=== PATIENT | male | born 1945 | race Caucasian/White ===

== ENCOUNTER 2022-04-04 11:10 | Outpatient (CLI) | payer MEDICARE, SELFPAY ==
[2022-04-04 12:40] LABS: Creatinine Urine 161.5 mg/dL
[2022-04-04 12:44] LABS: Microalbumin Creatinine Ratio 0 mg/g (0-30); Microalbumin Urine 1 mg/dL
[2022-04-04 15:39] LABS: Albumin* 3.5 g/dL (3.3-5.0)
[2022-04-04 15:40] LABS: Chloride* 108 mmol/L (96-114); Potassium* 4.9 mmol/L (3.6-5.1); Sodium* 139 mmol/L (135-149)
[2022-04-04 15:42] LABS: Bilirubin Total* 0.7 mg/dL (0.1-1.5); Carbon Dioxide* 23 mmol/L (20-32); Cholesterol* 186 mg/dL (90-199); Creatinine* 0.8 mg/dL (0.5-1.5); Estimated Glomerular Filt Rate 91 ml/min; Total Protein* 6.5 g/dL (6.0-8.3)
[2022-04-04 15:43] LABS: Alanine Aminotransferase* 14 U/L (4-50); Alkaline Phosphatase* 106 U/L (40-150); Aspartate Amino Transferase* 18 U/L (12-35); Blood Urea Nitrogen* 7 mg/dL (7-30); Calcium* 9.1 mg/dL (8.4-10.6); Glucose* 112 mg/dL (60-115); HDL Cholesterol* 30 mg/dL (>=40); LDL Cholesterol Calculated 116 mg/dL (<100); Triglycerides* 202 mg/dL (40-149)
== END 2022-04-04 11:11 | disposition home or self-care (01) ==
LOC: NFLDREF 11:11
PROVIDERS: PCP Family Medicine; Visit Provider Family Medicine
DX: E11.9 Type 2 diabetes mellitus without complications (principal); E78.5 Hyperlipidemia, unspecified; I10 Essential (primary) hypertension
CPT/HCPCS: 80053; 80061; 82043; 82570

== ENCOUNTER 2022-05-20 12:45 | Outpatient (CLI) | payer MEDICARE, SELFPAY | END 2022-05-20 12:46 | disposition home or self-care (01) | PROVIDERS: PCP Family Medicine; Visit Provider Family Medicine | DX: R20.0 Anesthesia of skin (principal); I73.9 Peripheral vascular disease, unspecified | CPT/HCPCS: 93922 ==

== ENCOUNTER 2023-04-02 19:18 | Inpatient (IN) | payer MEDICARE, SELFPAY ==
[2023-04-02] VITALS (44 sets, daily range): BP systolic 64–149; BP diastolic 35–115; PULSE 88–123; RESP 10–31; TEMP 32; O2SAT 66–100
--- NOTE | 2023-04-02 19:33 | ED_ITS ---
HPI - General Adult General Chief complaint: Hypothermia Stated complaint: shortness of breath, weak Time Seen by Provider: 04/02/23 19:33 History of Present Illness HPI narrative: Pt has been at home without furnace for at least 2 days, found by alysia at home on bed. Pt alert to self and place per EMS. BG 299. Pt is hypothermic . 77-year-old man brought by outside EMS to this department concern of hypothermia/exposure. Apparently has been at home without heat for 2 days. Found today by denisa hartman at home in bed. Noted to be hypothermic. On arrival here head 89.6. Alerts quickly to colleague who had gone by just to evaluate quickly but to me keeping his eyes closed grunting responses but does not seem to be any distress other than fatigued. Denies any pain. Denies any fall. On repeated interviews over the course visit in the emergency department subse quent information is obtained. Says his furnace went out a couple of days ago and he has just been trying to stay warm. Does admit to drinking alcohol. He does admit that he used to drink but mostly does not anymore. Did have a few shots this evening just because he was bored. Apparently has been struggling with intermittent diarrhea rather urgent at times for at least a couple of months. Denies dark or bloody stools or any vomiting. No abdominal pain (but he told our hospitalist later that when he eats he has significant abdominal pain). He is not feeling lightheaded or short of breath he says. No chest pain however in speaking with his stepson later he says that he has been to the doctor for exertional dyspnea and leg pains. Records would indicate peripheral artery disease and claudication. Does continue to smoke. Brian reports chronic left leg numbness. Would appear that he has been seen by vascular. Not apparent what determinations have been made. Hospitalist later notes bowel wall thickening noted in various areas of the colon on imaging from this summer 2022. EMS intends to file vulnerable adult given state of home. I understand that [facility] will be cutting off water to the house as there is no functioning heat. Related Data Previous Rx's Medication Instructions Recorded amlodipine 10 mg tablet 10 mg PO QDAY #90 tabs 04/04/22 chlorthalidone 25 mg tablet 25 mg PO QDAY #90 tabs 04/04/22 lisinopril 10 mg tablet 10 mg PO QDAY #90 tabs 04/04/22 potassium chloride 20 mEq 20 meq PO BID #180 tabs 04/04/22 tablet,extended release Allergies Allergy/AdvReac Type Severity Reaction Status Date / Time No Known Allergies Allergy Unknown Unknown Verified 04/02/23 23:11 Review of Systems Status of ROS: Reports: 6 or more systems reviewed and unremarkable except as noted in History and below [facility] Social History Smoking Status: Current every day smoker What tobacco products do you use: cigarettes Do you use any of these nicotine containing products: None Second hand tobacco smoke exposure: No How often do you have a drink containing alcohol: never AUDIT-C Alcohol total score: 0 Non-prescribed substance use: denies use Little interest or pleasure in doing things: more than half the days Feeling down, depressed, or hopeless: not at all service: No Exam Narrative: Exam Narrative: On initial assessment he is not conversant beyond grunting at me. Keeping his eyes closed. He had just been up and reportedly quite conversant with my colleague. He has been placed under a Nany Hugger. Appears to be edentulous. Mucous membranes, conjunctival membranes do not appear particularly pale. Th inning head hair. Head is atraumatic. Neck is supple appears to be nontender. Back also nontender. He is generally thin. Large sebaceous cyst at the left cheek. Noninflamed. Cranial nerves 2-12 look to be intact. Pupils are equal. Lungs with mild bibasilar crepitus. Heart is elevated to tachycardic rate and appears to be in a regular rhythm. Abdomen with normoactive bowel sounds is soft and nontender. Extremities are without edema. Skin is generally cool. Small bruise in the inside of the left knee without swelling otherwise. Patches of intradermal erythema on the right forearm in particular. Skin is somewhat sallow otherwise. Const: Vital Signs, click to edit/add: Vital Signs - 24 hr 04/02/23 19:21 04/02/23 19:45 04/02/23 19:53 Temperature 89.6 F L Pulse Rate 100 Pulse Rate [Pulse Oximeter] 106 H Respiratory Rate 28 H Blood Pressure 108/92 H Blood Pressure [Le ft Upper Arm] 101/60 Pulse Oximetry 96 100 100 Oxygen Delivery Me thod Room Air Nasal Cannula Oxygen Flow Rate 1 04/02/23 20:00 04/02/23 20:02 04/02/23 20:15 Temperature Pulse Rate 100 98 95 Pulse Rate [Pulse Oximeter] Respiratory Rate 23 Blood Pressure 92/61 94/61 Blood Pressure [Le ft Upper Arm] Pulse Oximetry 90 94 89 Oxygen Delivery Me thod Nasal Cannula Oxygen Flow Rate 1 04/02/23 20:16 04/02/23 20:22 04/02/23 20:30 Temperature Pulse Rate 99 102 H 112 H Pulse Rate [Pulse Oximeter] Respiratory Rate 25 H 19 Blood Pressure 94/79 Blood Pressure [Le ft Upper Arm] Pulse Oximetry 87 L 100 99 Oxygen Delivery Me thod Oxygen Flow Rate 04/02/23 20:32 04/02/23 20:42 04/02/23 20:44 Temperature Pulse Rate 109 H Pulse Rate [Pulse Oximeter] Respiratory Rate Blood Pressure 103/88 64/47 L 101/82 Blood Pressure [Le ft Upper Arm] Pulse Oximetry 100 Oxygen Delivery Me thod Oxygen Flow Rate 04/02/23 20:53 04/02/23 21:00 04/02/23 21:02 Temperature Pulse Rate 96 93 98 Pulse Rate [Pulse Oximeter] Respiratory Rate Blood Pressure 128/115 H 68/35 L Blood Pressure [Le ft Upper Arm] Pulse Oximetry 89 70 L 66 L Oxygen Delivery Me thod Oxygen Flow Rate 04/02/23 21:05 04/02/23 21:08 04/02/23 21:10 Temperature Pulse Rate 96 102 H 109 H Pulse Rate [Pulse Oximeter] Respiratory Rate 20 16 11 L Blood Pressure 71/56 L 79/65 L 102/57 L Blood Pressure [Le ft Upper Arm] Pulse Oximetry 87 L 97 95 Oxygen Delivery Me thod Oxygen Flow Rate 04/02/23 21:12 04/02/23 21:15 04/02/23 21:42 Temperature Pulse Rate 104 H 104 H Pulse Rate [Pulse Oximeter] Respiratory Rate 18 25 H Blood Pressure 104/54 L 120/79 Blood Pressure [Le ft Upper Arm] Pulse Oximetry 91 94 Oxygen Delivery Me thod Oxygen Flow Rate 04/02/23 21:45 04/02/23 21:51 04/02/23 22:00 Temperature Pulse Rate 95 98 100 Pulse Rate [Pulse Oximeter] Respiratory Rate 29 H 26 H 17 Blood Pressure 121/64 Blood Pressure [Le ft Upper Arm] Pulse Oximetry 100 98 100 Oxygen Delivery Me thod Oxygen Flow Rate 04/02/23 22:02 04/02/23 22:15 04/02/23 22:16 Temperature Pulse Rate 98 110 H 109 H Pulse Rate [Pulse Oximeter] Respiratory Rate 30 H Blood Pressure 98/79 Blood Pressure [Le ft Upper Arm] Pulse Oximetry 100 100 100 Oxygen Delivery Me thod Oxygen Flow Rate 04/02/23 22:25 04/02/23 22:30 04/02/23 22:34 Temperature Pulse Rate 103 H 123 H 94 Pulse Rate [Pulse Oximeter] Respiratory Rate 31 H Blood Pressure 74/54 L Blood Pressure [Le ft Upper Arm] Pulse Oximetry 100 100 Oxygen Delivery Me thod Oxygen Flow Rate 04/02/23 22:36 04/02/23 22:43 04/02/23 22:45 Temperature Pulse Rate 88 92 89 Pulse Rate [Pulse Oximeter] Respiratory Rate 23 23 31 H Blood Pressure 89/58 L 149/71 H Blood Pressure [Le ft Upper Arm] Pulse Oximetry 100 100 100 Oxygen Delivery Me thod Oxygen Flow Rate 04/02/23 22:52 04/02/23 23:00 04/02/23 23:02 Temperature Pulse Rate 92 91 89 Pulse Rate [Pulse Oximeter] Respiratory Rate 26 H 25 H 23 Blood Pressure 96/53 L 96/54 L Blood Pressure [Le ft Upper Arm] Pulse Oximetry 100 100 100 Oxygen Delivery Me thod Oxygen Flow Rate 04/02/23 23:12 04/02/23 23:15 04/02/23 23:21 Temperature Pulse Rate 88 91 100 Pulse Rate [Pulse Oximeter] Respiratory Rate 20 10 L Blood Pressure 87/57 L 101/49 L Blood Pressure [Le ft Upper Arm] Pulse Oximetry 100 100 100 Oxygen Delivery Me thod Oxygen Flow Rate 04/02/23 23:23 04/02/23 23:40 04/02/23 23:43 Temperature Pulse Rate 90 91 95 Pulse Rate [Pulse Oximeter] Respiratory Rate Blood Pressure 108/71 88/61 L 89/40 L Blood Pressure [Le ft Upper Arm] Pulse Oximetry 100 77 L 100 Oxygen Delivery Me thod Oxygen Flow Rate 04/02/23 23:45 04/02/23 23:52 04/03/23 00:00 Temperature Pulse Rate 91 90 90 Pulse Rate [Pulse Oximeter] Respiratory Rate Blood Pressure 81/60 L Blood Pressure [Le ft Upper Arm] Pulse Oximetry 100 99 99 Oxygen Delivery Me thod Oxygen Flow Rate 04/03/23 01:14 Temperature 97.5 F L Pulse Rate Pulse Rate [Pulse Oximeter] 84 Respiratory Rate 12 Blood Pressure Blood Pressure [Le ft Upper Arm] 95/52 L Pulse Oximetry 99 Oxygen Delivery Me thod Room Air Oxygen Flow Rate Documenting provider has reviewed patient's vital signs: yes Course Vital Signs Vital signs: Initial Vital Signs Temperature 89.6 F L 04/02/23 19:21 Temperature Source Rectal 04/02/23 19:21 Pulse Rate 106 H 04/02/23 19:21 Respiratory Rate 28 H 04/02/23 19:21 Blood Pressure 101/60 04/02/23 19:21 Blood Pressure Mean 73 04/02/23 19:21 Blood Pressure Position Supine 04/02/23 19:21 Pulse Oximetry 96 04/02/23 19:21 Oxygen Delivery Method Room Air 04/02/23 19:21 Vital Signs Temperature 89.6 F L 04/02/23 19:21 Pulse Rate 106 H 04/02/23 19:21 Respiratory Rate 28 H 04/02/23 19:21 Blood Pressure 101/60 04/02/23 19:21 Pulse Oximetry 96 04/02/23 19:21 Oxygen Delivery Method Room Air 04/02/23 19:21 Temperature 97.5 F L 04/03/23 01:14 Pulse Rate 84 04/03/23 01:14 Respiratory Rate 12 04/03/23 01:14 Blood Pressure 95/52 L 04/03/23 01:14 Pulse Oximetry 99 04/03/23 01:14 Oxygen Delivery Method Room Air 04/03/23 01:14 Oxygen Flow Rate 1 04/02/23 20:00 Medications Administered Medications: Discontinued Medications Generic Name Dose Route Start Last Admin Trade Name Freq PRN Reason Stop Dose Admin Sodium Chloride 1,000 mls @ 1,000 mls/hr 04/02/23 19:44 04/02/23 21:25 0.9 % Sodium Chloride 1000 Ml IV 04/02/23 20:43 Infused .Q1H ONE Infusion Sodium Chloride 1,000 mls @ 1,000 mls/hr 04/02/23 21:24 01/17/24 23:00 0.9 % Sodium Chloride 1000 Ml IV 04/02/23 22:23 Infused .Q1H ONE Infusion Piperacillin Sod/Tazobactam 100 mls @ 200 mls/hr 04/02/23 23:17 04/03/23 00:26 Sod 3.375 gm/ Sodium Chloride IVPB 04/02/23 23:18 Infused ONCE ONE Infusion Lorazepam 0.5 mg 04/02/23 21:24 04/02/23 21:58 Lorazepam 2 Mg/Ml Inj IVP 04/02/23 21:25 0.5 mg ONCE ONE Administration Medical Decision Making MDM Narrative Medical decision making narrative: Will need to closely monitor given hypothermia. Placed on oximetry and cardiac monitoring. EKG. Initiating secondary IV. Will begin with warm normal saline fluids resuscitation. As warm can make further assessments. In addition to bear hugger is given other radiant warmer. OB looking for potential sources of infection. Blood cultures. Initial labs demonstrating acidosis with rather high lactate of 18. CRP 5.2. White count is 16.8 and hemoglobin of 6.1 hematocrit is also low so I do have concerns that this hemoglobin is real. Unclear source of bleeding at this point. Anion gap 29. CPK 49 is actually low. Alcohol level of 0.06. Anticipating rechecking as warm up. Seems restless. Little confused at times but does continue to clear. Did check stool Hemoccult on 1 urgent loose stool. This was negative. Blood pressures are a somewhat labile as he is restless and regularly rotating position in bed. Correct pressure seems to be stable approximately low 100 over 60s. Lower pressures seem to correlate with the arm with the blood pressure cuff up as he sleeps on the opposite side peer Temperature near normal. Rechecking labs. Lactate still quite high though improved as is the pH now to 7.1. Frankly looks surprisingly good, alert, and conversant and with acceptable vitals and a mild tachycardia. Sepsis still needs to be in differential. He is rechecking hemoglobin hematocrit this does appear to be a real measurement of 5.9 for hemoglobin. He has not heard in the past that he has been anemic. Denies ever receiving a transfusion. Have discussed this case with our hospitalist. We are limited on beds. Blood type is O negative. We have very limited supply of this. Perhaps O positive would be an option of which we have 4 units. Outside facilities on varying levels of diversion. Patient looks much better than labs. From perspective of direct interaction and vitals, does not need ICU. Will be initiating Zosyn with concern of potential sepsis. And IV contrasted CT scan abdomen pelvis. 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 He says one shouldn't expect much for 10,000 dollars. I have reviewed CT images of abdomen pelvis. Appears to be extensive vascular disease. Aorta with what looks to be an extensive infrarenal aneurysm. There is also a large mass in the right mid abdomen of the colon that I would expect to be malignancy. At this point has had 2 diarrheal bowel movements and appears to have urinated with the 2nd 1:12 a.m. is just had latest blood pressure of 93/52 and a pulse of 85. He still mentating normally very alert. Says he is little cold. Over-read of CT abdomen and pelvis with IV contrast by Radiology INDICATION: Severe anemia. TECHNIQUE: CT abdomen and pelvis acquired with 97 mL Isovue 370 IV contrast. COMPARISON: CTA abdomen dated 09/18/2022. FINDINGS: Lower chest: Subsegmental atelectasis/scarring in the right middle lobe. No focal consolidation. Liver: No suspicious focal hepatic lesion. Gallbladder and bile ducts: Cholelithiasis. No secondary signs of acute cholecystitis. Pancreas: Stable 0.9 cm cystic lesion in the pancreatic head (series 2, image 50). Spleen: Unremarkable. Adrenal glands: Unremarkable. Kidneys: Kidneys enhance symmetrically, without hydronephrosis. Too small to characterize hypodense bilateral renal lesions. Retroperitoneum: No lymphadenopathy. Bowel and mesentery: Bowel is not obstructed. No significant ascites. No pneumoperitoneum. Scattered colonic diverticulosis, without evidence of acute diverticulitis. Large irregular mass involving the cecum and proximal ascending colon, increased in conspicuity since prior study, worrisome for primary colonic neoplasm. Bladder: Mild circumferential bladder wall thickening, stable. Reproductive organs: No prostatomegaly. Pelvic lymph nodes: No lymphadenopathy. Vessels: Severe calcified and noncalcified atherosclerotic plaque. Celiac artery is patent. Nonocclusive plaque in the distal SMA, unchanged. Diminutive right renal arteries, unchanged. Patent left renal artery. Partially visualized JEFF appears patent. Aneurysmal dilation of the infrarenal abdominal aorta measuring up to 4.0 cm, slightly increased. Chronic occlusion of the right common iliac artery. Multifocal severe stenosis of the left common iliac artery, similar to prior study. Abdominal wall: No acute abdominal wall abnormality. Bones: Severe multilevel degenerative changes of the spine. Bones are osteopenic. IMPRESSION: 1. Large irregular mass involving the cecum and proximal ascending colon, increased in conspicuity since prior study, highly worrisome for primary colonic neoplasm. 2. Severe atherosclerotic disease of the abdominal aorta, with aneurysmal dilation of the infrarenal abdominal aorta measuring up to 4.0 cm, slightly increased since prior study. 3. Chronic occlusion of the right common iliac artery. Multifocal severe stenosis of the left common iliac artery. 4. Numerous additional incidental findings as above. Complicated case further challenged by social circumstances. I think it is beneficial that he remain in the community and hopefully can be helped by social work. Furthermore Mr. Bradford does not want to go to an outside/tertiary facility and is unsure what he would want to do regarding what is likely a malignancy in his abdomen anyway. Infrarenal aortic aneurysm looks to be relatively stable from imaging from last summer per Radiology report. Slightly enlarged to 4 cm in maximal diameter. Stenosis of iliac arteries particularly the left I would think could explain the numbness that he has been feeling chronically in his left leg I have discussed this case with our overnight hospitalist coverage for admission. Due to lack of availability of enough type specific blood, will be initiating further fluid resuscitation and unit of crossmatched O positive. 2 units are ready to go at this point. Lab Data Lab results reviewed: Yes I reviewed the patient's lab results Labs: Lab Results 04/02/23 04/02/23 04/02/23 Range/Units 19:43 19:51 20:14 WBC 16.82 H (4.50-11.00) K/uL RBC 3.55 L (4.30-5.90) m/uL Hgb 6.1 L* (13.5-17.5) gm/dL Hct 23.9 L (37.0-53.0) % MCV 67 L (80-100) fL MCH 17 L (26-34) pg MCHC 26 L (32-36) gm/dL RDW Coeff of Nissa 18.4 H (11.5-15.5) % Plt Count 609 H (140-440) K/uL Neut % (Auto) 80.5 H (42.0-72.0) % Lymph % (Auto) 12.7 L (20-44) % [place] % (Auto) 3.9 (0.0-11.0) % Eos % (Auto) 0.1 (0.0-7.0) % Baso % (Auto) 0.1 (0.0-3.0) % Neut # (Auto) 13.50 H (1.7-7.0) K/uL Lymph # (Auto) 2.10 (0.90-2.90) K/uL [place] # (Auto) 0.70 (0.00-0.90) K/UL Eos # (Auto) 0.00 (0.00-0.50) K/uL Baso # (Auto) 0.00 (0.00-0.30) K/uL Abs Immat Gran (auto) 0.50 H (0.00-0.30) K/uL Imm/Tot Granulo (auto) 2.7 % VBG pH 7.033 L* (7.32-7.43) VBG pCO2 24 L (40-50) mmHG VBG pO2 46.6 (25-47) mmHG VBG HCO3 6 L (21-28) mmol/L Sodium 139 (135-149) mmol/L Potassium 3.9 (3.6-5.1) mmol/L Chloride 105 (96-114) mmol/L Carbon Dioxide < 5 L* (20-32) mmol/L Anion Gap 29 H (7-15) mEq/L BUN 11 (7-30) mg/dL Creatinine 1.0 (0.5-1.5) mg/dL Estimated GFR 77 ml/min Glucose 284 H (60-115) mg/dL Lactate 18.0 H* (0.5-1.9) mmol/L Calcium 8.8 (8.4-10.6) mg/dL Magnesium 2.3 (1.5-2.6) mg/dL Total Bilirubin 0.6 (0.1-1.5) mg/dL Direct Bilirubin 0.3 (0.0-0.5) mg/dL AST 29 (12-35) U/L ALT 37 (4-50) U/L Alkaline Phosphatase 87 (40-150) U/L Total Creatine Kinase 49 L (54-186) U/L Troponin I < 0.01 L (0.01-0.04) ng/mL C-Reactive Protein 5.2 H (0.5-1.0) mg/dL NT-Pro-B Natriuret Pep 926 pg/mL Total Protein 7.2 (6.0-8.3) g/dL Albumin 3.7 (3.3-5.0) g/dL Ethyl Alcohol 0.06 H (0.01-0.03) % SARS-CoV-2 (PCR) Negative SARS-CoV-2 (Negative) Influenza Type A (PCR) Negative PCR FLU A (Negative) Influenza Type B (PCR) Negative PCR FLU B (Negative) RSV (PCR) Negative PCR RSV (Negative) Lab Acknowledgement Blood Type O Negative Antibody Screen NEGATIVE 04/02/23 04/03/23 Range/Units 22:08 00:58 WBC 15.40 H (4.50-11.00) K/uL RBC 3.47 L (4.30-5.90) m/uL Hgb 5.9 L* (13.5-17.5) gm/dL Hct 23.3 L (37.0-53.0) % MCV 67 L (80-100) fL MCH 17 L (26-34) pg MCHC 25 L (32-36) gm/dL RDW Coeff of Nissa 18.4 H (11.5-15.5) % Plt Count 525 H (140-440) K/uL Neut % (Auto) 86.5 H (42.0-72.0) % Lymph % (Auto) 4.3 L (20-44) % [place] % (Auto) 8.1 (0.0-11.0) % Eos % (Auto) 0.0 (0.0-7.0) % Baso % (Auto) 0.1 (0.0-3.0) % Neut # (Auto) 13.30 H (1.7-7.0) K/uL Lymph # (Auto) 0.70 L (0.90-2.90) K/uL [place] # (Auto) 1.20 H (0.00-0.90) K/UL Eos # (Auto) 0.00 (0.00-0.50) K/uL Baso # (Auto) 0.00 (0.00-0.30) K/uL Abs Immat Gran (auto) 0.20 (0.00-0.30) K/uL Imm/Tot Granulo (auto) 1.0 % VBG pH 7.174 L* (7.32-7.43) VBG pCO2 22 L (40-50) mmHG VBG pO2 34.3 (25-47) mmHG VBG HCO3 8 L (21-28) mmol/L Sodium (135-149) mmol/L Potassium (3.6-5.1) mmol/L Chloride (96-114) mmol/L Carbon Dioxide (20-32) mmol/L Anion Gap (7-15) mEq/L BUN (7-30) mg/dL Creatinine (0.5-1.5) mg/dL Estimated GFR ml/min Glucose (60-115) mg/dL Lactate 16.0 H* (0.5-1.9) mmol/L Calcium (8.4-10.6) mg/dL Magnesium (1.5-2.6) mg/dL Total Bilirubin (0.1-1.5) mg/dL Direct Bilirubin (0.0-0.5) mg/dL AST (12-35) U/L ALT (4-50) U/L Alkaline Phosphatase (40-150) U/L Total Creatine Kinase (54-186) U/L Troponin I (0.01-0.04) ng/mL C-Reactive Protein (0.5-1.0) mg/dL NT-Pro-B Natriuret Pep pg/mL Total Protein (6.0-8.3) g/dL Albumin (3.3-5.0) g/dL Ethyl Alcohol (0.01-0.03) % SARS-CoV-2 (PCR) (Negative) Influenza Type A (PCR) (Negative) Influenza Type B (PCR) (Negative) RSV (PCR) (Negative) Lab Acknowledgement Test Added Blood Type Antibody Screen ECG Data Attestation: I personally reviewed and interpreted this ECG as follows: (EKG shows sinus tachycardia with baseline irritability. PVC. Rate of 103.) Critical Care Time Critical Care Time Critical Care Time: Yes Attestation: The patient required my highest level preparedness to intervene emergently and I personally spent this critical care time directly and personally managing the patient. This critical care time included: Obtaining a history; Examining the patient; Pulse oximetry; Ordering and reviewing of studies; Arranging urgent treatment with development of a management plan; Evaluation of patients response to treatment; Frequent reassessment discussions with other providers. This critical care time was performed to assess and manage the high probability of imminent life-threatening deterioration that could result in multiorgan failure. It was exclusive of separate billable procedures and treating other patients and teaching time. Total Critical Care Time in Minutes: 75 Discharge Plan Discharge Clinical Impression: Acidosis, Anemia, Dehydration, Abdominal mass, Hypothermia Patient Disposition: Admitted As Observation Condition: Stable
--- NOTE | 2023-04-02 19:45 | CRLHL7_ITS ---
For Patients: As a result of the Cures Act, medical imaging exams and procedure reports are released immediately into your electronic medical record. You may view this report before your referring provider. If you have questions, please contact your health care provider. INDICATION: Altered mental status. Possible hypothermia. TECHNIQUE: Chest 1 views. COMPARISON: None. FINDINGS: Cardiovasculature and mediastinum: Heart size and vasculature are normal in caliber and appearance. Lungs and pleural spaces: Lungs are clear. No sign of infiltrate or mass. No sign of pleural effusion. No pneumothorax. Bones and soft tissues: No significant findings. IMPRESSION: No acute or significant findings. Dictated by David Nielsen MD @ 04/02/2023 8:41:28 PM (Electronically Signed)
[2023-04-02] MEDS: 0.9 % SODIUM CHLORIDE 1000 ml 1,000 ML IV ×2 (19:50→21:58)
[2023-04-02 19:55] LABS: HCO3 VBG 6 mmol/L (21-28); PCO2 VBG 24 mmHG (40-50); PO2 VBG 46.6 mmHG (25-47)
[2023-04-02 19:59] LABS: Basophils Percent Auto 0.1 % (0.0-3.0); Eosinophils Percent Auto 0.1 % (0.0-7.0); Hematocrit 23.9 % (37.0-53.0); Immature Granulocytes Pct Auto 2.7 %; Lymphocytes Percent Auto 12.7 % (20-44); Mean Corpuscular HGB Conc 26 gm/dL (32-36); Mean Corpuscular Hemoglobin 17 pg (26-34); Mean Corpuscular Volume 67 fL (80-100); Monocytes Percent Auto 3.9 % (0.0-11.0); Neutrophils Percent Auto 80.5 % (42.0-72.0); Platelet Count* 609 K/uL (140-440); RDW Coefficient of Variation % 18.4 % (11.5-15.5); Red Blood Count 3.55 m/uL (4.30-5.90); White Blood Count* 16.82 K/uL (4.50-11.00)
[2023-04-02 20:04] LABS: Hemoglobin* 6.1 gm/dL (13.5-17.5); Slide Review Reflex No; pH VBG 7.033 (7.32-7.43)
--- OUTSIDE RECORDS SUMMARY | 2023-04-02 20:15 | XMS_ITS | Clinical Summary ---
Author Name Unknown Organization [facility] Address [place], [place] [address] Care Team Providers Care Resource Coordinator Name Role Phone David Camacho MD Primary Care Provider [phone] Allergies No known active allergies Medications Medication Sig Dispensed Refills Start Date End Date Status amLODIPine (NORVASC) 10 mg tablet Take 10 mg by mouth once daily. 0 05/06/2022 Active chlorthalidone (HYGROTON) 25 mg tablet Take 25 mg by mouth once daily. 0 05/06/2022 Active lisinopriL (PRINIVIL; ZESTRIL) 10 mg tablet Take 10 mg by mouth once daily. 0 05/06/2022 Active potassium chloride (KLOR-CON) 20 mEq extended-release tablet (part/cryst) Take 20 mEq by mouth. 0 05/06/2022 Active Social History Tobacco Use Types Packs/Day Years Used Date Smoking Tobacco: Every Day Cigars Smokeless Tobacco: Never Tobacco Cessation:Ready to Q uit: Not Asked; Counseling Given: Not Answered Sex and Gender Information Value Date Recorded Sex Assigned at Not on file Gender Identity Not on file Sexual Orientation Not on file Obstetrics History Last Filed Vital Signs Vital Sign Reading Time Taken Comments Blood Pressure 110/74 08/22/2022 12:59 PM CDT Pulse 107 08/22/2022 12:59 PM CDT Temperature - - Respiratory Rate - - Oxygen Saturation 99% 08/22/2022 12:59 PM CDT Inhaled Oxygen Concentration - - Weight - - Height - - Body Mass Index - - Plan of Treatment Health Maintenance Due Date Last Done Comments Tdap 09/08/1956 Depression screening for age 12+ 1956 BMI (ht and wt on same day) for age 18+ 1962 Hepatitis C screening for age 18-79 1962 Tetanus booster 1964 Zoster (shingles) series for age 50+ (1 of 2) 1994 Pneumococcal series for age 65+ (1 of 1 - PCV) 2009 COVID-19 vaccine series ( - 2022- season) 2022 04/24/2021, 05/23/2020, 05/02/2020 Influenza for age 65+ 11/15/2022 Care Teams Resource Coordinator Relationship Specialty Start Date End Date David Camacho MD [address] [place] [id number] PCP - General Family Practice 07/29/22
[2023-04-02 20:20] LABS: Albumin* 3.7 g/dL (3.3-5.0); Chloride* 105 mmol/L (96-114)
[2023-04-02 20:21] LABS: Potassium* 3.9 mmol/L (3.6-5.1); Sodium* 139 mmol/L (135-149)
[2023-04-02 20:23] LABS: Estimated Glomerular Filt Rate 77 ml/min
[2023-04-02 20:24] LABS: Alanine Aminotransferase* 37 U/L (4-50); Alkaline Phosphatase* 87 U/L (40-150); Aspartate Amino Transferase* 29 U/L (12-35); Bilirubin Direct* 0.3 mg/dL (0.0-0.5); Bilirubin Total* 0.6 mg/dL (0.1-1.5); Blood Urea Nitrogen* 11 mg/dL (7-30); Calcium* 8.8 mg/dL (8.4-10.6); Glucose* 284 mg/dL (60-115); Magnesium* 2.3 mg/dL (1.5-2.6); Total Protein* 7.2 g/dL (6.0-8.3)
[2023-04-02 20:25] LABS: Ethanol* 0.06 % (0.01-0.03)
[2023-04-02 20:26] LABS: C Reactive Protein* 5.2 mg/dL (0.5-1.0)
[2023-04-02 20:33] LABS: Anion Gap 29 mEq/L (7-15)
[2023-04-02 20:34] LABS: Carbon Dioxide* < 5 mmol/L (20-32)
--- NOTE | 2023-04-02 20:34 | ED.NURSE ---
Received call from EMS staff, [facility]. He wanted to make sure that we contacted hospital to follow patient. Per [facility], pt's living conditions were horrible. Pt was without water and heat for at least 2 days and was found down by furnace repair man. Pt is not safe to return home and [facility] is filing a [facility] report due to pt's inability to care for himself at home. Message left with VIKAS Lopez, for consult on patient tomorrow when in office.
[2023-04-02 20:36] LABS: PCR FLU A Negative PCR FLU A (Negative); PCR FLU B Negative PCR FLU B (Negative); PCR RSV Negative PCR RSV (Negative); SARS PCR* Negative SARS-CoV-2 (Negative)
[2023-04-02 20:37] LABS: NT Pro B Type NatriureticPept* 926 pg/mL
[2023-04-02 20:55] LABS: Troponin I* < 0.01 ng/mL (0.01-0.04)
[2023-04-02 21:08] LABS: Creatine Kinase* 49 U/L (54-186)
[2023-04-02] MEDS: LORazepam 2 MG/ML inj 0.5 MG IVP (21:58)
[2023-04-02 22:12] LABS: HCO3 VBG 8 mmol/L (21-28); PCO2 VBG 22 mmHG (40-50); PO2 VBG 34.3 mmHG (25-47)
[2023-04-02 22:13] LABS: pH VBG 7.174 (7.32-7.43)
[2023-04-02 22:26] LABS: Basophils Percent Auto 0.1 % (0.0-3.0); Hematocrit 23.3 % (37.0-53.0); Lymphocytes Percent Auto 4.3 % (20-44); Mean Corpuscular HGB Conc 25 gm/dL (32-36); Mean Corpuscular Hemoglobin 17 pg (26-34); Mean Corpuscular Volume 67 fL (80-100); Monocytes Percent Auto 8.1 % (0.0-11.0); Neutrophils Percent Auto 86.5 % (42.0-72.0); Platelet Count* 525 K/uL (140-440); RDW Coefficient of Variation % 18.4 % (11.5-15.5); Red Blood Count 3.47 m/uL (4.30-5.90)
[2023-04-02 22:28] LABS: Hemoglobin* 5.9 gm/dL (13.5-17.5); Slide Review Reflex No
--- NOTE | 2023-04-02 23:12 | CRLHL7_ITS ---
For Patients: As a result of the Century Cures Act, medical imaging exams and procedure reports are released immediately into your electronic medical record. You may view this report before your referring provider. If you have questions, please contact your health care provider. INDICATION: Severe anemia. TECHNIQUE: CT abdomen and pelvis acquired with 97 mL Isovue 370 IV contrast. COMPARISON: CTA abdomen dated 09/18/2022. FINDINGS: Lower chest: Subsegmental atelectasis/scarring in the right middle lobe. No focal consolidation. Liver: No suspicious focal hepatic lesion. Gallbladder and bile ducts: Cholelithiasis. No secondary signs of acute cholecystitis. Pancreas: Stable 0.9 cm cystic lesion in the pancreatic head (series 2, image 50). Spleen: Unremarkable. Adrenal glands: Unremarkable. Kidneys: Kidneys enhance symmetrically, without hydronephrosis. Too small to characterize hypodense bilateral renal lesions. Retroperitoneum: No lymphadenopathy. Bowel and mesentery: Bowel is not obstructed. No significant ascites. No pneumoperitoneum. Scattered colonic diverticulosis, without evidence of acute diverticulitis. Large irregular mass involving the cecum and proximal ascending colon, increased in conspicuity since prior study, worrisome for primary colonic neoplasm. Bladder: Mild circumferential bladder wall thickening, stable. Reproductive organs: No prostatomegaly. Pelvic lymph nodes: No lymphadenopathy. Vessels: Severe calcified and noncalcified atherosclerotic plaque. Celiac artery is patent. Nonocclusive plaque in the distal SMA, unchanged. Diminutive right renal arteries, unchanged. Patent left renal artery. Partially visualized JEFF appears patent. Aneurysmal dilation of the infrarenal abdominal aorta measuring up to 4.0 cm, slightly increased. Chronic occlusion of the right common iliac artery. Multifocal severe stenosis of the left common iliac artery, similar to prior study. Abdominal wall: No acute abdominal wall abnormality. Bones: Severe multilevel degenerative changes of the spine. Bones are osteopenic. IMPRESSION: 1. Large irregular mass involving the cecum and proximal ascending colon, increased in conspicuity since prior study, highly worrisome for primary colonic neoplasm. 2. Severe atherosclerotic disease of the abdominal aorta, with aneurysmal dilation of the infrarenal abdominal aorta measuring up to 4.0 cm, slightly increased since prior study. 3. Chronic occlusion of the right common iliac artery. Multifocal severe stenosis of the left common iliac artery. 4. Numerous additional incidental findings as above. Please note that all CT scans at this facility use dose modulation, iterative reconstruction, and/or weight-based dosing when appropriate to reduce radiation dose to as low as reasonably achievable. Dictated by Shari Gruber MD @ 04/03/2023 12:40:55 AM (Electronically Signed)
[2023-04-02] MEDS: PIPERACILLIN/TAZOBACTAM 3.375 GM in 0.9 % SODIUM CHLORIDE Mini-bag 100 ML IVPB (23:50)
[2023-04-03] VITALS (13 sets, daily range): BP systolic 91–116; BP diastolic 47–67; PULSE 64–90; RESP 12–18; TEMP 36.4–37.1; O2SAT 99–100; BMI 25.3
--- NOTE | 2023-04-03 01:21 | ED.NURSE ---
Report called to MATILDE Montano on med/surg. ER course discussed with nurse. All questions answered. Pt will admit to room 255. Pt in stable condition upon transfer. All belongings with pt upon admission to floor.
[2023-04-03 01:50] LABS: Immature Reticulocyte Fraction 20.5 % (2.3-13.4); Reticulocyte Hemoglobin Equivi 12.2 pg (29.0-35.0); Reticulocyte Percent 2.6 % (0.5-2.0); Reticulocytes Absolute 0.09 # (0.03-0.08)
[2023-04-03 01:56] LABS: Iron* 28 ug/dL (49-181)
[2023-04-03 01:57] LABS: Lab Add On Test New Spec Needed
[2023-04-03 01:59] LABS: Procalcitonin* 0.31 ng/mL (<0.50)
[2023-04-03 02:05] LABS: Percent Iron Saturation 7 % (20-50); Total Iron Binding Capacity 412 ug/dL (261-462)
--- NOTE | 2023-04-03 02:30 | W.PM.TELEH&P ---
Telehealth- H&P: HPI History of Present Illness Time Seen by Provider: 02:08 Date Seen: 04/03/23 Chief complaint: shortness of breath, weak Narrative: Brian Bradford is seen as an Interactive Telehealth visit. Brian Bradford is a 77 year old With history ofLongstanding tobaccoism, type 2 diabetes, essential hypertension, peripheral vascular disease, who was found in his home by the heating repair man weak and confused and house without heat in the house is quite disheveled. His core temperature was 89 ?F. Is brought to the emergency room and rewarmed with warm IV fluids and a Nany hugger successfully. Laboratory data showed a new hemoglobin of 6.5 microchromic microcytic. He relates pain after eating poor appetite. Denies any melena hematochezia Mattole emesis. Denies fevers or chills.Being admitted for further evaluation. Review of Systems Status of ROS: Reports: 10 or more systems reviewed and unremarkable except as noted in History and below [facility] Social History Smoking Status: Current every day smoker What tobacco products do you use: cigarettes Do you use any of these nicotine containing products: None Second hand tobacco smoke exposure: No How often do you have a drink containing alcohol: never AUDIT-C Alcohol total score: 0 Non-prescribed substance use: denies use Little interest or pleasure in doing things: more than half the days Feeling down, depressed, or hopeless: not at all service: No Meds Home Medications and Allergies Allergies Allergy/AdvReac Type Severity Reaction Status Date / Time No Known Allergies Allergy Unknown Unknown Verified 04/02/23 23:11 Exam Narrative Exam Narrative: Physical Exam GENERAL: ?vital signs reviewedAwake alert oriented HEENT: pupils are equal round and reactive to light, extraocular movements are grossly within normal limits and oral mucosa is moist. NECK: Supple without lymphadenopathy or thyromegaly according to nursing staff examination observation HEART: Regular rate and rhythm without any rubs, murmurs, or gallops. LUNGS: Clear to auscultation bilaterally with good air movement throughout ABDOMEN: Observation from nurse assisted exam, abdomen appears soft, nontender, and nondistended with Positive bowel sounds noted. EXTREMITIES: Distal extremities somewhat cool but adequate perfusion. No skin breakdown noted no edema Neurologic grossly nonfocal Const Vital Signs, click to edit/add: Vital Signs - 24 hr 04/02/23 19:21 04/02/23 19:45 04/02/23 19:53 Temperature 89.6 F L Pulse Rate 100 Pulse Rate [Pulse Oximeter] 106 H Respiratory Rate 28 H Blood Pressure 108/92 H Blood Pressure [Left Upper Arm] 101/60 Pulse Oximetry 96 100 100 Oxygen Delivery Method Room Air Nasal Cannula Oxygen Flow Rate 1 04/02/23 20:00 04/02/23 20:02 04/02/23 20:15 Temperature Pulse Rate 100 98 95 Pulse Rate [Pulse Oximeter] Respiratory Rate 23 Blood Pressure 92/61 94/61 Blood Pressure [Left Upper Arm] Pulse Oximetry 90 94 89 Oxygen Delivery Method Nasal Cannula Oxygen Flow Rate 1 04/02/23 20:16 04/02/23 20:22 04/02/23 20:30 Temperature Pulse Rate 99 102 H 112 H Pulse Rate [Pulse Oximeter] Respiratory Rate 25 H 19 Blood Pressure 94/79 Blood Pressure [Left Upper Arm] Pulse Oximetry 87 L 100 99 Oxygen Delivery Method Oxygen Flow Rate 04/02/23 20:32 04/02/23 20:42 04/02/23 20:44 Temperature Pulse Rate 109 H Pulse Rate [Pulse Oximeter] Respiratory Rate Blood Pressure 103/88 64/47 L 101/82 Blood Pressure [Left Upper Arm] Pulse Oximetry 100 Oxygen Delivery Method Oxygen Flow Rate 04/02/23 20:53 04/02/23 21:00 04/02/23 21:02 Temperature Pulse Rate 96 93 98 Pulse Rate [Pulse Oximeter] Respiratory Rate Blood Pressure 128/115 H 68/35 L Blood Pressure [Left Upper Arm] Pulse Oximetry 89 70 L 66 L Oxygen Delivery Method Oxygen Flow Rate 04/02/23 21:05 04/02/23 21:08 04/02/23 21:10 Temperature Pulse Rate 96 102 H 109 H Pulse Rate [Pulse Oximeter] Respiratory Rate 20 16 11 L Blood Pressure 71/56 L 79/65 L 102/57 L Blood Pressure [Left Upper Arm] Pulse Oximetry 87 L 97 95 Oxygen Delivery Method Oxygen Flow Rate 04/02/23 21:12 04/02/23 21:15 04/02/23 21:42 Temperature Pulse Rate 104 H 104 H Pulse Rate [Pulse Oximeter] Respiratory Rate 18 25 H Blood Pressure 104/54 L 120/79 Blood Pressure [Left Upper Arm] Pulse Oximetry 91 94 Oxygen Delivery Method Oxygen Flow Rate 04/02/23 21:45 04/02/23 21:51 04/02/23 22:00 Temperature Pulse Rate 95 98 100 Pulse Rate [Pulse Oximeter] Respiratory Rate 29 H 26 H 17 Blood Pressure 121/64 Blood Pressure [Left Upper Arm] Pulse Oximetry 100 98 100 Oxygen Delivery Method Oxygen Flow Rate 04/02/23 22:02 04/02/23 22:15 04/02/23 22:16 Temperature Pulse Rate 98 110 H 109 H Pulse Rate [Pulse Oximeter] Respiratory Rate 30 H Blood Pressure 98/79 Blood Pressure [Left Upper Arm] Pulse Oximetry 100 100 100 Oxygen Delivery Method Oxygen Flow Rate 04/02/23 22:25 04/02/23 22:30 04/02/23 22:34 Temperature Pulse Rate 103 H 123 H 94 Pulse Rate [Pulse Oximeter] Respiratory Rate 31 H Blood Pressure 74/54 L Blood Pressure [Left Upper Arm] Pulse Oximetry 100 100 Oxygen Delivery Method Oxygen Flow Rate 04/02/23 22:36 04/02/23 22:43 04/02/23 22:45 Temperature Pulse Rate 88 92 89 Pulse Rate [Pulse Oximeter] Respiratory Rate 23 23 31 H Blood Pressure 89/58 L 149/71 H Blood Pressure [Left Upper Arm] Pulse Oximetry 100 100 100 Oxygen Delivery Method Oxygen Flow Rate 04/02/23 22:52 04/02/23 23:00 04/02/23 23:02 Temperature Pulse Rate 92 91 89 Pulse Rate [Pulse Oximeter] Respiratory Rate 26 H 25 H 23 Blood Pressure 96/53 L 96/54 L Blood Pressure [Left Upper Arm] Pulse Oximetry 100 100 100 Oxygen Delivery Method Oxygen Flow Rate 04/02/23 23:12 04/02/23 23:15 04/02/23 23:21 Temperature Pulse Rate 88 91 100 Pulse Rate [Pulse Oximeter] Respiratory Rate 20 10 L Blood Pressure 87/57 L 101/49 L Blood Pressure [Left Upper Arm] Pulse Oximetry 100 100 100 Oxygen Delivery Method Oxygen Flow Rate 04/02/23 23:23 04/02/23 23:40 04/02/23 23:43 Temperature Pulse Rate 90 91 95 Pulse Rate [Pulse Oximeter] Respiratory Rate Blood Pressure 108/71 88/61 L 89/40 L Blood Pressure [Left Upper Arm] Pulse Oximetry 100 77 L 100 Oxygen Delivery Method Oxygen Flow Rate 04/02/23 23:45 04/02/23 23:52 04/03/23 00:00 Temperature Pulse Rate 91 90 90 Pulse Rate [Pulse Oximeter] Respiratory Rate Blood Pressure 81/60 L Blood Pressure [Left Upper Arm] Pulse Oximetry 100 99 99 Oxygen Delivery Method Oxygen Flow Rate 04/03/23 01:14 Temperature 97.5 F L Pulse Rate Pulse Rate [Pulse Oximeter] 84 Respiratory Rate 12 Blood Pressure Blood Pressure [Left Upper Arm] 95/52 L Pulse Oximetry 99 Oxygen Delivery Method Room Air Oxygen Flow Rate Hospitalist - H&P: Result Labs Labs: Laboratory Results - last 24 hr 04/02/23 04/02/23 04/02/23 19:43 19:51 20:14 WBC 16.82 H RBC 3.55 L Hgb 6.1 L* Hct 23.9 L MCV 67 L MCH 17 L MCHC 26 L RDW Coeff of Nissa 18.4 H Plt Count 609 H Neut % (Auto) 80.5 H Lymph % (Auto) 12.7 L Stearns % (Auto) 3.9 Eos % (Auto) 0.1 Baso % (Auto) 0.1 Neut # (Auto) 13.50 H Lymph # (Auto) 2.10 Stearns # (Auto) 0.70 Eos # (Auto) 0.00 Baso # (Auto) 0.00 Abs Immat Gran (auto) 0.50 H Imm/Tot Granulo (auto) 2.7 Absolute Retic 0.09 H Percent Retic 2.6 H Immature Retic Fraction 20.5 H Retic Hgb Equivalent 12.2 L VBG pH 7.033 L* VBG pCO2 24 L VBG pO2 46.6 VBG HCO3 6 L Sodium 139 Potassium 3.9 Chloride 105 Carbon Dioxide < 5 L* Anion Gap 29 H BUN 11 Creatinine 1.0 Estimated GFR 77 Glucose 284 H Lactate 18.0 H* Calcium 8.8 Magnesium 2.3 Iron 28 L TIBC 412 % Saturation 7 L Ferritin 12.7 L Total Bilirubin 0.6 Direct Bilirubin 0.3 AST 29 ALT 37 Alkaline Phosphatase 87 Total Creatine Kinase 49 L Troponin I < 0.01 L C-Reactive Protein 5.2 H NT-Pro-B Natriuret Pep 926 Total Protein 7.2 Albumin 3.7 Procalcitonin 0.31 Ethyl Alcohol 0.06 H SARS-CoV-2 (PCR) Negative SARS-CoV-2 Influenza Type A (PCR) Negative PCR FLU A Influenza Type B (PCR) Negative PCR FLU B RSV (PCR) Negative PCR RSV Lab Acknowledgement Blood Type O Negative Antibody Screen NEGATIVE 04/02/23 04/03/23 04/03/23 22:08 00:58 01:24 WBC 15.40 H RBC 3.47 L Hgb 5.9 L* Hct 23.3 L MCV 67 L MCH 17 L MCHC 25 L RDW Coeff of Nissa 18.4 H Plt Count 525 H Neut % (Auto) 86.5 H Lymph % (Auto) 4.3 L Stearns % (Auto) 8.1 Eos % (Auto) 0.0 Baso % (Auto) 0.1 Neut # (Auto) 13.30 H Lymph # (Auto) 0.70 L Stearns # (Auto) 1.20 H Eos # (Auto) 0.00 Baso # (Auto) 0.00 Abs Immat Gran (auto) 0.20 Imm/Tot Granulo (auto) 1.0 Absolute Retic Percent Retic Immature Retic Fraction Retic Hgb Equivalent VBG pH 7.174 L* VBG pCO2 22 L VBG pO2 34.3 VBG HCO3 8 L Sodium Potassium Chloride Carbon Dioxide Anion Gap BUN Creatinine Estimated GFR Glucose Lactate 16.0 H* Calcium Magnesium Iron TIBC % Saturation Ferritin Total Bilirubin Direct Bilirubin AST ALT Alkaline Phosphatase Total Creatine Kinase Troponin I C-Reactive Protein NT-Pro-B Natriuret Pep Total Protein Albumin Procalcitonin Ethyl Alcohol SARS-CoV-2 (PCR) Influenza Type A (PCR) Influenza Type B (PCR) RSV (PCR) Lab Acknowledgement Test Added Test Added Blood Type Antibody Screen 04/03/23 01:41 WBC RBC Hgb Hct MCV MCH MCHC RDW Coeff of Nissa Plt Count Neut % (Auto) Lymph % (Auto) Stearns % (Auto) Eos % (Auto) Baso % (Auto) Neut # (Auto) Lymph # (Auto) Stearns # (Auto) Eos # (Auto) Baso # (Auto) Abs Immat Gran (auto) Imm/Tot Granulo (auto) Absolute Retic Percent Retic Immature Retic Fraction Retic Hgb Equivalent VBG pH VBG pCO2 VBG pO2 VBG HCO3 Sodium Potassium Chloride Carbon Dioxide Anion Gap BUN Creatinine Estimated GFR Glucose Lactate Calcium Magnesium Iron TIBC % Saturation Ferritin Total Bilirubin Direct Bilirubin AST ALT Alkaline Phosphatase Total Creatine Kinase Troponin I C-Reactive Protein NT-Pro-B Natriuret Pep Total Protein Albumin Procalcitonin Ethyl Alcohol SARS-CoV-2 (PCR) Influenza Type A (PCR) Influenza Type B (PCR) RSV (PCR) Lab Acknowledgement New Spec Needed Blood Type Antibody Screen ECG Attestation: I personally reviewed and interpreted this ECG as follows: ECG interpretation date: 04/03/23 ECG interpretation time: 02:46 Prior ECG tracings: available for review Interpretation: Sinus tachycardia 103 bpm poor baseline with a lot of artifact. No ischemic changes narrow QRS QT corrected 0.489 axis [address] Chest/Ab/Pelvis: Attestation: I have reviewed the pertinent imaging results. Radiologist's impression: 1. Large irregular mass involving the cecum and proximal ascending colon, increased in conspicuity since prior study, highly worrisome for primary colonic neoplasm. 2. Severe atherosclerotic disease of the abdominal aorta, with aneurysmal dilation of the infrarenal abdominal aorta measuring up to 4.0 cm, slightly increased since prior study. 3. Chronic occlusion of the right common iliac artery. Multifocal severe stenosis of the left common iliac artery. 4. Numerous additional incidental findings as above. Please note that all CT scans at this facility use dose modulation, iterative reconstruction, and/or weight-based dosing when appropriate to reduce radiation dose to as low as reasonably achievable. Assessment and Plan Assessment and plan (1) Hypothermia: Status: Acute (2) Abdominal mass: Status: Acute (3) Dehydration: Status: Acute (4) Anemia: Status: Acute (5) PAD (peripheral artery disease): Status: Acute (6) Tobacco use: Status: Acute (7) DMII (diabetes mellitus, type 2): Status: Acute Plan 77-year-old gentleman found hypothermic at home due to environmental exposure to loss of heat. Problems include 1. Hypothermia now corrected with external warming 2. Severe microchromic microcytic anemia likely secondary to colonic mass 3. Severe peripheral vascular disease with both mesenteric and peripheral arterial disease 4. Hypertension 5. Type 2 diabetes 6. Tobaccoism 7. Lack of availability of O+ blood blood 8. Full CODE STATUS 9. DVT prophylaxis plan 1. Admit to telemetry bed 2. Despite him having Rh incompatibility the relatively low risk of a transfusion reaction in a male with no prior transfusions is quite low and the risk-benefit favors an attempt at using Rh incompatible old positive blood given his severe anemia in the presence of severe peripheral vascular disease. Will give the blood over the life of the blood and premedicate with acetaminophen and monitor for signs of transfusion reaction. Follow hemoglobin serially 3 continue home hypertensive medications 4. DVT prophylaxis is problematic given his medical contraindication for anticoagulation due to severe anemia and likely bleeding colonic lesion and a relative contraindication severe peripheral vascular disease for sequential intermittent compression devices. However risk-benefit ratio favors using the Flowtron's given the fact that he has no evidence of skin breakdown or cyanosis. 5. Further workup will depend after iron studies likely will need colonoscopy evaluation and staging. CODE STATUS is full. 6 blood sugars will be monitored. Telehealth: Statement Statement Telehealth Visit: Today's History and Physical is provided via interactive telehealth by Laron Lentz MD.? Patient is located at [facility].? Provider is located at [facility].? Nursing staff assisted with the patient's exam. The visit being done today meets criteria for a telehealth visit and the patient or patient?s parent/guardian is aware the visit is a telehealth visit. Camera Start Time: 02:08 Camera End Time: 02:28
[2023-04-03 02:33] LABS: Ferritin* 12.7 ng/mL (17.9-464.0)
[2023-04-03] MEDS: ACETAMINOPHEN 500 MG TABLET 1000 MG PO (03:21)
[2023-04-03] MEDS: 0.9 % SODIUM CHLORIDE 250 ml IV (03:32)
[2023-04-03] MEDS: 0.9 % SODIUM CHLORIDE 1000 ml 1,000 ML 250 ML IV (03:33)
[2023-04-03 09:39] LABS: Hemoglobin* 7.1 gm/dL (13.5-17.5)
[2023-04-03 14:32] LABS: Hemoglobin* 7.1 gm/dL (13.5-17.5)
--- NOTE | 2023-04-03 15:41 | PM.IMPN1 ---
Progress Note: A&P Assessment and plan (1) Hypothermia: Problem details: - much improved with rewarming. - a big concern is his ability to make safe decisions given that his home furnace was out of he will any did not seek appropriate, safe help. Thankfully someone found him and called help for him. - work with our social worker health services to assist with safe discharge disposition planning. Status: Acute (2) Abdominal mass: Problem details: - had peewee discussion with patient about further evaluating this mass. He asked us to proceed. - consider outpatient colonoscopy after his current condition is deemed more stable. Status: Acute (3) Dehydration: Status: Acute (4) Anemia: Problem details: - hemoglobin stabilizing status post 1 unit packed red blood cells. Present with hemoglobin of 5.9. Hemoglobin morning of 04/03/2023 status post transfusion 7.1. Hemoglobin afternoon of 04/03/2023 stable at 7.5. - continue to monitor. Status: Acute (5) PAD (peripheral artery disease): Problem details: - diffuse severe peripheral vascular disease on CT scan images obtained on admission to the hospital. Status: Acute (6) Tobacco use: Status: Acute (7) DMII (diabetes mellitus, type 2): Status: Acute Plan 1. Reviewed impression with patient. 2. Attempted to call his family member, Jasson [phone]. No answer. 3. Continue to monitor serial hemoglobin. 4. Initiate work with physical therapy, occupational therapy, and social worker health services in regard to planning safe discharge disposition. 5. Continue with other supportive efforts. Time Spent With Patient Total time spent: 35 minute Subjective Date Seen: 04/03/23 Interval history: Admission history of present illness on 04/03/2023: Brian Bradford is seen as an Interactive Telehealth visit. Brian Bradford is a 77 year old With history ofLongstanding tobaccoism, type 2 diabetes, essential hypertension, peripheral vascular disease, who was found in his home by the heating repair man weak and confused and house without heat in the house is quite disheveled. His core temperature was 89 ?F. Is brought to the emergency room and rewarmed with warm IV fluids and a Nany hugger successfully. Laboratory data showed a new hemoglobin of 6.5 microchromic microcytic. He relates pain after eating poor appetite. Denies any melena hematochezia [hemat]emesis. Denies fevers or chills.Being admitted for further evaluation. Hospital day 1. Feels better and after 1 unit of packed red blood cells than he has for a long time. Still weak. Informs me how he lives alone, bathroom is on the 2nd story of the house. He struggles to go up and down the the stairs in his house to go to the bathroom. More recently has been using a bucket on the main level and emptying out only once a day so he only has to make that trip once a day. I have been informed that the [facility] social worker health services are involved. There was concern about his save welfare in his home. Exam Narrative: Exam Narrative: I examined patient in his hospital room. Awake, articulate, cooperative. Vision and hearing are adequate. Oriented to self, place, time, situation. Lungs are clear to auscultation. Heart tones with regular rhythm. Abdomen with active bowel sounds, soft, nontender. Extremities without edema. Generalized weakness. No focal motor neurologic deficits. Const: Vital Signs, click to edit/add: Vital Signs - 24 hr 04/02/23 19:21 04/02/23 19:45 04/02/23 19:53 Temperature 89.6 F L Pulse Rate 100 Pulse Rate [Pulse Oximeter] 106 H Pulse Rate [Right Pulse Oximeter] Respiratory Rate 28 H Blood Pressure 108/92 H Blood Pressure [Le ft Upper Arm] 101/60 Pulse Oximetry 96 100 100 Oxygen Delivery Me thod Room Air Nasal Cannula Oxygen Flow Rate 1 04/02/23 20:00 04/02/23 20:02 04/02/23 20:15 Temperature Pulse Rate 100 98 95 Pulse Rate [Pulse Oximeter] Pulse Rate [Right Pulse Oximeter] Respiratory Rate 23 Blood Pressure 92/61 94/61 Blood Pressure [Le ft Upper Arm] Pulse Oximetry 90 94 89 Oxygen Delivery Me thod Nasal Cannula Oxygen Flow Rate 1 04/02/23 20:16 04/02/23 20:22 04/02/23 20:30 Temperature Pulse Rate 99 102 H 112 H Pulse Rate [Pulse Oximeter] Pulse Rate [Right Pulse Oximeter] Respiratory Rate 25 H 19 Blood Pressure 94/79 Blood Pressure [Le ft Upper Arm] Pulse Oximetry 87 L 100 99 Oxygen Delivery Me thod Oxygen Flow Rate 04/02/23 20:32 04/02/23 20:42 04/02/23 20:44 Temperature Pulse Rate 109 H Pulse Rate [Pulse Oximeter] Pulse Rate [Right Pulse Oximeter] Respiratory Rate Blood Pressure 103/88 64/47 L 101/82 Blood Pressure [Le ft Upper Arm] Pulse Oximetry 100 Oxygen Delivery Me thod Oxygen Flow Rate 04/02/23 20:53 04/02/23 21:00 04/02/23 21:02 Temperature Pulse Rate 96 93 98 Pulse Rate [Pulse Oximeter] Pulse Rate [Right Pulse Oximeter] Respiratory Rate Blood Pressure 128/115 H 68/35 L Blood Pressure [Le ft Upper Arm] Pulse Oximetry 89 70 L 66 L Oxygen Delivery Me thod Oxygen Flow Rate 04/02/23 21:05 04/02/23 21:08 04/02/23 21:10 Temperature Pulse Rate 96 102 H 109 H Pulse Rate [Pulse Oximeter] Pulse Rate [Right Pulse Oximeter] Respiratory Rate 20 16 11 L Blood Pressure 71/56 L 79/65 L 102/57 L Blood Pressure [Le ft Upper Arm] Pulse Oximetry 87 L 97 95 Oxygen Delivery Me thod Oxygen Flow Rate 04/02/23 21:12 04/02/23 21:15 04/02/23 21:42 Temperature Pulse Rate 104 H 104 H Pulse Rate [Pulse Oximeter] Pulse Rate [Right Pulse Oximeter] Respiratory Rate 18 25 H Blood Pressure 104/54 L 120/79 Blood Pressure [Le ft Upper Arm] Pulse Oximetry 91 94 Oxygen Delivery Me thod Oxygen Flow Rate 04/02/23 21:45 04/02/23 21:51 04/02/23 22:00 Temperature Pulse Rate 95 98 100 Pulse Rate [Pulse Oximeter] Pulse Rate [Right Pulse Oximeter] Respiratory Rate 29 H 26 H 17 Blood Pressure 121/64 Blood Pressure [Le ft Upper Arm] Pulse Oximetry 100 98 100 Oxygen Delivery Me thod Oxygen Flow Rate 04/02/23 22:02 04/02/23 22:15 04/02/23 22:16 Temperature Pulse Rate 98 110 H 109 H Pulse Rate [Pulse Oximeter] Pulse Rate [Right Pulse Oximeter] Respiratory Rate 30 H Blood Pressure 98/79 Blood Pressure [Le ft Upper Arm] Pulse Oximetry 100 100 100 Oxygen Delivery Me thod Oxygen Flow Rate 04/02/23 22:25 04/02/23 22:30 04/02/23 22:34 Temperature Pulse Rate 103 H 123 H 94 Pulse Rate [Pulse Oximeter] Pulse Rate [Right Pulse Oximeter] Respiratory Rate 31 H Blood Pressure 74/54 L Blood Pressure [Le ft Upper Arm] Pulse Oximetry 100 100 Oxygen Delivery Me thod Oxygen Flow Rate 04/02/23 22:36 04/02/23 22:43 04/02/23 22:45 Temperature Pulse Rate 88 92 89 Pulse Rate [Pulse Oximeter] Pulse Rate [Right Pulse Oximeter] Respiratory Rate 23 23 31 H Blood Pressure 89/58 L 149/71 H Blood Pressure [Le ft Upper Arm] Pulse Oximetry 100 100 100 Oxygen Delivery Me thod Oxygen Flow Rate 04/02/23 22:52 04/02/23 23:00 04/02/23 23:02 Temperature Pulse Rate 92 91 89 Pulse Rate [Pulse Oximeter] Pulse Rate [Right Pulse Oximeter] Respiratory Rate 26 H 25 H 23 Blood Pressure 96/53 L 96/54 L Blood Pressure [Le ft Upper Arm] Pulse Oximetry 100 100 100 Oxygen Delivery Me thod Oxygen Flow Rate 04/02/23 23:12 04/02/23 23:15 04/02/23 23:21 Temperature Pulse Rate 88 91 100 Pulse Rate [Pulse Oximeter] Pulse Rate [Right Pulse Oximeter] Respiratory Rate 20 10 L Blood Pressure 87/57 L 101/49 L Blood Pressure [Le ft Upper Arm] Pulse Oximetry 100 100 100 Oxygen Delivery Me thod Oxygen Flow Rate 04/02/23 23:23 04/02/23 23:40 04/02/23 23:43 Temperature Pulse Rate 90 91 95 Pulse Rate [Pulse Oximeter] Pulse Rate [Right Pulse Oximeter] Respiratory Rate Blood Pressure 108/71 88/61 L 89/40 L Blood Pressure [Le ft Upper Arm] Pulse Oximetry 100 77 L 100 Oxygen Delivery Me thod Oxygen Flow Rate 04/02/23 23:45 04/02/23 23:52 04/03/23 00:00 Temperature Pulse Rate 91 90 90 Pulse Rate [Pulse Oximeter] Pulse Rate [Right Pulse Oximeter] Respiratory Rate Blood Pressure 81/60 L Blood Pressure [Le ft Upper Arm] Pulse Oximetry 100 99 99 Oxygen Delivery Me thod Oxygen Flow Rate 04/03/23 00:40 04/03/23 01:14 04/03/23 03:05 Temperature 98.3 F 97.5 F L Pulse Rate Pulse Rate [Pulse Oximeter] 84 Pulse Rate [Right Pulse Oximeter] 76 Respiratory Rate 18 12 16 Blood Pressure Blood Pressure [Le ft Upper Arm] 95/52 L Pulse Oximetry 99 99 Oxygen Delivery Me thod Room Air Room Air Oxygen Flow Rate 04/03/23 03:30 04/03/23 03:51 04/03/23 05:00 Temperature 98.3 F 98.3 F 98.3 F Pulse Rate 76 76 64 Pulse Rate [Pulse Oximeter] Pulse Rate [Right Pulse Oximeter] Respiratory Rate 16 16 16 Blood Pressure 113/53 L 110/47 L 91/61 Blood Pressure [Le ft Upper Arm] Pulse Oximetry 99 Oxygen Delivery Me thod Oxygen Flow Rate 04/03/23 06:00 04/03/23 06:30 04/03/23 09:24 Temperature 98.4 F 98.3 F Pulse Rate 66 65 66 Pulse Rate [Pulse Oximeter] Pulse Rate [Right Pulse Oximeter] Respiratory Rate 16 16 Blood Pressure 116/67 108/64 Blood Pressure [Le ft Upper Arm] Pulse Oximetry 99 99 Oxygen Delivery Me thod Oxygen Flow Rate Documenting provider has reviewed patient's vital signs: yes Labs Labs: Laboratory Results - last 24 hr 04/02/23 04/02/23 04/02/23 19:43 19:51 20:14 WBC 16.82 H RBC 3.55 L Hgb 6.1 L* Hct 23.9 L MCV 67 L MCH 17 L MCHC 26 L RDW Coeff of Nissa 18.4 H Plt Count 609 H Neut % (Auto) 80.5 H Lymph % (Auto) 12.7 L Garden % (Auto) 3.9 Eos % (Auto) 0.1 Baso % (Auto) 0.1 Neut # (Auto) 13.50 H Lymph # (Auto) 2.10 Garden # (Auto) 0.70 Eos # (Auto) 0.00 Baso # (Auto) 0.00 Abs Immat Gran (auto) 0.50 H Imm/Tot Granulo (auto) 2.7 Absolute Retic 0.09 H Percent Retic 2.6 H Immature Retic Fraction 20.5 H Retic Hgb Equivalent 12.2 L VBG pH 7.033 L* VBG pCO2 24 L VBG pO2 46.6 VBG HCO3 6 L Sodium 139 Potassium 3.9 Chloride 105 Carbon Dioxide < 5 L* Anion Gap 29 H BUN 11 Creatinine 1.0 Estimated GFR 77 Glucose 284 H Lactate 18.0 H* Calcium 8.8 Magnesium 2.3 Iron 28 L TIBC 412 % Saturation 7 L Ferritin 12.7 L Total Bilirubin 0.6 Direct Bilirubin 0.3 AST 29 ALT 37 Alkaline Phosphatase 87 Total Creatine Kinase 49 L Troponin I < 0.01 L C-Reactive Protein 5.2 H NT-Pro-B Natriuret Pep 926 Total Protein 7.2 Albumin 3.7 Procalcitonin 0.31 Ethyl Alcohol 0.06 H SARS-CoV-2 (PCR) Negative SARS-CoV-2 Influenza Type A (PCR) Negative PCR FLU A Influenza Type B (PCR) Negative PCR FLU B RSV (PCR) Negative PCR RSV Lab Acknowledgement Blood Type O Negative Antibody Screen NEGATIVE Crossmatch ([facility]) See Detail 04/02/23 04/03/23 04/03/23 22:08 00:58 01:24 WBC 15.40 H RBC 3.47 L Hgb 5.9 L* Hct 23.3 L MCV 67 L MCH 17 L MCHC 25 L RDW Coeff of Nissa 18.4 H Plt Count 525 H Neut % (Auto) 86.5 H Lymph % (Auto) 4.3 L Garden % (Auto) 8.1 Eos % (Auto) 0.0 Baso % (Auto) 0.1 Neut # (Auto) 13.30 H Lymph # (Auto) 0.70 L Garden # (Auto) 1.20 H Eos # (Auto) 0.00 Baso # (Auto) 0.00 Abs Immat Gran (auto) 0.20 Imm/Tot Granulo (auto) 1.0 Absolute Retic Percent Retic Immature Retic Fraction Retic Hgb Equivalent VBG pH 7.174 L* VBG pCO2 22 L VBG pO2 34.3 VBG HCO3 8 L Sodium Potassium Chloride Carbon Dioxide Anion Gap BUN Creatinine Estimated GFR Glucose Lactate 16.0 H* Calcium Magnesium Iron TIBC % Saturation Ferritin Total Bilirubin Direct Bilirubin AST ALT Alkaline Phosphatase Total Creatine Kinase Troponin I C-Reactive Protein NT-Pro-B Natriuret Pep Total Protein Albumin Procalcitonin Ethyl Alcohol SARS-CoV-2 (PCR) Influenza Type A (PCR) Influenza Type B (PCR) RSV (PCR) Lab Acknowledgement Test Added Test Added Blood Type Antibody Screen Crossmatch ([facility]) 04/03/23 04/03/23 04/03/23 01:41 09:27 14:20 WBC RBC Hgb 7.1 L* 7.1 L* Hct MCV MCH MCHC RDW Coeff of Nissa Plt Count Neut % (Auto) Lymph % (Auto) Garden % (Auto) Eos % (Auto) Baso % (Auto) Neut # (Auto) Lymph # (Auto) Garden # (Auto) Eos # (Auto) Baso # (Auto) Abs Immat Gran (auto) Imm/Tot Granulo (auto) Absolute Retic Percent Retic Immature Retic Fraction Retic Hgb Equivalent VBG pH VBG pCO2 VBG pO2 VBG HCO3 Sodium Potassium Chloride Carbon Dioxide Anion Gap BUN Creatinine Estimated GFR Glucose Lactate Calcium Magnesium Iron TIBC % Saturation Ferritin Total Bilirubin Direct Bilirubin AST ALT Alkaline Phosphatase Total Creatine Kinase Troponin I C-Reactive Protein NT-Pro-B Natriuret Pep Total Protein Albumin Procalcitonin Ethyl Alcohol SARS-CoV-2 (PCR) Influenza Type A (PCR) Influenza Type B (PCR) RSV (PCR) Lab Acknowledgement New Spec Needed Blood Type Antibody Screen Crossmatch ([facility]) Imaging CT scan of abdomen and pelvis : Attestation: I have reviewed the pertinent imaging results. Radiologist's impression: FINDINGS: Lower chest: Subsegmental atelectasis/scarring in the right middle lobe. No focal consolidation. Liver: No suspicious focal hepatic lesion. Gallbladder and bile ducts: Cholelithiasis. No secondary signs of acute cholecystitis. Pancreas: Stable 0.9 cm cystic lesion in the pancreatic head (series 2, image 50). Spleen: Unremarkable. Adrenal glands: Unremarkable. Kidneys: Kidneys enhance symmetrically, without hydronephrosis. Too small to characterize hypodense bilateral renal lesions. Retroperitoneum: No lymphadenopathy. Bowel and mesentery: Bowel is not obstructed. No significant ascites. No pneumoperitoneum. Scattered colonic diverticulosis, without evidence of acute diverticulitis. Large irregular mass involving the cecum and proximal ascending colon, increased in conspicuity since prior study, worrisome for primary colonic neoplasm. Bladder: Mild circumferential bladder wall thickening, stable. Reproductive organs: No prostatomegaly. Pelvic lymph nodes: No lymphadenopathy. Vessels: Severe calcified and noncalcified atherosclerotic plaque. Celiac artery is patent. Nonocclusive plaque in the distal SMA, unchanged. Diminutive right renal arteries, unchanged. Patent left renal artery. Partially visualized JEFF appears patent. Aneurysmal dilation of the infrarenal abdominal aorta measuring up to 4.0 cm, slightly increased. Chronic occlusion of the right common iliac artery. Multifocal severe stenosis of the left common iliac artery, similar to prior study. Abdominal wall: No acute abdominal wall abnormality. Bones: Severe multilevel degenerative changes of the spine. Bones are osteopenic. IMPRESSION: 1. Large irregular mass involving the cecum and proximal ascending colon, increased in conspicuity since prior study, highly worrisome for primary colonic neoplasm. 2. Severe atherosclerotic disease of the abdominal aorta, with aneurysmal dilation of the infrarenal abdominal aorta measuring up to 4.0 cm, slightly increased since prior study. 3. Chronic occlusion of the right common iliac artery. Multifocal severe stenosis of the left common iliac artery. 4. Numerous additional incidental findings as above.
--- NOTE | 2023-04-03 16:30 | PC.SOCIAL ---
Addendum entered by ELEAZAR Erickson 04/04/23 13:44: Discharge planning: [facility] responded back and stated that they did have male openings next week for short-term rehab. This worker sent pt's referral to Nelly at [facility] via secure email. Social work to follow-up as needed. Original Note: Discharge planning: sand control worker met with pt to discuss discharge planning. sand control worker explained that pt is being recommended for short-term rehab starting early next week. Pt is interested in [facility]. sand control worker reached out to [facility] to see if they would have a short-term rehab bed for a male opening early next week. Social work to follow-up as needed.
[2023-04-03 19:19] LABS: Appearance Urine Slightly Cloudy (Clear); Bilirubin Urine Negative (Negative); Blood Urine Trace-intact (Negative); Color Urine Yellow (Yellow); Glucose Urine Negative (Negative); Ketones Urine Negative (Negative); Leukocyte Esterase Urine Trace (Negative); Nitrite Urine Negative (Negative); Protein Urine Negative (Negative); Urobilinogen Urine 0.2 (0.2-1.0)
[2023-04-03 19:24] LABS: Amphetamine Screen Urine Negative (Negative); Barbiturate Screen Urine Negative (Negative); Benzodiazepines Screen Urine Negative (Negative); Cannabinoid Screen Urine Negative (Negative); Cocaine Screen Urine Negative (Negative); Methadone Screen Urine Negative (Negative); Methamphetamines Screen Urine Negative (Negative); Opiate Screen Urine Negative (Negative); Oxycodone Screen Urine Negative (Negative); Phencyclidine Screen Urine Negative (Negative); Tricyclic Antidepressant Urine Negative (Negative)
[2023-04-03 20:19] LABS: Hemoglobin* 7.2 gm/dL (13.5-17.5)
[2023-04-03] MEDS: SODIUM CHLORIDE 0.9 % (FLUSH) 10 ML SYRINGE 5 ML IVF (21:42)
--- NOTE | 2023-04-03 22:37 | PC.NURSE ---
Patient alert and oriented this shift. Pleasant and cooperative with staff. Up to the bathroom with SBA, walker and GB. Pt reports a decreased appetite and chose to not order an evening meal. quality assurance monitor chassis shows NSR with 1st degree HB. Urine sample obtained this shift.
[2023-04-04] VITALS (8 sets, daily range): BP systolic 108–130; BP diastolic 59–74; PULSE 70–99; RESP 16–20; TEMP 36.8–37.1; O2SAT 94–99; BMI 24.9
--- NOTE | 2023-04-04 05:08 | PC.NURSE ---
[id number] Pt slept during night, body temp WNL, denies pain.
[2023-04-04 06:52] LABS: Hematocrit 24.2 % (37.0-53.0); Mean Corpuscular HGB Conc 29 gm/dL (32-36); Mean Corpuscular Hemoglobin 19 pg (26-34); Mean Corpuscular Volume 66 fL (80-100); Platelet Count* 431 K/uL (140-440); Red Blood Count 3.65 m/uL (4.30-5.90); White Blood Count* 10.34 K/uL (4.50-11.00)
[2023-04-04 06:55] LABS: HCO3 VBG 24 mmol/L (21-28); Lactate* 0.9 mmol/L (0.5-1.9); PCO2 VBG 36 mmHG (40-50); PO2 VBG 24.5 mmHG (25-47); pH VBG 7.437 (7.32-7.43)
[2023-04-04 07:14] LABS: Chloride* 106 mmol/L (96-114)
[2023-04-04 07:15] LABS: Potassium* 3.2 mmol/L (3.6-5.1); Sodium* 135 mmol/L (135-149)
[2023-04-04 07:17] LABS: Anion Gap 6 mEq/L (7-15); Blood Urea Nitrogen* 6 mg/dL (7-30); Carbon Dioxide* 23 mmol/L (20-32); Creatine Kinase* 45 U/L (54-186); Creatinine* 0.5 mg/dL (0.5-1.5); Est. Creatinine Clearance* 47.02; Estimated Glomerular Filt Rate 104 ml/min; Lipase* 31 U/L (23-300)
[2023-04-04 07:18] LABS: Glucose* 93 mg/dL (60-115); Phosphorus* 2.2 mg/dL (2.5-4.5)
[2023-04-04 07:20] LABS: C Reactive Protein* 8.7 mg/dL (0.5-1.0)
[2023-04-04 07:22] LABS: Slide Review Reflex No
--- NOTE | 2023-04-04 10:18 | PC.SOCIAL ---
Addendum entered by ELEAZAR Erickson 04/04/23 12:45: Discharge planning: [employer] worker assisted pt with completing an MA application per the request Saima Calixto with [facility]. Worker sent the application to the county via secure email. Social work to follow-up as needed. Original Note: Discharge planning: [employer] worker spoke with Saima Calixto from [facility] today in regard to pt. Updated Saima on pt's willingness to go to a SNF for short-term rehab and that a referral has been sent to [facility]. Saima stated that the [facility] will most likely be looking at the pt's house sometime today. Saima was also going to connect with pt's Jasson leon. Saima would like to be notified when pt discharges from hospital. Saima's number is #[phone]. Social work to follow-up as needed.
--- NOTE | 2023-04-04 10:19 | CRLHL7_ITS ---
For Patients: As a result of the Century Cures Act, medical imaging exams and procedure reports are released immediately into your electronic medical record. You may view this report before your referring provider. If you have questions, please contact your health care provider. Indication: Colon cancer staging. Technique: CT chest without contrast. Multiplanar reformats were included. Please note that all CT scans at this facility use dose modulation, iterative reconstruction, and/or weight-based dosing when appropriate to reduce radiation dose to as low as reasonably achievable. Comparison: Chest radiograph from 04/02/2023. Findings: Imaged lower neck/chest wall: Within normal limits. Mediastinal structures: Atherosclerotic thoracic aorta. No mediastinal lesions. Lungs/pleura: Right anterior lung scarring. No lung lesions. Upper abdomen: Cholelithiasis. Partially imaged infrarenal abdominal aortic aneurysm with large crescentic mural thrombus which measures up to 40 millimeters in diameter. Renal cortical atrophy. Osseous structures: No acute fractures or other acute osseous abnormalities. Diffuse thoracic spondylosis with advanced disc degeneration at the thoracic and imaged upper lumbar levels. Foraminal height loss and facet arthrosis with high-grade neural foraminal stenosis at several of the lower thoracic levels. Impression: 1. No evidence of metastatic disease within the chest. 2. 40 millimeter infrarenal abdominal aortic aneurysm with crescentic mural thrombus. Please note that all CT scans at this facility use dose modulation, iterative reconstruction, and/or weight-based dosing when appropriate to reduce radiation dose to as low as reasonably achievable. Dictated by Will Ko MD @ 04/04/2023 1:13:15 PM (Electronically Signed)
[2023-04-04] MEDS: IRON SUCROSE COMPLEX 200 MG in 0.9 % SODIUM CHLORIDE 100 ml 100 ML 440 MG IVPB (10:25)
[2023-04-04 10:52] LABS: Iron* 21 ug/dL (49-181)
[2023-04-04 11:01] LABS: Percent Iron Saturation 6 % (20-50); Total Iron Binding Capacity 348 ug/dL (261-462)
--- NOTE | 2023-04-04 11:16 | P.GSCN_ITS ---
History of Present Illness Consult details Date Seen: 04/04/23 Consult date: 04/04/23 Narrative: The patient is a 69-year-old male who was admitted to the hospital 2 days ago after being found down in his home. Per report, the patient's house, where he lives alone, has been condemned. The patient states that he has been having furnace issues and his house has been getting progressively colder. He called 2 days ago for HVAC repair. When the repairman arrived at his home, they found the patient hypothermic and a ton did. He was brought to the hospital where he was found to be acidotic, hypothermic with a temperature of 89? and anemic with a hemoglobin of 6. The patient states that it was only a few hours that he was down as he does remember calling the HVAC repair person who was going to come the same day. He states that he was actually out of propane however he did not realize this because he has an elsy on his phone which will tell him the propane level, however his I was down and he was unable to tell that the propane was low. He states that for the several days he had been trying to keep warm with an electric blanket, however he knew he was getting progressively colder. When he arrived to the hospital as noted he was anemic. He was given 1 unit of blood. He was acidotic with a lactate of 15. This has now improved. VBG showed a pH of 7.0. This has also improved. His hemoglobin has remained stable at 7.0 since admission. The patient appears to be a good historian and he states that prior to this he was in his usual health. He had not been feeling progressively weak. He states that he has significant leg pain and weakness and is only able to ambulate approximately 50 ft. 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 Review of the notes show that it was felt that he may have a combination of vascular and spinal claudication and it was not felt as though revascularization would help. He was supposed to follow-up with repeat imaging, however, the patient stated he missed his appointment because he was sick with severe diarrhea. He has never had a colonoscopy. He thinks that possibly his father of colon cancer, however he is not sure as he is estranged from his family. He has not noted any blood in his stool. He states that he does not have abdominal pain, however then he says after he eats he will sometimes get severe upper abdominal pain in the form of heartburn. He does take an [id number] acid coreen which helps. His appetite has been less than usual. He smokes half a pack of cigarettes per day. As mentioned, he lives alone and his house is condemned, however he is I believe getting involved with social service agency director. He is estranged from his son and daughter, however he does have a stepson and 2 step daughters who are involved in his life. He considers them his family. His stepson is involved in does check in with him though he lives approximately [address] [facility] Medical History (Updated 04/04/23 @ 11:27 by Caro Sharma MD) Abnormal ankle brachial index ([place]ORIA) ?R68.89 - Other general symptoms and signs (ICD-10) PAD (peripheral artery disease) ?I73.9 - Peripheral vascular disease, unspecified (ICD-10) Claudication ?I73.9 - Peripheral vascular disease, unspecified (ICD-10) Tobacco use ?Z72.0 - Tobacco use (ICD-10) DMII (diabetes mellitus, type 2) ?E11.9 - Type 2 diabetes mellitus without complications (ICD-10) Hypertension ?I10 - Essential (primary) hypertension (ICD-10) Surgical History (Updated 04/04/23 @ 11:27 by Caro Sharma MD) S/P eye surgery ?Z98.890 - Other specified postprocedural states (ICD-10) Family History (Updated 04/04/23 @ 11:27 by Caro Shamra MD) Father Colon cancer Social History (Updated 04/04/23 @ 11:27 by Caro Sharma MD) Narrative: Patient lives independently. Issues with heating his home. He has 3 step children, 1 of which is more involved in his life. He smokes 1 pack of cigarettes a day. He does not drink alcohol. What is your current living situation?: I presently have a place to live Problems where you live: lack of heat Problems where you live details: none In the past 12 months, utilities in danger of being shut off: no In past 12 months, lack of transportation kept you from medical appts, meetings, work, or getting things needed for daily living: no In the past 12 mos, have been you worried that your food would run out before you had money to buy more?: never true In the past 12 mos, the food you bought just didn't last and you didn't have money to buy more?: never true Highest level of school completed/degree received: high school graduate Smoking Status: Current every day smoker What tobacco products do you use: cigars Do you use any of these nicotine containing products: None Second hand tobacco smoke exposure: Yes How often do you have a drink containing alcohol: 2-4 times a month How many standard drinks containing alcohol do you have on a typical day: 1 or 2 How often do you have six or more drinks on one occasion: Never AUDIT-C Alcohol total score: 2 Non-prescribed substance use: denies use Caffeine: Yes (alot) How often does anyone, including family, friends and others, physically hurt you : never How often does anyone, including family, friends and others, insult or talk down to you: never How often does anyone, including family, friends and others, threaten you with harm: never How often does anyone, including family, friends and others, scream or curse at you: never Little interest or pleasure in doing things: more than half the days Feeling down, depressed, or hopeless: not at all service: No Meds Home Medications and Allergies Home Medications Medication Instructions Recorded Confirmed Type amlodipine 10 mg tablet 10 mg PO DAILY 04/03/23 04/03/23 History chlorthalidone 25 mg tablet 25 mg PO DAILY 04/03/23 04/03/23 History lisinopril 10 mg tablet 10 mg PO DAILY 04/03/23 04/03/23 History Allergies Allergy/AdvReac Type Severity Reaction Status Date / Time No Known Allergies Allergy Unknown Unknown Verified 04/02/23 23:11 Exam Narrative: Exam Narrative: General: No acute distress HEENT: Edentulous Respiratory: Breathing is nonlabored on room air CV: Regular rate Abdomen: No scars. Nondistended. Mild tenderness to palpation in the right lower quadrant. No guarding or rebound. Const: Vital Signs, click to edit/add: Vital Signs - 24 hr 04/03/23 15:00 04/03/23 20:35 04/03/23 23:00 Temperature 98.8 F Pulse Rate 65 Pulse Rate [Right Pulse Oximeter] 71 Respiratory Rate 16 16 Blood Pressure [Ri ght Arm] Pulse Oximetry 100 Oxygen Delivery Me thod Room Air Oxygen Flow Rate 0 04/04/23 03:00 04/04/23 07:00 04/04/23 07:00 Temperature 98.8 F 98.7 F Pulse Rate Pulse Rate [Right Pulse Oximeter] 70 99 99 Respiratory Rate 16 20 20 Blood Pressure [Ri ght Arm] 130/72 119/67 Pulse Oximetry 94 99 Oxygen Delivery Me thod Room Air Room Air Oxygen Flow Rate 0 04/04/23 08:16 Temperature Pulse Rate 74 Pulse Rate [Right Pulse Oximeter] Respiratory Rate Blood Pressure [Ri ght Arm] Pulse Oximetry Oxygen Delivery Me thod Oxygen Flow Rate Results Labs Labs: Abnormal lab results 04/02/23 04/02/23 04/03/23 Range/Units 18:30 20:14 14:20 RBC (4.30-5.90) m/uL Hgb 7.1 L* (13.5-17.5) gm/dL Hct (37.0-53.0) % MCV (80-100) fL MCH (26-34) pg MCHC (32-36) gm/dL VBG pH (7.32-7.43) VBG pCO2 (40-50) mmHG VBG pO2 (25-47) mmHG Potassium (3.6-5.1) mmol/L Anion Gap (7-15) mEq/L BUN (7-30) mg/dL Calcium (8.4-10.6) mg/dL Phosphorus (2.5-4.5) mg/dL Iron (49-181) ug/dL % Saturation (20-50) % Total Creatine Kinase (54-186) U/L C-Reactive Protein (0.5-1.0) mg/dL Urine Appearance Slightly Cloudy A (Clear) Urine Blood Trace-intact A (Negative) Ur Leukocyte Esterase Trace A (Negative) Urine RBC 5-10 A (0-2) Urine WBC 10-25 A (0-5) Crossmatch ([facility]) See Detail 04/03/23 04/04/23 Range/Units 20:04 06:30 RBC 3.65 L (4.30-5.90) m/uL Hgb 7.2 L* 7.0 L* (13.5-17.5) gm/dL Hct 24.2 L (37.0-53.0) % MCV 66 L (80-100) fL MCH 19 L (26-34) pg MCHC 29 L (32-36) gm/dL VBG pH 7.437 H (7.32-7.43) VBG pCO2 36 L (40-50) mmHG VBG pO2 24.5 L (25-47) mmHG Potassium 3.2 L (3.6-5.1) mmol/L Anion Gap 6 L (7-15) mEq/L BUN 6 L (7-30) mg/dL Calcium 8.0 L (8.4-10.6) mg/dL Phosphorus 2.2 L (2.5-4.5) mg/dL Iron 21 L (49-181) ug/dL % Saturation 6 L (20-50) % Total Creatine Kinase 45 L (54-186) U/L C-Reactive Protein 8.7 H (0.5-1.0) mg/dL Urine Appearance (Clear) Urine Blood (Negative) Ur Leukocyte Esterase (Negative) Urine RBC (0-2) Urine WBC (0-5) Crossmatch ([facility]) Diabetes panel 04/04/23 Range/Units 06:30 Sodium 135 (135-149) mmol/L Potassium 3.2 L (3.6-5.1) mmol/L Chloride 106 (96-114) mmol/L Carbon Dioxide 23 (20-32) mmol/L BUN 6 L (7-30) mg/dL Creatinine 0.5 (0.5-1.5) mg/dL Glucose 93 (60-115) mg/dL Calcium 8.0 L (8.4-10.6) mg/dL Calcium panel 04/04/23 Range/Units 06:30 Calcium 8.0 L (8.4-10.6) mg/dL Phosphorus 2.2 L (2.5-4.5) mg/dL Pituitary panel 04/04/23 Range/Units 06:30 Sodium 135 (135-149) mmol/L Potassium 3.2 L (3.6-5.1) mmol/L Chloride 106 (96-114) mmol/L Carbon Dioxide 23 (20-32) mmol/L BUN 6 L (7-30) mg/dL Creatinine 0.5 (0.5-1.5) mg/dL Glucose 93 (60-115) mg/dL Calcium 8.0 L (8.4-10.6) mg/dL Adrenal panel 04/04/23 Range/Units 06:30 Sodium 135 (135-149) mmol/L Potassium 3.2 L (3.6-5.1) mmol/L Chloride 106 (96-114) mmol/L Carbon Dioxide 23 (20-32) mmol/L BUN 6 L (7-30) mg/dL Creatinine 0.5 (0.5-1.5) mg/dL Glucose 93 (60-115) mg/dL Calcium 8.0 L (8.4-10.6) mg/dL All other labs normal. Imaging Chest x-ray: report reviewed and image reviewed CT scan - pelvis: report reviewed and image reviewed Progress Note:A&P Assessment and plan (1) PAD (peripheral artery disease): Status: Acute (2) Abnormal ankle brachial index (GLORIA): Status: Acute (3) Claudication: Status: Acute (4) Tobacco use: Status: Acute (5) Abdominal mass: Status: Acute (6) Anemia: Status: Acute Plan The patient is a 77-year-old male with anemia and a right colon mass, also with various social concerns. I discussed with the patient that this is likely a malignancy and he would likely need surgery to treat it. This is of course pending further workup. Most likely appears to be a colon malignancy, however lymphoma is certainly in the differential. There is not appear to be any additional adenopathy. The patient is also living independently, however does have significant physical limitations given to claudication and pain. He also is profoundly anemic. His nutrition labs appear to be appropriate, however he describes difficulty eating secondary to severe heartburn at times. -I recommend completion workup for the colon malignancy. This should include a CT of the chest with contrast to look for metastatic disease. CEA should also be obtained. LFTs were noted to be within normal limits. The CT scan of the abdomen did not show evidence of metastatic disease. -I also think it is reasonable to obtain a colonoscopy - this will help make the diagnosis but also rule out any other synchronous lesions in the remainder of the colon. This is particularly important given his family history of colon cancer - this is planned for this hospitalization. -additionally, I have discussed with the hospitalist as ?pre his bili take a almodovar. His functional status is limited and he will likely not be able to return to independent living given his living situation, however I think he will benefit from physical and occupational therapy. His limitations seemed to be secondary to severe claudication and peripheral vascular disease, however perhaps we can make some progress with formal therapy to improve his functional status. -he is currently getting an iron infusion to help with his anemia. Recommend continuing this as an outpatient. -I discussed with the patient that if there is no evidence of metastatic disease then we would plan on hemicolectomy. I explained the importance of medical optimization to minimize postoperative complications from this. As long as he continues to improve we do have some time to do this. I also recommended smoking cessation. -will follow-up results of pending studies and make recommendations on next steps.
--- NOTE | 2023-04-04 13:07 | PC.NURSE ---
End of Shift Note: Patient has not complained of any pain today. Does struggle with eating d/t no teeth per his report. Received an infusion of iron today and tolerated this well. He is currently sitting up chair having some lunch will continue to monitor.
--- NOTE | 2023-04-04 13:46 | PC.SOCIAL ---
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 She is working with Saima Calixto from [facility] and will be doing an elderly waiver assessment on the pt. Luz would like to be updated with discharge plans for the pt, as well, at the number listed. Social work to follow-up as needed. Original Note: Discharge planning: Spoke with pt about [facility] in [place] and pt is open to going to [facility] for rehab, as well. Spoke with Taisha at [facility] who stated they would have a male opening next week for short-term rehab. Worker faxed the referral to pt to [facility] this afternoon. Social work to follow-up as needed.
[2023-04-04] MEDS: SODIUM CHLORIDE 0.9 % (FLUSH) 10 ML SYRINGE 5 ML IVF ×2 (14:10→21:06)
--- NOTE | 2023-04-04 16:06 | PM.IMPN1 ---
Progress Note: A&P Assessment and plan (1) Colonic mass: Problem details: Likely the source of his anemia and likely neoplastic. Will arrange colonoscopy. Chest CT shows no metastatic disease. CEA is pending Status: Acute (2) Anemia: Problem details: Hemoglobin went from 6.1-7.0 after 1 unit transfusion. Iron deficiency anemia due to chronic blood loss likely from colonic mass. Start iron infusions. Due to blood shortage will try to avoid ongoing transfusions Status: Acute (3) PAD (peripheral artery disease): Problem details: - diffuse severe peripheral vascular disease on CT scan images obtained on admission to the hospital. Status: Acute (4) Claudication: Problem details: Ambulation limited to 50 ft due to claudication Status: Acute (5) Tobacco use: Status: Acute (6) Aortic aneurysm, abdominal: Problem details: Infrarenal, 40 mm, mural thrombus Status: Acute (7) Homeless: Problem details: Patient's home has been deemed unsafe. Status: Acute (8) DMII (diabetes mellitus, type 2): Problem details: Apparently fairly well controlled. Status: Acute (9) Hypertension: Problem details: Home medications are currently held. Continue to monitor Status: Acute (10) Hypothermia: Problem details: - much improved with rewarming. - a big concern is his ability to make safe decisions given that his home furnace was out of he will any did not seek appropriate, safe help. Thankfully someone found him and called help for him. - work with our health social work professor to assist with safe discharge disposition planning. Status: Acute Plan Continue in hospital for ongoing evaluation and treatment of colonic mass, anemia, disability and other chronic medical problems. Anticipate discharge to intermediate home with ongoing plan for hospital readmission for colon surgery. Time Spent With Patient Total time spent: Total time spent today is 60 minutes, 40 minutes in coordination of care discussing with patient and other providers ongoing evaluation management of colon mass, debility, vascular disease, anemia Subjective Date Seen: 04/04/23 Interval history: 77-year-old male admitted to the hospital on April 02 after being found down by a person coming to repair his heating system. His home was cold at the time. The heating repair person called 911 is brought to the emergency room where he was found to be hypothermic. Was warmed with external warming. He is also found to have microcytic anemia with a hemoglobin of 6.1. This compares to a hemoglobin 1 year ago of 11. He is not aware of any history of bleeding. Abdominal CT scan showed a mass in the cecum and right colon. This was suspicious for a colonic neoplasm. 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 Due to his anemia he was transfused 1 unit of packed red cells. He has O negative blood but I believed he received O-positive blood transfusion due to a shortage of O-negative blood. Patient had discussion yesterday and today regarding ongoing plan of care regarding his anemia and clonic mass. Evaluation by Occupational therapy shows that he scored 8/22 on a blind Sharp. Physical therapy noted that he needed standby assist for ambulation with a walker. Exam Narrative: Exam Narrative: He is alert and appears in no distress. He is able to give his own history with fairly good detail. Head is without apparent trauma. Speech is normal. Respirations are clear to auscultation. Cardiovascular: S1, S2, regular rate and rhythm. Abdomen is soft with minimal tenderness. Question of a soft right lower quadrant mass with some tenderness. Extremities without edema. I do not palpate pedal pulses in either foot. No open ulcers on his lower extremities Const: Vital Signs, click to edit/add: Vital Signs - 24 hr 04/03/23 20:35 04/03/23 23:00 04/04/23 03:00 Temperature 98.8 F 98.8 F Pulse Rate 65 Pulse Rate [Right Pulse Oximeter] 71 70 Respiratory Rate 16 16 Blood Pressure [Ri ght Arm] 130/72 Pulse Oximetry 100 94 Oxygen Delivery Me thod Room Air Room Air Oxygen Flow Rate 0 0 04/04/23 07:00 04/04/23 07:00 04/04/23 08:16 Temperature 98.7 F Pulse Rate 74 Pulse Rate [Right Pulse Oximeter] 99 99 Respiratory Rate 20 20 Blood Pressure [Ri ght Arm] 119/67 Pulse Oximetry 99 Oxygen Delivery Me thod Room Air Oxygen Flow Rate 04/04/23 11:00 Temperature 98.8 F Pulse Rate Pulse Rate [Right Pulse Oximeter] 84 Respiratory Rate 20 Blood Pressure [Ri ght Arm] 112/74 Pulse Oximetry 96 Oxygen Delivery Me thod Room Air Oxygen Flow Rate Documenting provider has reviewed patient's vital signs: yes Labs Labs: Laboratory Results - last 24 hr 04/02/23 04/02/23 04/02/23 18:30 19:43 20:14 WBC RBC Hgb Hct MCV MCH MCHC Plt Count VBG pH VBG pCO2 VBG pO2 VBG HCO3 Sodium Potassium Chloride Carbon Dioxide Anion Gap BUN Creatinine Estimated Creat Clear Estimated GFR Glucose Lactate Calcium Phosphorus Magnesium Iron TIBC % Saturation Total Creatine Kinase Cancelled C-Reactive Protein Lipase Urine Color Yellow Urine Appearance Slightly Cloudy A Urine pH 5.0 Ur Specific [place] 1.020 Urine Protein Negative Urine Glucose (UA) Negative Urine Ketones Negative Urine Blood Trace-intact A Urine Nitrite Negative Urine Bilirubin Negative Urine Urobilinogen 0.2 Ur Leukocyte Esterase Trace A Urine RBC 5-10 A Urine WBC 10-25 A Ur Squamous Epith Cells None Urine Bacteria None Urine Opiates Screen Ur Oxycodone Screen Urine Methadone Screen Ur Barbiturates Screen U Tricyclic Antidepress Ur Phencyclidine Scrn Ur Amphetamines Screen U Methamphetamines Scrn U Benzodiazepines Scrn Urine Cocaine Screen U Marijuana (THC) Screen Ur Drug Screen Comment Lab Acknowledgement Crossmatch ([facility]) See Detail 04/03/23 04/03/23 04/03/23 15:55 18:30 20:04 WBC RBC Hgb 7.2 L* Hct MCV MCH MCHC Plt Count VBG pH VBG pCO2 VBG pO2 VBG HCO3 Sodium Potassium Chloride Carbon Dioxide Anion Gap BUN Creatinine Estimated Creat Clear Estimated GFR Glucose Lactate Calcium Phosphorus Magnesium Iron TIBC % Saturation Total Creatine Kinase C-Reactive Protein Lipase Urine Color Urine Appearance Urine pH Ur Specific [place] Urine Protein Urine Glucose (UA) Urine Ketones Urine Blood Urine Nitrite Urine Bilirubin Urine Urobilinogen Ur Leukocyte Esterase Urine RBC Urine WBC Ur Squamous Epith Cells Urine Bacteria Urine Opiates Screen Negative Ur Oxycodone Screen Negative Urine Methadone Screen Negative Ur Barbiturates Screen Negative U Tricyclic Antidepress Negative Ur Phencyclidine Scrn Negative Ur Amphetamines Screen Negative U Methamphetamines Scrn Negative U Benzodiazepines Scrn Negative Urine Cocaine Screen Negative U Marijuana (THC) Screen Negative Ur Drug Screen Comment See Note Lab Acknowledgement Test Added Crossmatch ([facility]) 04/04/23 04/04/23 04/04/23 06:30 06:30 10:18 WBC 10.34 RBC 3.65 L Hgb Cancelled 7.0 L* Hct 24.2 L MCV 66 L MCH 19 L MCHC 29 L Plt Count 431 VBG pH 7.437 H VBG pCO2 36 L VBG pO2 24.5 L VBG HCO3 24 Sodium 135 Potassium 3.2 L Chloride 106 Carbon Dioxide 23 Anion Gap 6 L BUN 6 L Creatinine 0.5 Estimated Creat Clear 47.02 Estimated GFR 104 Glucose 93 Lactate 0.9 Calcium 8.0 L Phosphorus 2.2 L Magnesium 2.0 Iron 21 L TIBC 348 % Saturation 6 L Total Creatine Kinase 45 L C-Reactive Protein 8.7 H Lipase 31 Urine Color Urine Appearance Urine pH Ur Specific [place] Urine Protein Urine Glucose (UA) Urine Ketones Urine Blood Urine Nitrite Urine Bilirubin Urine Urobilinogen Ur Leukocyte Esterase Urine RBC Urine WBC Ur Squamous Epith Cells Urine Bacteria Urine Opiates Screen Ur Oxycodone Screen Urine Methadone Screen Ur Barbiturates Screen U Tricyclic Antidepress Ur Phencyclidine Scrn Ur Amphetamines Screen U Methamphetamines Scrn U Benzodiazepines Scrn Urine Cocaine Screen U Marijuana (THC) Screen Ur Drug Screen Comment Lab Acknowledgement Test Added Crossmatch ([facility])
[2023-04-04] MEDS: POTASSIUM BICARB 25 MEQ EFFERVESCENT TAB PO (17:10)
--- NOTE | 2023-04-04 22:34 | PC.NURSE ---
Shift [id number]- Patient denies pain. He appears to nap in bed on and off throughout shift. He is up with walker, gait belt and assist of 1.
[2023-04-05] VITALS (11 sets, daily range): BP systolic 93–119; BP diastolic 50–80; PULSE 62–98; RESP 16–18; TEMP 36.4–37.6; O2SAT 92–100
[2023-04-05 06:28] LABS: Hematocrit 22.8 % (37.0-53.0); Mean Corpuscular HGB Conc 29 gm/dL (32-36); Mean Corpuscular Hemoglobin 19 pg (26-34); Mean Corpuscular Volume 67 fL (80-100); Platelet Count* 400 K/uL (140-440); Red Blood Count 3.43 m/uL (4.30-5.90); White Blood Count* 8.96 K/uL (4.50-11.00)
--- NOTE | 2023-04-05 06:38 | PC.NURSE ---
End of shift [id number]: Pt appeared to rest comfortably throughout the night. Denies pain. A1 w/ walker and gait belt to the bathroom. Uses call light appropriately.
[2023-04-05 06:45] LABS: Chloride* 105 mmol/L (96-114); Potassium* 3.2 mmol/L (3.6-5.1); Sodium* 134 mmol/L (135-149)
[2023-04-05 06:48] LABS: Anion Gap 3 mEq/L (7-15); Blood Urea Nitrogen* 5 mg/dL (7-30); Carbon Dioxide* 26 mmol/L (20-32); Creatinine* 0.5 mg/dL (0.5-1.5); Est. Creatinine Clearance* 47.02; Estimated Glomerular Filt Rate 104 ml/min
[2023-04-05 06:49] LABS: Calcium* 8.1 mg/dL (8.4-10.6); Glucose* 97 mg/dL (60-115)
[2023-04-05 07:19] LABS: Hemoglobin* 6.5 gm/dL (13.5-17.5); Slide Review Reflex No
[2023-04-05] MEDS: SODIUM CHLORIDE 0.9 % (FLUSH) 10 ML SYRINGE 5 ML IVF ×2 (10:00→21:11)
[2023-04-05] MEDS: POTASSIUM BICARB 25 MEQ EFFERVESCENT TAB 50 MEQ PO (13:00)
--- NOTE | 2023-04-05 15:48 | PC.NURSE ---
Nursing Care Hours: [id number] Pt this shift calm and cooperative with cares. Alert and oriented. VSS. 1 unit PRB transfused without issue. Pt pale, cool, and fatigued, napping between meals. Tolerated meal. Ensure given for lunch. Large flatulence after meal with small loose stool. No c/o pain.
--- NOTE | 2023-04-05 16:50 | PM.IMPN1 ---
Progress Note: A&P Assessment and plan (1) Colonic mass: Problem details: Likely the source of his anemia and likely neoplastic. Will arrange colonoscopy. Chest CT shows no metastatic disease. CEA is pending Status: Acute (2) Anemia: Problem details: Hemoglobin went from 6.1-7.0 after 1 unit transfusion. Now down to 6.5. Iron deficiency anemia due to chronic blood loss likely from colonic mass. Start iron infusions. Transfuse 1 unit of blood today Status: Acute (3) PAD (peripheral artery disease): Problem details: - diffuse severe peripheral vascular disease on CT scan images obtained on admission to the hospital. Claudication at 50 ft by patient description. Status: Acute (4) Claudication: Problem details: Ambulation limited to 50 ft due to claudication Status: Acute (5) Tobacco use: Status: Acute (6) Aortic aneurysm, abdominal: Problem details: Infrarenal, 40 mm, mural thrombus Status: Acute (7) DMII (diabetes mellitus, type 2): Problem details: Apparently fairly well controlled. Monitor Status: Acute (8) Hypertension: Problem details: Home medications are currently held. Continue to monitor Status: Acute (9) Hypothermia: Problem details: - much improved with rewarming. - a big concern is his ability to make safe decisions given that his home furnace was out of he will any did not seek appropriate, safe help. Thankfully someone found him and called help for him. - work with our child protective services social worker to assist with safe discharge disposition planning. Status: Acute (10) Discharge planning issues: Problem details: Need ongoing assessment of patient is capable of safely living independently Status: Acute Plan Continue in hospital for monitoring of GI bleeding, management of anemia, evaluation of functional status and evaluation of colon mass with colonoscopy. Time Spent With Patient Total time spent: Total time spent today is 40 minutes, 25 minutes in coordination of care discussing with patient and stepson and other providers ongoing evaluation management of anemia and bleeding and colon mass Subjective Date Seen: 04/05/23 Interval history: 77-year-old male admitted to the hospital on April 02 after being found down by a person coming to repair his heating system. His home was cold at the time. The heating repair person called 911 is brought to the emergency room where he was found to be hypothermic. Was warmed with external warming. He is also found to have microcytic anemia with a hemoglobin of 6.1. This compares to a hemoglobin 1 year ago of 11. He is not aware of any history of bleeding. Abdominal CT scan showed a mass in the cecum and right colon. This was suspicious for a colonic neoplasm. 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 Due to his anemia he was transfused 1 unit of packed red cells. He has O negative blood but I believed he received O-positive blood transfusion due to a shortage of O-negative blood. Patient had discussion yesterday and today regarding ongoing plan of care regarding his anemia and clonic mass. Evaluation by Occupational therapy shows that he scored 8/22 on a blind [place]. Physical therapy noted that he needed standby assist for ambulation with a walker. Patient was seen with his stepson today. Stepson reports that he has cleaning out the patient's house. He reports that other than the house being [place] that it should be level. The heating problem has resolved with adequate provision of propane. Patient reports feeling fine today. He has no concerns. Been eating normally. He is seeing no blood in his stool. Exam Narrative: Exam Narrative: He is alert and appears in no distress. Respirations are clear to auscultation. Cardiovascular: S1, S2, regular rate and rhythm. No murmur gallop or rub. Abdomen is soft without tenderness. Extremities without significant edema. Const: Vital Signs, click to edit/add: Vital Signs - 24 hr 04/04/23 19:05 04/04/23 23:38 04/05/23 01:13 Temperature 98.5 F 98.8 F Pulse Rate 85 Pulse Rate [Right Pulse Oximeter] 73 78 Respiratory Rate 18 18 Blood Pressure Blood Pressure [Le ft Arm] Blood Pressure [Ri ght Arm] 108/68 110/59 L Pulse Oximetry 96 94 Oxygen Delivery Me thod Room Air Room Air 04/05/23 03:00 04/05/23 08:42 04/05/23 08:42 Temperature 97.6 F Pulse Rate 62 Pulse Rate [Right Pulse Oximeter] 81 85 Respiratory Rate 18 18 Blood Pressure Blood Pressure [Le ft Arm] Blood Pressure [Ri ght Arm] 119/65 Pulse Oximetry 96 Oxygen Delivery Me thod Room Air 04/05/23 08:42 04/05/23 10:18 04/05/23 10:45 Temperature 98.4 F 98 F Pulse Rate 88 67 Pulse Rate [Right Pulse Oximeter] 85 Respiratory Rate 18 18 18 Blood Pressure 104/73 93/63 Blood Pressure [Le ft Arm] 105/80 Blood Pressure [Ri ght Arm] Pulse Oximetry 100 Oxygen Delivery Me thod Room Air 04/05/23 11:55 04/05/23 15:55 04/05/23 16:10 Temperature 98.2 F 98.1 F Pulse Rate 98 81 Pulse Rate [Right Pulse Oximeter] 83 Respiratory Rate 16 18 Blood Pressure 105/65 Blood Pressure [Le ft Arm] 110/71 Blood Pressure [Ri ght Arm] Pulse Oximetry 97 Oxygen Delivery Me thod Room Air Documenting provider has reviewed patient's vital signs: yes Labs Labs: Laboratory Results - last 24 hr 04/02/23 04/05/23 20:14 06:05 WBC 8.96 RBC 3.43 L Hgb 6.5 L* Hct 22.8 L MCV 67 L MCH 19 L MCHC 29 L Plt Count 400 Sodium 134 L Potassium 3.2 L Chloride 105 Carbon Dioxide 26 Anion Gap 3 L BUN 5 L Creatinine 0.5 Estimated Creat Clear 47.02 Estimated GFR 104 Glucose 97 Calcium 8.1 L Blood Type O Negative Antibody Screen NEGATIVE Crossmatch ([facility]) See Detail
--- NOTE | 2023-04-05 19:15 | PC.NURSE ---
Shift [id number]- Patient denies pain. He is more talkative and awake this afternoon than yesterday. Up to sitting on edge of bed for supper.
[2023-04-06] VITALS (7 sets, daily range): BP systolic 97–121; BP diastolic 58–78; PULSE 60–87; RESP 18–20; TEMP 36.7–37.4; O2SAT 93–100
[2023-04-06 06:10] LABS: Carcinoembryonic Antigen 4.3 ng/mL
[2023-04-06 06:38] LABS: Hematocrit 26.5 % (37.0-53.0); Mean Corpuscular HGB Conc 29 gm/dL (32-36); Mean Corpuscular Hemoglobin 20 pg (26-34); Mean Corpuscular Volume 70 fL (80-100); Platelet Count* 372 K/uL (140-440); Red Blood Count 3.79 m/uL (4.30-5.90); White Blood Count* 9.91 K/uL (4.50-11.00)
--- NOTE | 2023-04-06 06:52 | PC.NURSE ---
End of shift [id number]:A&O. VSS w/ sats >90% on room air. Denies pain. A1 w/ walker and gait belt to the bathroom. Using call light appropriately.??
[2023-04-06 06:55] LABS: Chloride* 104 mmol/L (96-114)
[2023-04-06 06:56] LABS: Potassium* 3.8 mmol/L (3.6-5.1); Sodium* 134 mmol/L (135-149)
[2023-04-06 06:58] LABS: Anion Gap 5 mEq/L (7-15); Carbon Dioxide* 25 mmol/L (20-32); Creatinine* 0.5 mg/dL (0.5-1.5); Est. Creatinine Clearance* 47.02; Estimated Glomerular Filt Rate 104 ml/min
[2023-04-06 06:59] LABS: Blood Urea Nitrogen* 9 mg/dL (7-30); Calcium* 8.2 mg/dL (8.4-10.6); Glucose* 101 mg/dL (60-115)
[2023-04-06 07:19] LABS: Hemoglobin* 7.7 gm/dL (13.5-17.5); Slide Review Reflex No
--- NOTE | 2023-04-06 07:52 | PM.GSPN ---
Subjective Subjective Date Seen: 04/06/23 Interval history: He received iron on Friday. He had a hemoglobin of 6.5 from 7.0 and underwent a blood transfusion yesterday and now his hemoglobin was 7.7. He is having bowel movements. He met with Nutrition who noted that his oral intake was in adequate. Recommendations were made to add supplementation. He is working with PT and OT. Social work is working on placement. He states that he is still having some mild lower abdominal discomfort. The epigastric discomfort that he was having at home chronically, has not been bothering him since he has been inpatient, however nutrition notes note that he has complained of this epigastric pain Exam Narrative: Exam Narrative: General: No acute distress Abdomen: Soft. Mildly tender in the pelvis. No guarding or rebound. Nondistended Const: Vital Signs, click to edit/add: Vital Signs - 24 hr 04/05/23 08:42 04/05/23 08:42 04/05/23 08:42 Temperature Pulse Rate 62 Pulse Rate [Right Pulse Oximeter] 85 85 Respiratory Rate 18 18 Blood Pressure Blood Pressure [Le ft Arm] 105/80 Pulse Oximetry 100 Oxygen Delivery Me thod Room Air 04/05/23 10:18 04/05/23 10:45 04/05/23 11:55 Temperature 98.4 F 98 F 98.2 F Pulse Rate 88 67 98 Pulse Rate [Right Pulse Oximeter] Respiratory Rate 18 18 16 Blood Pressure 104/73 93/63 105/65 Blood Pressure [Le ft Arm] Pulse Oximetry Oxygen Delivery Me thod 04/05/23 15:55 04/05/23 16:10 04/05/23 19:32 Temperature 98.1 F 99.6 F Pulse Rate 81 Pulse Rate [Right Pulse Oximeter] 83 82 Respiratory Rate 18 18 Blood Pressure Blood Pressure [Le ft Arm] 110/71 112/55 L Pulse Oximetry 97 92 Oxygen Delivery Me thod Room Air Room Air 04/05/23 22:54 04/05/23 23:00 04/06/23 02:55 Temperature 98.7 F 99.3 F Pulse Rate 86 Pulse Rate [Right Pulse Oximeter] 90 78 Respiratory Rate 16 18 Blood Pressure Blood Pressure [Le ft Arm] 103/50 L 112/58 L Pulse Oximetry 96 96 Oxygen Delivery Pa thod Room Air Room Air Labs/Imaging Labs Labs: Hemoglobin today is 7.7 CEA is 4.3. Imaging Imaging: CT chest, 04/04/2023: Impression: 1. No evidence of metastatic disease within the chest. 2. 40 millimeter infrarenal abdominal aortic aneurysm with crescentic mural thrombus. Dictated by Will Ko MD @ 04/04/2023 1:13:15 PM Progress Note:A&P Assessment and plan (1) Cognitive impairment: Status: Acute (2) Colonic mass: Status: Acute (3) DMII (diabetes mellitus, type 2): Status: Acute (4) Tobacco use: Status: Acute (5) Claudication: Status: Acute (6) PAD (peripheral artery disease): Status: Acute (7) Anemia: Status: Acute Plan The patient is a 77-year-old male with a mass in his right colon, anemia, tobacco use and also various social issues which may complicate his discharge. -recommend colonoscopy tomorrow as scheduled. Patient would likely also benefit from upper endoscopy given his epigastric pain with eating that is relieved with antacids. He has considerable complaints about this which limits his ability to eat, which may limit his ability to maintain his nutrition in the perioperative state. -no evidence of metastatic disease at this time. -will await pathology, however will recommend pre habilitation an, improvement in mobility, nutrition as well as anemia prior to proceeding to the OR if possible - timeline on this to be determined. -certainly if patient becomes obstructed, developed a perforation or has more worsening anemia that is not responsive to iron supplementation, we may need to plan on surgery sooner.
[2023-04-06] MEDS: IRON SUCROSE COMPLEX 200 MG in 0.9 % SODIUM CHLORIDE 100 ml 100 ML 440 MG IVPB (09:23)
[2023-04-06] MEDS: OMEPRAZOLE 20 MG CAPSULE DR PO ×2 (09:24→21:06)
[2023-04-06] MEDS: SODIUM CHLORIDE 0.9 % (FLUSH) 10 ML SYRINGE 5 ML IVF ×2 (09:24→21:05)
[2023-04-06] MEDS: 0.9 % SODIUM CHLORIDE 250 ml IV (09:25)
[2023-04-06 09:57] LABS: Albumin* 2.7 g/dL (3.3-5.0)
[2023-04-06 10:00] LABS: Alkaline Phosphatase* 80 U/L (40-150); Aspartate Amino Transferase* 17 U/L (12-35); Bilirubin Direct* 0.2 mg/dL (0.0-0.5); Bilirubin Total* 0.7 mg/dL (0.1-1.5); Lipase* 66 U/L (23-300); Total Protein* 5.9 g/dL (6.0-8.3)
[2023-04-06 10:01] LABS: Alanine Aminotransferase* 12 U/L (4-50)
[2023-04-06] MEDS: bisacodyL 5 MG TABLET DR 10 MG PO (12:55)
--- NOTE | 2023-04-06 13:02 | PC.NURSE ---
health technical writer assisted nurse with VS and med pass during lunch break
[2023-04-06] MEDS: PEG-3350 SODIUM CL/BICARB-KCL 4,000 ML SOLN 2000 ML PO (14:17)
--- NOTE | 2023-04-06 15:38 | P.IMPN_ITS ---
Progress Note: A&P Assessment and plan (1) Cognitive impairment: Problem details: Blind [place] on 04/04/2023: 11/05 Status: Acute (2) Colonic mass: Problem details: Likely the source of his anemia and likely neoplastic. Will arrange colonoscopy. Chest CT shows no metastatic disease. CEA is pending Status: Acute (3) DMII (diabetes mellitus, type 2): Problem details: Apparently fairly well controlled. Monitor Status: Acute (4) Tobacco use: Status: Acute (5) Claudication: Problem details: Ambulation limited to 50 ft due to claudication Status: Acute (6) PAD (peripheral artery disease): Problem details: - diffuse severe peripheral vascular disease on CT scan images obtained on admission to the hospital. Claudication at 50 ft by patient description. Resume antiplatelets when safe Status: Acute (7) Anemia: Problem details: Hemoglobin 6 on admission now after 2 units of blood transfusion 7.7. Continue IV iron replacement. Status: Acute (8) Alcohol use: Problem details: Patient had alcohol level of 0.06 with altered mental status when he was hypothermic on admission Status: Acute (9) Postprandial epigastric pain: Problem details: Perform EGD along with colonoscopy to evaluate. Start PPI Status: Acute Plan Continue in hospital pending evaluation for colon mass and ongoing treatment of anemia and other medical problems. Time Spent With Patient Total time spent: Total time spent today is 35 minutes, 25 minutes in coordination of care discussing with patient and other providers ongoing evaluation management of abdominal problems and anemia Subjective Date Seen: 04/06/23 Interval history: 77-year-old male admitted to the hospital on April 02 after being found down by a person coming to repair his heating system. His home was cold at the time. The heating repair person called 911 is brought to the emergency room where he was found to be hypothermic. Was warmed with external warming. He is also found to have microcytic anemia with a hemoglobin of 6.1. This compares to a hemoglobin 1 year ago of 11. He is not aware of any history of bleeding. Abdominal CT scan showed a mass in the cecum and right colon. This was suspicious for a colonic neoplasm. 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 Due to his anemia he was transfused 1 unit of packed red cells. He has O negative blood but I believed he received O-positive blood transfusion due to a shortage of O-negative blood. Patient had discussion yesterday and today regarding ongoing plan of care regarding his anemia and clonic mass. Evaluation by Occupational therapy shows that he scored 8/22 on a blind [place]. Physical therapy noted that he needed standby assist for ambulation with a walker. Patient was seen with his stepson today. Stepson reports that he has cleaning out the patient's house. He reports that other than the house being [place] that it should be level. The heating problem has resolved with adequate provision of propane. Patient gave additional history that for the past several months he has been having postprandial epigastric pain and fullness. Sometimes he induces vomiting. Sometimes he takes Glenna[place] with both giving him some relief. He has not seen any blood in his emesis. This is worse especially if he eats a big meal. Patient reports feeling fine today. He has no concerns. Been eating normally. He is seeing no blood in his stool. Exam Narrative: Exam Narrative: He is alert and appears in no distress. Respirations are clear to auscultation. Cardiovascular: S1, S2, regular rate and rhythm. Abdomen: Bowel sounds are active. Abdomen is soft. He has mild right-sided tenderness question of a mass there. No epigastric or right upper quadrant tenderness. Extremities without edema. Const: Vital Signs, click to edit/add: Vital Signs - 24 hr 04/05/23 15:55 04/05/23 16:10 04/05/23 19:32 Temperature 98.1 F 99.6 F Pulse Rate 81 Pulse Rate [Right Pulse Oximeter] 83 82 Respiratory Rate 18 18 Blood Pressure [Le ft Arm] 110/71 112/55 L Blood Pressure [Ri ght Arm] Pulse Oximetry 97 92 Oxygen Delivery Me thod Room Air Room Air 04/05/23 22:54 04/05/23 23:00 04/06/23 02:55 Temperature 98.7 F 99.3 F Pulse Rate 86 Pulse Rate [Right Pulse Oximeter] 90 78 Respiratory Rate 16 18 Blood Pressure [Le ft Arm] 103/50 L 112/58 L Blood Pressure [Ri ght Arm] Pulse Oximetry 96 96 Oxygen Delivery Me thod Room Air Room Air 04/06/23 07:00 04/06/23 07:25 04/06/23 11:00 Temperature 98.2 F Pulse Rate 82 Pulse Rate [Right Pulse Oximeter] 82 64 Respiratory Rate 18 18 Blood Pressure [Le ft Arm] Blood Pressure [Ri ght Arm] 97/67 111/68 Pulse Oximetry 97 96 Oxygen Delivery Me thod Room Air Room Air Documenting provider has reviewed patient's vital signs: yes Labs Labs: Laboratory Results - last 24 hr 04/04/23 04/06/23 04/06/23 06:30 06:05 09:44 WBC 9.91 RBC 3.79 L Hgb 7.7 L* Hct 26.5 L MCV 70 L MCH 20 L MCHC 29 L Plt Count 372 Sodium 134 L Potassium 3.8 Chloride 104 Carbon Dioxide 25 Anion Gap 5 L BUN 9 Creatinine 0.5 Estimated Creat Clear 47.02 Estimated GFR 104 Glucose 101 Calcium 8.2 L Total Bilirubin 0.7 Direct Bilirubin 0.2 AST 17 ALT 12 Alkaline Phosphatase 80 Total Protein 5.9 L Albumin 2.7 L Lipase 66 CA (off-site) 4.3 Lab Acknowledgement Test Added
--- NOTE | 2023-04-06 19:53 | PC.NURSE ---
Pt is denies pain. Making excuses for taking in bowel prep; like I don't drink much fluids ever, I like cold fluids, I don't want this much ice in my drink, and so on. Educated repeatedly about importance of bowel prep compliance to complete colonoscopy successfully.
[2023-04-07] VITALS (8 sets, daily range): BP systolic 91–125; BP diastolic 65–88; PULSE 64–83; RESP 16–20; TEMP 36.3–36.9; O2SAT 97–100
--- NOTE | 2023-04-07 06:43 | PC.NURSE ---
End of shift [id number]: Patient alert and oriented x 3. Denies any pain this shift. Patient refusing to complete bowel prep, he states i'm having surgery anyway, what is the point. Office Auditor provided education on benefit of completing prep and colonoscopy, continues to refuse. ticket writer updated Dr. Hull with patient refusing to complete prep. Patient up x 6 with loose stools, continent of bladder and bowel.
[2023-04-07 06:57] LABS: Mean Corpuscular HGB Conc 29 gm/dL (32-36); Mean Corpuscular Hemoglobin 21 pg (26-34); Mean Corpuscular Volume 72 fL (80-100); Platelet Count* 421 K/uL (140-440); Red Blood Count 4.32 m/uL (4.30-5.90); White Blood Count* 8.46 K/uL (4.50-11.00)
[2023-04-07 07:02] LABS: Slide Review Reflex No
[2023-04-07] MEDS: SODIUM CHLORIDE 0.9 % (FLUSH) 10 ML SYRINGE 5 ML IVF ×2 (08:28→22:09)
[2023-04-07] MEDS: OMEPRAZOLE 20 MG CAPSULE DR PO ×2 (08:28→22:09)
[2023-04-07] MEDS: bisacodyL 5 MG TABLET DR 10 MG PO ×2 (09:35→16:06)
--- NOTE | 2023-04-07 13:57 | PM.IMPN1 ---
Progress Note: A&P Assessment and plan (1) Cognitive impairment: Problem details: Blind [place] on 04/04/2023: 11/05 Status: Acute (2) Colonic mass: Problem details: Likely the source of his anemia and likely neoplastic. Will arrange colonoscopy. Chest CT shows no metastatic disease. CEA is pending Status: Acute (3) DMII (diabetes mellitus, type 2): Problem details: Apparently fairly well controlled. Monitor Status: Acute (4) Tobacco use: Status: Acute (5) Claudication: Problem details: Ambulation limited to 50 ft due to claudication Status: Acute (6) PAD (peripheral artery disease): Problem details: - diffuse severe peripheral vascular disease on CT scan images obtained on admission to the hospital. Claudication at 50 ft by patient description. Resume antiplatelets when safe Status: Acute (7) Anemia: Problem details: Hemoglobin 6 on admission now after 2 units of blood transfusion 9.0. Continue IV iron replacement. Status: Acute (8) Alcohol use: Problem details: Patient had alcohol level of 0.06 with altered mental status when he was hypothermic on admission. Patient reports no significant alcohol use. Status: Acute (9) Postprandial epigastric pain: Problem details: Perform EGD along with colonoscopy to evaluate. Start PPI Status: Acute Plan Continue in-hospital with planned upper and lower endoscopy tomorrow. Following that decision about disposition home or to prison facility. Time Spent With Patient Total time spent: Total time spent today is 35 minutes, 25 minutes in coordination of care discussing with patient other providers plan of care for colonoscopy Subjective Date Seen: 04/07/23 Interval history: 77-year-old male admitted to the hospital on April 02 after being found down by a person coming to repair his heating system. His home was cold at the time. The heating repair person called 911 is brought to the emergency room where he was found to be hypothermic. Was warmed with external warming. He is also found to have microcytic anemia with a hemoglobin of 6.1. This compares to a hemoglobin 1 year ago of 11. He is not aware of any history of bleeding. Abdominal CT scan showed a mass in the cecum and right colon. This was suspicious for a colonic neoplasm. 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 Due to his anemia he was transfused 1 unit of packed red cells. He has O negative blood but I believed he received O-positive blood transfusion due to a shortage of O-negative blood. Patient had discussion yesterday and today regarding ongoing plan of care regarding his anemia and clonic mass. Evaluation by Occupational therapy shows that he scored 8/22 on a blind [place]. Physical therapy noted that he needed standby assist for ambulation with a walker. Patient was seen with his stepson today. Stepson reports that he has cleaning out the patient's house. He reports that other than the house being [place] that it should be level. The heating problem has resolved with adequate provision of propane. Patient gave additional history that for the past several months he has been having postprandial epigastric pain and fullness. Sometimes he induces vomiting. Sometimes he takes Glenna[place] with both giving him some relief. He has not seen any blood in his emesis. This is worse especially if he eats a big meal. Patient reported that he did not want to do the colon prep last night. Was causing him to have some diarrhea. I discussed with him the importance of getting the colonoscopy prior to proceeding with any surgery. He agrees to do the prep today. He has no other concerns today Exam Narrative: Exam Narrative: He is alert no distress. Respirations are clear to auscultation. Cardiovascular: S1, S2, regular rate and rhythm. No murmur gallop or rub. Abdomen: Bowel sounds active. Abdomen is soft with minimal right-sided tenderness. Const: Vital Signs, click to edit/add: Vital Signs - 24 hr 04/06/23 15:00 04/06/23 15:00 04/06/23 19:00 Temperature 98.0 F 98.3 F Pulse Rate 60 Pulse Rate [Right Pulse Oximeter] 70 87 Respiratory Rate 20 18 Blood Pressure [Le ft Arm] 109/78 Blood Pressure [Ri ght Arm] 118/66 Pulse Oximetry 97 93 Oxygen Delivery Me thod Room Air Room Air Oxygen Flow Rate 04/06/23 23:00 04/06/23 23:00 04/06/23 23:00 Temperature 98.4 F Pulse Rate 64 Pulse Rate [Right Pulse Oximeter] 80 80 Respiratory Rate 20 20 Blood Pressure [Le ft Arm] 121/72 Blood Pressure [Ri ght Arm] Pulse Oximetry 100 Oxygen Delivery Me thod Room Air Oxygen Flow Rate 0 04/07/23 03:00 04/07/23 07:00 04/07/23 07:00 Temperature 98.4 F Pulse Rate 64 Pulse Rate [Right Pulse Oximeter] 76 65 Respiratory Rate 18 18 Blood Pressure [Le ft Arm] 101/65 Blood Pressure [Ri ght Arm] Pulse Oximetry 99 Oxygen Delivery Me thod Room Air Oxygen Flow Rate 04/07/23 07:00 04/07/23 11:00 04/07/23 12:06 Temperature 97.7 F 97.7 F 97.6 F Pulse Rate Pulse Rate [Right Pulse Oximeter] 65 65 70 Respiratory Rate 18 18 20 Blood Pressure [Le ft Arm] 101/65 124/79 Blood Pressure [Ri ght Arm] 115/66 115/66 Pulse Oximetry 97 97 100 Oxygen Delivery Me thod Room Air Room Air Room Air Oxygen Flow Rate 0 0 Documenting provider has reviewed patient's vital signs: yes Labs Labs: Laboratory Results - last 24 hr 04/02/23 04/07/23 20:14 06:40 WBC 8.46 RBC 4.32 Hgb 9.0 L Hct 31.0 L MCV 72 L MCH 21 L MCHC 29 L Plt Count 421 Crossmatch ([facility]) See Detail
--- NOTE | 2023-04-07 14:54 | PC.SOCIAL ---
Discharge plans: Met with pt regarding his discharge plans. Pt states he was considering discharge to a custodial facility last week, but that his current plan is to discharge to his own home tomorrow after his colonoscopy. Pt states his son, Jasson, has been cleaning up his house and has reinforced the stair rail in his house so that pt can get upstairs to use the bathroom in his home when discharged. Pt states his neighbors have keys to his house and are available to help if he needs help, but that he expects to be independent at discharge home. Pt states he has fixed the propane problem in his home so that he will have heat when he returns home tomorrow. Pt states he has prepared meals that he just needs to heat up and that he has no concerns about being able to meet his own needs at home at discharge. Pt states that if he needs surgery in the future, he will consider placement in a longterm to recover from surgery, but that he is not interested in placement at this time. Pt is aware of how to contact the social services counselor if he is interested in other resources after returning home. Called Saima Calixto, [facility], and left message with update on pt's discharge plan. fabric worker foreman to follow up as needed.
--- NOTE | 2023-04-07 17:48 | PC.NURSE ---
End of shift [id number]: Pt A&O and VSS throughout the day today. SBA to BR w/ 2ww with a steady gait. Pt is NPO for planned upper and lower endoscopy. Pt has been non-compliant and reluctant to complete bowel prep which started 04/06 @ 1400 and he is requiring many verbal prompts to continue drinking the prep in order to complete the colonoscopy. Dr. Welch placed a [facility] [place], [place] order stating if patient does not have clear stools by bedtime tonight 04/07, he will need to receive the magnesium citrate prep. Pt is on TELE reading 1st degree block rate in the 60s-80s. Continent of B&B. PIV in left FA was very tender to the touch & leaking so new 22G placed in right FA. Blood sugars 83 > 81 > 87 respectively; no insulin given this shift.
[2023-04-08 02:56] VITALS: BP 115/58; PULSE 68; RESP 16; TEMP 36.6; O2SAT 99
--- NOTE | 2023-04-08 05:37 | PC.NURSE ---
Patient pleasant, alert and oriented. Transfers with walker and assist of one. Clear BMs through the night. Denies pain.
[2023-04-08 07:00] VITALS: BP 112/59; PULSE 59; PULSE 74; RESP 18; TEMP 36.8; O2SAT 97
[2023-04-08 08:15] LABS: Basophils Absolute Auto 0.01 K/uL (0.00-0.30); Basophils Percent Auto 0.1 % (0.0-3.0); Eosinophils Absolute Auto 0.12 K/uL (0.00-0.50); Eosinophils Percent Auto 1.7 % (0.0-7.0); Immature Granulocytes Abs Auto 0.02 K/uL (0.00-0.30); Immature Granulocytes Pct Auto 0.3 %; Lymphocytes Percent Auto 12.4 % (20-44); Mean Corpuscular HGB Conc 29 gm/dL (32-36); Mean Corpuscular Hemoglobin 21 pg (26-34); Mean Corpuscular Volume 71 fL (80-100); Monocytes Percent Auto 7.8 % (0.0-11.0); Neutrophils Percent Auto 77.7 % (42.0-72.0); Platelet Count* 441 K/uL (140-440); RDW Coefficient of Variation % 27.5 % (11.5-15.5); Red Blood Count 4.34 m/uL (4.30-5.90); White Blood Count* 6.91 K/uL (4.50-11.00)
[2023-04-08 08:21] LABS: Slide Review Reflex No
--- NOTE | 2023-04-08 09:43 | W.ANESCHARGE ---
Anesthesia Charges Start Date/Time Anesthesia Start Date: 04/08/23 Anesthesia Start Time: 08:58 Stop Date/Time Anesthesia Stop Date: 04/08/23 Anesthesia Stop Time: 10:10 Summary Extremes of Age - Over 70 or under 1: MDA
--- NOTE | 2023-04-08 10:18 | W.ANESCHARGE ---
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
[2023-04-08 11:00] VITALS: BP 136/75; PULSE 59; RESP 16; TEMP 36.8; O2SAT 100
--- NOTE | 2023-04-08 11:35 | PC.SOCIAL ---
Discharge planning: Late Entry: Met with pt and step-son, Sudhakar regarding d/c plan. Dudley requested POA for healthcare and finances forms which he plans to have pt complete. Provided these forms and shared instructions for completion. They are aware a notary may be available to have these completed prior to discharge and they can ask the nurse for this if they are ready for notary duirng this visit. Discussed possibility of discharge tomorrow. Sudhakar states he has started to clean up the house but has a team scheduled to get it done this weekend. Pt wants to return home at discharge and states he will be fine at home. Discussed with son, that when pt is ready for discharge from the hospital, he can not stay while the house is being cleaned. Suggested that a short stay at a hotel or with a neighbor or with the son, would all be good options until his house is ready for him to return to. Son states he will consider options. Called Saima Calixto and informed her of possibility of discharge 04/08/23 and that the son is involved but does nto appear to have a plan other than pt returning home. collision worker to follow up as needed.
--- NOTE | 2023-04-08 13:57 | PC.NURSE ---
End of shift [id number]: Pt A&O, afebrile and VSS throughout the day. Pt SBA with 2ww ambulating in his room. Pt had x1 clear, green BM this morning. Underwent EGD and colonoscopy today and tolerated procedure well. Pt had no c/o nausea, pain or dizziness. Ate 100% of his lunch and tolerated well. Blood sugars: 88 > 79 no insulin given today. TELE showed SR. Pt discharged with 22G right FA SL and C/D/I to be used for Venofer infusion. JOVON transferred pt to [facility] aat 1400 for scheduled Venofer infusion with plan to discharge home with Sudhakar leon, from there.
--- NOTE | 2023-04-08 15:58 | PM.DS1 ---
DS: Providers Provider Date Seen: 04/08/23 Date of admission: 04/03/23 03:05 Primary care physician: David Camacho MD Admitting Clinician: Alan George MD Attending Physician on discharge: Parker Welch MD Date of Discharge: 04/08/23 DS: Diagnosis Discharge Diagnosis (1) Colonic mass: Status: Acute Problem details: Likely the source of his anemia and likely neoplastic. Colonoscopy done today. Colon mass at the cecum plus other polyps. Biopsies pending. Chest CT shows no metastatic disease. CEA is 4.3. (2) Anemia: Status: Acute Problem details: Hemoglobin 6 on admission now after 2 units of blood transfusion 9.0. Continue IV iron replacement for iron deficiency anemia. 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 Monitor (5) Tobacco use: Status: Acute (6) Claudication: Status: Acute Problem details: Ambulation limited to 50 ft due to claudication (7) PAD (peripheral artery disease): Status: Acute Problem details: - diffuse severe peripheral vascular disease on CT scan images obtained on admission to the hospital. Claudication at 50 ft by patient description. Resume antiplatelets when safe (8) Alcohol use: Status: Acute Problem details: Patient had alcohol level of 0.06 with altered mental status when he was hypothermic on admission. Patient reports no significant alcohol use. (9) Postprandial epigastric pain: Status: Acute Problem details: Perform EGD along with colonoscopy to evaluate. Start PPI. Upper endoscopy was unremarkable. DS: Summary Hospital Course Hospital Course: 77-year-old male admitted to the hospital on April 02 after being found down by a person coming to repair his heating system. His home was cold at the time. The heating repair person called 911 is brought to the emergency room where he was found to be hypothermic. Was warmed with external warming. He is also found to have microcytic anemia with a hemoglobin of 6.1. This compares to a hemoglobin 1 year ago of 11. He is not aware of any history of bleeding. Abdominal CT scan showed a mass in the cecum and right colon. This was suspicious for a colonic neoplasm. 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 Due to his anemia he was transfused 1 unit of packed red cells. He has O negative blood but I believed he received O-positive blood transfusion due to a shortage of O-negative blood. Patient had discussion yesterday and today regarding ongoing plan of care regarding his anemia and clonic mass. Evaluation by Occupational therapy shows that he scored 8/22 on a blind Pinal. Physical therapy noted that he needed standby assist for ambulation with a walker. Patient was seen with his stepson today. Stepson reports that he has cleaning out the patient's house. He reports that other than the house being messy that it should be safe to live in. The heating problem has resolved with adequate provision of propane. Patient gave additional history that for the past several months he has been having postprandial epigastric pain and fullness. Sometimes he induces vomiting. Sometimes he takes [place] with both giving him some relief. He has not seen any blood in his emesis. This is worse especially if he eats a big meal. Patient was eventually able to complete his colonoscopy prep and underwent colonoscopy today. This showed a colon mass as expected at the cecum. Also other polyps in the colon were biopsied. Biopsies are pending. He received 2 doses of intravenous iron in the hospital and will get 1 after discharge today. Two more outpatient IV infusions of iron are pending. Evaluation by therapy during his hospital stay raise concerns about his safety due in part to cognitive impairment and due in part to his living alone in a home that presents challenges for him. He is adamant that he wants to go home. He is recommend to stop driving. His stepson has done some cleaning in his home and has assured that the heating system is working properly. Pending results of his colon biopsy the plan is to optimize his health for colon mass resection in the near future. Ideally this would be improving his hemoglobin, getting his physical conditioning in better shape, improving nutrition, stopping smoking and drinking. Patient had blood pressure medicines held during his hospital stay because his blood pressure was low. They continue to be held at discharge. Presumably as long as he continues to bleed he may have low blood pressure. Status at Discharge Functional status at discharge: uses cane/walker Overall status at discharge: patient is progressing back to baseline Time Spent with Patient Time attestation: Total time spent providing and/or coordinating discharge services: 40 minutes Time spent: Greater than 30 minutes Exam Narrative: Exam Narrative: He is alert and appears in no distress. Respirations are clear to auscultation. Cardiovascular: S1, S2, regular rate and rhythm. Abdomen is soft with minimal right-sided tenderness. No other tenderness. Extremities without edema. Const: Vital Signs, click to edit/add: Vital Signs - 24 hr 04/07/23 19:00 04/07/23 22:06 04/07/23 23:00 Temperature 97.5 F L 97.3 F L Pulse Rate 83 Pulse Rate [Right Pulse Oximeter] 83 67 Respiratory Rate 16 18 Blood Pressure [Le ft Arm] Blood Pressure [Ri ght Arm] 114/88 91/76 Pulse Oximetry 100 100 Oxygen Delivery Me thod Room Air Room Air 04/08/23 02:56 04/08/23 07:00 04/08/23 07:00 Temperature 97.9 F Pulse Rate 59 L Pulse Rate [Right Pulse Oximeter] 68 74 Respiratory Rate 16 18 Blood Pressure [Le ft Arm] 115/58 L Blood Pressure [Ri ght Arm] Pulse Oximetry 99 Oxygen Delivery Me thod Room Air 04/08/23 07:00 04/08/23 11:00 Temperature 98.3 F 98.3 F Pulse Rate Pulse Rate [Right Pulse Oximeter] 74 59 L Respiratory Rate 18 16 Blood Pressure [Le ft Arm] 112/59 L 136/75 Blood Pressure [Ri ght Arm] Pulse Oximetry 97 100 Oxygen Delivery Me thod Room Air Room Air Documenting provider has reviewed patient's vital signs: yes DS: Data Data Completed and Pending Labs on day of discharge: Labs from last 24 hours 04/08/23 08:10 WBC 6.91 RBC 4.34 Hgb 9.0 L Hct 31.0 L MCV 71 L MCH 21 L MCHC 29 L RDW Coeff of Nissa 27.5 H Plt Count 441 H Neut % (Auto) 77.7 H Lymph % (Auto) 12.4 L [place] % (Auto) 7.8 Eos % (Auto) 1.7 Baso % (Auto) 0.1 Neut # (Auto) 5.40 Lymph # (Auto) 0.90 [place] # (Auto) 0.50 Eos # (Auto) 0.12 Baso # (Auto) 0.01 Abs Immat Gran (auto) 0.02 Imm/Tot Granulo (auto) 0.3 Discharge Plan Discharge Disposition: Home, Self-Care Date of Admission: 04/03/23 03:05 Attending Provider on Discharge: Chao Welch Consulting Providers: Caro Sharma Primary Care Provider: David Camacho Condition: Stable Anticipated Discharge Date/Time: 04/08/23 13:00 Discharge Medications: New ferrous sulfate [FeroSul] 325 mg (65 mg iron) tablet 325 mg PO Q OTHER DAY Qty: 30 0RF polyethylene glycol 3350 [Miralax] 17 gram/dose powder 17 g PO DAILY Qty: 238 0RF Discontinued potassium chloride 20 mEq tablet extended release 20 meq PO BID Qty: 180 3RF chlorthalidone 25 mg tablet 25 mg PO DAILY amlodipine 10 mg tablet 10 mg PO DAILY lisinopril 10 mg tablet 10 mg PO DAILY No Action potassium chloride 20 mEq tablet,ER particles/crystals 20 meq PO BID Hold Instructions: discontinued Discharge Orders: Discharge Order (Routine); Ordered 04/08/23 Ordered By: Chao Welch Patient Education: Iron Supplements (By mouth), Polyethylene Glycol 3350 (By mouth) (Miralax, Healthylax..., Anemia (DC) Additional Instructions: We have arranged for you to get more intravenous iron infusion over the next 1-2 weeks. Activity Level: Activity as Tolerated and Use Walker Discharge Diet: Regular Follow Up Appointments: David Camacho MD [Primary Care Provider] - 04/16/23 10:45 am (Follow-up in clinic next week. Check CBC and basic metabolic panel next week.) Caro Sharma MD [Staff Physician] - 04/22/23 10:00 am ([facility] for follow-up) Forms: [employer] Info Instructions
== END 2023-04-08 14:00 | disposition home or self-care (01) | DRG 375 ==
LOC: ED 04-03 00:40 → MEDSURG 04-03 01:18
PROVIDERS: Family Medicine; Internal Medicine; Admitting Provider Internal Medicine; Emergency Provider Family Medicine; PCP Family Medicine; Visit Provider Internal Medicine
DX: C18.0 Malignant neoplasm of cecum (principal); K92.1 Melena; T68.XXXA Hypothermia, initial encounter; X31.XXXA Exposure to excessive natural cold, initial encounter; D12.5 Benign neoplasm of sigmoid colon; D12.3 Benign neoplasm of transverse colon; D50.0 Iron deficiency anemia secondary to blood loss (chronic); E86.0 Dehydration; R10.13 Epigastric pain; K57.30 Diverticulosis of large intestine without perforation or abscess without bleeding; E11.51 Type 2 diabetes mellitus with diabetic peripheral angiopathy without gangrene; I71.43 Infrarenal abdominal aortic aneurysm, without rupture; Z59.11 Inadequate housing environmental temperature; Z59.12 Inadequate housing utilities; I10 Essential (primary) hypertension; F17.210 Nicotine dependence, cigarettes, uncomplicated; I65.23 Occlusion and stenosis of bilateral carotid arteries; I70.218 Atherosclerosis of native arteries of extremities with intermittent claudication, other extremity; G31.84 Mild cognitive impairment of uncertain or unknown etiology; F10.90 Alcohol use, unspecified, uncomplicated; Y90.3 Blood alcohol level of 60-79 mg/100 ml
CPT/HCPCS: 00813; 36415; 36430; 43239; 45380; 45385; 71045; 71260; 74177; 80048; 80076; 80306; 81001; 81210; 82077; 82270; 82378; 82550; 82728; 82803; 82962; 83540; 83550; 83605; 83690; 83735; 83880; 84100; 84145; 84484; 85018; 85025; 85027; 85045; 86140; 86850; 86900; 86901; 86922; 87040; 87086; 87493; 87631; 88305; 88341; 88342; 93005; 94761; 97110; 97116; 97162; 97165; 97530; 97535; 99100; 99284; 99291; A9270; J1756; J2060; J2543; J2704; J7030; J7050; P9016; Q9967

== ENCOUNTER 2023-04-16 11:55 | Outpatient (CLI) | payer MEDICARE, SELFPAY ==
--- OUTSIDE RECORDS SUMMARY | 2023-04-17 09:35 | XMS_ITS | Clinical Summary ---
Author Name Unknown Organization [facility] Address [place], [place] [address] Care Team Providers Care Machine Presser Name Role Phone David Camacho MD Primary Care Provider Allergies No known active allergies Medications Medication [...] 20 mEq by mouth. 0 05/06/2022 Active Encounters Date Type Department Care Team Description 04/08/2023 Lab Requisition [facility] [phone] Calvin Desai MD from Last 3 Months Social History Tobacco Use Types Packs/Day Years [...] - PCV) 2009 COVID-19 vaccine series ( season) 2022 04/24/2021, 05/23/2020, 05/02/2020 Influenza for age 65+ 11/15/2022 Procedures Procedure Name Priority Date/Time Associated Diagnosis Comments LAB TRACKING EVENT Routine 04/08/2023 10 :00 AM TONGUE AND GROOVE MACHINE SETTER PATH TISSUE EXAM Routine 04/08/2023 10:0 0 AM TONGUE AND GROOVE MACHINE SETTER from Last 3 Months Results * LAB TRACKING EVENT (04/08/2023 10:00 AM TONGUE AND GROOVE MACHINE SETTER) Other (Other) Client Collect / Unknown 04/08/2023 10:00 AM TONGUE AND GROOVE MACHINE SETTER 04/08/2023 10:07 PM TONGUE AND GROOVE MACHINE SETTER Calvin Desai MD LAB BILL ONLY [facility] [address] [place] [address], * PATH TISSUE EXAM (04/08/2023 10:00 AM TONGUE AND GROOVE MACHINE SETTER) Case Report Pathology Report ?Case: [id number] ? Authorizing Provider: ??Calvin Desai MD ?Collected: ? 04/08/2023 1000 ? Ordering Location: ? [facility] ?Received: ?04/09/2023 0910 ? Pathologist: ? Brannon Valentine, ? MD ? Specimens: ?? A) - Duodenum ? B) - Stomach Biopsy, random stomach ? C) - Cecum Biopsy, mass ? D) - Transverse Colon Polyp ? E) - Sigmoid Polyp ? 4 8:51 AM [facility] Final Diagnosis A) DUODENUM, BIOPSY: 1. Normal duodenal mucosa 2. Negative for celiac disease and other enteropathy B) STOMACH, BIOPSY: 1. Mild non-specific chronic inflammation (see comment) ?? a. Sampling: Body mucosa ?? b. Distribution: Body mucosa 2. Negative for atrophic gastritis 3. Negative for Helicobacter (Helicobacter immunohistochemistry negative) C) COLON, CECUM, MASS, BIOPSY: 1. Carcinoma with medullary features 2. Negative for background adenoma 3. Ancillary Testing: ?? a. 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 b. BRAF testing is pending (ordered on 04/14/2023); results will be issued in an amendment 4. See comment D) COLON, TRANSVERSE, POLYPECTOMIES: 1. Tubular adenomas (2) 2. Negative for high grade dysplasia 3. Per the colonoscopy report: ?? a. Polyp sizes: 5 mm - 9 mm ?? b. Resection: Complete ?? c. Retrieval: Complete E) COLON, SIGMOID, POLYPECTOMIES: 1. Tubular adenomas (2) 2. Negative for high grade dysplasia 3. Per the colonoscopy report: ?? a. Polyp sizes: 3 mm - 6 mm ?? b. Resection: Complete ?? c. Retrieval: Complete 4 8:51 AM [facility] Comment C) Case seen in consultation with Dr. Weinberg. Dr. Valentine discussed these findings with Dr. Desai on 04/14/2023 at 6:06 PM B) Mild chronic inflammation in the stomach in the absence of Helicobacter often remains unexplained, but it could reflect prior or treated Helicobacter infection. The likelihood of histologically undetected Helicobacter is quite low in our opinion. H. pylori immunohistochemistry reviewed by Drs. Wilson and Sultana. 8:51 AM [facility] Clinical Information Mr. Bradford is a 77 y.o. who presents with heme positive stool and abnormal CT imaging of the GI tract. 8:51 AM [facility] Gross Description A) Received in formalin is a huynh mucosal fragment measuring 3 mm in greatest dimension, which is entirely submitted in one cassette. It is labeled with the patient's name and designated duodenum. B) Received in formalin is a huynh mucosal fragment measuring 3 mm in greatest dimension, which is entirely submitted in one cassette. It is labeled with the patient's name and designated stomach. C) Received in formalin are 2 huynh mucosal fragments averaging 3 mm in greatest dimension, which are entirely submitted in one cassette. It is labeled with the patient's name and designated cecum mass. D) Received in formalin are 2 huynh mucosal fragments averaging 4 mm in greatest dimension, which are entirely submitted in one cassette. It is labeled with the patient's name and designated transverse polyps. E) Received in formalin are 5 huynh mucosal fragments ranging from 2 mm to stay by the6 mm in greatest dimension, which are entirely submitted in one cassette. It is labeled with the patient's name and designated sigmoid polyps. Hansa Martinez 04/09/2023 11:35 AM 8:51 AM [facility] Microscopic Description The final diagnosis is based on microscopic examination of appropriate sections of all specimens. Immunochemistry was performed on block C1 and interpreted with the following cells: Cytokeratin Jarod: Positive CDX2: Negative S100: Negative Synaptophysin: Negative BRG 1: Positive (intact) INI1: Positive (intact) MLH1: Negative (lost) MSH2: Positive (intact) MSH6: Positive (intact) PMS2: Negative (lost) SATB2: Positive CD3: Negative CD20: Negative Support for the interpretation of this case may have included the use of immunohistochemistry and/or in situ hybridization tests that were performed by [facility] and whose performance characteristics were evaluated by pathologists from [facility]. These tests have not been cleared or approved by the U.S. Food and Drug Administration. The FDA has determined that such clearance or approval is not necessary. These tests are used for clinical purposes and should not be regarded as investigational or for research. This laboratory is certified under the Clinical Laboratory Improvement Amendments of 1988 (CLIA) as qualified to perform high complexity clinical laboratory testing. 4 8:51 AM TONGUE AND GROOVE MACHINE SETTER [facility] Additional Information Interpreted at [facility] - [address], [place] [address] 4 8:51 AM TONGUE AND GROOVE MACHINE SETTER [facility] Other (Duodenum) 04/08/2023 10:00 AM TONGUE AND GROOVE MACHINE SETTER 04/09/2023 9:10 AM TONGUE AND GROOVE MACHINE SETTER Specimen (specimen) (Stomach Biopsy) 04/08/2023 10:00 AM TONGUE AND GROOVE MACHINE SETTER 04/09/2023 9:10 AM TONG[employer] AND GROOVE MACHINE SETTER Specimen (specimen) (Cecum Biopsy) 04/08/2023 10:00 AM TONGUE AND GROOVE MACHINE SETTER 04/09/2023 9:10 AM TONGUE AND GROOVE MACHINE SETTER Specimen (specimen) (Transverse Colon Polyp) 04/08/2023 10:00 AM TONGUE AND GROOVE MACHINE SETTER 04/09/2023 9:10 AM TONGUE AND GROOVE MACHINE SETTER Specimen (specimen) (Sigmoid Polyp) 04/08/2023 10:00 AM TONGUE AND GROOVE MACHINE SETTER 04/09/2023 9:10 AM TONGUE AND GROOVE MACHINE SETTER Calvin Desai MD PATHOLOGY/CYTOLOGY [facility] [address] [place] [address], from Last 3 Months Care Teams Machine Presser Relationship Specialty Start Date End Date David Camacho MD [address] [place] [id number] PCP - General Family Practice 07/29/22
== END 2023-04-16 11:56 | disposition home or self-care (01) ==
LOC: NFLDREF 04-17 09:33
PROVIDERS: PCP Family Medicine; Referring Provider Family Medicine; Visit Provider Family Medicine
DX: E11.9 Type 2 diabetes mellitus without complications (principal); D64.9 Anemia, unspecified; Z12.5 Encounter for screening for malignant neoplasm of prostate
CPT/HCPCS: 80053; 80061; G0103

== ENCOUNTER 2023-04-29 09:04 | Outpatient (CLI) | payer MEDICARE, SELFPAY ==
--- OUTSIDE RECORDS SUMMARY | 2023-04-29 09:07 | XMS_ITS | Clinical Summary ---
Author Name Unknown Organization [facility] Address [place], [place] [address] Care Team Providers Care Multiple Slide Operator Name Role Phone David Camacho MD Primary Care Provider [phone] Allergies No known active allergies Medications Medication [...] Department Care Team Description 04/08/2023 Lab Requisition [facility] [phone] Calvin Desai MD from Last 3 Months [...] 1 - PCV) 2009 COVID-19 vaccine series (2022-24 season) 2022 04/24/2021, 05/23/2020, 05/02/2020 Influenza for age 65+ 11/15/2022 Procedures Procedure Name Priority Date/Time Associated Diagnosis Comments LAB TRACKING EVENT Routine 04/08/2023 10 :00 AM AERIAL SURVEY TECHNICIAN PATH TISSUE EXAM Routine 04/08/2023 10:0 0 AM AERIAL SURVEY TECHNICIAN BRAF V600 MUTATION ANALYSIS Routine 04/08/2023 10:00 AM AERIAL SURVEY TECHNICIAN from Last 3 Months Results * LAB TRACKING EVENT (04/08/2023 10:00 AM AERIAL SURVEY TECHNICIAN) Other (Other) Client Collect / Unknown 04/08/2023 10:00 AM AERIAL SURVEY TECHNICIAN 04/08/2023 10:07 PM AERIAL SURVEY TECHNICIAN Calvin Desai MD LAB BILL ONLY Performing Organization Address City/[facility]/ZIP Co de Phone Number [facility] [address] [place] [address], [place] * BRAF V600 MUTATION ANALYSIS (04/08/2023 10:00 AM AERIAL SURVEY TECHNICIAN) RESULT COMMENT See Anatomic Pathology case 04/21/2023 5:03 PM AERIAL SURVEY TECHNICIAN [facility] Other (Cecum Biopsy) 04/08/2023 10:00 AM AERIAL SURVEY TECHNICIAN 04/15/2023 7:40 AM AERIAL SURVEY TECHNICIAN Calvin Desai MD LABORATORY Performing Organization Address City/[facility] Co de Phone Number [facility] [address] [place] [address], [place] * PATH TISSUE EXAM (04/08/2023 10:00 AM AERIAL SURVEY TECHNICIAN) Case Report Pathology Report ?Case: [id number] ? Authorizing Provider: ??Calvin Desai MD ?Collected: ? 04/08/2023 1000 ? Ordering Location: ? [facility] ?Received: ?04/09/2023 09 ? Pathologist: ? Theodore Mcrae MD ? Specimens: ?? A) - Duodenum ? B) - Stomach Biopsy, random stomach ? C) - Cecum Biopsy, mass ? D) - Transverse Colon Polyp ? E) - Sigmoid Polyp ? 4 5:06 PM [facility] [employer] Amendment 04/21/2023 - Report updated to incorporate BRAF testing, see synoptic section and updated diagnosis 4 5:[address] [facility] Final Diagnosis A) [...] with secondary loss of PMS2 ?? b. Positive for BRAF mutation ?? c. See comment and synoptic sections below 4. See comment D) COLON, TRANSVERSE, POLYPECTOMIES: [...] Resection: Complete ?? c. Retrieval: Complete 4 5:06 PM [facility] Amendment electronically signed by Theodore Mcrae MD on 04/21/2023 at 5:06 PM Comment C) Case seen in consultation with Dr. Weinberg. Dr. Valentine discussed these findings with Dr. 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 Microsatellite instability (MSI) is present in all such cases, so PCR testing would be redundant. Smalls Syndrome is essentially excluded; however, if there is high clinical suspicion or if patient is younger than 50, consideration should be given to additional testing for other inherited colon cancer syndromes. Please contact us if you have questions ([facility] GI Pathology Service [phone]). B) Mild chronic inflammation in the stomach in the absence of Helicobacter often remains unexplained, but it could reflect prior or treated Helicobacter infection. The likelihood of histologically undetected Helicobacter is quite low in our opinion. H. pylori immunohistochemistry reviewed by Drs. Wilson and Sultana. 4 5:06 PM AERIAL SURVEY TECHNICIAN [facility] Clinical Information Mr. Bradford is a 77 y.o. who presents with heme positive stool and abnormal CT imaging of the GI tract. 4 5:[address] [facility] Gross Description A) Received in formalin [...] sigmoid polyps. Hansa Martinez 04/09/2023 11:35 AM 4 5:06 PM [facility] Microscopic Description The final diagnosis is [...] situ hybridization tests that were performed by [facility] and whose performance characteristics were evaluated by [...] perform high complexity clinical laboratory testing. 4 5:06 PM [facility] Molecular Diagnostics Summary BRAF V600 Mutation Analysis Result: ?? 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 DNA Sample Preparation kit after a corresponding H&E stained slide is evaluated by a pathologist. Sample is macrodissected to enrich for tumor if section contains less than 50% tumor. Extracted DNA is then tested using the arian?? 4800 BRAF V600 Test. Specimen Assessment: ?? H&E slide reviewed by Mina Hunt M.D. and determined adequate for analysis. The arian?? 4800 BRAF V600 Mutation Test is an in vitro diagnostic device intended for the qualitative detection of BRAF V600 mutation in DNA extracted from formalin-fixed, paraffin-embedded human tissue. The arian?? 4800 BRAF V600 Mutation Test is a real-time PCR test on the arian?? 4800 systemIn addition to the most common V600E mutations, in data submitted to the FDA the BRAF V600 mutation assay was also able to detect V600K, V600E2, and V600D mutations (Vu package insert BRAF V600 assay). FDA required disclaimer: ??This test was developed and its performance characteristics determined by the [facility]. It has not been cleared or approved by the FDA. The FDA has determined, however, that in most cases, such approval is not necessary. This test is used for clinical purposes. It should not be regarded as investigational or for research. 4 5:06 PM [facility]- CENTRAL LABORATORY SYNOPTIC REPORTING Colon and Rectum Biomarker Reporting Template COLON AND RECTUM: BIOMARKER REPORTING TEMPLATE - C Protocol posted: 09/13/2020 RESULTS ?? Mismatch Repair: ? Immunohistochemistry (IHC) Testing for Mismatch Repair (MMR) Proteins: ? MLH1 Result: ?Loss of nuclear expression ? Immunohistochemistry (IHC) Testing for Mismatch Repair (MMR) Proteins: ? MSH2 Result: ?Intact nuclear expression ? Immunohistochemistry (IHC) Testing for Mismatch Repair (MMR) Proteins: ? MSH6 Result: ?Intact nuclear expression ? Immunohistochemistry (IHC) Testing for Mismatch Repair (MMR) Proteins: ? PMS2 Result: ?Loss of nuclear expression ? 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 BRAF: ? BRAF Mutational Analysis: ?BRAF V600E (c.1799 T>A) mutation METHODS ?? Dissection Method(s): ?Manual without microscopic observation (test name): BRAF ?? BRAF Testing Method(s): ?Real-time PCR 4 5:06 PM AERIAL SURVEY TECHNICIAN [facility]- CENTRAL LABORATORY Additional Information Interpreted at [facility], Central Laboratory - [address] [place] [address] [address] [address] 4 5:06 PM AERIAL SURVEY TECHNICIAN [facility]- CENTRAL LABORAT[facility] Other (Duodenum) 04/08/2023 10:00 AM AERIAL SURVEY TECHNICIAN 04/09/2023 9:10 AM AERIAL SURVEY TECHNICIAN Specimen (specimen) (Stomach Biopsy) 04/08/2023 10:00 AM AERIAL SURVEY TECHNICIAN 04/09/2023 9:10 AM AERIAL SURVEY TECHNICIAN Specimen (specimen) (Cecum Biopsy) 04/08/2023 10:00 AM AERIAL SURVEY TECHNICIAN 04/09/2023 9:10 AM AERIAL SURVEY TECHNICIAN Specimen (specimen) (Transverse Colon Polyp) 04/08/2023 10:00 AM AERIAL SURVEY TECHNICIAN 04/09/2023 9:10 AM AERIAL SURVEY TECHNICIAN Specimen (specimen) (Sigmoid Polyp) 04/08/2023 10:00 AM AERIAL SURVEY TECHNICIAN 04/09/2023 9:10 AM AERIAL SURVEY TECHNICIAN Calvin Desai MD PATHOLOGY/CYTOLOGY [facility] [address] [place] [address], [place] from Last 3 Months Care Teams Multiple Slide Operator Relationship Specialty Start Date End Date David Camacho MD [address] [place] [address] PCP - General Family Practice 07/29/22
[2023-04-29 11:00] VITALS: BP 143/84; PULSE 87; RESP 16
[2023-04-29] MEDS: REGADENOSON 0.4 MG/5 ML SYRINGE IVP (11:00)
[2023-04-29] MEDS: SODIUM CHLORIDE 0.9 % (FLUSH) 10 ML SYRINGE IVF (11:00)
--- NOTE | 2023-04-29 12:11 | W.PM.STED ---
Stress Test Note Date Date of test: 04/29/23 Providers Primary care provider: David Camacho Stress test physician: Armando Andrea Stress Test Note Stress test ordered: Lexiscan Indication for test: Shortness of breath Stress test medicine: Lexiscan Results discussion: Patient is a very nice 69-year-old gentleman who presents with the above test which is nonwalking Lexiscan. cardiac stress test medical history form is reviewed entirely, pre testing his EKG shows normal sinus rhythm with a ventricular rate of 73 and a blood pressure 146/80, no acute ST wave changes are noted standard Lexiscan protocol is done over 5 minute time. There were no complications, he had no subjective symptoms of chest pain shortness of breath or anything else. Review of his post testing tracing showed no changes at all. There were no complications, any recovered normal Impression: Negative electrographic portion of Lexiscan Follow up suggested: Await nuclear images, these will be read by Cardiology and nuclear Medicine, clinical correlation with these will be needed. Patient left this testing facility in excellent condition
== END 2023-04-29 12:00 | disposition home or self-care (01) ==
PROVIDERS: PCP Family Medicine; Visit Provider Family Medicine
DX: R06.09 Other forms of dyspnea (principal); C18.9 Malignant neoplasm of colon, unspecified
CPT/HCPCS: 78452; 93016; 93017; A9500; J2785

== ENCOUNTER 2023-05-12 17:39 | Inpatient (IN) | payer MEDICARE, SELFPAY ==
[2023-05-12] VITALS (19 sets, daily range): BP systolic 112–143; BP diastolic 60–81; PULSE 64–77; RESP 13–22; TEMP 35.7–37.1; O2SAT 92–98; BMI 30.1
[2023-05-12] MEDS: LACTATED RINGERS 1000 ML 1,000 ML 100 ML IV ×3 (09:40→17:51)
[2023-05-12] MEDS: SODIUM CHLORIDE 0.9 % (FLUSH) 10 ML SYRINGE IVF (09:40)
[2023-05-12 10:14] LABS: Basophils Absolute Auto 0.01 K/uL (0.00-0.30); Basophils Percent Auto 0.1 % (0.0-3.0); Eosinophils Absolute Auto 0.13 K/uL (0.00-0.50); Eosinophils Percent Auto 1.6 % (0.0-7.0); Hematocrit 33.3 % (37.0-53.0); Hemoglobin* 10.2 gm/dL (13.5-17.5); Immature Granulocytes Abs Auto 0.01 K/uL (0.00-0.30); Immature Granulocytes Pct Auto 0.1 %; Mean Corpuscular HGB Conc 31 gm/dL (32-36); Mean Corpuscular Hemoglobin 28 pg (26-34); Mean Corpuscular Volume 91 fL (80-100); Monocytes Percent Auto 10.5 % (0.0-11.0); Neutrophils Percent Auto 75.7 % (42.0-72.0); Platelet Count* 321 K/uL (140-440); White Blood Count* 7.98 K/uL (4.50-11.00)
[2023-05-12 11:19] LABS: Red Blood Count 3.65 m/uL (4.30-5.90); Slide Review Reflex Yes
[2023-05-12 11:24] LABS: Slide Review Acceptable Review (Acceptable)
[2023-05-12] MEDS: ERTAPENEM 1 GM inj IVPB (12:50)
[2023-05-12] MEDS: BUPIVACAINE 0.5% 30 ML INJECTION (13:17)
--- NOTE | 2023-05-12 13:17 | W.ANESCHARGE ---
Anesthesia Charges Start Date/Time Anesthesia Start Date: 05/12/23 Anesthesia Start Time: 12:35 Stop Date/Time Anesthesia Stop Date: 05/12/23 Anesthesia Stop Time: 16:15 Summary Extremes of Age - Over 70 or under 1: MDA
--- NOTE | 2023-05-12 13:17 | W.PM.NB ---
Nerve Block Nerve Block Time Seen by Provider: 12:42 Date Seen: 05/12/23 Type of block requested by surgeon for post-operative analgesia: TAP Side: bilateral Time out performed: Yes Verification of patient name: Yes Verification of date of : Yes Site marking: site marked Name of person performing procedure: Roger Continuous monitoring Was continuous monitoring of O2 sat, B/P, psychiatric orderly, recorded every 15 minutes?: Yes Procedure Checklist: sterile prep, needles and gloves Ultrasound guided. Images saved: Yes Medications given in 5ml increments after negative aspiration: Marcaine %: 0.25 mL: 30 Needle gauge: 20 and Exparel mL: 10 Patient tolerated procedure well: Yes Additional comments: Needle noted between internal oblique and transversus abdominus. Local spread visualized Block Charges Block Charge (with Pro Fee): TAP Bilateral Use of Ultrasound Machine for Block: Yes- US Guidance/pain block
--- NOTE | 2023-05-12 16:31 | P.ANES_ITS ---
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
--- NOTE | 2023-05-12 16:53 | SUR.PHASEI ---
patient met discharge criteria per anesthesia
--- NOTE | 2023-05-12 17:16 | P.GSOP_ITS ---
Operative Note Date of procedure: 05/12/23 Pre-op diagnosis: Right-sided colon adenocarcinoma Post-op diagnosis: Same Type of Procedure: Laparoscopic converted to open right hemicolectomy Indications: The patient is a 77-year-old male who was admitted to the hospital with hypothermia in mid March and found to be profoundly anemic. Workup revealed a large right-sided colon mass. Colonoscopy and biopsy showed this to be adenocarcinoma. He had no evidence of metastatic disease and therefore colectomy was recommended. The patient has a complex social situation and also multiple medical comorbidities. Prior to proceeding to the OR, he did have social media designer consult, nutrition consult, and pre ability almodovar in the form of physical and occupational therapy as well as iron infusions. He underwent stress echo and was cleared for surgery. Procedure Description: After discussing the risks and benefits of the procedure, the patient signed informed consent.? The operative site was marked and the patient was brought to the operating room and placed on the operating table in supine position.? Care was taken to pad the patient's pressure points.?? The patient was then intubated by anesthesia.??TAP blocks were then performed. Please see anesthesia's note for details. A Shelton catheter was placed. The operative site was then prepped and draped in the usual sterile fashion.? A time-out was then performed. Enters the abdomen was gained via Visiport technique in the left upper quadrant. The abdomen was then insufflated. This was briefly surveyed. No signs of injury were noted. No peritoneal studding was noted on peritoneum or the liver. I then placed a 5 mm port just superior to the umbilicus as well as in the left lower abdomen. This was done under direct vision. He did have a small amount of gelatinous fluid in the right upper quadrant near the liver. This was aspirated and sent for cytology. There was a large mass noted in the right abdomen. The patient was placed with the right side up and in slight Trendelenburg position. The mass was adherent to the lateral abdominal wall. Small bowel approximately 30 cm proximal to the ileocecal valve was also densely adherent to the mass. The mass appeared to be socked down to the retroperitoneum. I was unable to elevate this to identify the ileocolic pedicle. Therefore I elected to mobilize the mass laterally laparoscopically and plan on an open incision to complete the dissection. I began by incising the lateral attachments overlying the mass. This was done with LigaSure. I did this at least 1 cm away from the mass to ensure negative margins though it did not appear as though the mass was invading the abdominal wall itself. This was taken down inferiorly around the inferior aspect of the cecum. I was able to identify the appendix. I grasped this and retracted the cecum cranially. The peritoneum was incised inferiorly to the terminal ileum. Once this was done, I turned my attention to the hepatic flexure. I grasped the transverse colon and retracted this caudad. I then incised the gastrocolic ligament and took my dissection around the hepatic flexure, reflecting the colon medially. I was able to identify the duodenum and keep my dissection away from it. The mass was quite large, essentially the size of a grapefruit, with small bowel densely adherent to it. Because of this it was difficult to mobilize to dissect around it and underneath of it. Once I had divided as much of the peritoneal attachments as I was able, I elected to convert to an open procedure. A midline incision was then created just above the umbilicus. Dissection was taken down to the fascia using cautery. The fascia was incised. An Jamel wound retractor was placed into the abdomen. I continued to attempt to mobilize the mass, dividing the retroperitoneal attachments using a right angle, however the mass was so large that I had difficulty visualizing through the incision. I attempted to deliver it through the incision, however it was too large. There was bleeding noted from the small bowel mesentery which was densely adherent to the mass itself. I did attempt to control this with the LigaSure, however it did continue to ooze. Because of this I elected to continue to get the mass out so that I could ligate the mesentery at the root. Once I reached a point where I could not safely see around the mass, I removed the wound retractor and made my incision somewhat larger. Once this was done I had excellent visualization. I was able to identify again where the duodenum was located. The mass was very stuck to the retroperitoneum in this location. Initially it seemed as though it may be stuck to the duodenum itself, however once I was able to mobilize the colon posterior laterally, a came up away from the duodenum easily. In this dissection I noted that while pulling on the mass trying to deliver it from the incision I had torn the transverse colon. This was in a planned area of resection however. There was no gross spillage of any abdominal contents into the abdomen. The patient had performed a bowel prep preop. I was then able to continue to divide the filmy adhesions in this area using combination of cautery and LigaSure. I now had the mass completely mobilized with only the mesentery connected. I identified a healthy portion of small bowel that was proximal to the area that was adherent to the tumor. This approximately 40 cm proximal to the ileocecal valve. A mesenteric window was created. Through this I passed a blue load DALTON stapler. The small bowel was divided. I then identified the middle colic vein. I identified the right branch of the vein. I then identified a healthy soft piece of transverse colon proximal to this for my distal point of resection. The omentum was dissected free of the colon carefully with a right angle. Cautery was used to divide this as well as LigaSure. I then created a mesenteric window and through this passed a blue load DALTON stapler. This was fired across the transverse colon. I then took LigaSure and divided the mesentery. Once I arrived at the ileocolic pedicle, this was dissected out circumferentially and clamped. This was divided using the LigaSure however below the clamp I ligated the pedicle was 2-0 silk suture. I did this close to the mesenteric root. Once this was done, I divided the mesentery the rest of the with LigaSure, also ligating small visible vessels with silk suture. Once this was done the specimen was passed off to pathology. I examined the retroperitoneum. There was no ongoing bleeding. I then pulled the bowel ends together and prepared for my anastomosis. I elected to resect another 4 cm of small bowel as, well it appeared perfused, I had divided the mesentery underneath. I created a mesenteric window and again use an Endo-DALTON stapler to divide the small bowel. The small piece of mesentery which remained was divided with LigaSure. This came easily to the transverse colon. I then cleared omentum limb pericolonic fat, carefully dissecting with a mosquito clamp. The LigaSure was used to divide a large piece of omentum which was sent with the specimen. Once I had cleared the distal transverse colon, I ensured both ends of bowel came together easily without twisting. I then placed a stay stitch. Green towels were placed around the wound to protect it from any spillage of bowel contents. Enterotomies were created using cautery. A blue load DALTON stapler was placed in each end of the bowel and advanced. A 70 mm anastomosis was then created. The stapler was removed and the anastomosis is examined. There was no significant bleeding. I then closed the common enterotomy with interrupted 3-0 silk sutures in a Lembert fashion. Once this was done a crotch stitch was placed. The anastomosis was examined. It appeared widely patent. This was placed back into the abdomen. Abdomen was irrigated with warm saline. At this point gloves and instruments were changed. The fascia was then closed with 0 Maxon in a running fashion. The port sites were closed with 4-0 Monocryl suture. The midline incision was closed with 3-0 Vicryl dermal and 4-0 Monocryl running subcuticular sutures. Sterile dressings were then applied. ? The patient was then woken and transported to the recovery area in stable condition. ? The patient tolerated the procedure well. Findings: 1. Large right colon tumor with small bowel densely adherent 2. Small amount of gelatinous ascites in the right upper quadrant Anesthesia: GETA Surgeon: Caro Sharma MD Estimated blood loss (mL): 200 Additional Specimen Information: 1. Abdominal fluid for cytology 2. Right hemicolectomy with additional ileum and omentum. Condition: stable Disposition: PACU Colon Resection Operation Performed with Curative Intent: Yes Tumor location: Ascending colon Extent of colon and vascular resection: Right hemicolectomy-ileocolic, right colic (if present)
--- NOTE | 2023-05-12 19:50 | PC.NURSE ---
Patient pleasant, alert and oriented. Arrived on med/surg at 1640. Denies any abdominal pain but reports pain rated 4/10 in his left ?sore swollen foot.? Bilateral lower extremities have pitting edema. Left leg/foot elevated on pillow. Steri-strips to lap sites intact. Dressing to midline abdomen clean, dry and intact. Jasson Ahumada (step son) called and was given update.?
--- NOTE | 2023-05-12 21:59 | PM.IMCN1 ---
Date of Consult Patient: [facility] Patient Consult date: 05/12/23 Requesting Physician: General Surgery Primary Care Provider: David Camacho MD Consult Narrative Reason for consult: Medical management of comorbidities Narrative: Brian Bradford is a 77 year old male who presented to the hospital today for a R hemicolectomy (laparoscopic converted to open) with Dr. Sharma of General Surgery, for known colon cancer. There were no surgical or anesthetic complications noted during procedure. Patient's H&P reviewed, PCP is Janice. Preoperatively, patient had a reassuring stress test. Past medical history significant for: colon cancer, PVD, preDM2 (last A1C 5.0), history of essential HTN (not currently requiring medication). History of blood clots: No When I see patient on the floor, he is having mild abdominal pain with movement, but no other concerns. Review of Systems Status of ROS: Reports: 10 or more systems reviewed and unremarkable except as noted in History and below [facility] Medical History (Updated 04/16/23 @ 11:55 by David Camacho MD) DMII (diabetes mellitus, type 2) ?E11.9 - Type 2 diabetes mellitus without complications (ICD-10) Postprandial epigastric pain ?R10.13 - Epigastric pain (ICD-10) Alcohol use ?Z78.9 - Other specified health status (ICD-10) Discharge planning issues ?Z02.9 - Encounter for administrative examinations, unspecified (ICD-10) Cognitive impairment ?R41.89 - Other symptoms and signs involving cognitive functions and awareness (ICD-10) Homeless ?Z59.00 - Homelessness unspecified (ICD-10) Aortic aneurysm, abdominal ?I71.40 - Abdominal aortic aneurysm, without rupture, unspecified (ICD-10) Colonic mass ?K63.89 - Other specified diseases of intestine (ICD-10) Abnormal ankle brachial index (GLORIA) ?R68.89 - Other general symptoms and signs (ICD-10) PAD (peripheral artery disease) ?I73.9 - Peripheral vascular disease, unspecified (ICD-10) Claudication ?I73.9 - Peripheral vascular disease, unspecified (ICD-10) Tobacco use ?Z72.0 - Tobacco use (ICD-10) Hypertension ?I10 - Essential (primary) hypertension (ICD-10) Surgical History (Updated 05/12/23 @ 22:07 by Tiffanie Gutierrez MD) H/O right hemicolectomy ?Z90.49 - Acquired absence of other specified parts of digestive tract (ICD-10) S/P eye surgery ?Z98.890 - Other specified postprocedural states (ICD-10) Family History (Updated 04/04/23 @ 11:27 by Caro Sharma MD) Father Colon cancer Social History (Updated 04/04/23 @ 11:27 by Caro Sharma MD) Narrative: Patient lives independently. Issues with heating his home. He has 3 step children, 1 of which is more involved in his life. He smokes 1 pack of cigarettes a day. He does not drink alcohol. What is your current living situation?: I presently have a place to live Problems where you live: no known problems Problems where you live details: bathroom is on second floor In the past 12 months, utilities in danger of being shut off: no In past 12 months, lack of transportation kept you from medical appts, meetings, work, or getting things needed for daily living: no In the past 12 mos, have been you worried that your food would run out before you had money to buy more?: never true In the past 12 mos, the food you bought just didn't last and you didn't have money to buy more?: never true Highest level of school completed/degree received: high school graduate Smoking Status: Current every day smoker What tobacco products do you use: cigars Do you use any of these nicotine containing products: None Second hand tobacco smoke exposure: Yes How often do you have a drink containing alcohol: 2-4 times a month How many standard drinks containing alcohol do you have on a typical day: 1 or 2 How often do you have six or more drinks on one occasion: Never AUDIT-C Alcohol total score: 2 Non-prescribed substance use: denies use Caffeine: No How often does anyone, including family, friends and others, physically hurt you: never How often does anyone, including family, friends and others, insult or talk down to you: never How often does anyone, including family, friends and others, threaten you with harm: never How often does anyone, including family, friends and others, scream or curse at you: never Little interest or pleasure in doing things: not at all Feeling down, depressed, or hopeless: not at all service: No Meds Home Medications and Allergies Allergies Allergy/AdvReac Type Severity Reaction Status Date / Time No Known Allergies Allergy Unknown Unknown Verified 05/12/23 09:02 Exam Narrative: Exam Narrative: GEN: Alert and laying comfortably in bed, answering questions appropriately HEENT: EOMIs bilaterally, no scleral icterus CV: RRR, No concerning murmurs, heart sounds distant R: LCTA bilaterally without concerning wheezing, air movement adequate Skin: Scattered closed comedones, no other concerning skin lesions or rashes on exposed skin Neuro: No focal deficits Psych: Appropriate Const: Vital Signs, click to edit/add: Vital Signs - 24 hr 05/12/23 09:30 05/12/23 16:12 05/12/23 16:15 Temperature 98.7 F 97.4 F L 97.4 F L Pulse Rate 76 76 68 Pulse Rate [Right Pulse Oximeter] Respiratory Rate 16 15 13 Blood Pressure 142/81 H 141/77 H 130/67 Blood Pressure [Le ft Arm] Pulse Oximetry 95 93 94 Oxygen Delivery [facility] Room Air Room Air Room Air 05/12/23 16:20 05/12/23 16:25 05/12/23 16:30 Temperature 97.4 F L 97.4 F L 97.4 F L Pulse Rate 70 68 71 Pulse Rate [Right Pulse Oximeter] Respiratory Rate 17 17 22 Blood Pressure 128/71 123/72 120/69 Blood Pressure [Le ft Arm] Pulse Oximetry 93 93 98 Oxygen Delivery [facility] Room Air Room Air Room Air 05/12/23 16:35 05/12/23 16:40 05/12/23 16:45 Temperature 97.4 F L 97.4 F L 96.4 F L Pulse Rate 66 67 64 Pulse Rate [Right Pulse Oximeter] Respiratory Rate 14 13 20 Blood Pressure 117/69 112/67 Blood Pressure [Le ft Arm] 129/64 Pulse Oximetry 94 97 94 Oxygen Delivery [facility] Room Air Room Air Room Air 05/12/23 17:00 05/12/23 17:15 05/12/23 17:30 Temperature 96.2 F L 96.4 F L 96.5 F L Pulse Rate Pulse Rate [Right Pulse Oximeter] 64 65 68 Respiratory Rate 20 20 20 Blood Pressure Blood Pressure [Le ft Arm] 129/64 119/64 117/64 Pulse Oximetry 94 93 92 Oxygen Delivery Me thod Room Air Room Air Room Air 05/12/23 17:39 05/12/23 17:45 05/12/23 18:15 Temperature 96.3 F L 96.6 F L Pulse Rate Pulse Rate [Right Pulse Oximeter] 67 75 Respiratory Rate 20 20 Blood Pressure Blood Pressure [Le ft Arm] 112/60 112/62 Pulse Oximetry 94 94 95 Oxygen Delivery Me thod Room Air Room Air 05/12/23 18:45 05/12/23 19:45 05/12/23 20:45 Temperature 96.9 F L 97 F L 97 F L Pulse Rate Pulse Rate [Right Pulse Oximeter] 75 77 68 Respiratory Rate 20 16 16 Blood Pressure Blood Pressure [Le ft Arm] 126/79 142/77 H 143/73 H Pulse Oximetry 97 97 Oxygen Delivery Me thod Room Air Room Air Room Air 05/12/23 21:20 Temperature 97.1 F L Pulse Rate Pulse Rate [Right Pulse Oximeter] 70 Respiratory Rate 16 Blood Pressure Blood Pressure [Le ft Arm] 118/63 Pulse Oximetry 94 Oxygen Delivery Me thod Room Air Labs Labs: Short CBC 05/12/23 Range/Units 10:05 WBC 7.98 (4.50-11.00) K/uL Hgb 10.2 L (13.5-17.5) gm/dL Hct 33.3 L (37.0-53.0) % Plt Count 321 (140-440) K/uL Assessment and Plan Assessment and plan (1) Colon cancer: Status: Acute (2) H/O right hemicolectomy: Problem comment: - 05/12/23, Dr. Sharma Status: Acute Plan - pain management and prophylaxis per General Surgery - continue home medications for comorbidities, hospitalist team will continue to follow
[2023-05-13] MEDS: HYDROmorphone 0.5 mg/0.5 ml inj IVP ×4 (01:02→21:31)
[2023-05-13 03:00] VITALS: BP 130/83; PULSE 90; RESP 18; TEMP 36.8; O2SAT 93
[2023-05-13] MEDS: LACTATED RINGERS 1000 ML 1,000 ML 100 ML IV ×2 (04:22→16:25)
--- NOTE | 2023-05-13 05:16 | PC.NURSE ---
Shift note: surgical dressing is C/D/I, lap site are intact and dry, bowel sounds hypoactive. Pt ambulates with assist of 1, tolerates PO ice-chips and fluids with no c/o nausea.
[2023-05-13 07:00] VITALS: BP 126/66; PULSE 83; RESP 20; TEMP 36.7; O2SAT 92
[2023-05-13 07:01] LABS: Basophils Absolute Auto 0.01 K/uL (0.00-0.30); Basophils Percent Auto 0.1 % (0.0-3.0); Hematocrit 30.5 % (37.0-53.0); Hemoglobin* 9.4 gm/dL (13.5-17.5); Immature Granulocytes Abs Auto 0.02 K/uL (0.00-0.30); Immature Granulocytes Pct Auto 0.2 %; Lymphocytes Percent Auto 10.7 % (20-44); Mean Corpuscular HGB Conc 31 gm/dL (32-36); Mean Corpuscular Hemoglobin 28 pg (26-34); Mean Corpuscular Volume 91 fL (80-100); Monocytes Percent Auto 8.4 % (0.0-11.0); Neutrophils Percent Auto 80.6 % (42.0-72.0); Platelet Count* 318 K/uL (140-440); Red Blood Count 3.34 m/uL (4.30-5.90); White Blood Count* 8.62 K/uL (4.50-11.00)
[2023-05-13 07:03] LABS: Chloride* 102 mmol/L (96-114); Sodium* 135 mmol/L (135-149)
[2023-05-13 07:04] LABS: Potassium* 3.8 mmol/L (3.6-5.1)
[2023-05-13 07:06] LABS: Creatinine* 0.7 mg/dL (0.5-1.5); Est. Creatinine Clearance* 43.06; Estimated Glomerular Filt Rate 94 ml/min
[2023-05-13 07:07] LABS: Anion Gap 7 mEq/L (7-15); Blood Urea Nitrogen* 13 mg/dL (7-30); Calcium* 8.3 mg/dL (8.4-10.6); Carbon Dioxide* 26 mmol/L (20-32); Glucose* 145 mg/dL (60-115); Magnesium* 1.8 mg/dL (1.5-2.6)
[2023-05-13] MEDS: OMEPRAZOLE 20 MG CAPSULE DR PO (07:13)
[2023-05-13 07:49] LABS: Slide Review Reflex No
[2023-05-13] MEDS: FERROUS SULFATE 325 MG TABLET PO (08:17)
[2023-05-13] MEDS: FUROSEMIDE 20 MG TABLET PO (08:17)
--- NOTE | 2023-05-13 08:58 | P.GSPN_ITS ---
Subjective Subjective Date Seen: 05/13/23 Interval history: Brian did well overnight. No concerns this morning other than his foot pain. He states that this pain is burning pain on his whole foot. He has had this for some time but states that when he was on diuretic medication prior to his previous hospitalization that it took care of the pain. This medication was stopped because his blood pressure was low. Since then he has had swelling and pain his bilateral feet. Abdominal pain is controlled from his standpoint and he does not have any chest pain or shortness of breath. Exam Narrative: Exam Narrative: General: No acute distress CV: Regular rate Respiratory: Breathing nonlabored on room air Abdomen: Soft. Appropriately tender to for the postoperative state. Dressings are clean and dry. Extremities: Bilateral lower extremities without significant edema. Const: Vital Signs, click to edit/add: Vital Signs - 24 hr 05/12/23 09:30 05/12/23 16:12 05/12/23 16:15 Temperature 98.7 F 97.4 F L 97.4 F L Pulse Rate 76 76 68 Pulse Rate [Right Pulse Oximeter] Respiratory Rate 16 15 13 Blood Pressure 142/81 H 141/77 H 130/67 Blood Pressure [Le ft Arm] Pulse Oximetry 95 93 94 Oxygen Delivery Me thod Room Air Room Air Room Air 05/12/23 16:20 05/12/23 16:25 05/12/23 16:30 Temperature 97.4 F L 97.4 F L 97.4 F L Pulse Rate 70 68 71 Pulse Rate [Right Pulse Oximeter] Respiratory Rate 17 17 22 Blood Pressure 128/71 123/72 120/69 Blood Pressure [Le ft Arm] Pulse Oximetry 93 93 98 Oxygen Delivery Me thod Room Air Room Air Room Air 05/12/23 16:35 05/12/23 16:40 05/12/23 16:45 Temperature 97.4 F L 97.4 F L 96.4 F L Pulse Rate 66 67 64 Pulse Rate [Right Pulse Oximeter] Respiratory Rate 14 13 20 Blood Pressure 117/69 112/67 Blood Pressure [Le ft Arm] 129/64 Pulse Oximetry 94 97 94 Oxygen Delivery Me thod Room Air Room Air Room Air 05/12/23 17:00 05/12/23 17:15 05/12/23 17:30 Temperature 96.2 F L 96.4 F L 96.5 F L Pulse Rate Pulse Rate [Right Pulse Oximeter] 64 65 68 Respiratory Rate 20 20 20 Blood Pressure Blood Pressure [Le ft Arm] 129/64 119/64 117/64 Pulse Oximetry 94 93 92 Oxygen Delivery [facility] Room Air Room Air Room Air 05/12/23 17:39 05/12/23 17:45 05/12/23 18:15 Temperature 96.3 F L 96.6 F L Pulse Rate Pulse Rate [Right Pulse Oximeter] 67 75 Respiratory Rate 20 20 Blood Pressure Blood Pressure [Le ft Arm] 112/60 112/62 Pulse Oximetry 94 94 95 Oxygen Delivery [facility] Room Air Room Air 05/12/23 18:45 05/12/23 19:45 05/12/23 20:45 Temperature 96.9 F L 97 F L 97 F L Pulse Rate Pulse Rate [Right Pulse Oximeter] 75 77 68 Respiratory Rate 20 16 16 Blood Pressure Blood Pressure [Le ft Arm] 126/79 142/77 H 143/73 H Pulse Oximetry 97 97 [facility] Room Air Room Air 05/12/23 21:20 05/13/23 03:00 05/13/23 07:00 Temperature 97.1 F L 98.3 F 98.1 F Pulse Rate Pulse Rate [Right Pulse Oximeter] 70 90 83 Respiratory Rate 16 18 20 Blood Pressure Blood Pressure [Le ft Arm] 118/63 130/83 126/66 Pulse Oximetry 94 93 92 Oxygen Delivery [facility]od Room Air Room Air Room Air Labs/Imaging Labs Labs: Hemoglobin is 9.4 from 10 preop White blood cell count 8.6. Progress Note:A&P Assessment and plan (1) H/O right hemicolectomy: Status: Acute (2) Colon cancer: Status: Acute (3) DMII (diabetes mellitus, type 2): Status: Acute (4) Claudication: Status: Acute (5) PAD (peripheral artery disease): Status: Acute (6) Anemia: Status: Acute Plan Brian is a an 7-year-old male who is postop day 1 from right hemicolectomy for ascending colon adenocarcinoma. He is doing well overall. Main concern is burning foot pain which he attributes to changing his diuretic though he has a history of vascular and spinal claudication. -no sign of swelling in his feet today. Have discussed with hospitalist diuretic management though I think adding gabapentin may help. One hundred b.i.d. was started today. -PT and OT -social work consult for discharge planning -have ordered a nutrition consult to though he should stay on clear liquids until he has return of bowel function. -continue iron for anemia -Lovenox ordered this evening for DVT prophylaxis in the setting of cancer. Hemoglobin appears to be stable as he was likely hemoconcentrated on admission and after his bowel prep -encourage IS -maintenance IV fluids until taking adequate p.o.
--- NOTE | 2023-05-13 10:34 | PM.IMPN1 ---
Progress Note: A&P Assessment and plan (1) Colon cancer: Problem details: Ascending colon adenocarcinoma -POD#1 s/p right hemicolectomy, postoperative management per primary team, General Surgery Status: Acute (2) H/O right hemicolectomy: Problem details: -05/12/23, Dr. Sharma Status: Acute (3) DMII (diabetes mellitus, type 2): Problem details: -diet controlled, not currently on medications. Most recent A1c 5.0 Status: Acute (4) Claudication: Problem details: Short distance claudication, mixed neurogenic and vascular, followed by PCP and vascular surgery -Resulting in significant pain, paresthesias, limited ambulation -Gabapentin 100 mg b.i.d. started, scheduled Tylenol, avoid compression stockings as increases pain -will d/c furosemide and restart chlorthalidone as this may be the medication that helped him in the past. Monitor Status: Acute (5) Edema of leg: Problem details: -recently restarted on furosemide, patient reports previous medication, possibly chlorthalidone, more effective. Will make this medication change and monitor Status: Acute (6) Anemia: Problem details: Iron deficiency anemia -iron supplement restarted Status: Acute Plan Consulting service, continuing to follow Time Spent With Patient Total time spent: Total time spent caring for the patient today was 45 minutes. This includes time spent for the visit reviewing the chart, time spent during the visit, time spent after the visit and documentation and planning in coordination of care. Subjective Date Seen: 05/13/23 Interval history: Patient is seen in bed this morning. Complains of bilateral lower extremity pain, described as burning, no worse with touch (palpation or weight of bed sheets), but cannot tolerate compression stockings. Tells me this pain has been present for approximately 1 year. Intermittent in nature. Relatively well controlled recently. But this most recent flare has been the worst it has ever been. He tells me he had recently been on a medication which helped his swelling and his pain but that this had been discontinued. In reviewing his EMR, this may have been his chlorthalidone. He has since been restarted on furosemide which he tells me he does not think is as effective. His swelling has moderately improved since starting this but the pain has persisted. No redness or streaking of the extremities. No temperature change. Reports the lower extremity pain has been distracting from his abdominal discomfort. Otherwise denies headache or dizziness. Denies chest pain or shortness of breath. Postoperative abdominal pain managed. No nausea or vomiting. Per EMR, wellness/Medicare visit March 2022, patient had an abnormal GLORIA, showing moderately reduced blood flow to the right lower extremity and severely reduced blood flow to the left lower extremity. He had an initial consultation August 2022 with vascular surgery which reports history of short distance claudication, mixed neurogenic and vascular. Report at that time of lower extremity pain with edema. Does not specify burning pain but patient tells me this has been present at least a year. Exam Narrative: Exam Narrative: PHYSICAL EXAM General: Frustrated, otherwise NAD HEENT: Normocephalic, atraumatic, sclera white, EOMI, oral mucosa dry Cardiovascular: RRR, S1S2. Pulmonary: CTA bilaterally without rhonchi, rales, expiratory wheezes. No dyspnea on room air Abdominal: Soft, nondistended, appropriate postoperative mild tenderness Neurological: Alert, answering questions appropriately, cranial nerves intact, no focal findings Extremities: Bilateral lower extremities warm without erythema or streaking, trace edema Skin: Warm, dry. Const: Vital Signs, click to edit/add: Vital Signs - 24 hr 05/12/23 16:12 05/12/23 16:15 05/12/23 16:20 Temperature 97.4 F L 97.4 F L 97.4 F L Pulse Rate 76 68 70 Pulse Rate [Right Pulse Oximeter] Respiratory Rate 15 13 17 Blood Pressure 141/77 H 130/67 128/71 Blood Pressure [Le ft Arm] Pulse Oximetry 93 94 93 Oxygen Delivery Me thod Room Air Room Air Room Air 05/12/23 16:25 05/12/23 16:30 05/12/23 16:35 Temperature 97.4 F L 97.4 F L 97.4 F L Pulse Rate 68 71 66 Pulse Rate [Right Pulse Oximeter] Respiratory Rate 17 22 14 Blood Pressure 123/72 120/69 117/69 Blood Pressure [Le ft Arm] Pulse Oximetry 93 98 94 Oxygen Delivery Me thod Room Air Room Air Room Air 05/12/23 16:40 05/12/23 16:45 05/12/23 17:00 Temperature 97.4 F L 96.4 F L 96.2 F L Pulse Rate 67 64 Pulse Rate [Right Pulse Oximeter] 64 Respiratory Rate 13 20 20 Blood Pressure 112/67 Blood Pressure [Le ft Arm] 129/64 129/64 Pulse Oximetry 97 94 94 Oxygen Delivery Me thod Room Air Room Air Room Air 05/12/23 17:15 05/12/23 17:30 05/12/23 17:39 Temperature 96.4 F L 96.5 F L Pulse Rate Pulse Rate [Right Pulse Oximeter] 65 68 Respiratory Rate 20 20 Blood Pressure Blood Pressure [Le ft Arm] 119/64 117/64 Pulse Oximetry 93 92 94 Oxygen Delivery Me od Room Air Room Air 05/12/23 17:45 05/12/23 18:15 05/12/23 18:45 Temperature 96.3 F L 96.6 F L 96.9 F L Pulse Rate Pulse Rate [Right Pulse Oximeter] 67 75 75 Respiratory Rate 20 20 20 Blood Pressure Blood Pressure [Le ft Arm] 112/60 112/62 126/79 Pulse Oximetry 94 95 [facility] 05/12/23 19:45 05/12/23 20:45 05/12/23 21:20 Temperature 97 F L 97 F L 97.1 F L Pulse Rate Pulse Rate [Right Pulse Oximeter] 77 68 70 Respiratory Rate 16 16 16 Blood Pressure Blood Pressure [Le ft Arm] 142/77 H 143/73 H 118/63 Pulse Oximetry 97 94 [facility] Room Air 05/13/23 03:00 05/13/23 07:00 Temperature 98.3 F 98.1 F Pulse Rate Pulse Rate [Right Pulse Oximeter] 90 83 Respiratory Rate 18 20 Blood Pressure Blood Pressure [Le ft Arm] 130/83 126/66 Pulse Oximetry 93 92 [facility] Labs Labs: Laboratory Results - last 24 hr 05/12/23 05/13/23 10:05 06:33 WBC 7.98 8.62 RBC 3.65 L 3.34 L Hgb 10.2 L 9.4 L Hct 33.3 L 30.5 L MCV 91 91 MCH 28 28 MCHC 31 L 31 L RDW Coeff of Nissa Not Reportable Plt Count 321 318 Neut % (Auto) 75.7 H 80.6 H Lymph % (Auto) 12.0 L 10.7 L Mckinley % (Auto) 10.5 8.4 Eos % (Auto) 1.6 0.0 Baso % (Auto) 0.1 0.1 Neut # (Auto) 6.00 6.90 Lymph # (Auto) 1.00 0.90 Mckinley # (Auto) 0.80 0.70 Eos # (Auto) 0.13 0.00 Baso # (Auto) 0.01 0.01 Abs Immat Gran (auto) 0.01 0.02 Imm/Tot Granulo (auto) 0.1 0.2 Diff Slide Review Acceptable Review Sodium 135 Potassium 3.8 Chloride 102 Carbon Dioxide 26 Anion Gap 7 BUN 13 Creatinine 0.7 Estimated Creat Clear 43.06 Estimated GFR 94 Glucose 145 H Calcium 8.3 L Magnesium 1.8 Blood Type O Negative Antibody Screen NEGATIVE
[2023-05-13 11:00] VITALS: BP 119/60; PULSE 87; RESP 18; TEMP 36.9; O2SAT 95
[2023-05-13] MEDS: GABAPENTIN 100 MG CAPSULE PO ×2 (11:04→21:36)
[2023-05-13] MEDS: ACETAMINOPHEN 325 MG TABLET 650 MG PO ×2 (11:05→16:33)
--- NOTE | 2023-05-13 13:14 | NUTR.NU ---
RDN with MD consult for weight loss and recent cancer diagnosis. Patient is currently POD#1 s/p right hemicolectomy. On clear liquids. RDN will wait to visit with patient until diet is advanced to full liquids are more. RDN will continue to monitor.
[2023-05-13 15:00] VITALS: BP 118/67; PULSE 75; RESP 18; TEMP 36.2; O2SAT 91
[2023-05-13 19:00] VITALS: BP 146/74; PULSE 86; RESP 18; TEMP 36.7; O2SAT 89
--- NOTE | 2023-05-13 19:57 | PC.NURSE ---
Addendum entered by Tayla Judd RN 05/13/23 19:58: Bowel sounds active. Original Note: Patient pleasant, alert and oriented. Tolerated liquid diet earlier this shift, however reports right side abdominal pain after having supper of clear liquids tonight. Rated pain 8/10.? Patient reports discomfort to right side abdomen when palpated. Right side abdomen somewhat more distended compared to left. Charge nurse updated. PRN Dilaudid given. Steri-strips to lap sites intact. Dressing to midline abdomen clean, dry and intact. Family here visiting at end of shift.?
[2023-05-13] MEDS: ENOXAPARIN 40 MG/0.4 ML INJ SUBCUT (21:31)
[2023-05-13] MEDS: ONDANSETRON 2 MG/ML inj IVP (21:31)
[2023-05-13] MEDS: LACTATED RINGERS 500 ML 500 ML IV (22:40)
[2023-05-13 23:00] VITALS: BP 136/72; PULSE 82; RESP 16; TEMP 36.4; O2SAT 90
[2023-05-14] VITALS (7 sets, daily range): BP systolic 129–154; BP diastolic 66–77; PULSE 65–79; RESP 16–18; TEMP 36.2–36.6; O2SAT 89–91; BMI 30.1
[2023-05-14] MEDS: LACTATED RINGERS 1000 ML 1,000 ML 100 ML IV ×3 (02:40→22:30)
[2023-05-14] MEDS: ACETAMINOPHEN 325 MG TABLET 650 MG PO ×3 (04:48→22:36)
[2023-05-14] MEDS: HYDROmorphone 0.5 mg/0.5 ml inj IVP ×2 (04:48→22:36)
[2023-05-14] MEDS: OMEPRAZOLE 20 MG CAPSULE DR PO (06:08)
--- NOTE | 2023-05-14 06:27 | PC.NURSE ---
End of shift report [id number]: Alert and oriented x 4. Pain to abdomen well managed with current regimen. Dressing to midline abdomen clean, dry and intact. Steri strips to lap sites clean and dry. Bladder scan completed due to no void, found to have 78, 75, 105 and 108ml's, greeting card writer updated Dr. Gutierrez and new order to complete 500ml bolus of LR for oliguria. At 0015 patient had urge to void and was able to use toilet and had moderate amount of urine, at 0400 patient able to void large amount of straw colored urine. Bowel sounds active x 4 quadrants.
[2023-05-14 06:31] LABS: Basophils Absolute Auto 0.01 K/uL (0.00-0.30); Basophils Percent Auto 0.1 % (0.0-3.0); Eosinophils Absolute Auto 0.08 K/uL (0.00-0.50); Eosinophils Percent Auto 1.1 % (0.0-7.0); Hematocrit 27.9 % (37.0-53.0); Hemoglobin* 8.5 gm/dL (13.5-17.5); Immature Granulocytes Abs Auto 0.02 K/uL (0.00-0.30); Immature Granulocytes Pct Auto 0.3 %; Lymphocytes Percent Auto 9.3 % (20-44); Mean Corpuscular HGB Conc 31 gm/dL (32-36); Mean Corpuscular Hemoglobin 28 pg (26-34); Mean Corpuscular Volume 92 fL (80-100); Monocytes Percent Auto 7.7 % (0.0-11.0); Neutrophils Percent Auto 81.5 % (42.0-72.0); Platelet Count* 283 K/uL (140-440); Red Blood Count 3.02 m/uL (4.30-5.90); White Blood Count* 7.49 K/uL (4.50-11.00)
[2023-05-14 06:39] LABS: Slide Review Reflex No
[2023-05-14 07:13] LABS: Chloride* 101 mmol/L (96-114); Potassium* 3.5 mmol/L (3.6-5.1); Sodium* 134 mmol/L (135-149)
[2023-05-14 07:16] LABS: Anion Gap 5 mEq/L (7-15); Blood Urea Nitrogen* 10 mg/dL (7-30); Carbon Dioxide* 28 mmol/L (20-32); Creatinine* 0.6 mg/dL (0.5-1.5); Est. Creatinine Clearance* 43.06; Estimated Glomerular Filt Rate 99 ml/min; Glucose* 92 mg/dL (60-115)
[2023-05-14 07:17] LABS: Calcium* 8.1 mg/dL (8.4-10.6)
--- NOTE | 2023-05-14 08:02 | PM.GSPN ---
Subjective Subjective Date Seen: 05/14/23 Interval history: Olegs is stable. Foot pain improved with addition of gabapentin and chlorthalidone. States that he has abdominal pain which is worse with movement. No pain at rest. States that he was not up to the chair. No nausea. Has not had much of an appetite. Exam Narrative: Exam Narrative: General: No acute distress CV: Regular rate and rhythm Respiratory: Clear bilaterally Abdomen: Soft. Appropriately tender. Incision was uncovered when I arrived to the room. There is some ecchymosis at the inferior aspect. Wound was cleansed with ChloraPrep and dressing replaced. Const: Vital Signs, click to edit/add: Vital Signs - 24 hr 05/13/23 11:00 05/13/23 15:00 05/13/23 19:00 Temperature 98.5 F 97.2 F L 98.1 F Pulse Rate [Right Pulse Oximeter] 87 75 86 Respiratory Rate 18 18 18 Blood Pressure [Le ft Arm] 119/60 Blood Pressure [Ri ght Arm] 118/67 146/74 H Pulse Oximetry 95 91 89 Oxygen Delivery Me thod Room Air Room Air Room Air 05/13/23 23:00 05/13/23 23:00 05/14/23 03:00 Temperature 97.6 F 97.1 F L Pulse Rate [Right Pulse Oximeter] 82 82 77 Respiratory Rate 16 16 18 Blood Pressure [Le ft Arm] Blood Pressure [Ri ght Arm] 136/72 149/73 H Pulse Oximetry 90 89 Oxygen Delivery Me thod Room Air Room Air Labs/Imaging Labs Labs: Hemoglobin is down slightly to 8.5 from 9.5. White count is normal. Mild hypokalemia with potassium at 3.5. Progress Note:A&P Assessment and plan (1) H/O right hemicolectomy: Status: Acute (2) Colon cancer: Status: Acute (3) DMII (diabetes mellitus, type 2): Status: Acute (4) Cognitive impairment: Status: Acute (5) Anemia: Status: Acute Plan Patient is a 77-year-old male who is postop day 2 status post open right hemicolectomy for right-sided colon cancer. -foot pain improved. This is likely multifactorial with neuro and vascular claudication. Continue gabapentin and chlorthalidone -continue to follow hemoglobin. Likely component of mild acute blood loss anemia, baseline anemia and dilution. Continue Lovenox for DVT prophylaxis for now. -continue clear liquids and maintenance fluids until patient is taking adequate p.o. and has return of bowel function. -recommend patient continue to work with therapies, mobilize, up in chair etc.. -encourage IS. -potassium is 3.5 today. Did order 1 dose of oral potassium as this will help with his ileus.
[2023-05-14] MEDS: CHLORTHALIDONE 25 MG TABLET 12.5 MG PO (08:41)
[2023-05-14] MEDS: GABAPENTIN 100 MG CAPSULE PO ×2 (08:41→21:04)
--- NOTE | 2023-05-14 11:35 | PC.SOCIAL ---
Addendum entered by ELEAZAR Erickson 05/14/23 15:41: Discharge planning: Met with pt again later this afternoon. Pt is willing to go to short-term rehab after his hospital stay. Pt would like to go to [facility]. hop worker sent a message to [facility] to ask about openings. Waiting to hear back from [facility]. Social work to follow-up as needed. Addendum entered by ELEAZAR Erickson 05/14/23 13:06: Discharge planning: hop worker spoke with Saima Durga at [facility] #[phone]. She stated that she still has an open case with the pt. Saima would like discharge planning updates. Social work to follow-up as needed. Original Note: Discharge planning: hop worker met with the pt to discuss discharge planning. Pt stated that he plans to do outpatient treatment after his hospital stay. hop worker shared that this worker would stop back later this afternoon to meet with the pt again, as PT was coming in to assess the pt. Social work to follow-up as needed.
--- NOTE | 2023-05-14 11:36 | P.IMPN_ITS ---
Progress Note: A&P Assessment and plan (1) Colon cancer: Problem details: Ascending colon adenocarcinoma -POD#2 s/p right hemicolectomy, postoperative management per primary team, General Surgery -unknown at this point if patient will need chemotherapy or radiation therapy Status: Acute (2) H/O right hemicolectomy: Problem details: -05/12/23, Dr. Sharma -postop ileus -continue clear liquid diet, IVF, awaiting return of bowel function. Encourage ambulation, PT/OT therapies -potassium 3.5, oral supplement ordered, recheck in a.m. Status: Acute (3) Acute blood loss anemia: Problem details: With history of iron deficiency anemia -hemoglobin 8.5, postop, dilutional, hematuria overnight. General surgery following. Continue oral iron supplement. Continue Lovenox for now Status: Acute (4) DMII (diabetes mellitus, type 2): Problem details: -diet controlled, not currently on medications. Most recent A1c 5.0 Status: Acute (5) Claudication: Problem details: Short distance claudication, mixed neurogenic and vascular, followed by PCP and vascular surgery -Resulting in significant pain, paresthesias, limited ambulation -Gabapentin 100 mg b.i.d. started, scheduled Tylenol, avoid compression stockings as increases pain -will d/c furosemide and restart chlorthalidone as this may be the medication that helped him in the past 05/14: Reports pain improvement, continue to monitor Status: Acute (6) Edema of leg: Problem details: -recently restarted on furosemide, patient reports previous medication, possibly chlorthalidone, more effective. Will make this medication change and monitor -edema improving, pain improving Status: Acute Plan Consulting service, continuing to follow Time Spent With Patient Total time spent: Total time spent caring for the patient today was 45 minutes. This includes time spent for the visit reviewing the chart, time spent during the visit, time spent after the visit and documentation and planning in coordination of care. Subjective Date Seen: 05/14/23 Interval history: Patient is napping this morning, awakens easily. Reports abdominal pain currently well managed. Tolerating orals without nausea vomiting. Denies headache or dizziness. Tells me this morning his bilateral leg pains are significantly improved. We did restart chlorthalidone yesterday, stopping furosemide, as he thought this may have been helpful in the past. He has also been started on gabapentin. Exam Narrative: Exam Narrative: PHYSICAL EXAM General: Pleasant, NAD Cardiovascular: RRR, S1S2. Pulmonary: CTA bilaterally without rhonchi, rales, expiratory wheezes. No dyspnea on room air Abdominal: Soft, nondistended, appropriate postoperative mild tenderness. Surgical wounds appear to be healing appropriately Neurological: Alert, answering questions appropriately, cranial nerves intact, no focal findings Extremities: Bilateral lower extremities warm without erythema or streaking, no edema Skin: Warm, dry. Const: Vital Signs, click to edit/add: Vital Signs - 24 hr 05/13/23 15:00 05/13/23 19:00 05/13/23 23:00 Temperature 97.2 F L 98.1 F Pulse Rate [Right Pulse Oximeter] 75 86 82 Respiratory Rate 18 18 16 Blood Pressure [Le ft Arm] Blood Pressure [Ri ght Arm] 118/67 146/74 H Pulse Oximetry 91 89 Oxygen Delivery Me thod Room Air Room Air 05/13/23 23:00 05/14/23 03:00 05/14/23 07:00 Temperature 97.6 F 97.1 F L 97.5 F L Pulse Rate [Right Pulse Oximeter] 82 77 79 Respiratory Rate 16 18 16 Blood Pressure [Le ft Arm] 154/77 H Blood Pressure [Ri ght Arm] 136/72 149/73 H Pulse Oximetry 90 89 90 Oxygen Delivery Me thod Room Air Room Air Room Air 05/14/23 11:00 Temperature 97.8 F Pulse Rate [Right Pulse Oximeter] 75 Respiratory Rate 16 Blood Pressure [Le ft Arm] 150/75 H Blood Pressure [Ri ght Arm] Pulse Oximetry 90 Oxygen Delivery Me thod Room Air Labs Labs: Laboratory Results - last 24 hr 05/14/23 06:13 WBC 7.49 RBC 3.02 L Hgb 8.5 L Hct 27.9 L MCV 92 MCH 28 MCHC 31 L RDW Coeff of [place]issa Plt Count 283 Neut % (Auto) 81.5 H Lymph % (Auto) 9.3 L [place] % (Auto) 7.7 Eos % (Auto) 1.1 Baso % (Auto) 0.1 Neut # (Auto) 6.10 Lymph # (Auto) 0.70 L [place] # (Auto) 0.60 Eos # (Auto) 0.08 Baso # (Auto) 0.01 Abs Immat Gran (auto) 0.02 Imm/Tot Granulo (auto) 0.3 Sodium 134 L Potassium 3.5 L Chloride 101 Carbon Dioxide 28 Anion Gap 5 L BUN 10 Creatinine 0.6 Estimated Creat Clear 43.06 Estimated GFR 99 Glucose 92 Calcium 8.1 L
[2023-05-14] MEDS: HYDROCODONE-ACETAMIN 5-325 MG 1 TAB PO ×2 (12:22→17:44)
[2023-05-14] MEDS: POTASSIUM BICARB 25 MEQ EFFERVESCENT TAB PO (12:22)
--- NOTE | 2023-05-14 18:43 | PC.NURSE ---
End of Shift [id number]: Patient is alert and orientated... flat affect. No N/V reported. Midline incision and 3 lap sites. Mepilex was applied by Dr Sharma today to midline incision and lap sites are CDI with steri strips. Tolerating clear liquid diet well... The patient reported multiple times throughout the day that he is hungry and wishes that he could eat. The patient reported 5/10 pain in his abdomen with any movement/ use of abdominal muscles. I told him that this is normal and to be expected. Pain is controlled at a 3/10 with PRN [place]. The patient has not passed any gas but his bowel sounds are active. 2 large UM urine occurrences. LR @ 100. Mild 1+ edema in R hand. The patient reports tingling and sensitivity in both BLE. The patient tolerates SCDS well when in bed. I encouraged him to walk.. 3 walks today. Poor PO intake... the patient reports because he wants solid food. Call light within reach. RAJWINDER CLAYTON BSN
[2023-05-14] MEDS: ENOXAPARIN 40 MG/0.4 ML INJ SUBCUT (21:04)
[2023-05-15] VITALS (8 sets, daily range): BP systolic 110–168; BP diastolic 65–92; PULSE 67–87; RESP 16–20; TEMP 36.2–36.6; O2SAT 88–94
[2023-05-15] MEDS: ACETAMINOPHEN 325 MG TABLET 650 MG PO ×4 (05:25→22:42)
[2023-05-15 06:52] LABS: Basophils Absolute Auto 0.02 K/uL (0.00-0.30); Basophils Percent Auto 0.3 % (0.0-3.0); Eosinophils Absolute Auto 0.22 K/uL (0.00-0.50); Eosinophils Percent Auto 3.5 % (0.0-7.0); Hematocrit 33.5 % (37.0-53.0); Immature Granulocytes Abs Auto 0.01 K/uL (0.00-0.30); Immature Granulocytes Pct Auto 0.2 %; Lymphocytes Percent Auto 13.1 % (20-44); Mean Corpuscular HGB Conc 30 gm/dL (32-36); Mean Corpuscular Hemoglobin 27 pg (26-34); Mean Corpuscular Volume 92 fL (80-100); Monocytes Percent Auto 7.9 % (0.0-11.0); Platelet Count* 336 K/uL (140-440); Red Blood Count 3.65 m/uL (4.30-5.90); White Blood Count* 6.33 K/uL (4.50-11.00)
--- NOTE | 2023-05-15 06:53 | PC.NURSE ---
Shift note: Pt is doing well with A1, walker. Alert and oriented, vitally stable. Abdominal dressing appears clean and dry. Pt confirmed passing little gas, no BM yet.
[2023-05-15 06:54] LABS: Slide Review Reflex No
[2023-05-15 07:13] LABS: Chloride* 102 mmol/L (96-114); Sodium* 134 mmol/L (135-149)
[2023-05-15 07:16] LABS: Creatinine* 0.6 mg/dL (0.5-1.5); Est. Creatinine Clearance* 43.06; Estimated Glomerular Filt Rate 99 ml/min
[2023-05-15 07:17] LABS: Anion Gap 4 mEq/L (7-15); Blood Urea Nitrogen* 8 mg/dL (7-30); Calcium* 8.3 mg/dL (8.4-10.6); Carbon Dioxide* 28 mmol/L (20-32); Glucose* 75 mg/dL (60-115); Potassium* 3.8 mmol/L (3.6-5.1)
[2023-05-15] MEDS: CHLORTHALIDONE 25 MG TABLET 12.5 MG PO (08:28)
[2023-05-15] MEDS: FERROUS SULFATE 325 MG TABLET PO (08:28)
[2023-05-15] MEDS: OMEPRAZOLE 20 MG CAPSULE DR PO (08:28)
[2023-05-15] MEDS: GABAPENTIN 100 MG CAPSULE PO ×2 (08:28→20:06)
[2023-05-15] MEDS: LACTATED RINGERS 1000 ML 1,000 ML 100 ML IV ×2 (08:33→20:06)
--- NOTE | 2023-05-15 11:26 | PC.NURSE ---
Nursing Care Hours: [id number] Pt this shift alert and oriented. Pain went from tender to 5/10, treated per scheduled Tylenol. Drinking clear Ensure x2. BP elevated. Pt states he is passing gas but no BM.
--- NOTE | 2023-05-15 11:38 | P.IMPN_ITS ---
Progress Note: A&P Assessment and plan (1) Colon cancer: Problem details: Ascending colon adenocarcinoma -POD#3 s/p right hemicolectomy, postoperative management per primary team, General Surgery -unknown at this point if patient will need chemotherapy or radiation therapy Status: Acute (2) H/O right hemicolectomy: Problem details: -05/12/23, Dr. Sharma -postop ileus -continue clear liquid diet, IVF, awaiting return of bowel function. Encourage ambulation, PT/OT therapies -potassium improved to 3.8 following oral supplement -sodium stable at 134 Status: Acute (3) Acute blood loss anemia: Problem details: With history of iron deficiency anemia -hemoglobin improving to 10 from 8.5, postop, dilutional, hematuria overnight. General surgery following. Continue oral iron supplement. Continue Lovenox for now Status: Acute (4) DMII (diabetes mellitus, type 2): Problem details: -diet controlled, not currently on medications. Most recent A1c 5.0 Status: Acute (5) Claudication: Problem details: Short distance claudication, mixed neurogenic and vascular, followed by PCP and vascular surgery -Resulting in significant pain, paresthesias, limited ambulation -Gabapentin 100 mg b.i.d. started, scheduled Tylenol, avoid compression stockings as increases pain -will d/c furosemide and restart chlorthalidone as this may be the medication that helped him in the past Pain has improved with addition of gabapentin and chlorthalidone. Continue to monitor, adjusting medications as necessary Status: Acute (6) Edema of leg: Problem details: -recently restarted on furosemide, patient reports previous medication (possibly chlorthalidone) more effective. Will make this medication change and monitor -edema improving, pain improving -currently receiving chlorthalidone 12.5 mg, could consider increasing if n ecessary/tolerated Status: Acute Plan manager technical services assisting with discharge planning/placement needs. For short-term, patient will likely need half-way facility postoperatively. In the long-term, reports are that patient lives alone in his own home, only bathroom is up 1 level from the main floor where he sleeps. Poor self cares. ?Sleeping on the couch. Has neighbors that will check in on him. Time Spent With Patient Total time spent: Total time spent caring for the patient today was 45 minutes. This includes time spent for the visit reviewing the chart, time spent during the visit, time spent after the visit and documentation and planning in coordination of care. Subjective Date Seen: 05/15/23 Interval history: Patient is seen at bedside this morning. Reports abdominal pain to be ?average. ? Improving. Still not much of an appetite. No nausea. Reports passing gas this morning. No stool yet. Lower extremity pain is adequately managed, improved from intense burning pain earlier this week. Sense of humor has returned and he is telling jokes this morning. Hospital service continues to follow. Exam Narrative: Exam Narrative: PHYSICAL EXAM General: Pleasant, smiling, telling jokes, NAD Cardiovascular: RRR, S1S2. +1 edema Pulmonary: CTA bilaterally without rhonchi, rales, expiratory wheezes. No dyspnea on room air Abdominal: Soft, nondistended, appropriate postoperative mild tenderness. Surgical wounds appear to be healing appropriately Neurological: Alert, answering questions appropriately, cranial nerves intact, no focal findings Extremities: Bilateral lower extremities warm without erythema or streaking Skin: Warm, dry. Const: Vital Signs, click to edit/add: Vital Signs - 24 hr 05/14/23 15:00 05/14/23 19:00 05/14/23 22:37 Temperature 97.3 F L 97.8 F 97.8 F Pulse Rate [Right Pulse Oximeter] 75 65 68 Respiratory Rate 16 16 16 Blood Pressure [Ri ght Arm] 129/70 138/70 133/66 Pulse Oximetry 91 89 89 Oxygen Delivery Me thod Room Air Room Air Room Air 05/14/23 22:44 05/15/23 03:00 05/15/23 08:18 Temperature 97.8 F Pulse Rate [Right Pulse Oximeter] 68 78 78 Respiratory Rate 16 16 16 Blood Pressure [Ri ght Arm] 150/70 H Pulse Oximetry 89 Oxygen Delivery Me thod Room Air 05/15/23 08:18 Temperature 97.6 F Pulse Rate [Right Pulse Oximeter] 67 Respiratory Rate 18 Blood Pressure [Ri ght Arm] 168/92 H Pulse Oximetry 90 Oxygen Delivery Co thod Room Air Labs Labs: Laboratory Results - last 24 hr 05/15/23 06:28 WBC 6.33 RBC 3.65 L Hgb 10.0 L Hct 33.5 L MCV 92 MCH 27 MCHC 30 L Plt Count 336 Neut % (Auto) 75.0 H Lymph % (Auto) 13.1 L [place] % (Auto) 7.9 Eos % (Auto) 3.5 Baso % (Auto) 0.3 Neut # (Auto) 4.70 Lymph # (Auto) 0.80 L [place] # (Auto) 0.50 Eos # (Auto) 0.22 Baso # (Auto) 0.02 Abs Immat Gran (auto) 0.01 Imm/Tot Granulo (auto) 0.2 Sodium 134 L Potassium 3.8 Chloride 102 Carbon Dioxide 28 Anion Gap 4 L BUN 8 Creatinine 0.6 Estimated Creat Clear 43.06 Estimated GFR 99 Glucose 75 Calcium 8.3 L
--- NOTE | 2023-05-15 12:52 | PM.GSPN ---
Subjective Subjective Date Seen: 05/15/23 Interval history: Brian is doing better today. He has been up in a chair. Has felt a little bit of nausea. Says feels as though he may have passed some gas. Pain is controlled. Foot pain is stable. Exam Narrative: Exam Narrative: General: No acute distress CV: Regular rate and rhythm Respiratory: Clear bilaterally Abdomen: Mildly distended. Incision was some ecchymosis inferiorly. Bowel sounds present. Extremities: Mild edema bilateral lower extremities. Edema noted in bilateral hands. Const: Vital Signs, click to edit/add: Vital Signs - 24 hr 05/14/23 15:00 05/14/23 19:00 05/14/23 22:37 Temperature 97.3 F L 97.8 F 97.8 F Pulse Rate [Right Pulse Oximeter] 75 65 68 Respiratory Rate 16 16 16 Blood Pressure [Le ft Arm] Blood Pressure [Ri ght Arm] 129/70 138/70 133/66 Pulse Oximetry 91 89 89 Oxygen Delivery Me thod Room Air Room Air Room Air 05/14/23 22:44 05/15/23 03:00 05/15/23 08:18 Temperature 97.8 F Pulse Rate [Right Pulse Oximeter] 68 78 78 Respiratory Rate 16 16 16 Blood Pressure [Le ft Arm] Blood Pressure [Ri ght Arm] 150/70 H Pulse Oximetry 89 Oxygen Delivery Me thod Room Air 05/15/23 08:18 05/15/23 12:05 Temperature 97.6 F 97.9 F Pulse Rate [Right Pulse Oximeter] 67 87 Respiratory Rate 18 20 Blood Pressure [Le ft Arm] 110/65 Blood Pressure [Ri ght Arm] 168/92 H Pulse Oximetry 90 94 Oxygen Delivery Me thod Room Air Room Air Labs/Imaging Labs Labs: Hemoglobin is stable today at 10 Potassium is normal. White blood cell count normal. Progress Note:A&P Assessment and plan (1) H/O right hemicolectomy: Status: Acute (2) Acute blood loss anemia: Status: Acute (3) DMII (diabetes mellitus, type 2): Status: Acute (4) Colon cancer: Status: Acute (5) Claudication: Status: Acute (6) PAD (peripheral artery disease): Status: Acute Plan The patient is a 77-year-old male who is postop day 3 after right hemicolectomy for a colon cancer. Awaiting path. -May be having return of bowel function however he stated that he is somewhat nauseated so will continue clear liquid diet for now. Can advance when he is passing gas. -saline lock when taking adequate p.o. -Lovenox for DVT prophylaxis -can continue IS, PT and OT -social work consult for placement, hopefully will be able to go to [facility] after discharge. Could discharge as soon as tomorrow, however will depend on return of bowel function.
--- NOTE | 2023-05-15 15:06 | PC.SOCIAL ---
Addendum entered by ELEAZAR Erickson 05/15/23 15:47: Discharge planning: street worker sent a referral to [facility] on behalf of the pt. They are reviewing. Social work to follow-up as needed. Original Note: Discharge planning: street worker heard back from [facility] and they do not have any openings. Pt would like this worker to try [facility] in [place]. [facility] and this worker will send the referral over this afternoon. street worker also received a message from the pt's neighbor, Rosa Norton #[phone], who is listed as a machine repair person and would like updates. street worker called Rosa back and left a message stating that this certified social workers in health care was looking for a short-term rehab facility for the pt. Social work to follow-up as needed.
[2023-05-15] MEDS: HYDROCODONE-ACETAMIN 5-325 MG 1 TAB PO (15:46)
--- NOTE | 2023-05-15 19:48 | PC.NURSE ---
Nursing Care Hours: [id number] Pt this shift calm and cooperative. Pain treated per eMAR. Orders to advance diet to soft for dinner. VSS. SB asssit with walker to bathroom. No c/o nausea
[2023-05-15] MEDS: ENOXAPARIN 40 MG/0.4 ML INJ SUBCUT (20:06)
[2023-05-16 04:00] VITALS: BP 166/84; PULSE 61; RESP 18; TEMP 36.4; O2SAT 92
[2023-05-16] MEDS: ACETAMINOPHEN 325 MG TABLET 650 MG PO ×3 (05:19→18:08)
[2023-05-16] MEDS: OMEPRAZOLE 20 MG CAPSULE DR PO (06:20)
[2023-05-16] MEDS: LACTATED RINGERS 1000 ML 1,000 ML 100 ML IV (06:20)
[2023-05-16 06:41] LABS: Hematocrit 30.6 % (37.0-53.0); Hemoglobin* 9.4 gm/dL (13.5-17.5); Mean Corpuscular HGB Conc 31 gm/dL (32-36); Mean Corpuscular Hemoglobin 28 pg (26-34); Mean Corpuscular Volume 90 fL (80-100); Platelet Count* 302 K/uL (140-440); Red Blood Count 3.39 m/uL (4.30-5.90); White Blood Count* 3.95 K/uL (4.50-11.00)
--- NOTE | 2023-05-16 06:47 | PC.NURSE ---
19-07: pleasant and cooperative. Calls appropriately. SBA with walker. Scattered bruising, skin is fragile. Passing gas. No BM. Dressing to abd CDI.
[2023-05-16 07:11] LABS: Chloride* 103 mmol/L (96-114)
[2023-05-16 07:12] LABS: Potassium* 3.6 mmol/L (3.6-5.1); Sodium* 135 mmol/L (135-149)
[2023-05-16 07:14] LABS: Creatinine* 0.6 mg/dL (0.5-1.5); Est. Creatinine Clearance* 43.06; Estimated Glomerular Filt Rate 99 ml/min
[2023-05-16 07:15] LABS: Anion Gap 7 mEq/L (7-15); Blood Urea Nitrogen* 6 mg/dL (7-30); Calcium* 8.3 mg/dL (8.4-10.6); Carbon Dioxide* 25 mmol/L (20-32); Glucose* 94 mg/dL (60-115)
[2023-05-16 08:03] LABS: Slide Review Reflex Yes
[2023-05-16 08:04] LABS: Slide Review Acceptable Review (Acceptable)
[2023-05-16 08:12] VITALS: BP 141/84; PULSE 89; RESP 18; TEMP 36.6; O2SAT 97
--- NOTE | 2023-05-16 09:18 | P.IMPN_ITS ---
Progress Note: A&P Assessment and plan (1) Colon cancer: Problem details: Ascending colon adenocarcinoma -POD#3 s/p right hemicolectomy, postoperative management per primary team, General Surgery -unknown at this point if patient will need chemotherapy or radiation therapy Status: Acute (2) H/O right hemicolectomy: Problem details: -05/12/23, Dr. Sharma -postop ileus -advancing to full liq diet today, stopping IVF, awaiting BM. Encourage ambulation, PT/OT therapies -potassium stable at 3.6 following oral supplement -sodium stable at 135 Status: Acute (3) Acute blood loss anemia: Problem details: With history of iron deficiency anemia -hemoglobin improving to stable at 9.4. General surgery following. Continue oral iron supplement. Continue low dose Lovenox for VTE prophylaxis Status: Acute (4) DMII (diabetes mellitus, type 2): Problem details: -diet controlled, not currently on medications. Most recent A1c 5.0 Status: Chronic (5) Claudication: Problem details: Short distance claudication, mixed neurogenic and vascular, followed by PCP and vascular surgery -Resulting in significant pain, paresthesias, limited ambulation -Gabapentin 100 mg b.i.d. started, scheduled Tylenol, avoid compression stockings as increases pain -will d/c furosemide and restart chlorthalidone as this may be the medication that helped him in the past Pain has improved with addition of gabapentin and chlorthalidone. Continue to monitor, adjusting medications as necessary Status: Acute (6) Edema of leg: Problem details: -recently restarted on furosemide, patient reports previous medication (possibly chlorthalidone) more effective. Will make this medication change and monitor -edema improving, pain improving -currently receiving chlorthalidone 12.5 mg (has gotten 3 doses), Cr stable, could consider increasing if necessary/tolerated Status: Acute (7) Left-sided chest pain: Problem details: - Has h/o PAD, type II DM, tobacco user, high risk for CAD: check troponin, EKG, CXR. I have reviewed this morning's labs which include CBC, BMP, Mg - Started low dose enoxaparin 3 days ago for VTE prophylaxis, no hypoxia or tachycardia, so I think PE is unlikely, but should be considered if no other cause identified and patient becomes hypoxic or tachycardic Status: Acute Plan 911 emergency services dispatcher assisting with discharge planning/placement needs. For short- term, patient will likely need fpc facility postoperatively. In the long-term, reports are that patient lives alone in his own home, only bathroom is up 1 level from the main floor where he sleeps. Poor self cares. ?Sleeping on the couch. Has neighbors that will check in on him. Subjective Time Seen by Provider: 10:09 Date Seen: 05/16/23 Interval history: Brian has flatus, but no bowel movement yet. I walked in as Dr. Sharma was finishing up in his room. Their plan is to advance to full liquid diet today. Brian says that he feels well, albeit still weak and did have difficulty getting situated back in his bed after sitting on the side of it. He was too weak to move himself up in the bed by himself and needed myself and made to boost him. Additionally he noted that he is having a sharp stabbing pain at the base of his left axilla that lasts just a few seconds and happens every time he is the bathroom sitting on the toilet. It is not present currently and he does not know of anything else exacerbates it or alleviates it, as it has not happened at any other time. He did not have anything like this prior to this hospital stay. He denies any shortness of breath or other chest pain. Exam Narrative: Exam Narrative: General: No acute distress. Awake, alert, oriented x3. No pallor. No jaundice. Oropharynx: Clear. Mucous membranes moist. Cardiovascular: Regular rate and rhythm. No murmurs, gallops, or rubs. Chest: Nontender to palpation over the chest or in the axilla. Respiratory: Clear to auscultation bilaterally. No wheezes or crackles. Abdomen: Bowel sounds present. Soft, mildly distended, incision is clean, dry, and intact with mild ecchymosis inferiorly. Extremities: 2+ bilateral ankle and pedal edema, nonpitting. Const: Vital Signs, click to edit/add: Vital Signs - 24 hr 05/15/23 12:05 05/15/23 15:00 05/15/23 16:00 Temperature 97.9 F Pulse Rate [Right Pulse Oximeter] 87 87 84 Respiratory Rate 20 20 18 Blood Pressure [Le ft Arm] 110/65 Blood Pressure [Ri ght Arm] 154/74 H Pulse Oximetry 94 92 Oxygen Delivery Me thod Room Air Room Air 05/15/23 20:00 05/15/23 23:00 05/15/23 23:10 Temperature 97.1 F L 97.3 F L Pulse Rate [Right Pulse Oximeter] 71 73 73 Respiratory Rate 18 18 18 Blood Pressure [Le ft Arm] Blood Pressure [Ri ght Arm] 130/65 148/82 H Pulse Oximetry 91 88 Oxygen Delivery Me thod Room Air Room Air 05/16/23 04:00 05/16/23 08:12 Temperature 97.6 F 97.9 F Pulse Rate [Right Pulse Oximeter] 61 89 Respiratory Rate 18 18 Blood Pressure [Le ft Arm] Blood Pressure [Ri ght Arm] 166/84 H 141/84 H Pulse Oximetry 92 97 Oxygen Delivery [place] thod Room Air Room Air Documenting provider has reviewed patient's vital signs: yes Labs Labs: Laboratory Results - last 24 hr 05/16/23 06:26 WBC 3.95 L RBC 3.39 L Hgb 9.4 L Hct 30.6 L MCV 90 MCH 28 MCHC 31 L Plt Count 302 Diff Slide Review Acceptable Review Sodium 135 Potassium 3.6 Chloride 103 Carbon Dioxide 25 Anion Gap 7 BUN 6 L Creatinine 0.6 Estimated Creat Clear 43.06 Estimated GFR 99 Glucose 94 Calcium 8.3 L 05/16/2023 EKG normal sinus rhythm, 74 beats per minute, low-voltage QRS, nonspecific ST abnormality. When compared with 04/02/2023 EKG, he is now in a normal sinus rhythm instead of sinus tachycardia and there are no PVCs; no other changes
[2023-05-16] MEDS: CHLORTHALIDONE 25 MG TABLET 12.5 MG PO (09:29)
[2023-05-16] MEDS: HYDROCODONE-ACETAMIN 5-325 MG 1 TAB PO ×2 (09:29→20:37)
[2023-05-16] MEDS: GABAPENTIN 100 MG CAPSULE PO ×2 (09:30→20:37)
--- NOTE | 2023-05-16 09:53 | PC.SOCIAL ---
Addendum entered by ELEAZAR Erickson 05/16/23 14:34: Discharge planning: break out worker reached out to [facility] and [facility] whom both said that they will have male short-term rehab beds available next week. break out worker faxed a referral over to both facilities. [facility] is still reviewing the pt's referral. Social work to follow-up as needed. Original Note: Discharge planning: break out worker spoke with Luz Eldridge from [facility] #[phone], who stated that she is not working with the pt. She stated she has reached out to him after he left the hospital in March to do a LTC assessment, but never heard back from him. Luz stated that if he goes to facility for short-term rehab she can go to the facility to meet with the pt to complete the assessment. Luz would like to be notified with any discharge planning updates.
--- NOTE | 2023-05-16 10:25 | XR_ITS ---
Patient: NARCISO ARMAS Facility:?[facility] RIS Patient ID:?[id number] Site Patient ID:?[id number]. Site :?[id number] Study:?XRay-Chest 1V-05/16/2023 10:58:43 AM Ordering Physician:?DR. KIM Final Report: Indication: Left chest pain Technique: Chest 1 view Comparison: None Findings/Impression: Cardiovascular and mediastinum: Heart size and vasculature are normal in caliber and appearance. Lungs and pleural space: Small left pleural effusion with patchy and linear bibasilar opacities consistent with atelectasis or pneumonia. Bones and soft tissues: Faint lucency under the right hemidiaphragm, likely part of the patchy consolidation in the right lung. Bilateral glenohumeral osteoarthritis. Dictated by Neftaly Walker MD @ 05/16/2023 11:08:30 AM Signed by:?Neftaly Walker MD @05/16/2023 11:08:30 AM (Electronic Signature)
[2023-05-16 11:04] LABS: Troponin I* < 0.01 ng/mL (0.01-0.04)
[2023-05-16 11:38] VITALS: BP 148/82; PULSE 77; RESP 18; TEMP 36.6; O2SAT 98
--- NOTE | 2023-05-16 12:09 | PM.GSPN ---
Subjective Subjective Date Seen: 05/16/23 Interval history: Brian is doing well. He is passing lots of gas. He states he is not eating much, however the RN states he ate well for breakfast. He has been drinking plenty of fluids. He has also been urinating a significant amount. He has not been up much out of bed as he has a fair amount of pain both in his abdomen and his legs. He stated that he had some intermittent pain under his axilla on the left. This was sharp in nature and was when he got up to go to the bathroom. Exam Narrative: Exam Narrative: General: No acute distress CV: Regular rate and rhythm Respiratory: Clear bilateral Abdomen: Appropriately tender for the postop state. Minimally distended. Bowel sounds present. Incision is clean without erythema. Const: Vital Signs, click to edit/add: Vital Signs - 24 hr 05/15/23 15:00 05/15/23 16:00 05/15/23 20:00 Temperature 97.1 F L Pulse Rate [Right Pulse Oximeter] 87 84 71 Respiratory Rate 20 18 18 Blood Pressure [Ri ght Arm] 154/74 H 130/65 Pulse Oximetry 92 91 Oxygen Delivery Me thod Room Air Room Air 05/15/23 23:00 05/15/23 23:10 05/16/23 04:00 Temperature 97.3 F L 97.6 F Pulse Rate [Right Pulse Oximeter] 73 73 61 Respiratory Rate 18 18 18 Blood Pressure [Ri ght Arm] 148/82 H 166/84 H Pulse Oximetry 88 92 Oxygen Delivery Me thod Room Air Room Air 05/16/23 08:12 05/16/23 11:38 Temperature 97.9 F 97.8 F Pulse Rate [Right Pulse Oximeter] 89 77 Respiratory Rate 18 18 Blood Pressure [Ri ght Arm] 141/84 H 148/82 H Pulse Oximetry 97 98 Oxygen Delivery Me thod Room Air Room Air Labs/Imaging Labs Labs: White blood cell count is 3.9. Hemoglobin remains stable. Progress Note:A&P Assessment and plan (1) Left-sided chest pain: Status: Acute (2) Acute blood loss anemia: Status: Acute (3) H/O right hemicolectomy: Status: Acute (4) Colon cancer: Status: Acute (5) DMII (diabetes mellitus, type 2): Status: Chronic (6) PAD (peripheral artery disease): Status: Acute (7) Claudication: Status: Acute Plan The patient is a 77-year-old male who is postop day 4 from right hemicolectomy for colon cancer. He is doing well overall. Hemoglobin is stable. He is having return of bowel function. -continue soft diet for now. Advance as tolerated once he is moving his bowels -okay to saline lock is is p.o. intake is adequate and he is urinating. -continue Lovenox for DVT prophylaxis. -continue PT OT -continue IS -hospitalist's assisting with workup of chest pain. -anticipate discharge to rehab. Likely early next week.
[2023-05-16 12:51] LABS: Troponin I* < 0.01 ng/mL (0.01-0.04)
[2023-05-16 15:00] VITALS: BP 143/76; PULSE 77; RESP 18; TEMP 36.6; O2SAT 97
--- NOTE | 2023-05-16 15:52 | PC.SOCIAL ---
Addendum entered by ELEAZAR Erickson 05/16/23 15:58: Discharge planning: fabric worker foreman consulted with PT this afternoon and they shared pt will no longer need a SNF because he is doing so well and almost back to baseline. Social work to follow-up as needed. Original Note: Discharge planning: fabric worker foreman spoke with Luz Eldridge from [facility] #[phone], who stated that she is not working with the pt. She stated she had reached out to him after he left the hospital in March to do a LTC assessment, but never heard back from him. Luz stated that if he goes to facility for short-term rehab she can go to the facility to meet with the pt to complete the assessment. Luz would like to be notified with any discharge planning updates. Social work to follow-up as needed.
[2023-05-16 19:00] VITALS: BP 154/81; PULSE 85; RESP 16; TEMP 36.8; O2SAT 98
--- NOTE | 2023-05-16 19:35 | PC.NURSE ---
shift note: pt had moderate dk green bm x2. pt passing flatus. abd soft on palpation. midline drsg on abd c/d/i. lap site x3 on abd open to air. Pt medicated this a.m for 6/10 abd pain with relief. IV patent
[2023-05-16] MEDS: ENOXAPARIN 40 MG/0.4 ML INJ SUBCUT (20:37)
[2023-05-16] MEDS: SODIUM CHLORIDE 0.9 % (FLUSH) 10 ML SYRINGE 5 ML IVF (20:41)
[2023-05-16 23:00] VITALS: BP 153/99; PULSE 81; RESP 16; TEMP 36.6; O2SAT 95
[2023-05-17] VITALS (8 sets, daily range): BP systolic 119–169; BP diastolic 69–92; PULSE 73–80; RESP 16–22; TEMP 36.2–36.7; O2SAT 91–98
[2023-05-17] MEDS: HYDROCODONE-ACETAMIN 5-325 MG 1 TAB PO ×2 (02:37→20:39)
--- NOTE | 2023-05-17 05:13 | PC.NURSE ---
[id number] Pt ind in room, managing pain with 1 tab prn norco, states that he is able to get up and move without help with pain med. slept well during night, passing gas, incision to abd c/d/i. voiding without difficulty, continues to pass gas. pt tolerating PO intake, no N/V.
[2023-05-17] MEDS: OMEPRAZOLE 20 MG CAPSULE DR PO (06:07)
[2023-05-17 06:51] LABS: Hematocrit 29.7 % (37.0-53.0); Hemoglobin* 9.1 gm/dL (13.5-17.5); Mean Corpuscular HGB Conc 31 gm/dL (32-36); Mean Corpuscular Hemoglobin 28 pg (26-34); Mean Corpuscular Volume 91 fL (80-100); Platelet Count* 296 K/uL (140-440); Red Blood Count 3.28 m/uL (4.30-5.90); White Blood Count* 3.56 K/uL (4.50-11.00)
[2023-05-17 07:14] LABS: Slide Review Reflex No
[2023-05-17 07:17] LABS: Chloride* 107 mmol/L (96-114)
[2023-05-17 07:18] LABS: Potassium* 3.6 mmol/L (3.6-5.1); Sodium* 135 mmol/L (135-149)
[2023-05-17 07:20] LABS: Creatinine* 0.6 mg/dL (0.5-1.5); Est. Creatinine Clearance* 43.06; Estimated Glomerular Filt Rate 99 ml/min
[2023-05-17 07:21] LABS: Anion Gap 5 mEq/L (7-15); Blood Urea Nitrogen* 7 mg/dL (7-30); Carbon Dioxide* 23 mmol/L (20-32); Glucose* 102 mg/dL (60-115)
[2023-05-17] MEDS: FERROUS SULFATE 325 MG TABLET PO (09:10)
[2023-05-17] MEDS: GABAPENTIN 100 MG CAPSULE PO ×2 (09:10→20:39)
--- NOTE | 2023-05-17 11:28 | PM.GSPN ---
Subjective Subjective Date Seen: 05/17/23 Interval history: Brian is doing great today. He has been ambulating well. Able to get around by himself per PT and OT. He is tolerating a diet. He has had return of bowel function. Pain is controlled on his current oral pain medication regimen. Workup yesterday for left-sided chest pain showed a small left pleural effusion. He has no shortness of breath or chest pain today. Exam Narrative: Exam Narrative: General: No acute distress CV: Regular rate and rhythm Respiratory: Lungs are clear bilaterally Abdomen: Soft, appropriately tender for the postop state. Incision is clean and dry without erythema. Extremities: Mild edema bilateral lower extremities. Const: Vital Signs, click to edit/add: Vital Signs - 24 hr 05/16/23 11:38 05/16/23 15:00 05/16/23 15:00 Temperature 97.8 F 97.8 F Pulse Rate [Right Pulse Oximeter] 77 77 77 Respiratory Rate 18 18 18 Blood Pressure [Le ft Arm] Blood Pressure [Ri ght Arm] 148/82 H 143/76 H Pulse Oximetry 98 97 Oxygen Delivery Me thod Room Air Room Air 05/16/23 19:00 05/16/23 23:00 05/17/23 03:00 Temperature 98.2 F 97.8 F 97.3 F L Pulse Rate [Right Pulse Oximeter] 85 81 77 Respiratory Rate 16 16 16 Blood Pressure [Le ft Arm] 154/81 H Blood Pressure [Ri ght Arm] 153/99 H 169/91 H Pulse Oximetry 98 95 93 Oxygen Delivery Me thod Room Air Room Air Room Air 05/17/23 07:00 05/17/23 08:00 Temperature 97.8 F Pulse Rate [Right Pulse Oximeter] 77 77 Respiratory Rate 16 16 Blood Pressure [Le ft Arm] Blood Pressure [Ri ght Arm] 150/92 H Pulse Oximetry 95 Oxygen Delivery Me thod Room Air Labs/Imaging Labs Labs: Hemoglobin remained stable at 9. Electrolytes within normal limits. Imaging Imaging: Chest x-ray from yesterday shows a small pleural effusion on the left Progress Note:A&P Assessment and plan (1) H/O right hemicolectomy: Status: Acute (2) Colon cancer: Status: Acute (3) DMII (diabetes mellitus, type 2): Status: Chronic (4) Claudication: Status: Acute (5) PAD (peripheral artery disease): Status: Acute (6) Pleural effusion: Status: Acute (7) Chronic anemia: Status: Acute Plan The patient is a 77-year-old male postop day 5 status post right hemicolectomy for colon cancer. -she she has return of bowel function tolerating a regular diet. Preoperative epigastric pain in the setting of gastritis appears to be controlled on omeprazole. We will continue this as outpatient. -continue Lovenox for DVT prophylaxis. Will educate patient on injections and will send him home on this for the following 3 weeks -has been doing well with PT and OT. From their standpoint he is actually likely going to be able to discharge home. He is okay with this. He is getting a bathroom installed on his 1st floor. This may be done tomorrow. Otherwise he does have a commode which she can use. -will work towards discharge goals of tomorrow. -will need follow-up with Oncology as outpatient.
[2023-05-17] MEDS: ACETAMINOPHEN 325 MG TABLET 650 MG PO ×3 (12:20→22:50)
--- NOTE | 2023-05-17 17:56 | P.IMPN_ITS ---
Progress Note: A&P Assessment and plan (1) H/O right hemicolectomy: Problem details: -05/12/23, Dr. Sharma -postop ileus Tolerating regular diet. Had a bowel movement today Status: Acute (2) Colon cancer: Problem details: Ascending colon adenocarcinoma -POD#3 s/p right hemicolectomy, postoperative management per primary team, General Surgery Pending pathology review view and oncology consultation Status: Acute (3) DMII (diabetes mellitus, type 2): Problem details: -diet controlled, not currently on medications. Most recent A1c 5.0 Status: Chronic (4) Claudication: Problem details: Short distance claudication, mixed neurogenic and vascular, followed by PCP and vascular surgery -Resulting in significant pain, paresthesias, limited ambulation -Gabapentin 100 mg b.i.d. started, scheduled Tylenol, avoid compression stockings as increases pain -will d/c furosemide and restart chlorthalidone as this may be the medication that helped him in the past Pain has improved with addition of gabapentin and chlorthalidone. Continue to monitor, adjusting medications as necessary Status: Acute (5) PAD (peripheral artery disease): Problem details: - diffuse severe peripheral vascular disease on CT scan images obtained on admission to the hospital. Claudication at 50 ft by patient description. Resume antiplatelets when safe Status: Acute (6) Pleural effusion: Problem details: Outpatient follow-up for small left-sided pleural effusion Status: Acute (7) Chronic anemia: Problem details: Primarily due to chronic blood loss from colon cancer. Status: Acute Plan Possible discharge to home tomorrow if continued to do well. Will need to arrange for outpatient oncology follow-up in the next few weeks as well as primary care followup of other chronic medical problems. Total time spent is 55 minutes, 40 minutes in coordination of care and discussing with patient and other providers ongoing management of colon cancer and disposition. Subjective Date Seen: 05/17/23 Interval history: 77-year-old male admitted to the hospital for scheduled resection of a right- sided colon cancer. Procedure was performed as an open procedure. Primary anastomosis. Postoperatively he has done well. Colon mass was identified on colonoscopy performed about 5 weeks ago. At that time is hospitalized with hypothermia and anemia and weakness. He has been able to eat p.o. food and fluid. He has been passing gas and today had a bowel movement. His pain is adequately controlled. He has been evaluated by therapy and they feel he is safe to go home to live independently. There is some concern about his cognition and this will need close follow-up as an outpatient. He has not yet made arrangements for oncology follow-up. May benefit from adjuvant therapy for this. Staging of his colon cancer is pending. He had a large colon mass. His home was not optimally set up for him. His bathroom was on a different floor from where he lived and so he had to walk stairs. He tells me that someone is currently installing a bathroom on his main floor so he does not have to walk stairs anymore. He also had a problem with his propane tank running out of fuel and so his house became quite cold this winter. He has resolved that problem and also has his I working so that his propane tank will alarm when it gets too low. Exam Narrative: Exam Narrative: He is alert and appears in no distress. He is pleasant. Ambulating in the hallway without difficulty with a walker. Respirations are clear to auscultation. A few basilar crackles. Cardiovascular: S1, S2, regular rate and rhythm. Abdomen: Bowel sounds are present. Abdomen is soft. He has mild diffuse abdominal tenderness more on the right than the left. Abdominal incision is clean and dry without erythema. 1+ edema in both ankles. He adamantly reports he does not tolerate ankle compression stockings or bandages Const: Vital Signs, click to edit/add: Vital Signs - 24 hr 05/16/23 19:00 05/16/23 23:00 05/17/23 03:00 Temperature 98.2 F 97.8 F 97.3 F L Pulse Rate [Right Pulse Oximeter] 85 81 77 Respiratory Rate 16 16 16 Blood Pressure [Le ft Arm] 154/81 H Blood Pressure [Ri ght Arm] 153/99 H 169/91 H Pulse Oximetry 98 95 93 Oxygen Delivery Me thod Room Air Room Air Room Air 05/17/23 07:00 05/17/23 08:00 05/17/23 12:00 Temperature 97.8 F 97.6 F Pulse Rate [Right Pulse Oximeter] 77 77 73 Respiratory Rate 16 16 16 Blood Pressure [Le ft Arm] 138/76 Blood Pressure [Ri ght Arm] 150/92 H Pulse Oximetry 95 94 Oxygen Delivery Me thod Room Air Room Air 05/17/23 16:00 Temperature Pulse Rate [Right Pulse Oximeter] 77 Respiratory Rate 18 Blood Pressure [Le ft Arm] Blood Pressure [Ri ght Arm] 133/69 Pulse Oximetry 91 Oxygen Delivery Me thod Room Air Documenting provider has reviewed patient's vital signs: yes Labs Labs: Laboratory Results - last 24 hr 05/17/23 06:24 WBC 3.56 L RBC 3.28 L Hgb 9.1 L Hct 29.7 L MCV 91 MCH 28 MCHC 31 L Plt Count 296 Sodium 135 Potassium 3.6 Chloride 107 Carbon Dioxide 23 Anion Gap 5 L BUN 7 Creatinine 0.6 Estimated Creat Clear 43.06 Estimated GFR 99 Glucose 102 Calcium 8.0 L
--- NOTE | 2023-05-17 18:41 | PC.NURSE ---
shift note: pt up indept in room with walker. pt rating incisional pain /10. pt medicated with scheduled tylenol with relief. pt passing flatus. Pt stated he had moderate dk BM today. pt tolerating diet. active BS x4. abd soft on palpation.
[2023-05-17] MEDS: SODIUM CHLORIDE 0.9 % (FLUSH) 10 ML SYRINGE 5 ML IVF (20:38)
[2023-05-17] MEDS: ENOXAPARIN 40 MG/0.4 ML INJ SUBCUT (20:38)
[2023-05-18] MEDS: HYDROCODONE-ACETAMIN 5-325 MG 1 TAB PO ×2 (01:30→09:49)
[2023-05-18 04:00] VITALS: RESP 20
--- NOTE | 2023-05-18 05:41 | PC.NURSE ---
[id number]: Patient pleasant and cooperative with cares. Independent in room w/4ww. Patient reports passing gas and having 2 BMs. PRN [place] administered for 6/10 pain. Denies N/V. Nurse provided education on Lovenox administration. Patient was able to self-administer own Lovenox with verbal cues from the nurse. Patient struggled with removing the cap to the Lovenox syringe and pushing the plunger in all the way for the needle safety device to activate.
[2023-05-18] MEDS: ACETAMINOPHEN 325 MG TABLET 650 MG PO (05:53)
[2023-05-18] MEDS: OMEPRAZOLE 20 MG CAPSULE DR PO (05:54)
[2023-05-18 07:01] LABS: Hematocrit 30.7 % (37.0-53.0); Hemoglobin* 9.5 gm/dL (13.5-17.5); Mean Corpuscular HGB Conc 31 gm/dL (32-36); Mean Corpuscular Hemoglobin 28 pg (26-34); Mean Corpuscular Volume 91 fL (80-100); Platelet Count* 321 K/uL (140-440); Red Blood Count 3.38 m/uL (4.30-5.90); White Blood Count* 4.88 K/uL (4.50-11.00)
[2023-05-18 07:15] LABS: Chloride* 110 mmol/L (96-114); Sodium* 137 mmol/L (135-149)
[2023-05-18 07:18] LABS: Anion Gap 5 mEq/L (7-15); Blood Urea Nitrogen* 8 mg/dL (7-30); Carbon Dioxide* 22 mmol/L (20-32); Creatinine* 0.6 mg/dL (0.5-1.5); Est. Creatinine Clearance* 43.06; Estimated Glomerular Filt Rate 99 ml/min
[2023-05-18 07:19] LABS: Calcium* 8.2 mg/dL (8.4-10.6); Glucose* 101 mg/dL (60-115)
[2023-05-18 07:26] LABS: Slide Review Reflex No
[2023-05-18 08:00] VITALS: BP 132/63; PULSE 61; RESP 18; TEMP 36.6; O2SAT 99
--- NOTE | 2023-05-18 08:58 | P.DS_ITS ---
DS: Providers Provider Date Seen: 05/18/23 Date of admission: 05/12/23 17:39 Primary care physician: David Camacho MD Admitting Clinician: Caro Sharma MD Attending Physician on discharge: Caro Sharma MD Date of Discharge: 05/18/23 DS: Diagnosis Discharge Diagnosis (1) H/O right hemicolectomy: Status: Acute Problem details: -05/12/23, Dr. Sharma Tolerating regular diet. Uncomplicated recovery. Patient is high risk for VTE so will be on prophylactic enoxaparin for 3 weeks after surgery. (2) Colon cancer: Status: Acute Problem details: Ascending colon adenocarcinoma -POD#3 s/p right hemicolectomy, postoperative management per primary team, General Surgery Pending pathology review view and oncology consultation (3) Chronic anemia: Status: Acute Problem details: Primarily due to chronic blood loss from colon cancer. (4) Pleural effusion: Status: Acute Problem details: Outpatient follow-up for small left-sided pleural effusion (5) DMII (diabetes mellitus, type 2): Status: Chronic Problem details: -diet controlled, not currently on medications. Most recent A1c 5.0 (6) Cognitive impairment: Status: Acute Problem details: Blind [place] on 04/04/2023: 8 out of 22 (7) Weakness generalized: Status: Acute Problem details: Patient has chronic deconditioning with worsening weakness and disability secondary to recent illnesses, surgery. Since surgery has had excellent recovery. Plan for outpatient PT and also home safety evaluation. DS: Summary Hospital Course Hospital Course: 77-year-old male admitted to the hospital for scheduled resection of a right- sided colon cancer. Procedure was performed as an open procedure. Primary anastomosis. Postoperatively he has done well. Colon mass was identified on colonoscopy performed about 5 weeks ago. At that time is hospitalized with hypothermia and anemia and weakness. He has been able to eat p.o. food and fluid. He has been passing gas and has had bowel movements. His pain is adequately controlled. He has been evaluated by therapy and they feel he is safe to go home to live independently. There is some concern about his cognition and this will need close follow-up as an outpatient. He has not yet made arrangements for oncology follow-up. May benefit from adjuvant therapy for this. Staging of his colon cancer is pending. He had a large colon mass. His home was not optimally set up for him. His bathroom was on a different floor from where he lived and so he had to walk stairs. He tells me that someone is currently installing a bathroom on his main floor so he does not have to walk stairs anymore. He also had a problem with his propane tank running out of fuel and so his house became quite cold this winter. He has resolved that problem and also has his I working so that his propane tank will alarm when it gets too low. Status at Discharge Functional status at discharge: uses cane/walker Overall status at discharge: patient is progressing back to baseline Time Spent with Patient Time attestation: Total time spent providing and/or coordinating discharge services:40 min Time spent: Greater than 30 minutes Exam Narrative: Exam Narrative: He is alert and appears in no distress. He is observed to eat breakfast. Breathing is unlabored. Abdominal incision is clean and dry without erythema or drainage. Mild edema in both ankles Const: Vital Signs, click to edit/add: Vital Signs - 24 hr 05/17/23 12:00 05/17/23 15:00 05/17/23 16:00 Temperature 97.6 F Pulse Rate [Right Pulse Oximeter] 73 77 77 Respiratory Rate 16 18 18 Blood Pressure [Le ft Arm] 138/76 Blood Pressure [Ri ght Arm] 133/69 Pulse Oximetry 94 91 Oxygen Delivery Me thod Room Air Room Air 05/17/23 20:25 05/17/23 22:47 05/18/23 04:00 Temperature 98.0 F 97.1 F L Pulse Rate [Right Pulse Oximeter] 73 80 Respiratory Rate 20 22 20 Blood Pressure [Le ft Arm] Blood Pressure [Ri ght Arm] 134/90 H 119/70 Pulse Oximetry 98 91 Oxygen Delivery Me thod Room Air Room Air 05/18/23 08:00 Temperature 97.8 F Pulse Rate [Right Pulse Oximeter] 61 Respiratory Rate 18 Blood Pressure [Le ft Arm] Blood Pressure [Ri ght Arm] 132/63 Pulse Oximetry 99 Oxygen Delivery Me thod Room Air Documenting provider has reviewed patient's vital signs: yes DS: Data Data Completed and Pending Completed studies during hospitalization: Procedures Excision of Ascending Colon, Via Natural or Artificial Opening Endoscopic, Diagnostic (04/03/23) Excision of Cecum, Via Natural or Artificial Opening Endoscopic, Diagnostic (04/03/23) Excision of Duodenum, Via Natural or Artificial Opening Endoscopic, Diagnostic (04/03/23) Excision of Sigmoid Colon, Via Natural or Artificial Opening Endoscopic, Diagnostic (04/03/23) Excision of Stomach, Via Natural or Artificial Opening Endoscopic, Diagnostic (04/03/23) Excision of Transverse Colon, Via Natural or Artificial Opening Endoscopic, Diagnostic (04/03/23) Transfusion of Nonautologous Red Blood Cells into Peripheral Vein, Percutaneous Approach (04/03/23) Labs on day of discharge: Labs from last 24 hours 05/18/23 06:44 WBC 4.88 RBC 3.38 L Hgb 9.5 L Hct 30.7 L MCV 91 MCH 28 MCHC 31 L Plt Count 321 Sodium 137 Potassium 4.0 Chloride 110 Carbon Dioxide 22 Anion Gap 5 L BUN 8 Creatinine 0.6 Estimated Creat Clear 43.06 Estimated GFR 99 Glucose 101 Calcium 8.2 L Discharge Plan Discharge Disposition: Home, Self-Care Date of Admission: 05/12/23 17:39 Consulting Providers: Charmaine Cobb; Chao Welch Primary Care Provider: David Camacho Condition: Improved Anticipated Discharge Date/Time: 05/18/23 09:07 Discharge Medications: New hydrocodone-acetaminophen 5-325 mg Tablet 1 - 2 tab PO Q6H PRN (Reason: Pain) Qty: 20 0RF omeprazole 20 mg Capsule,Delayed Release(Dr/Ec) 20 mg PO DAILY@0700 Qty: 30 11RF gabapentin 100 mg Capsule 100 mg PO BID Qty: 60 0RF enoxaparin 40 mg/0.4 mL Syringe 40 mg subcut Q24H Qty: 30 0RF Continued ferrous sulfate [FeroSul] 325 mg (65 mg iron) tablet 325 mg PO Q OTHER DAY Qty: 30 0RF Discontinued furosemide 20 mg tablet 20 mg PO QAM Qty: 30 1RF polyethylene glycol 3350 [Miralax] 17 gram/dose powder 17 g PO DAILY Qty: 238 0RF Discharge Orders: Discharge Order (Routine); Ordered 05/18/23 Ordered By: Chao Welch Additional Instructions: You were prescribed a pain medication. This medication contains acetaminophen (Tylenol). If you are taking your prescribed pain pills 4 times daily, do not take additional acetaminophen. As your pain improves, you can try taking acetaminophen instead of the prescribed pain pill. You were also prescribed a pain pill called Gabapentin. This should help with foot pain. You can take this twice a day or just at night. Talk to Dr. Camacho about whether or not you should continue on this medication indefinitely You were prescribed a pill called Omeprazole. This is for the pain you have after eating. Take this medication daily. If you continue to have the abdominal pain after eating, please discuss with your primary doctor, Dr. Camacho. Continue taking your iron pills (ferrous sulfate) until you are told you may stop. You were prescribed a low-dose medication to prevent blood clots. You should take this daily until June 05 (or 3 weeks from discharge). Please call [phone] during business hours or call the hospital after hours if you are experiencing severe pain, nausea, vomiting, difficulty urinating or fever. Activity Level: Light activity and Use Walker Activity Detail: No lifting more than 20 pounds for 4 weeks Discharge Diet: Diabetic Follow Up Appointments: David Camacho MD [Primary Care Provider] - Karlene Baeza MD [Staff Physician] - (Referral to oncology for colon cancer - surgery on 05/12. Please make appointment for within 2 weeks of discharge first available provider is OK) Caro Sharma MD [Staff Physician] - Forms: [employer] Info Instructions
[2023-05-18] MEDS: GABAPENTIN 100 MG CAPSULE PO (09:50)
--- NOTE | 2023-05-18 11:02 | PM.GSPN ---
Subjective Subjective Date Seen: 05/18/23 Interval history: Brian is doing great. Tolerating a diet. Postprandial pain that he was having preoperatively is essentially gone. Cyst continues to move his bowels. He is up independently in his room with a walker. PT OT have cleared him physically for discharge home. Exam Narrative: Exam Narrative: General: No acute distress Respiratory: Breathing nonlabored on room air Abdomen: Wound is clean and dry without erythema. Const: Vital Signs, click to edit/add: Vital Signs - 24 hr 05/17/23 12:00 05/17/23 15:00 05/17/23 16:00 Temperature 97.6 F Pulse Rate [Right Pulse Oximeter] 73 77 77 Respiratory Rate 16 18 18 Blood Pressure [Le ft Arm] 138/76 Blood Pressure [Ri ght Arm] 133/69 Pulse Oximetry 94 91 Oxygen Delivery Me thod Room Air Room Air 05/17/23 20:25 05/17/23 22:47 05/18/23 04:00 Temperature 98.0 F 97.1 F L Pulse Rate [Right Pulse Oximeter] 73 80 Respiratory Rate 20 22 20 Blood Pressure [Le ft Arm] Blood Pressure [Ri ght Arm] 134/90 H 119/70 Pulse Oximetry 98 91 Oxygen Delivery Me thod Room Air Room Air 05/18/23 08:00 Temperature 97.8 F Pulse Rate [Right Pulse Oximeter] 61 Respiratory Rate 18 Blood Pressure [Le ft Arm] Blood Pressure [Ri ght Arm] 132/63 Pulse Oximetry 99 Oxygen Delivery Me thod Room Air Labs/Imaging Labs Labs: White blood cell count is normal. Hemoglobin is stable at 9.5. Progress Note:A&P Assessment and plan (1) Weakness generalized: Status: Acute (2) Colon cancer: Status: Acute (3) Chronic anemia: Status: Acute (4) Pleural effusion: Status: Acute (5) H/O right hemicolectomy: Status: Acute (6) DMII (diabetes mellitus, type 2): Status: Chronic Plan The patient is a 77-year-old male who is postop day 6 from right hemicolectomy for colon cancer. Pathology is pending. He has met all milestones and is deemed safe for discharge home today. -from a surgical standpoint he has return of bowel function and is tolerating a diet. -pain control is adequate with oral pain medication. -he remains on his home iron -Gabapentin for foot pain. -chlorthalidone held for low blood pressures - can be restarted as outpatient (patient thinks it helps with his foot pain) -Lovenox for 28 days postop. Patient was instructed on how to give the injections she for the next 3 weeks. -will plan on outpatient PT OT -home eval will be set up for PT -will follow-up with PCP this week. -follow-up with me in 2-3 weeks. I will call him with pathology results -heme Onc referral placed.
--- NOTE | 2023-05-18 15:05 | PC.NURSE ---
shift note: reviewed dc instructions and copies sent with pt at dc. Belongings reviewed and sent with pt at dc. IV dc'd intact. midline incision and lap sites x3 c/d/i.
== END 2023-05-18 11:30 | disposition home or self-care (01) | DRG 330 ==
LOC: OR 19:03 → MEDSURG 05-13 08:50
PROVIDERS: Family Medicine; Physician Assistant; Admitting Provider Surgery; PCP Family Medicine; Visit Provider Surgery
PROC: 0DTF0ZZ Resection of Right Large Intestine, Open Approach (ICD-10-PCS; principal; 2023-05-12 10:45)
DX: C18.2 Malignant neoplasm of ascending colon (principal); D62 Acute posthemorrhagic anemia; R18.8 Other ascites; J90 Pleural effusion, not elsewhere classified; Z53.31 Laparoscopic surgical procedure converted to open procedure; G89.18 Other acute postprocedural pain; R07.9 Chest pain, unspecified; I73.9 Peripheral vascular disease, unspecified; D50.9 Iron deficiency anemia, unspecified; K29.70 Gastritis, unspecified, without bleeding; I10 Essential (primary) hypertension; E11.9 Type 2 diabetes mellitus without complications; G31.84 Mild cognitive impairment of uncertain or unknown etiology; F17.210 Nicotine dependence, cigarettes, uncomplicated; I71.40 Abdominal aortic aneurysm, without rupture, unspecified
CPT/HCPCS: 00840; 36415; 51702; 51798; 64488; 71045; 76942; 80048; 82962; 83735; 84484; 85025; 85027; 86850; 86900; 86901; 88112; 88305; 88309; 93005; 97110; 97116; 97161; 97165; 97530; 97535; 99100; A9270; C9290; J0330; J0665; J1100; J1170; J1335; J1630; J1650; J1885; J2405; J2704; J2710; J3010; J7120

== ENCOUNTER 2023-05-31 12:25 | Inpatient (IN) | payer MEDICARE, SELFPAY ==
[2023-05-31] VITALS (44 sets, daily range): BP systolic 142–183; BP diastolic 75–105; PULSE 57–77; RESP 16–20; TEMP 36.4–36.6; O2SAT 92–99; BMI 39.5
--- NOTE | 2023-05-31 13:14 | ED.GENADULT ---
HPI - General Adult General Time Seen by Provider: 13:14 Date Seen: 05/31/23 Chief complaint: Post Op Complication Stated complaint: fluid leaking from surgery wound Time Seen by Provider: 05/31/23 12:42 Source: patient and RN notes reviewed Mode of arrival: wheelchair Limitations: no limitations History of Present Illness HPI narrative: This 77-year-old male is here in the ER today with complaint of drainage from his abdominal wound. Unclear exactly when this started draining or bothering him but is possibly been over the last week. He is actually wearing a plastic bag in between his clothes and the surgical wound. He feels that the drainage is increasing. Patient had a laparoscopic converted to open right hemicolectomy on 05/12/2023 for colon cancer. There is a note from his surgeon on May 17 that the surgical wound looked clean dry intact, no drainage. Patient denies any significant abdominal pain, denies any fevers or chills. States he has not been feeling ill. Denies any anorexia, no nausea or vomiting, no complaints of diarrhea or constipation. Related Data Home Medications Medication Instructions Recorded Confirmed ferrous sulfate 325 mg (65 mg 325 mg PO QDAY 05/26/23 iron) tablet (FeroSul) Previous Rx's Medication Instructions Recorded enoxaparin 40 mg/0.4 mL 40 mg (0.4 mL) subcut Q24H #30 ea 05/17/23 subcutaneous syringe gabapentin 100 mg capsule 100 mg PO BID #60 caps 05/17/23 omeprazole 20 mg capsule,delayed 20 mg PO DAILY@0700 #30 caps 05/17/23 release furosemide 20 mg tablet 20 mg PO QAM #90 tabs 05/26/23 hydrocodone 5 mg-acetaminophen 325 1 - 2 tab PO Q6H PRN Pain #20 tabs 05/26/23 mg tablet Allergies Allergy/AdvReac Type Severity Reaction Status Date / Time No Known Allergies Allergy Unknown Unknown Verified 05/31/23 13:00 Review of Systems Status of ROS: Reports: 6 or more systems reviewed and unremarkable except as noted in History and below [facility] Medical History Left-sided chest pain ?R07.9 - Chest pain, unspecified (ICD-10) Acute blood loss anemia ?D62 - Acute posthemorrhagic anemia (ICD-10) Anemia ?D64.9 - Anemia, unspecified (ICD-10) Edema of leg ?R60.0 - Localized edema (ICD-10) Weakness generalized ?R53.1 - Weakness (ICD-10) Colon cancer ?C18.9 - Malignant neoplasm of colon, unspecified (ICD-10) DMII (diabetes mellitus, type 2) ?E11.9 - Type 2 diabetes mellitus without complications (ICD-10) Postprandial epigastric pain ?R10.13 - Epigastric pain (ICD-10) Alcohol use ?Z78.9 - Other specified health status (ICD-10) Discharge planning issues ?Z02.9 - Encounter for administrative examinations, unspecified (ICD-10) Cognitive impairment ?R41.89 - Other symptoms and signs involving cognitive functions and awareness (ICD-10) Homeless ?Z59.00 - Homelessness unspecified (ICD-10) Aortic aneurysm, abdominal ?I71.40 - Abdominal aortic aneurysm, without rupture, unspecified (ICD-10) Colonic mass ?K63.89 - Other specified diseases of intestine (ICD-10) Abnormal ankle brachial index (GLORIA) ?R68.89 - Other general symptoms and signs (ICD-10) PAD (peripheral artery disease) ?I73.9 - Peripheral vascular disease, unspecified (ICD-10) Claudication ?I73.9 - Peripheral vascular disease, unspecified (ICD-10) Tobacco use ?Z72.0 - Tobacco use (ICD-10) Hypertension ?I10 - Essential (primary) hypertension (ICD-10) Surgical History H/O right hemicolectomy ?Z90.49 - Acquired absence of other specified parts of digestive tract (ICD-10) S/P eye surgery ?Z98.890 - Other specified postprocedural states (ICD-10) Family History Father Colon cancer Social History (Updated 05/31/23 @ 17:27 by Chao Welch MD) Narrative: Patient lives independently. Problems with home heating, wifi, accessible bathroom have been resolved. He has 3 step children, 1 of which is more involved in his life. He smokes 1 pack of cigarettes a day. He does not drink alcohol. What is your current living situation?: I presently have a place to live Problems where you live: no known problems Problems where you live details: bathroom is on second floor In the past 12 months, utilities in danger of being shut off: no In past 12 months, lack of transportation kept you from medical appts, meetings, work, or getting things needed for daily living: no In the past 12 mos, have been you worried that your food would run out before you had money to buy more?: never true In the past 12 mos, the food you bought just didn't last and you didn't have money to buy more?: never true Highest level of school completed/degree received: high school graduate Smoking Status: Current every day smoker What tobacco products do you use: cigarettes Smoking packs per day: 0.5 Smoking cigarettes per day: 10.0 Years smoked: 30 Smoking pack-years: 15.00 and cigars Do you use any of these nicotine containing products: None Second hand tobacco smoke exposure: Yes How often do you have a drink containing alcohol: 2-4 times a month How many standard drinks containing alcohol do you have on a typical day: 1 or 2 How often do you have six or more drinks on one occasion: Never AUDIT-C Alcohol total score: 2 Non-prescribed substance use: denies use Caffeine: No How often does anyone, including family, friends and others, physically hurt you: never How often does anyone, including family, friends and others, insult or talk down to you: never How often does anyone, including family, friends and others, threaten you with harm: never How often does anyone, including family, friends and others, scream or curse at you: never Little interest or pleasure in doing things: not at all Feeling down, depressed, or hopeless: not at all service: No Exam Const: Vital Signs, click to edit/add: Vital Signs - 24 hr 05/31/23 13:00 05/31/23 13:19 05/31/23 13:29 Temperature 97.6 F Pulse Rate 77 Pulse Rate [Left P ulse Oximeter] Pulse Rate [Pulse Oximeter] 74 Respiratory Rate 20 Blood Pressure Blood Pressure [Le ft Arm] Blood Pressure [Ri ght Upper Arm] 147/75 H Pulse Oximetry 98 95 94 Oxygen Delivery Me thod Room Air 05/31/23 13:32 05/31/23 13:41 05/31/23 13:45 Temperature Pulse Rate 76 73 Pulse Rate [Left P ulse Oximeter] Pulse Rate [Pulse Oximeter] Respiratory Rate Blood Pressure 142/79 H Blood Pressure [Le ft Arm] Blood Pressure [Ri ght Upper Arm] Pulse Oximetry 97 96 Oxygen Delivery Me thod 05/31/23 14:00 05/31/23 14:04 05/31/23 14:15 Temperature Pulse Rate 68 69 72 Pulse Rate [Left P ulse Oximeter] Pulse Rate [Pulse Oximeter] Respiratory Rate Blood Pressure Blood Pressure [Le ft Arm] Blood Pressure [Ri ght Upper Arm] Pulse Oximetry 94 94 97 Oxygen Delivery Me thod 05/31/23 14:33 05/31/23 14:34 05/31/23 14:45 Temperature Pulse Rate 71 71 70 Pulse Rate [Left P ulse Oximeter] Pulse Rate [Pulse Oximeter] Respiratory Rate Blood Pressure 156/87 H Blood Pressure [Le ft Arm] Blood Pressure [Ri ght Upper Arm] Pulse Oximetry 95 95 94 Oxygen Delivery Nc thod 05/31/23 15:00 05/31/23 15:01 05/31/23 15:15 Temperature Pulse Rate 70 69 72 Pulse Rate [Left P ulse Oximeter] Pulse Rate [Pulse Oximeter] Respiratory Rate Blood Pressure 167/84 H Blood Pressure [Le ft Arm] Blood Pressure [Ri ght Upper Arm] Pulse Oximetry 94 94 94 Oxygen Delivery Nc thod 05/31/23 15:38 05/31/23 15:45 05/31/23 16:00 Temperature Pulse Rate 73 74 68 Pulse Rate [Left P ulse Oximeter] Pulse Rate [Pulse Oximeter] Respiratory Rate Blood Pressure Blood Pressure [Le ft Arm] Blood Pressure [Ri ght Upper Arm] Pulse Oximetry 95 97 93 Oxygen Delivery Me thod 05/31/23 16:02 05/31/23 16:03 05/31/23 16:15 Temperature Pulse Rate 69 66 67 Pulse Rate [Left P ulse Oximeter] Pulse Rate [Pulse Oximeter] Respiratory Rate Blood Pressure 161/78 H Blood Pressure [Le ft Arm] Blood Pressure [Ri ght Upper Arm] Pulse Oximetry 93 93 94 Oxygen Delivery Me thod 05/31/23 16:30 05/31/23 16:31 05/31/23 16:45 Temperature Pulse Rate 69 65 73 Pulse Rate [Left P ulse Oximeter] Pulse Rate [Pulse Oximeter] Respiratory Rate Blood Pressure 162/86 H Blood Pressure [Le ft Arm] Blood Pressure [Ri ght Upper Arm] Pulse Oximetry 95 93 95 Oxygen Delivery Me thod 05/31/23 17:00 05/31/23 17:01 05/31/23 17:15 Temperature Pulse Rate 69 71 73 Pulse Rate [Left P ulse Oximeter] Pulse Rate [Pulse Oximeter] Respiratory Rate Blood Pressure 172/90 H Blood Pressure [Le ft Arm] Blood Pressure [Ri ght Upper Arm] Pulse Oximetry 97 98 94 Oxygen Delivery Me thod 05/31/23 17:30 05/31/23 17:31 05/31/23 17:45 Temperature Pulse Rate 72 66 61 Pulse Rate [Left P ulse Oximeter] Pulse Rate [Pulse Oximeter] Respiratory Rate Blood Pressure 168/79 H Blood Pressure [Le ft Arm] Blood Pressure [Ri ght Upper Arm] Pulse Oximetry 97 97 97 Oxygen Delivery Me thod 05/31/23 18:00 05/31/23 18:02 05/31/23 18:15 Temperature Pulse Rate 67 65 64 Pulse Rate [Left P ulse Oximeter] Pulse Rate [Pulse Oximeter] Respiratory Rate Blood Pressure 166/83 H Blood Pressure [Le ft Arm] Blood Pressure [Ri ght Upper Arm] Pulse Oximetry 92 98 96 Oxygen Delivery Me thod 05/31/23 18:30 05/31/23 19:00 05/31/23 19:25 Temperature 97.8 F 97.8 F Pulse Rate 65 58 L Pulse Rate [Left P ulse Oximeter] 58 L Pulse Rate [Pulse Oximeter] Respiratory Rate 16 16 Blood Pressure 166/105 H Blood Pressure [Le ft Arm] 166/105 H Blood Pressure [Ri ght Upper Arm] Pulse Oximetry 95 97 97 Oxygen Delivery Me thod Room Air Room Air 05/31/23 19:35 05/31/23 19:48 05/31/23 20:22 Temperature 97.8 F 97.7 F 97.7 F Pulse Rate 57 L 57 L 60 Pulse Rate [Left P ulse Oximeter] Pulse Rate [Pulse Oximeter] Respiratory Rate 16 16 16 Blood Pressure 181/89 H 181/88 H 183/90 H Blood Pressure [Le ft Arm] Blood Pressure [Ri ght Upper Arm] Pulse Oximetry 97 96 97 Oxygen Delivery Me thod Room Air Room Air Room Air 05/31/23 20:23 Temperature 97.7 F Pulse Rate 60 Pulse Rate [Left P ulse Oximeter] Pulse Rate [Pulse Oximeter] Respiratory Rate 16 Blood Pressure 182/86 H Blood Pressure [Le ft Arm] Blood Pressure [Ri ght Upper Arm] Pulse Oximetry 97 Oxygen Delivery Me thod Room Air This 77-year-old male is alert, interactive, no apparent distress, lying in the bed in exam room 3. It will sick in complete sentences, face atraumatic, sclera clear. Neck without any masses or adenopathy. Lungs are clear, no wheezing or crackles, somewhat distant breath sounds. CV regular rate and rhythm, no murmur, normal S1-S2, no S3-S4. Abdomen has area of erythema surrounding the superior portion of the wound and then a little lower in compass seen the umbilicus and below there is more erythema. He has malodorous mucopurulent drainage from the more inferior erythematous area. When I press on the upper area, do get a small amount of will keep purulent seepage. He does not seem to be tender in his abdomen, feel no discrete masses or fluctuant pockets of fluid. Documenting provider has reviewed patient's vital signs: yes Course Course ED Course: Patient obviously has a secondary infection of the surgical wound, hopefully just superficial. I did obtain a wound culture. We will place an IV, get appropriate labs and do CT abdomen pelvis with IV contrast to ensure that this does not extend into the abdomen. Patient is hemodynamically stable, no fever here no reported fevers. No evidence of any sepsis at this time. No indication for blood cultures at this time but should he spike a fever, have a change in status will consider blood cultures. Consultations Consultation #1: On-call general surgeon Dr. Bowden is updated. She is going to look at his CT imaging and contact me back. 4:37 p.m.: Dr. Bowden has called back. We will initiate IV Zosyn now. She will be taking patient to the OR for washout, he has not eaten anything or drank anything since yesterday. Dr. Welch the hospitalist is here, will assume cares in the hospital. Time: 16:29 Consultation #2: Dr. Welch did contact me, does believe that we should give vancomycin. We are ordering 1500 mg IV vancomycin. Time: 17:07 Vital Signs Vital signs: Initial Vital Signs Temperature 97.6 F 05/31/23 13:00 Temperature Source Temporal Artery Scan 05/31/23 13:00 Pulse Rate 74 05/31/23 13:00 Respiratory Rate 20 05/31/23 13:00 Blood Pressure 147/75 H 05/31/23 13:00 Blood Pressure Mean 99 05/31/23 13:00 Blood Pressure Position Semi-Fowlers 05/31/23 13:00 Pulse Oximetry 98 05/31/23 13:00 Oxygen Delivery Method Room Air 05/31/23 13:00 Vital Signs Temperature 97.6 F 05/31/23 13:00 Pulse Rate 74 05/31/23 13:00 Respiratory Rate 20 05/31/23 13:00 Blood Pressure 147/75 H 05/31/23 13:00 Pulse Oximetry 98 05/31/23 13:00 Oxygen Delivery Method Room Air 05/31/23 13:00 Temperature 97.7 F 05/31/23 21:00 Pulse Rate 64 05/31/23 21:00 Respiratory Rate 16 05/31/23 21:00 Blood Pressure 177/92 H 05/31/23 21:00 Pulse Oximetry 99 05/31/23 21:00 Oxygen Delivery Method Room Air 05/31/23 21:00 Medications Administered Medications: Generic Name Dose Route Start Last Admin Trade Name Freq PRN Reason Stop Dose Admin Enoxaparin Sodium 40 mg 05/31/23 21:00 05/31/23 21:16 Enoxaparin 40 Mg/0.4 Ml Inj SUBCUT 40 mg Q24H AI Administration Lactated Ringer's 1,000 mls @ 75 mls/hr 05/31/23 17:40 05/31/23 18:24 Lactated Ringers 1000 Ml IV 75 mls/hr .[id number] AI Administration Vancomycin HCl 1,750 mg/ 517.5 mls @ 258.75 mls/hr 05/31/23 18:30 05/31/23 19:42 Sodium Chloride IVPB Not Given Q12H AI Sodium Chloride 5 ml 05/31/23 21:00 05/31/23 21:16 Sodium Chloride 0.9 % (Flush) 10 Ml Syringe IVF Not Given BID AI Discontinued Medications Generic Name Dose Route Start Last Admin Trade Name Freq PRN Reason Stop Dose Admin Piperacillin Sod/Tazobactam 100 mls @ 200 mls/hr 05/31/23 16:38 05/31/23 17:30 Sod 3.375 gm/ Sodium Chloride IVPB 05/31/23 16:39 Infused ONCE ONE Infusion Vancomycin HCl 1,500 mg/ 515 mls @ 257.5 mls/hr 05/31/23 17:15 05/31/23 18:01 Sodium Chloride IVPB 257.5 mls/hr Q24H AI Administration Protocol Medical Decision Making Lab Data Lab results reviewed: Yes I reviewed the patient's lab results Labs: Lab Results 05/31/23 Range/Units 14:37 WBC 5.67 (4.50-11.00) K/uL RBC 3.59 L (4.30-5.90) m/uL Hgb 9.9 L (13.5-17.5) gm/dL Hct 32.0 L (37.0-53.0) % MCV 89 (80-100) fL MCH 28 (26-34) pg MCHC 31 L (32-36) gm/dL RDW Coeff of Nissa 18.0 H (11.5-15.5) % Plt Count 301 (140-440) K/uL Neut % (Auto) 59.2 (42.0-72.0) % Lymph % (Auto) 26.8 (20-44) % Stanly % (Auto) 11.5 H (0.0-11.0) % Eos % (Auto) 2.1 (0.0-7.0) % Baso % (Auto) 0.4 (0.0-3.0) % Neut # (Auto) 3.36 (1.7-7.0) K/uL Lymph # (Auto) 1.52 (0.90-2.90) K/uL Stanly # (Auto) 0.70 (0.00-0.90) K/UL Eos # (Auto) 0.12 (0.00-0.50) K/uL Baso # (Auto) 0.02 (0.00-0.30) K/uL Abs Immat Gran (auto) 0.00 (0.00-0.30) K/uL Imm/Tot Granulo (auto) 0.0 % Sodium 137 (135-149) mmol/L Potassium 3.6 (3.6-5.1) mmol/L Chloride 107 (96-114) mmol/L Carbon Dioxide 26 (20-32) mmol/L Anion Gap 4 L (7-15) mEq/L BUN 13 (7-30) mg/dL Creatinine 0.6 (0.5-1.5) mg/dL Estimated Creat Clear 50.98 Estimated GFR 99 ml/min Glucose 96 (60-115) mg/dL Lactate 0.9 (0.5-1.9) mmol/L Calcium 8.7 (8.4-10.6) mg/dL Total Bilirubin 0.2 (0.1-1.5) mg/dL AST 19 (12-35) U/L ALT 16 (4-50) U/L Alkaline Phosphatase 112 (40-150) U/L C-Reactive Protein 2.0 H (0.5-1.0) mg/dL Total Protein 6.5 (6.0-8.3) g/dL Albumin 3.0 L (3.3-5.0) g/dL Procalcitonin 0.09 (<0.50) ng/mL Imaging Data CT scan - abdomen: Attestation: I have reviewed the pertinent imaging results. My impression: Can see fluid collections within the abdominal wall incision area, wait radiology over read. Radiologist's impression: Patient: NARCISO ARMAS Facility:?[facility] Patient ID:?[id number] Site Patient ID:?[id number]. Site :?[id number] Study:?CT Abdomen/Pelvis W/IV-05/31/2023 3:44:41 PM Ordering Physician:NIKIA RICE Final Report: INDICATION: Infection of abdominal incision. TECHNIQUE: Multiple axial images were obtained from the diaphragm to the symphysis pubis after administration of 98 mL of Isovue-370 intravenously. Sagittal and coronal re-formatted images were obtained. COMPARISON: 04/02/2023. FINDINGS: There is a small right pleural effusion. There is atelectasis in both lung bases. There is no focal liver lesion. The spleen, pancreas and adrenal glands are remarkable. There are gallstones. There is a stable left kidney cyst. There is no hydronephrosis. There is interval right hemicolectomy. There is no evidence of a bowel obstruction. There are diverticula in the descending and sigmoid colon. There is no evidence of a diverticulitis. There is abdominal aortic aneurysm measuring 3.8 cm in AP dimension, unchanged from the previous study. There are atherosclerotic calcifications. In the subcutaneous tissue in the midline in the region of the incision in the mid to upper abdomen above the umbilicus there is a fluid collection with air consistent with an abscess measuring 2.6 cm in AP dimension by 3 cm in transverse dimension by 5 cm in the craniocaudal mention. In midline inferior to the umbilicus there is a 2nd fluid collection with air in it measuring 2.3 cm in AP dimension by 2.8 cm in transverse dimension by a 2 cm in the craniocaudal mention. There is stranding of subcutaneous fat in the abdomen anteriorly. There is a right inguinal hernia containing a small amount of fluid. There is a left inguinal hernia containing fat. There is a small amount of free fluid in the pelvis and in the pericolic gutters There is scoliosis and degenerative changes in the spine. IMPRESSION: 1. Two fluid collections in the subcutaneous tissue in the midline of the abdomen above and below the umbilicus consistent with abscesses. 2. Interval right hemicolectomy. 3. Small amount of free fluid in the abdomen and pelvis. 4. Stranding of the subcutaneous fat in the abdomen anteriorly. This could be secondary to a cellulitis 5. Right inguinal hernia with small amount of fluid. Left inguinal containing fat. 6. Diverticulosis. No evidence of a diverticulitis. 7. 3.8 cm in AP dimension infrarenal abdominal aneurysm. 8. Small right pleural effusion. 9. Gallstones. Please note that all CT scans at this facility use dose modulation, iterative reconstruction, and/or weight-based dosing when appropriate to reduce radiation dose to as low as reasonably achievable. Dictated by Chao Coleman MD @ 05/31/2023 4:15:41 PM (Electronic Signature) Discharge Plan Discharge Clinical Impression: Abdominal wall cellulitis, Incisional abscess Patient Disposition: XFER to OR
--- NOTE | 2023-05-31 13:28 | CT_ITS ---
Patient: NARCISO ARMAS Facility:?[facility] Patient ID:?[id number] Site Patient ID:?[id number]. Site :?[id number] Study:?CT-Abdomen/Pelvis W/IV-05/31/2023 3:44:41 PM Ordering Physician:NIKIA RICE Final Report: INDICATION: Infection of abdominal incision. TECHNIQUE: Multiple axial images were obtained from the diaphragm to the symphysis pubis after administration of 98 mL of Isovue-370 intravenously. Sagittal and coronal re-formatted images were obtained. COMPARISON: 04/02/2023. FINDINGS: There is a small right pleural effusion. There is atelectasis in both lung bases. There is no focal liver lesion. The spleen, pancreas and adrenal glands are remarkable. There are gallstones. There is a stable left kidney cyst. There is no hydronephrosis. There is interval right hemicolectomy. There is no evidence of a bowel obstruction. There are diverticula in the descending and sigmoid colon. There is no evidence of a diverticulitis. There is abdominal aortic aneurysm measuring 3.8 cm in AP dimension, unchanged from the previous study. There are atherosclerotic calcifications. In the subcutaneous tissue in the midline in the region of the incision in the mid to upper abdomen above the umbilicus there is a fluid collection with air consistent with an abscess measuring 2.6 cm in AP dimension by 3 cm in transverse dimension by 5 cm in the craniocaudal mention. In midline inferior to the umbilicus there is a 2nd fluid collection with air in it measuring 2.3 cm in AP dimension by 2.8 cm in transverse dimension by a 2 cm in the craniocaudal mention. There is stranding of subcutaneous fat in the abdomen anteriorly. There is a right inguinal hernia containing a small amount of fluid. There is a left inguinal hernia containing fat. There is a small amount of free fluid in the pelvis and in the pericolic gutters There is scoliosis and degenerative changes in the spine. IMPRESSION: 1. Two fluid collections in the subcutaneous tissue in the midline of the abdomen above and below the umbilicus consistent with abscesses. 2. Interval right hemicolectomy. 3. Small amount of free fluid in the abdomen and pelvis. 4. Stranding of the subcutaneous fat in the abdomen anteriorly. This could be secondary to a cellulitis 5. Right inguinal hernia with small amount of fluid. Left inguinal containing fat. 6. Diverticulosis. No evidence of a diverticulitis. 7. 3.8 cm in AP dimension infrarenal abdominal aneurysm. 8. Small right pleural effusion. 9. Gallstones. Please note that all CT scans at this facility use dose modulation, iterative reconstruction, and/or weight-based dosing when appropriate to reduce radiation dose to as low as reasonably achievable. Dictated by Chao Coleman MD @ 05/31/2023 4:15:41 PM Signed by:?Chao Coleman MD @05/31/2023 4:15:41 PM (Electronic Signature)
[2023-05-31 14:43] LABS: Lactate* 0.9 mmol/L (0.5-1.9)
[2023-05-31 14:45] LABS: Basophils Absolute Auto 0.02 K/uL (0.00-0.30); Basophils Percent Auto 0.4 % (0.0-3.0); Eosinophils Absolute Auto 0.12 K/uL (0.00-0.50); Eosinophils Percent Auto 2.1 % (0.0-7.0); Hemoglobin* 9.9 gm/dL (13.5-17.5); Lymphocytes Absolute Auto 1.52 K/uL (0.90-2.90); Lymphocytes Percent Auto 26.8 % (20-44); Mean Corpuscular HGB Conc 31 gm/dL (32-36); Mean Corpuscular Hemoglobin 28 pg (26-34); Mean Corpuscular Volume 89 fL (80-100); Monocytes Percent Auto 11.5 % (0.0-11.0); Neutrophils Absolute Auto 3.36 K/uL (1.7-7.0); Neutrophils Percent Auto 59.2 % (42.0-72.0); Platelet Count* 301 K/uL (140-440); Red Blood Count 3.59 m/uL (4.30-5.90); White Blood Count* 5.67 K/uL (4.50-11.00)
[2023-05-31 14:47] LABS: Slide Review Reflex No
[2023-05-31 14:59] LABS: Chloride* 107 mmol/L (96-114)
[2023-05-31 15:00] LABS: Potassium* 3.6 mmol/L (3.6-5.1); Sodium* 137 mmol/L (135-149)
[2023-05-31 15:02] LABS: Bilirubin Total* 0.2 mg/dL (0.1-1.5); Creatinine* 0.6 mg/dL (0.5-1.5); Est. Creatinine Clearance* 50.98; Estimated Glomerular Filt Rate 99 ml/min
[2023-05-31 15:03] LABS: Alanine Aminotransferase* 16 U/L (4-50); Alkaline Phosphatase* 112 U/L (40-150); Anion Gap 4 mEq/L (7-15); Aspartate Amino Transferase* 19 U/L (12-35); Blood Urea Nitrogen* 13 mg/dL (7-30); Calcium* 8.7 mg/dL (8.4-10.6); Carbon Dioxide* 26 mmol/L (20-32); Glucose* 96 mg/dL (60-115); Total Protein* 6.5 g/dL (6.0-8.3)
[2023-05-31 15:27] LABS: Procalcitonin* 0.09 ng/mL (<0.50)
[2023-05-31] MEDS: PIPERACILLIN/TAZOBACTAM 3.375 GM in 0.9 % SODIUM CHLORIDE Mini-bag 100 ML IVPB ×2 (16:58→22:46)
--- NOTE | 2023-05-31 17:18 | PM.IMHP1 ---
Hospitalist- H&P: HPI History of Present Illness Date Seen: 05/31/23 Chief complaint: fluid leaking from surgery wound Narrative: Brian Bradford is a 77 year old male who underwent open right hemicolectomy for colon cancer on 05/12/2023 presents with a draining abdominal wound for about the last week. His surgical wound was in good condition with minimal erythema on the lower aspect on the day of discharge 05/18/2023. About a week ago he started noting increasing redness and then draining pus. He was using paper towels and other devices to contain the prominent purulent drainage. He is not aware of having a fever. He is not having significant pain. He has not been taking his hydrocodone that was prescribed for postoperative pain. He reports he has been eating normally and bowel function has been normal. He reports things are going well at home other than the draining wound. He has had some problems with his living situation but he reports those are resolved. His bathroom and heating and I have all been fixed. He has been taking his medications as prescribed though he does not know his medications. Review of Systems Narrative: Patient reports no other concerns except his a draining wound. [facility] Medical History Left-sided chest pain ?R07.9 - Chest pain, unspecified (ICD-10) Acute blood loss anemia ?D62 - Acute posthemorrhagic anemia (ICD-10) Anemia ?D64.9 - Anemia, unspecified (ICD-10) Edema of leg ?R60.0 - Localized edema (ICD-10) Weakness generalized ?R53.1 - Weakness (ICD-10) Colon cancer ?C18.9 - Malignant neoplasm of colon, unspecified (ICD-10) DMII (diabetes mellitus, type 2) ?E11.9 - Type 2 diabetes mellitus without complications (ICD-10) Postprandial epigastric pain ?R10.13 - Epigastric pain (ICD-10) Alcohol use ?Z78.9 - Other specified health status (ICD-10) Discharge planning issues ?Z02.9 - Encounter for administrative examinations, unspecified (ICD-10) Cognitive impairment ?R41.89 - Other symptoms and signs involving cognitive functions and awareness (ICD-10) Homeless ?Z59.00 - Homelessness unspecified (ICD-10) Aortic aneurysm, abdominal ?I71.40 - Abdominal aortic aneurysm, without rupture, unspecified (ICD-10) Colonic mass ?K63.89 - Other specified diseases of intestine (ICD-10) Abnormal ankle brachial index (GLORIA) ?R68.89 - Other general symptoms and signs (ICD-10) PAD (peripheral artery disease) ?I73.9 - Peripheral vascular disease, unspecified (ICD-10) Claudication ?I73.9 - Peripheral vascular disease, unspecified (ICD-10) Tobacco use ?Z72.0 - Tobacco use (ICD-10) Hypertension ?I10 - Essential (primary) hypertension (ICD-10) Surgical History H/O right hemicolectomy ?Z90.49 - Acquired absence of other specified parts of digestive tract (ICD-10) S/P eye surgery ?Z98.890 - Other specified postprocedural states (ICD-10) Family History Father Colon cancer Social History (Updated 05/31/23 @ 17:27 by Chao Welch MD) Narrative: Patient lives independently. Problems with home heating, wifi, accessible bathroom have been resolved. He has 3 step children, 1 of which is more involved in his life. He smokes 1 pack of cigarettes a day. He does not drink alcohol. What is your current living situation?: I presently have a place to live Problems where you live: no known problems Problems where you live details: bathroom is on second floor In the past 12 months, utilities in danger of being shut off: no In past 12 months, lack of transportation kept you from medical appts, meetings, work, or getting things needed for daily living: no In the past 12 mos, have been you worried that your food would run out before you had money to buy more?: never true In the past 12 mos, the food you bought just didn't last and you didn't have money to buy more?: never true Highest level of school completed/degree received: high school graduate Smoking Status: Current every day smoker What tobacco products do you use: cigarettes Smoking packs per day: 0.5 Smoking cigarettes per day: 10.0 Years smoked: 30 Smoking pack-years: 15.00 and cigars Do you use any of these nicotine containing products: None Second hand tobacco smoke exposure: Yes How often do you have a drink containing alcohol: 2-4 times a month How many standard drinks containing alcohol do you have on a typical day: 1 or 2 How often do you have six or more drinks on one occasion: Never AUDIT-C Alcohol total score: 2 Non-prescribed substance use: denies use Caffeine: No How often does anyone, including family, friends and others, physically hurt you: never How often does anyone, including family, friends and others, insult or talk down to you: never How often does anyone, including family, friends and others, threaten you with harm: never How often does anyone, including family, friends and others, scream or curse at you: never Little interest or pleasure in doing things: not at all Feeling down, depressed, or hopeless: not at all service: No Meds Home Medications and Allergies Home Medications Medication Instructions Recorded Confirmed Type ferrous sulfate 325 mg (65 mg 325 mg PO QDAY 05/26/23 History iron) tablet (FeroSul) Allergies Allergy/AdvReac Type Severity Reaction Status Date / Time No Known Allergies Allergy Unknown Unknown Verified 05/31/23 13:00 Exam Narrative: Exam Narrative: He is alert and appears in no distress. Eyes normal. Oropharynx with small airway. Neck is supple without mass or adenopathy. Respirations are clear to auscultation. Cardiovascular: S1, S2, regular rate and rhythm. No murmur gallop or rub. Abdomen is soft without peritonitis. Midline incision has prominent purulent drainage from an opening just above the umbilicus. Malodorous. Extremities with bilateral edema. Diminished pedal pulses. Const: Vital Signs, click to edit/add: Vital Signs - 24 hr 05/31/23 13:00 05/31/23 13:19 05/31/23 13:29 Temperature 97.6 F Pulse Rate 77 Pulse Rate [Pulse Oximeter] 74 Respiratory Rate 20 Blood Pressure Blood Pressure [Ri ght Upper Arm] 147/75 H Pulse Oximetry 98 95 94 Oxygen Delivery Me thod Room Air 05/31/23 13:32 05/31/23 13:41 05/31/23 13:45 Temperature Pulse Rate 76 73 Pulse Rate [Pulse Oximeter] Respiratory Rate Blood Pressure 142/79 H Blood Pressure [Ri ght Upper Arm] Pulse Oximetry 97 96 Oxygen Delivery Me thod 05/31/23 14:00 05/31/23 14:04 05/31/23 14:15 Temperature Pulse Rate 68 69 72 Pulse Rate [Pulse Oximeter] Respiratory Rate Blood Pressure Blood Pressure [Ri ght Upper Arm] Pulse Oximetry 94 94 97 Oxygen Delivery Me thod 05/31/23 14:33 05/31/23 14:34 05/31/23 14:45 Temperature Pulse Rate 71 71 70 Pulse Rate [Pulse Oximeter] Respiratory Rate Blood Pressure 156/87 H Blood Pressure [Ri ght Upper Arm] Pulse Oximetry 95 95 94 Oxygen Delivery Me thod 05/31/23 15:00 05/31/23 15:01 05/31/23 15:15 Temperature Pulse Rate 70 69 72 Pulse Rate [Pulse Oximeter] Respiratory Rate Blood Pressure 167/84 H Blood Pressure [Ri ght Upper Arm] Pulse Oximetry 94 94 94 Oxygen Delivery Me thod 05/31/23 15:38 05/31/23 15:45 05/31/23 16:00 Temperature Pulse Rate 73 74 68 Pulse Rate [Pulse Oximeter] Respiratory Rate Blood Pressure Blood Pressure [Ri ght Upper Arm] Pulse Oximetry 95 97 93 Oxygen Delivery Me thod 05/31/23 16:02 Temperature Pulse Rate 69 Pulse Rate [Pulse Oximeter] Respiratory Rate Blood Pressure 161/78 H Blood Pressure [Ri ght Upper Arm] Pulse Oximetry 93 Oxygen Delivery Me od Hospitalist - H&P: Result Labs Labs: Short CBC 05/31/23 Range/Units 14:37 WBC 5.67 (4.50-11.00) K/uL Hgb 9.9 L (13.5-17.5) gm/dL Hct 32.0 L (37.0-53.0) % Plt Count 301 (140-440) K/uL BMP 05/31/23 14:37 Sodium 137 Potassium 3.6 Chloride 107 Carbon Dioxide 26 BUN 13 Creatinine 0.6 Glucose 96 Calcium 8.7 Liver Function 05/31/23 Range/Units 14:37 Total Bilirubin 0.2 (0.1-1.5) mg/dL AST 19 (12-35) U/L ALT 16 (4-50) U/L Alkaline Phosphatase 112 (40-150) U/L Albumin 3.0 L (3.3-5.0) g/dL Imaging CT scan - abdomen: Radiologist's impression: Patient: BRIAN BRADFORD Facility:?[facility] Patient ID:?[id number] Site Patient ID:?[id number]. Site :?[id number] Study:?CT Abdomen/Pelvis W/IV-05/31/2023 3:44:41 PM Ordering Physician:NIKIA RICE Final Report: INDICATION: Infection of abdominal incision. TECHNIQUE: Multiple axial images were obtained from the diaphragm to the symphysis pubis after administration of 98 mL of Isovue-370 intravenously. Sagittal and coronal re-formatted images were obtained. COMPARISON: 04/02/2023. FINDINGS: There is a small right pleural effusion. There is atelectasis in both lung bases. There is no focal liver lesion. The spleen, pancreas and adrenal glands are remarkable. There are gallstones. There is a stable left kidney cyst. There is no hydronephrosis. There is interval right hemicolectomy. There is no evidence of a bowel obstruction. There are diverticula in the descending and sigmoid colon. There is no evidence of a diverticulitis. There is abdominal aortic aneurysm measuring 3.8 cm in AP dimension, unchanged from the previous study. There are atherosclerotic calcifications. In the subcutaneous tissue in the midline in the region of the incision in the mid to upper abdomen above the umbilicus there is a fluid collection with air consistent with an abscess measuring 2.6 cm in AP dimension by 3 cm in transverse dimension by 5 cm in the craniocaudal mention. In midline inferior to the umbilicus there is a 2nd fluid collection with air in it measuring 2.3 cm in AP dimension by 2.8 cm in transverse dimension by a 2 cm in the craniocaudal mention. There is stranding of subcutaneous fat in the abdomen anteriorly. There is a right inguinal hernia containing a small amount of fluid. There is a left inguinal hernia containing fat. There is a small amount of free fluid in the pelvis and in the pericolic gutters There is scoliosis and degenerative changes in the spine. IMPRESSION: 1. Two fluid collections in the subcutaneous tissue in the midline of the abdomen above and below the umbilicus consistent with abscesses. 2. Interval right hemicolectomy. 3. Small amount of free fluid in the abdomen and pelvis. 4. Stranding of the subcutaneous fat in the abdomen anteriorly. This could be secondary to a cellulitis 5. Right inguinal hernia with small amount of fluid. Left inguinal containing fat. 6. Diverticulosis. No evidence of a diverticulitis. 7. 3.8 cm in AP dimension infrarenal abdominal aneurysm. 8. Small right pleural effusion. 9. Gallstones. Assessment and Plan Assessment and plan (1) Incisional abscess: Problem comment: Drainage from surgical incision started about 1 week prior to admission. Consult doctor Kal for surgical debridement. Vancomycin and Zosyn pending cultures Status: Acute (2) H/O right hemicolectomy: Problem comment: -05/12/23, Dr. Sharma Tolerating regular diet. Uncomplicated recovery. Patient is high risk for VTE so will be on prophylactic enoxaparin for 3 weeks after surgery. Status: Acute (3) Abdominal wall cellulitis: Status: Acute (4) Weakness generalized: Problem comment: Patient has chronic deconditioning with worsening weakness and disability secondary to recent illnesses, surgery. Since surgery has had excellent recovery. Plan for outpatient PT and also home safety evaluation. Status: Acute (5) Colon cancer: Problem comment: Ascending colon adenocarcinoma -POD#3 s/p right hemicolectomy, postoperative management per primary team, General Surgery Pending pathology review view and oncology consultation. Patient reports oncology appointment on June 17 Status: Acute (6) Chronic anemia: Problem comment: Primarily due to chronic blood loss from colon cancer. Status: Acute (7) Cognitive impairment: Problem comment: Blind [place] on 04/04/2023: 8 out of 22 Status: Acute Plan Patient is admitted to the hospital for I and D by surgery and IV antibiotics to treat his incisional abscess. Total Time Spent Total Time Spent: Total time spent today is 65 minutes, 45 minutes in coordination of care and discussing with patient other providers ongoing management of surgical infection
--- NOTE | 2023-05-31 18:09 | P.GSCN_ITS ---
History of Present Illness Consult details Date Seen: 05/31/23 Consult date: 05/31/23 Narrative: Patient presented to the emergency department for fluid leaking from his surgical incision. He had a lap converted to open right hemicolectomy for colon cancer on 05/12/2023. His recovery was uncomplicated and he was able to discharge to home. He last saw his surgeon on 05/18/2023 and his surgical incision was found to be healing well with no concern at that time for infection. About 5 days ago he started to notice some yellow drainage from his incision. Initially he thought it was urine. He started by using paper towels to catch the drainage, which quickly would become saturated. Throughout the week the drainage continued to increase and became more foul smelling. He denies any fevers at home. He has been otherwise tolerating a regular diet and having regular bowel movements. He has not needed any further narcotic pain medicine. He is on Lovenox subcutaneous for DVT prophylaxis. Review of Systems Status of ROS: Reports: 6 or more systems reviewed and unremarkable except as noted in History and below [facility] Medical History Left-sided chest pain ?R07.9 - Chest pain, unspecified (ICD-10) Acute blood loss anemia ?D62 - Acute posthemorrhagic anemia (ICD-10) Anemia ?D64.9 - Anemia, unspecified (ICD-10) Edema of leg ?R60.0 - Localized edema (ICD-10) Weakness generalized ?R53.1 - Weakness (ICD-10) Colon cancer ?C18.9 - Malignant neoplasm of colon, unspecified (ICD-10) DMII (diabetes mellitus, type 2) ?E11.9 - Type 2 diabetes mellitus without complications (ICD-10) Postprandial epigastric pain ?R10.13 - Epigastric pain (ICD-10) Alcohol use ?Z78.9 - Other specified health status (ICD-10) Discharge planning issues ?Z02.9 - Encounter for administrative examinations, unspecified (ICD-10) Cognitive impairment ?R41.89 - Other symptoms and signs involving cognitive functions and awareness (ICD-10) Homeless ?Z59.00 - Homelessness unspecified (ICD-10) Aortic aneurysm, abdominal ?I71.40 - Abdominal aortic aneurysm, without rupture, unspecified (ICD-10) Colonic mass ?K63.89 - Other specified diseases of intestine (ICD-10) Abnormal ankle brachial index (GLORIA) ?R68.89 - Other general symptoms and signs (ICD-10) PAD (peripheral artery disease) ?I73.9 - Peripheral vascular disease, unspecified (ICD-10) Claudication ?I73.9 - Peripheral vascular disease, unspecified (ICD-10) Tobacco use ?Z72.0 - Tobacco use (ICD-10) Hypertension ?I10 - Essential (primary) hypertension (ICD-10) Surgical History H/O right hemicolectomy ?Z90.49 - Acquired absence of other specified parts of digestive tract (ICD- 10) S/P eye surgery ?Z98.890 - Other specified postprocedural states (ICD-10) Family History Father Colon cancer Social History (Updated 05/31/23 @ 17:27 by Chao Welch MD) Narrative: Patient lives independently. Problems with home heating, wifi, accessible bathroom have been resolved. He has 3 step children, 1 of which is more involved in his life. He smokes 1 pack of cigarettes a day. He does not drink alcohol. What is your current living situation?: I presently have a place to live Problems where you live: no known problems Problems where you live details: bathroom is on second floor In the past 12 months, utilities in danger of being shut off: no In past 12 months, lack of transportation kept you from medical appts, meetings, work, or getting things needed for daily living: no In the past 12 mos, have been you worried that your food would run out before you had money to buy more?: never true In the past 12 mos, the food you bought just didn't last and you didn't have money to buy more?: never true Highest level of school completed/degree received: high school graduate Smoking Status: Current every day smoker What tobacco products do you use: cigarettes Smoking packs per day: 0.5 Smoking cigarettes per day: 10.0 Years smoked: 30 Smoking pack-years: 15.00 and cigars Do you use any of these nicotine containing products: None Second hand tobacco smoke exposure: Yes How often do you have a drink containing alcohol: 2-4 times a month How many standard drinks containing alcohol do you have on a typical day: 1 or 2 How often do you have six or more drinks on one occasion: Never AUDIT-C Alcohol total score: 2 Non-prescribed substance use: denies use Caffeine: No How often does anyone, including family, friends and others, physically hurt you : never How often does anyone, including family, friends and others, insult or talk down to you: never How often does anyone, including family, friends and others, threaten you with harm: never How often does anyone, including family, friends and others, scream or curse at you: never Little interest or pleasure in doing things: not at all Feeling down, depressed, or hopeless: not at all service: No Meds Home Medications and Allergies Home Medications Medication Instructions Recorded Confirmed Type ferrous sulfate 325 mg (65 mg 325 mg PO QDAY 05/26/23 History iron) tablet (FeroSul) Allergies Allergy/AdvReac Type Severity Reaction Status Date / Time No Known Allergies Allergy Unknown Unknown Verified 05/31/23 13:00 Exam Narrative: Exam Narrative: General: Alert and oriented, no acute distress. Nontoxic Respiratory: Equal breath rise, maintained on room air CV: Well perfused Abdomen: Midline incision with purulent drainage noted supra and in from umbilical. Erythema of incision and surrounding area. Incision is indurated, hot and tender to touch Const: Vital Signs, click to edit/add: Vital Signs - 24 hr 05/31/23 13:00 05/31/23 13:19 05/31/23 13:29 Temperature 97.6 F Pulse Rate 77 Pulse Rate [Pulse Oximeter] 74 Respiratory Rate 20 Blood Pressure Blood Pressure [Ri ght Upper Arm] 147/75 H Pulse Oximetry 98 95 94 Oxygen Delivery Me thod Room Air 05/31/23 13:32 05/31/23 13:41 05/31/23 13:45 Temperature Pulse Rate 76 73 Pulse Rate [Pulse Oximeter] Respiratory Rate Blood Pressure 142/79 H Blood Pressure [Ri ght Upper Arm] Pulse Oximetry 97 96 Oxygen Delivery Me thod 05/31/23 14:00 05/31/23 14:04 05/31/23 14:15 Temperature Pulse Rate 68 69 72 Pulse Rate [Pulse Oximeter] Respiratory Rate Blood Pressure Blood Pressure [Ri ght Upper Arm] Pulse Oximetry 94 94 97 Oxygen Delivery Me thod 05/31/23 14:33 05/31/23 14:34 05/31/23 14:45 Temperature Pulse Rate 71 71 70 Pulse Rate [Pulse Oximeter] Respiratory Rate Blood Pressure 156/87 H Blood Pressure [Ri ght Upper Arm] Pulse Oximetry 95 95 94 Oxygen Delivery Me thod 05/31/23 15:00 05/31/23 15:01 05/31/23 15:15 Temperature Pulse Rate 70 69 72 Pulse Rate [Pulse Oximeter] Respiratory Rate Blood Pressure 167/84 H Blood Pressure [Ri ght Upper Arm] Pulse Oximetry 94 94 94 Oxygen Delivery Me thod 05/31/23 15:38 05/31/23 15:45 05/31/23 16:00 Temperature Pulse Rate 73 74 68 Pulse Rate [Pulse Oximeter] Respiratory Rate Blood Pressure Blood Pressure [Ri ght Upper Arm] Pulse Oximetry 95 97 93 Oxygen Delivery Me thod 05/31/23 16:02 Temperature Pulse Rate 69 Pulse Rate [Pulse Oximeter] Respiratory Rate Blood Pressure 161/78 H Blood Pressure [Ri ght Upper Arm] Pulse Oximetry 93 Oxygen Delivery Me thod Results Labs Labs: Abnormal lab results 05/31/23 Range/Units 14:37 RBC 3.59 L (4.30-5.90) m/uL Hgb 9.9 L (13.5-17.5) gm/dL Hct 32.0 L (37.0-53.0) % MCHC 31 L (32-36) gm/dL RDW Coeff of [place]issa 18.0 H (11.5-15.5) % [place] % (Auto) 11.5 H (0.0-11.0) % Anion Gap 4 L (7-15) mEq/L C-Reactive Protein 2.0 H (0.5-1.0) mg/dL Albumin 3.0 L (3.3-5.0) g/dL Diabetes panel 05/31/23 Range/Units 14:37 Sodium 137 (135-149) mmol/L Potassium 3.6 (3.6-5.1) mmol/L Chloride 107 (96-114) mmol/L Carbon Dioxide 26 (20-32) mmol/L BUN 13 (7-30) mg/dL Creatinine 0.6 (0.5-1.5) mg/dL Glucose 96 (60-115) mg/dL Calcium 8.7 (8.4-10.6) mg/dL AST 19 (12-35) U/L ALT 16 (4-50) U/L Alkaline Phosphatase 112 (40-150) U/L Total Protein 6.5 (6.0-8.3) g/dL Albumin 3.0 L (3.3-5.0) g/dL Calcium panel 05/31/23 Range/Units 14:37 Calcium 8.7 (8.4-10.6) mg/dL Albumin 3.0 L (3.3-5.0) g/dL Pituitary panel 05/31/23 Range/Units 14:37 Sodium 137 (135-149) mmol/L Potassium 3.6 (3.6-5.1) mmol/L Chloride 107 (96-114) mmol/L Carbon Dioxide 26 (20-32) mmol/L BUN 13 (7-30) mg/dL Creatinine 0.6 (0.5-1.5) mg/dL Glucose 96 (60-115) mg/dL Calcium 8.7 (8.4-10.6) mg/dL Adrenal panel 05/31/23 Range/Units 14:37 Sodium 137 (135-149) mmol/L Potassium 3.6 (3.6-5.1) mmol/L Chloride 107 (96-114) mmol/L Carbon Dioxide 26 (20-32) mmol/L BUN 13 (7-30) mg/dL Creatinine 0.6 (0.5-1.5) mg/dL Glucose 96 (60-115) mg/dL Calcium 8.7 (8.4-10.6) mg/dL Total Bilirubin 0.2 (0.1-1.5) mg/dL AST 19 (12-35) U/L ALT 16 (4-50) U/L Alkaline Phosphatase 112 (40-150) U/L Total Protein 6.5 (6.0-8.3) g/dL Albumin 3.0 L (3.3-5.0) g/dL All other labs normal. Imaging Abdomen CT scan report/results: report reviewed and image reviewed Progress Note:A&P Assessment and plan (1) Incisional abscess: Status: Acute Assessment and Plan: Patient is a 77-year-old male status post lap converted to open right hemicolectomy for colon cancer who now presents with a postop wound infection. Infection is contained within the subcutaneous space. No concern for intra- abdominal infection at this time. Would recommend washout in the operating room. Risks and benefits of the procedure were discussed at length the patient. Risks included, but were not limited to: Bleeding, persistent infection, risk of damage to surrounding structures and possible need for additional procedures. He does understand that he will be left with a wound following the operation. All questions and concerns were addressed with patient agreeing to proceed. -OR for washout of incisional abscesses -Danan for IV antibiotics -hospitalist has been consulted and will see patient postoperatively, appreciate their assistance.
[2023-05-31] MEDS: LACTATED RINGERS 1000 ML 1,000 ML 75 ML IV (18:24)
--- NOTE | 2023-05-31 19:14 | PM.GSPRC ---
Operative Note Date of procedure: 05/31/23 Pre-op diagnosis: Incisional abscess Post-op diagnosis: Same Type of Procedure: Washout of abdominal incision Indications: Patient is a 77-year-old male who presented to the emergency department with evidence of postop surgical site infection. Given the amount of patient discomfort and size of the infection it was recommended that this be washed out in the operating room. Risks and benefits of operative intervention were discussed at length with the patient. Risks included, but were not limited to: Bleeding, persistent infection, risk of damage to surrounding structures and possible need for additional procedures. All questions and concerns were addressed with patient agreeing to proceed. Procedure Description: After discussing the risks and benefits of the procedure, the patient signed informed consent.? The operative site was marked and the patient was brought to the operating room and placed on the operating table in supine position.? Care was taken to pad the patient's pressure points.?? The patient was then given sedation by anesthesia.?? The operative site was then prepped and draped in the usual sterile fashion.? A time-out was then performed. Evidence of a midline incision with erythema and induration. Just above the umbilicus was an open area active purulent drainage. This was extended with sharp dissection an open to approximately 7 cm. A large amount of purulent material was drained. The underlying subcutaneous abscess was bluntly dissected with my finger. The abscess cavity above the umbilicus measured approximately 6 by 3 x 3 cm in size. Once all pockets of infection had been adequately drained attention was then directed to below the umbilicus. Sharp dissection was used to open the incision by 5 cm. A moderate amount of purulent material was drained. The subcutaneous abscess cavity was bluntly dissected with my finger. Measurements of the inferior abscess cavity measured approximately 3 x 2 x 3 cm. Once I was assured that there were no undrained pockets of infection both areas were irrigated with normal saline and the Pulsavac. A small amount of fibrinous exudative material was sharply debrided from both the superior and inferior cavity. The underlying fascial sutures were intact and there was no evidence of intra-abdominal contamination. Hemostasis was assured with cautery and pressure. Both cavities were packed with Vashe soaked Kerlix and outer dressings. The patient was then woken and transported to the recovery area in stable condition. ? The patient tolerated the procedure well. Findings: Surgical site infection of midline incision. Anesthesia: MAC Surgeon: Janine Bowden MD Estimated blood loss (mL): 5 Condition: stable Disposition: PACU
--- NOTE | 2023-05-31 19:30 | P.ANES_ITS ---
Anesthesia Charges Start Date/Time Anesthesia Start Date: 05/31/23 Anesthesia Start Time: 18:46 Stop Date/Time Anesthesia Stop Date: 05/31/23 Anesthesia Stop Time: 19:23 Summary Emergency: URGENT CARE NURSE PRACTITIONER Extremes of Age - Over 70 or under 1: URGENT CARE NURSE PRACTITIONER
--- NOTE | 2023-05-31 19:30 | W.ANESCHARGE ---
Anesthesia Charges Start Date/Time Anesthesia Start Date: 05/31/23 Anesthesia Start Time: 18:46 Stop Date/Time Anesthesia Stop Date: 05/31/23 Anesthesia Stop Time: 19:23 Summary Emergency: RESIDENTIAL ROOFER Extremes of Age - Over 70 or under 1: RESIDENTIAL ROOFER
[2023-05-31] MEDS: ENOXAPARIN 40 MG/0.4 ML INJ SUBCUT (21:16)
[2023-06-01] VITALS (9 sets, daily range): BP systolic 129–159; BP diastolic 63–85; PULSE 64–78; RESP 16; TEMP 36.4–36.7; O2SAT 91–99
[2023-06-01] MEDS: PIPERACILLIN/TAZOBACTAM 3.375 GM in 0.9 % SODIUM CHLORIDE Mini-bag 100 ML IVPB ×4 (04:37→21:47)
--- NOTE | 2023-06-01 05:55 | PC.NURSE ---
Shift note: Pt was received from surgery at 1940 on admission bed. Pt was conscious, alert and oriented on arrival. Dressing appeared clean and dry. Pain has remained at zero since admission. Pt had small BM and confirmed passing gas. Pt has been on NPO with R/L infusing at 125ml/hr. Bp has been elevated, other v/s stable. Ambulate with A1, walker and GB.
[2023-06-01] MEDS: SODIUM CHLORIDE 0.9 % (FLUSH) 10 ML SYRINGE 5 ML IVF ×2 (07:36→20:57)
[2023-06-01] MEDS: HYDROmorphone 0.5 mg/0.5 ml inj IVP ×2 (07:36→20:56)
--- NOTE | 2023-06-01 08:41 | PM.GSPN ---
Subjective Subjective Date Seen: 06/01/23 Interval history: Patient is doing okay this morning. He was able to rest last night. Pain is well controlled. He is feeling hungry this morning. No other concerns. Patient lives on his own and does not have someone available to help assist with dressing changes. Exam Narrative: Exam Narrative: General: Alert and oriented, no acute distress. Nontoxic Abdomen: Dressings removed, saturated with serosanguineous drainage. Wound bases appear clean, no undrained fluid collections or purulence noted. Surrounding erythema and induration has improved. Const: Vital Signs, click to edit/add: Vital Signs - 24 hr 05/31/23 13:00 05/31/23 13:19 05/31/23 13:29 Temperature 97.6 F Pulse Rate 77 Pulse Rate [Left P ulse Oximeter] Pulse Rate [Pulse Oximeter] 74 Respiratory Rate 20 Blood Pressure Blood Pressure [Le ft Arm] Blood Pressure [Ri ght Upper Arm] 147/75 H Pulse Oximetry 98 95 94 [facility] 05/31/23 13:32 05/31/23 13:41 05/31/23 13:45 Temperature Pulse Rate 76 73 Pulse Rate [Left P ulse Oximeter] Pulse Rate [Pulse Oximeter] Respiratory Rate Blood Pressure 142/79 H Blood Pressure [Le ft Arm] Blood Pressure [Ri ght Upper Arm] Pulse Oximetry 97 96 [facility] 05/31/23 14:00 05/31/23 14:04 05/31/23 14:15 Temperature Pulse Rate 68 69 72 Pulse Rate [Left P ulse Oximeter] Pulse Rate [Pulse Oximeter] Respiratory Rate Blood Pressure Blood Pressure [Le ft Arm] Blood Pressure [Ri ght Upper Arm] Pulse Oximetry 94 94 97 [facility] 05/31/23 14:33 05/31/23 14:34 05/31/23 14:45 Temperature Pulse Rate 71 71 70 Pulse Rate [Left P ulse Oximeter] Pulse Rate [Pulse Oximeter] Respiratory Rate Blood Pressure 156/87 H Blood Pressure [Le ft Arm] Blood Pressure [Ri ght Upper Arm] Pulse Oximetry 95 95 94 [facility] 05/31/23 15:00 05/31/23 15:01 05/31/23 15:15 Temperature Pulse Rate 70 69 72 Pulse Rate [Left P ulse Oximeter] Pulse Rate [Pulse Oximeter] Respiratory Rate Blood Pressure 167/84 H Blood Pressure [Le ft Arm] Blood Pressure [Ri ght Upper Arm] Pulse Oximetry 94 94 94 Oxygen Delivery [facility] 05/31/23 15:38 05/31/23 15:45 05/31/23 16:00 Temperature Pulse Rate 73 74 68 Pulse Rate [Left P ulse Oximeter] Pulse Rate [Pulse Oximeter] Respiratory Rate Blood Pressure Blood Pressure [Le ft Arm] Blood Pressure [Ri ght Upper Arm] Pulse Oximetry 95 97 93 [facility] 05/31/23 16:02 05/31/23 16:03 05/31/23 16:15 Temperature Pulse Rate 69 66 67 Pulse Rate [Left P ulse Oximeter] Pulse Rate [Pulse Oximeter] Respiratory Rate Blood Pressure 161/78 H Blood Pressure [Le ft Arm] Blood Pressure [Ri ght Upper Arm] Pulse Oximetry 93 93 94 [facility] 05/31/23 16:30 05/31/23 16:31 05/31/23 16:45 Temperature Pulse Rate 69 65 73 Pulse Rate [Left P ulse Oximeter] Pulse Rate [Pulse Oximeter] Respiratory Rate Blood Pressure 162/86 H Blood Pressure [Le ft Arm] Blood Pressure [Ri ght Upper Arm] Pulse Oximetry 95 93 95 [facility] 05/31/23 17:00 05/31/23 17:01 05/31/23 17:15 Temperature Pulse Rate 69 71 73 Pulse Rate [Left P ulse Oximeter] Pulse Rate [Pulse Oximeter] Respiratory Rate Blood Pressure 172/90 H Blood Pressure [Le ft Arm] Blood Pressure [Ri ght Upper Arm] Pulse Oximetry 97 98 94 [facility] 05/31/23 17:30 05/31/23 17:31 05/31/23 17:45 Temperature Pulse Rate 72 66 61 Pulse Rate [Left P ulse Oximeter] Pulse Rate [Pulse Oximeter] Respiratory Rate Blood Pressure 168/79 H Blood Pressure [Le ft Arm] Blood Pressure [Ri ght Upper Arm] Pulse Oximetry 97 97 97 Oxygen Delivery [facility] 05/31/23 18:00 05/31/23 18:02 05/31/23 18:15 Temperature Pulse Rate 67 65 64 Pulse Rate [Left P ulse Oximeter] Pulse Rate [Pulse Oximeter] Respiratory Rate Blood Pressure 166/83 H Blood Pressure [Le ft Arm] Blood Pressure [Ri ght Upper Arm] Pulse Oximetry 92 98 96 Oxygen Delivery Me thod 05/31/23 18:30 05/31/23 19:00 05/31/23 19:25 Temperature 97.8 F 97.8 F Pulse Rate 65 58 L Pulse Rate [Left P ulse Oximeter] 58 L Pulse Rate [Pulse Oximeter] Respiratory Rate 16 16 Blood Pressure 166/105 H Blood Pressure [Le ft Arm] 166/105 H Blood Pressure [Ri ght Upper Arm] Pulse Oximetry 95 97 97 Oxygen Delivery Me thod Room Air Room Air 05/31/23 19:35 05/31/23 19:48 05/31/23 20:22 Temperature 97.8 F 97.7 F 97.7 F Pulse Rate 57 L 57 L 60 Pulse Rate [Left P ulse Oximeter] Pulse Rate [Pulse Oximeter] Respiratory Rate 16 16 16 Blood Pressure 181/89 H 181/88 H 183/90 H Blood Pressure [Le ft Arm] Blood Pressure [Ri ght Upper Arm] Pulse Oximetry 97 96 97 Oxygen Delivery Me thod Room Air Room Air Room Air 05/31/23 20:23 05/31/23 20:30 05/31/23 21:00 Temperature 97.7 F 97.7 F 97.7 F Pulse Rate 60 60 64 Pulse Rate [Left P ulse Oximeter] Pulse Rate [Pulse Oximeter] Respiratory Rate 16 16 16 Blood Pressure 182/86 H 176/92 H 177/92 H Blood Pressure [Le ft Arm] Blood Pressure [Ri ght Upper Arm] Pulse Oximetry 97 97 99 Oxygen Delivery Me thod Room Air Room Air Room Air 05/31/23 22:00 05/31/23 23:00 06/01/23 01:45 Temperature 97.7 F 97.7 F 97.7 F Pulse Rate 66 66 Pulse Rate [Left P ulse Oximeter] 66 Pulse Rate [Pulse Oximeter] Respiratory Rate 16 16 16 Blood Pressure 174/86 H 159/80 H Blood Pressure [Le ft Arm] 159/80 H Blood Pressure [Ri ght Upper Arm] Pulse Oximetry 98 98 98 Oxygen Delivery Me thod Room Air Room Air Room Air 06/01/23 01:47 06/01/23 01:55 06/01/23 03:00 Temperature 97.6 F 97.7 F 97.8 F Pulse Rate 66 64 Pulse Rate [Left P ulse Oximeter] Pulse Rate [Pulse Oximeter] Respiratory Rate 16 16 16 Blood Pressure 139/75 154/78 H Blood Pressure [Le ft Arm] 150/70 H Blood Pressure [Ri ght Upper Arm] Pulse Oximetry 98 97 98 Oxygen Delivery Me thod Room Air Room Air Room Air 06/01/23 07:00 Temperature 97.6 F Pulse Rate Pulse Rate [Left P ulse Oximeter] 78 Pulse Rate [Pulse Oximeter] Respiratory Rate 16 Blood Pressure Blood Pressure [Le ft Arm] 156/85 H Blood Pressure [Ri ght Upper Arm] Pulse Oximetry 96 Oxygen Delivery Me thod Room Air Labs/Imaging Labs Labs: WBC 5 Progress Note:A&P Assessment and plan (1) Incisional abscess: Status: Acute Assessment and Plan: Patient is postop day 1 incision and drainage of surgical site infection. Dressings were exchanged at bedside and tolerated well. Will continue with b.i.d. dressings while inpatient. He will need assistance with dressing changes at discharge, spoke to the hospitalist regarding pursuing home health versus establishing care at the wound center. He continues on IV antibiotics. No fevers overnight and WBC within normal limits. -continue b.i.d. wet-to-dry dressings while inpatient -antibiotics per hospitalist, wound culture pending -regular diet -p.o. pain meds as needed -encourage ambulation Anticipate discharge in next 1-2 days.
--- NOTE | 2023-06-01 12:05 | P.IMPN_ITS ---
Progress Note: A&P Assessment and plan (1) Incisional abscess: Problem details: Drainage from surgical incision started about 1 week prior to admission. Doctor Kal performed surgical debridement overnight 05/30-05/31. Vancomycin and Zosyn pending cultures Status: Acute (2) Abdominal wall cellulitis: Status: Acute (3) H/O right hemicolectomy: Problem details: -05/12/23, Dr. Sharma Tolerating regular diet. Uncomplicated recovery. Patient is high risk for VTE so will be on prophylactic enoxaparin for 3 weeks after surgery. Status: Inactive (4) Weakness generalized: Problem details: Patient has chronic deconditioning with worsening weakness and disability secondary to recent illnesses, surgery. Since surgery has had excellent recovery. Continue outpatient PT upon homegoing Status: Chronic (5) Colon cancer: Problem details: Ascending colon adenocarcinoma -POD#3 s/p right hemicolectomy, postoperative management per primary team, General Surgery Pending pathology review view and oncology consultation. Patient reports oncology appointment on June 17 Status: Chronic (6) Chronic anemia: Problem details: Primarily due to chronic blood loss from colon cancer. - Stable Status: Chronic (7) Cognitive impairment: Problem details: [place] on 04/04/2023: 8 out of 22 Status: Chronic (8) Aortic aneurysm, abdominal: Problem details: Infrarenal, 40 mm, mural thrombus, unchanged on CT abd yesterday Status: Chronic Plan Will discuss discharge planning with SW tomorrow as he will need dressing changes and PT. Subjective Time Seen by Provider: 07:25 Date Seen: 06/01/23 Interval history: I saw him early this morning and he was still sleeping when I went in his room. He woke easily and said he felt okay. He denied pain. Exam Narrative: Exam Narrative: General: No acute distress. Sleeping, arousable, oriented x3. No pallor. No jaundice. Cardiovascular: Regular rate and rhythm. No murmurs, gallops, or rubs. Respiratory: Clear to auscultation bilaterally. No wheezes or crackles. Abdomen: Bowel sounds present. Bulky dressing was clean, dry, and intact. This covered the majority of his anterior abdomen. Extremities: No pedal edema. Const: Vital Signs, click to edit/add: Vital Signs - 24 hr 05/31/23 13:00 05/31/23 13:19 05/31/23 13:29 Temperature 97.6 F Pulse Rate 77 Pulse Rate [Left P ulse Oximeter] Pulse Rate [Pulse Oximeter] 74 Respiratory Rate 20 Blood Pressure Blood Pressure [Le ft Arm] Blood Pressure [Ri ght Upper Arm] 147/75 H Pulse Oximetry 98 95 94 Oxygen Delivery [facility] Room Air 05/31/23 13:32 05/31/23 13:41 05/31/23 13:45 Temperature Pulse Rate 76 73 Pulse Rate [Left P ulse Oximeter] Pulse Rate [Pulse Oximeter] Respiratory Rate Blood Pressure 142/79 H Blood Pressure [Le ft Arm] Blood Pressure [Ri ght Upper Arm] Pulse Oximetry 97 96 Oxygen Delivery Me thod 05/31/23 14:00 05/31/23 14:04 05/31/23 14:15 Temperature Pulse Rate 68 69 72 Pulse Rate [Left P ulse Oximeter] Pulse Rate [Pulse Oximeter] Respiratory Rate Blood Pressure Blood Pressure [Le ft Arm] Blood Pressure [Ri ght Upper Arm] Pulse Oximetry 94 94 97 Oxygen Delivery Ma thod 05/31/23 14:33 05/31/23 14:34 05/31/23 14:45 Temperature Pulse Rate 71 71 70 Pulse Rate [Left P ulse Oximeter] Pulse Rate [Pulse Oximeter] Respiratory Rate Blood Pressure 156/87 H Blood Pressure [Le ft Arm] Blood Pressure [Ri ght Upper Arm] Pulse Oximetry 95 95 94 Oxygen Delivery Ma thod 05/31/23 15:00 05/31/23 15:01 05/31/23 15:15 Temperature Pulse Rate 70 69 72 Pulse Rate [Left P ulse Oximeter] Pulse Rate [Pulse Oximeter] Respiratory Rate Blood Pressure 167/84 H Blood Pressure [Le ft Arm] Blood Pressure [Ri ght Upper Arm] Pulse Oximetry 94 94 94 Oxygen Delivery Me thod 05/31/23 15:38 05/31/23 15:45 05/31/23 16:00 Temperature Pulse Rate 73 74 68 Pulse Rate [Left P ulse Oximeter] Pulse Rate [Pulse Oximeter] Respiratory Rate Blood Pressure Blood Pressure [Le ft Arm] Blood Pressure [Ri ght Upper Arm] Pulse Oximetry 95 97 93 Oxygen Delivery Me thod 05/31/23 16:02 05/31/23 16:03 05/31/23 16:15 Temperature Pulse Rate 69 66 67 Pulse Rate [Left P ulse Oximeter] Pulse Rate [Pulse Oximeter] Respiratory Rate Blood Pressure 161/78 H Blood Pressure [Le ft Arm] Blood Pressure [Ri ght Upper Arm] Pulse Oximetry 93 93 94 Oxygen Delivery Me thod 05/31/23 16:30 05/31/23 16:31 05/31/23 16:45 Temperature Pulse Rate 69 65 73 Pulse Rate [Left P ulse Oximeter] Pulse Rate [Pulse Oximeter] Respiratory Rate Blood Pressure 162/86 H Blood Pressure [Le ft Arm] Blood Pressure [Ri ght Upper Arm] Pulse Oximetry 95 93 95 Oxygen Delivery Me thod 05/31/23 17:00 05/31/23 17:01 05/31/23 17:15 Temperature Pulse Rate 69 71 73 Pulse Rate [Left P ulse Oximeter] Pulse Rate [Pulse Oximeter] Respiratory Rate Blood Pressure 172/90 H Blood Pressure [Le ft Arm] Blood Pressure [Ri ght Upper Arm] Pulse Oximetry 97 98 [address] [facility] 05/[facility] 17:30 05/31/23 17:31 05/31/23 17:45 Temperature Pulse Rate 72 66 61 Pulse Rate [Left P ulse Oximeter] Pulse Rate [Pulse Oximeter] Respiratory Rate Blood Pressure 168/79 H Blood Pressure [Le ft Arm] Blood Pressure [Ri ght Upper Arm] Pulse Oximetry 97 97 97 Oxygen Delivery Me thod 05/31/23 18:00 05/31/23 18:02 05/31/23 18:15 Temperature Pulse Rate 67 65 64 Pulse Rate [Left P ulse Oximeter] Pulse Rate [Pulse Oximeter] Respiratory Rate Blood Pressure 166/83 H Blood Pressure [Le ft Arm] Blood Pressure [Ri ght Upper Arm] Pulse Oximetry 92 98 96 Oxygen Delivery Ma thod 05/31/23 18:30 05/31/23 19:00 05/31/23 19:25 Temperature 97.8 F 97.8 F Pulse Rate 65 58 L Pulse Rate [Left P ulse Oximeter] 58 L Pulse Rate [Pulse Oximeter] Respiratory Rate 16 16 Blood Pressure 166/105 H Blood Pressure [Le ft Arm] 166/105 H Blood Pressure [Ri ght Upper Arm] Pulse Oximetry 95 97 [address] [facility] Room Air 05/31/23 19:35 05/31/23 19:48 05/31/23 20:22 Temperature 97.8 F 97.7 F 97.7 F Pulse Rate 57 L 57 L 60 Pulse Rate [Left P ulse Oximeter] Pulse Rate [Pulse Oximeter] Respiratory Rate 16 16 16 Blood Pressure 181/89 H 181/88 H 183/90 H Blood Pressure [Le ft Arm] Blood Pressure [Ri ght Upper Arm] Pulse Oximetry 97 96 97 Oxygen Delivery Me thod Room Air Room Air Room Air 05/31/23 20:23 05/31/23 20:30 05/31/23 21:00 Temperature 97.7 F 97.7 F 97.7 F Pulse Rate 60 60 64 Pulse Rate [Left P ulse Oximeter] Pulse Rate [Pulse Oximeter] Respiratory Rate 16 16 16 Blood Pressure 182/86 H 176/92 H 177/92 H Blood Pressure [Le ft Arm] Blood Pressure [Ri ght Upper Arm] Pulse Oximetry 97 97 99 Oxygen Delivery Me thod Room Air Room Air Room Air 05/31/23 22:00 05/31/23 23:00 06/01/23 01:45 Temperature 97.7 F 97.7 F 97.7 F Pulse Rate 66 66 Pulse Rate [Left P ulse Oximeter] 66 Pulse Rate [Pulse Oximeter] Respiratory Rate 16 16 16 Blood Pressure 174/86 H 159/80 H Blood Pressure [Le ft Arm] 159/80 H Blood Pressure [Ri ght Upper Arm] Pulse Oximetry 98 98 98 Oxygen Delivery Me thod Room Air Room Air Room Air 06/01/23 01:47 06/01/23 01:55 06/01/23 03:00 Temperature 97.6 F 97.7 F 97.8 F Pulse Rate 66 64 Pulse Rate [Left P ulse Oximeter] Pulse Rate [Pulse Oximeter] Respiratory Rate 16 16 16 Blood Pressure 139/75 154/78 H Blood Pressure [Le ft Arm] 150/70 H Blood Pressure [Ri ght Upper Arm] Pulse Oximetry 98 97 98 Oxygen Delivery Me thod Room Air Room Air Room Air 06/01/23 07:00 06/01/23 07:00 Temperature 97.6 F Pulse Rate Pulse Rate [Left P ulse Oximeter] 78 78 Pulse Rate [Pulse Oximeter] Respiratory Rate 16 16 Blood Pressure Blood Pressure [Le ft Arm] 156/85 H Blood Pressure [Ri ght Upper Arm] Pulse Oximetry 96 Oxygen Delivery Me thod Room Air Labs Labs: Laboratory Results - last 24 hr 05/31/23 14:37 WBC 5.67 RBC 3.59 L Hgb 9.9 L Hct 32.0 L MCV 89 MCH 28 MCHC 31 L RDW Coeff of Nissa 18.0 H Plt Count 301 Neut % (Auto) 59.2 Lymph % (Auto) 26.8 [place] % (Auto) 11.5 H Eos % (Auto) 2.1 Baso % (Auto) 0.4 Neut # (Auto) 3.36 Lymph # (Auto) 1.52 [place] # (Auto) 0.70 Eos # (Auto) 0.12 Baso # (Auto) 0.02 Abs Immat Gran (auto) 0.00 Imm/Tot Granulo (auto) 0.0 Sodium 137 Potassium 3.6 Chloride 107 Carbon Dioxide 26 Anion Gap 4 L BUN 13 Creatinine 0.6 Estimated Creat Clear 50.98 Estimated GFR 99 Glucose 96 Lactate 0.9 Calcium 8.7 Total Bilirubin 0.2 AST 19 ALT 16 Alkaline Phosphatase 112 C-Reactive Protein 2.0 H Total Protein 6.5 Albumin 3.0 L Procalcitonin 0.09 Study:?CT Abdomen/Pelvis W/IV-05/31/2023 3:44:41 PM Ordering Physician:?LUCIA RICE Final Report: INDICATION: Infection of abdominal incision. TECHNIQUE: Multiple axial images were obtained from the diaphragm to the symphysis pubis after administration of 98 mL of Isovue-370 intravenously. Sagittal and coronal re-formatted images were obtained. COMPARISON: 04/02/2023. FINDINGS: There is a small right pleural effusion. There is atelectasis in both lung bases. There is no focal liver lesion. The spleen, pancreas and adrenal glands are remarkable. There are gallstones. There is a stable left kidney cyst. There is no hydronephrosis. There is interval right hemicolectomy. There is no evidence of a bowel obstruction. There are diverticula in the descending and sigmoid colon. There is no evidence of a diverticulitis. There is abdominal aortic aneurysm measuring 3.8 cm in AP dimension, unchanged from the previous study. There are atherosclerotic calcifications. In the subcutaneous tissue in the midline in the region of the incision in the mid to upper abdomen above the umbilicus there is a fluid collection with air consistent with an abscess measuring 2.6 cm in AP dimension by 3 cm in transverse dimension by 5 cm in the craniocaudal mention. In midline inferior to the umbilicus there is a 2nd fluid collection with air in it measuring 2.3 cm in AP dimension by 2.8 cm in transverse dimension by a 2 cm in the craniocaudal mention. There is stranding of subcutaneous fat in the abdomen anteriorly. There is a right inguinal hernia containing a small amount of fluid. There is a left inguinal hernia containing fat. There is a small amount of free fluid in the pelvis and in the pericolic gutters There is scoliosis and degenerative changes in the spine. IMPRESSION: 1. Two fluid collections in the subcutaneous tissue in the midline of the abdomen above and below the umbilicus consistent with abscesses. 2. Interval right hemicolectomy. 3. Small amount of free fluid in the abdomen and pelvis. 4. Stranding of the subcutaneous fat in the abdomen anteriorly. This could be secondary to a cellulitis 5. Right inguinal hernia with small amount of fluid. Left inguinal containing fat. 6. Diverticulosis. No evidence of a diverticulitis. 7. 3.8 cm in AP dimension infrarenal abdominal aneurysm. 8. Small right pleural effusion. 9. Gallstones. Please note that all CT scans at this facility use dose modulation, iterative reconstruction, and/or weight-based dosing when appropriate to reduce radiation dose to as low as reasonably achievable. Dictated by Chao Coleman MD @ 05/31/2023 4:15:41 PM (Electronic Signature)
[2023-06-01] MEDS: HYDROCODONE-ACETAMIN 5-325 MG 1 TAB PO (15:00)
[2023-06-01] MEDS: LACTATED RINGERS 1000 ML 1,000 ML 75 ML IV (19:33)
[2023-06-01] MEDS: ENOXAPARIN 40 MG/0.4 ML INJ SUBCUT (21:16)
[2023-06-02 02:23] VITALS: BP 144/71; PULSE 67; RESP 16; TEMP 36.6; O2SAT 91
[2023-06-02] MEDS: PIPERACILLIN/TAZOBACTAM 3.375 GM in 0.9 % SODIUM CHLORIDE Mini-bag 100 ML IVPB ×4 (04:43→22:10)
[2023-06-02] MEDS: HYDROCODONE-ACETAMIN 5-325 MG 1 TAB PO ×2 (04:45→21:06)
--- NOTE | 2023-06-02 05:12 | PC.NURSE ---
Shift note: Pt ambulate with SBA. Pain level rated between 2 and 6. 1x PRN pain requested. Dressing changed at 2100. No fever recorded. Tolerated regular diet well. Bowel sound active. Pt had 1 small BM. Pt had adequate sleep.
[2023-06-02 08:23] VITALS: BP 147/84; PULSE 69; RESP 22; TEMP 36.9; O2SAT 97
[2023-06-02] MEDS: SODIUM CHLORIDE 0.9 % (FLUSH) 10 ML SYRINGE 5 ML IVF (10:39)
--- NOTE | 2023-06-02 11:24 | PM.GSPN ---
Subjective Subjective Date Seen: 06/02/23 Interval history: Brian is doing well. He underwent open right hemicolectomy on May 12 for a right-sided colon cancer. Fortunately pathology returned that his lymph nodes were negative though he did have a T4 tumor. He has an appointment with medical oncology on June 16. Unfortunately postoperatively he developed a surgical site infection. This was drained in the OR over the weekend. He has been doing well in the hospital since then. He is undergoing daily dressing changes. Wound cultures are pending. He is on broad antibiotics at this time. He was deemed safe for discharge home though his social situation had been in question. He had a bathroom built on the 1st floor as he has difficulty with stairs. He states that he was getting along well at home. He was giving himself his Lovenox injections. He followed up with Dr. Camacho as scheduled. He states that he has been eating and drinking without difficulty. He feels as though he had been doing well at home. His foot pain has been essentially gone since he was discharged. Exam Narrative: Exam Narrative: General: No acute distress Abdomen: Incisions are clean. Only very mild erythema around the superior aspect of the wound. There is no exudate or significant drainage. Dressings were changed today at the bedside. Const: Vital Signs, click to edit/add: Vital Signs - 24 hr 06/01/23 15:00 06/01/23 15:00 06/01/23 19:00 Temperature 97.7 F 97.9 F Pulse Rate [Left P ulse Oximeter] 76 72 70 Respiratory Rate 16 16 16 Blood Pressure [Le ft Arm] 129/66 136/63 Pulse Oximetry 97 99 Oxygen Delivery Me thod Room Air Room Air 06/01/23 23:00 06/01/23 23:00 06/02/23 02:23 Temperature 97.9 F 97.9 F Pulse Rate [Left P ulse Oximeter] 70 70 67 Respiratory Rate 16 16 16 Blood Pressure [Le ft Arm] 145/73 H 144/71 H Pulse Oximetry 91 91 Oxygen Delivery Me thod Room Air Room Air 06/02/23 08:23 06/02/23 08:23 Temperature 98.4 F Pulse Rate [Left P ulse Oximeter] 69 69 Respiratory Rate 22 22 Blood Pressure [Le ft Arm] 147/84 H Pulse Oximetry 97 Oxygen Delivery Me thod Room Air Labs/Imaging Labs Labs: White blood cell count is normal. Hemoglobin is stable at 9.9. Progress Note:A&P Assessment and plan (1) Incisional abscess: Status: Acute (2) Abdominal wall cellulitis: Status: Acute (3) Weakness generalized: Status: Chronic (4) Colon cancer: Status: Chronic (5) Chronic anemia: Status: Chronic (6) Pleural effusion: Status: Acute (7) H/O right hemicolectomy: Status: Inactive Plan Brian is a 77-year-old male who is now 3 weeks status post right hemicolectomy unfortunately with a wound infection. Overall he is doing well. We will have to come up with a plan for dressing changes as he is not going to be able to do them on his own, however this early on I do not feel comfortable having him do every other dressing changes. Hopefully with a few more days of daily wound cares we will be able to get him on a plan where he could come to the clinic 3 days a week to do the dressing changes. -he should continue with Lovenox for a total of 4 weeks after surgery. That will and next Friday. -he seems to think that his chlorthalidone has been helping with his burning foot pain, however I believe that this may be gabapentin. He has been on a low dose and he has not been on the chlorthalidone since he was discharged. -Gabapentin will be restarted. -regular diet -I would continue with iron supplementation until hemoglobin is normal. He can follow up with heme Onc on this. -PT OT I think would be helpful for him while he is in the hospital. -awaiting wound cultures to narrow antibiotics. -patient has had issues with nutrition in the past. I have ordered a nutrition consult for him. His eating has been made difficult by epigastric pain which seems to have resolved after he has been on omeprazole. I encouraged him to continue this indefinitely.
[2023-06-02] MEDS: FERROUS SULFATE 325 MG TABLET PO (11:31)
[2023-06-02 11:33] VITALS: BP 168/83; PULSE 64; RESP 20; TEMP 36.6; O2SAT 92
--- NOTE | 2023-06-02 11:37 | PM.IMPN1 ---
Progress Note: A&P Assessment and plan (1) Incisional abscess: Problem details: -Drainage from surgical incision started about 1 week prior to admission. -Dr. Bowden performed surgical debridement overnight 05/30-05/31. -Continue Vancomycin and Zosyn pending cultures -Update 06/02: ID consulted and recommended cipro/doxy for abscess (this will cover Pseudomonas, but less coverage for g positives) discussed this with general surgery and they agree with this oral regimen. Should start at discharge in keep on IV antibiotics until discharge is set. -will need Lovenox for a total of 28 days 06/08 - VTE prophylaxis for colorectal cancer Status: Acute (2) Abdominal wall cellulitis: Status: Acute (3) H/O right hemicolectomy: Problem details: -05/12/23, Dr. Sharma Tolerating regular diet. Uncomplicated recovery. Patient is high risk for VTE so will be on prophylactic enoxaparin for 3 weeks after surgery. Status: Inactive (4) Weakness generalized: Problem details: Patient has chronic deconditioning with worsening weakness and disability secondary to recent illnesses, surgery. Since surgery has had excellent recovery. Continue outpatient PT upon homegoing Status: Chronic (5) Colon cancer: Problem details: Ascending colon adenocarcinoma Status: Chronic (6) Chronic anemia: Problem details: Primarily due to chronic blood loss from colon cancer. - Stable. 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 Awaiting wound culture results to tailor antibiotics. Subjective Time Seen by Provider: 10:24 Date Seen: 06/02/23 Interval history: Brian tells me he's fine, but jokes that he has a lot of pain in his arms and doesn't know why (as he has two nurses looking for an IV site). Exam Narrative: Exam Narrative: General: No acute distress. Awake, alert, oriented x3. No pallor. No jaundice. Cardiovascular: Regular rate and rhythm. No murmurs, gallops, or rubs. Respiratory: Clear to auscultation bilaterally. No wheezes or crackles. Abdomen: Bowel sounds present. Bulky dressing was clean, dry, and intact. Extremities: No pedal edema. Const: Vital Signs, click to edit/add: Vital Signs - 24 hr 06/01/23 15:00 06/01/23 15:00 06/01/23 19:00 Temperature 97.7 F 97.9 F Pulse Rate [Left P ulse Oximeter] 76 72 70 Respiratory Rate 16 16 16 Blood Pressure [Le ft Arm] 129/66 136/63 Pulse Oximetry 97 99 Oxygen Delivery Me thod Room Air Room Air 06/01/23 23:00 06/01/23 23:00 06/02/23 02:23 Temperature 97.9 F 97.9 F Pulse Rate [Left P ulse Oximeter] 70 70 67 Respiratory Rate 16 16 16 Blood Pressure [Le ft Arm] 145/73 H 144/71 H Pulse Oximetry 91 91 Oxygen Delivery Me thod Room Air Room Air 06/02/23 08:23 06/02/23 08:23 Temperature 98.4 F Pulse Rate [Left P ulse Oximeter] 69 69 Respiratory Rate 22 22 Blood Pressure [Le ft Arm] 147/84 H Pulse Oximetry 97 Oxygen Delivery Me thod Room Air
[2023-06-02] MEDS: LACTATED RINGERS 1000 ML 1,000 ML 75 ML IV (13:06)
[2023-06-02 13:56] VITALS: BMI 26.4
[2023-06-02 15:32] VITALS: BP 173/98; PULSE 72; RESP 26; TEMP 36.9; O2SAT 93
--- NOTE | 2023-06-02 18:16 | PC.NURSE ---
End of Shift: Patient pleasant and cooperative. Patient hypertensive at most 173/98, but vitally stable, lungs clear, BS WNL, IV running LR at 75. Patient SBA with IV pole. Patient tolerating regular diet, urinating, and has and multiple BMs, one BM that was a blowout, incontinent. Patient had to get into shower to wash lower body. Patient denies pain. Abdominal dressing C/D/I, change performed in morning by surgeon.
[2023-06-02 19:00] VITALS: BP 157/88; PULSE 69; RESP 18; TEMP 36.6; O2SAT 95
[2023-06-02] MEDS: ENOXAPARIN 40 MG/0.4 ML INJ SUBCUT (21:06)
[2023-06-02] MEDS: GABAPENTIN 100 MG CAPSULE PO (21:06)
[2023-06-02 23:00] VITALS: BP 159/85; PULSE 73; RESP 16; TEMP 36.6; O2SAT 94
[2023-06-03 03:00] VITALS: BP 151/85; PULSE 62; RESP 18; TEMP 36.8; O2SAT 90
[2023-06-03] MEDS: PIPERACILLIN/TAZOBACTAM 3.375 GM in 0.9 % SODIUM CHLORIDE Mini-bag 100 ML IVPB ×4 (04:11→22:37)
[2023-06-03] MEDS: LACTATED RINGERS 1000 ML 1,000 ML 75 ML IV ×2 (05:13→18:36)
[2023-06-03] MEDS: OMEPRAZOLE 20 MG CAPSULE DR PO (06:44)
--- NOTE | 2023-06-03 07:12 | PC.NURSE ---
End of shift [id number]: Denies any shortness of breath. Pain to abdomen well managed with current regimen. Dressing to abdomen intact, scant amount of serous fluid noted to dressing. Transfers with min assist x 1 and ambulates with SBA with walker. BLE edema, lower legs yuval in color. Patient refuses PATTY kylee, SCD's and velma wraps to BLE.
[2023-06-03 08:54] VITALS: BP 134/67; PULSE 75; RESP 18; TEMP 36.7; O2SAT 94
[2023-06-03] MEDS: GABAPENTIN 100 MG CAPSULE PO ×2 (08:55→21:07)
[2023-06-03] MEDS: HYDROmorphone 0.5 mg/0.5 ml inj IVP ×2 (09:08→21:08)
--- NOTE | 2023-06-03 09:59 | PM.GSPN ---
Subjective Subjective Date Seen: 06/03/23 Interval history: Brian is doing well today. Saw nutrition yesterday. Noted that weight has been stable. Encouraged him to add Ensure. Is also working with therapy. Exam Narrative: Exam Narrative: General: No acute distress Abdomen: No cellulitis noted. Mild erythema around superior aspect of incision. There is greenish drainage on the gauze, however wound bases appear essentially clean without any significant exudate. Const: Vital Signs, click to edit/add: Vital Signs - 24 hr 06/02/23 11:33 06/02/23 15:32 06/02/23 15:32 Temperature 98 F 98.5 F Pulse Rate [Left P ulse Oximeter] 64 72 72 Respiratory Rate 20 26 H 26 H Blood Pressure [Ri ght Arm] 168/83 H 173/98 H Pulse Oximetry 92 93 Oxygen Delivery Me thod Room Air Room Air 06/02/23 19:00 06/02/23 23:00 06/02/23 23:00 Temperature 97.9 F 97.9 F Pulse Rate [Left P ulse Oximeter] 69 73 73 Respiratory Rate 18 16 16 Blood Pressure [Ri ght Arm] 157/88 H 159/85 H Pulse Oximetry 95 94 Oxygen Delivery Me thod Room Air Room Air 06/03/23 03:00 06/03/23 08:54 Temperature 98.2 F 98.0 F Pulse Rate [Left P ulse Oximeter] 62 75 Respiratory Rate 18 18 Blood Pressure [Ri ght Arm] 151/85 H 134/67 Pulse Oximetry 90 94 Oxygen Delivery Me thod Room Air Room Air Labs/Imaging Labs Labs: Awaiting culture results Progress Note:A&P Assessment and plan (1) Incisional abscess: Status: Acute (2) Abdominal wall cellulitis: Status: Acute (3) Weakness generalized: Status: Chronic (4) Colon cancer: Status: Chronic (5) Chronic anemia: Status: Chronic (6) Pleural effusion: Status: Acute (7) H/O right hemicolectomy: Status: Inactive Plan The patient is a 77-year-old male weeks status post right hemicolectomy for colon cancer now with wound infection. Awaiting wound cultures. -daily dressing changes. I have switched him today to Aquacel Ag. I cleansed the wound with fascia. We will reassess tomorrow. Ideally will like to get him on a 3 times a week dressing regimen. I have requested he be evaluated for home health. If we can get this set up he did come to clinic 1 day a week and have home health to dressing changes the other 2 days. -hospitalist to discuss antibiotics with ID. -continue Lovenox while inpatient and as an outpatient until next Friday -recommending continued gabapentin for neuropathic pain -also recommend continued omeprazole for gastritis and epigastric pain - this seems to help patient.
--- NOTE | 2023-06-03 10:57 | W.PM.INFD_ITS ---
Consultation Information Consultation Information Date of Consult: 06/03/23 Reason for Consult: discharge PO antibiotics Consultation Statement: This patient recommendation is based on a telemedicine consult request which was completed asynchronously through chart review and information provided by the primary physician. The patient was not seen or examined today. The evaluation is consultative in nature and all patient care and treatment decisions can either be accepted or rejected by the patient's primary hospital-based treating physician using their own independent medical judgment for their patient. [employer] Developer contact information: Please call [facility] call center [phone] HPI - Infectious Disease History of Present Illness History of Present Illness: ID consulted for discharge antibiotics 77 male PMH PAD, ANEMIA, DIABETES, RECENTLY DIAGNOSED COLON [place] CA S/p R open hemicolectomy for colon cancer on May 12, 2023 is now presenting with draining abdominal wound x 5 days associated with increased redness/draining pus (foul-smelling). No fever/pain/chills. Having regular bowel movement. On admission afebrile, WBC 5.6K, PLT 301, cr 0.6, LFT NL, procalcitonin negative. Was started on IV vancomycin, IV Zosyn. No BCx obtained CT AP (con) 2 fluid collections in the subcutaneous tissue in the midline of abdomen above and below the umbilicus consistent with abscess. R hemicolectomy. Stranding of subcutaneous fat in the abdomen anteriorly/cellulitis. Micro: Superficial swab in the ER small amount gram-positive diplococci. Small amount of coagulase-negative staph (no further workup) General surgery took for washout (05/30): Noted large amount of purulent fluid from the subcutaneous abscesses, abscess cavity about the umbilicus measured 6 x 3 x 3 cm and inferior abscess cavity measured 3 x 2 x 3 cm. Both of them bluntly dissected and no cultures obtained. The underlying fascial sutures were intact and no evidence of intra-abdominal contamination. Both cavities were packed [facility] Medical History Left-sided chest pain ?R07.9 - Chest pain, unspecified (ICD-10) Acute blood loss anemia ?D62 - Acute posthemorrhagic anemia (ICD-10) Anemia ?D64.9 - Anemia, unspecified (ICD-10) Edema of leg ?R60.0 - Localized edema (ICD-10) Weakness generalized ?R53.1 - Weakness (ICD-10) Colon cancer ?C18.9 - Malignant neoplasm of colon, unspecified (ICD-10) DMII (diabetes mellitus, type 2) ?E11.9 - Type 2 diabetes mellitus without complications (ICD-10) Postprandial epigastric pain ?R10.13 - Epigastric pain (ICD-10) Alcohol use ?Z78.9 - Other specified health status (ICD-10) Discharge planning issues ?Z02.9 - Encounter for administrative examinations, unspecified (ICD-10) Cognitive impairment ?R41.89 - Other symptoms and signs involving cognitive functions and awareness (ICD-10) Homeless ?Z59.00 - Homelessness unspecified (ICD-10) Aortic aneurysm, abdominal ?I71.40 - Abdominal aortic aneurysm, without rupture, unspecified (ICD-10) Colonic mass ?K63.89 - Other specified diseases of intestine (ICD-10) Abnormal ankle brachial index ([place]) ?R68.89 - Other general symptoms and signs (ICD-10) PAD (peripheral artery disease) ?I73.9 - Peripheral vascular disease, unspecified (ICD-10) Claudication ?I73.9 - Peripheral vascular disease, unspecified (ICD-10) Tobacco use ?Z72.0 - Tobacco use (ICD-10) Hypertension ?I10 - Essential (primary) hypertension (ICD-10) Surgical History H/O right hemicolectomy ?Z90.49 - Acquired absence of other specified parts of digestive tract (ICD- 10) S/P eye surgery ?Z98.890 - Other specified postprocedural states (ICD-10) Family History Father Colon cancer Social History (Updated 05/31/23 @ 17:27 by Chao Welch MD) Narrative: Patient lives independently. Problems with home heating, wifi, accessible bathroom have been resolved. He has 3 step children, 1 of which is more involved in his life. He smokes 1 pack of cigarettes a day. He does not drink alcohol. What is your current living situation?: I presently have a place to live Problems where you live: no known problems Problems where you live details: bathroom is on second floor In the past 12 months, utilities in danger of being shut off: no In past 12 months, lack of transportation kept you from medical appts, meetings, work, or getting things needed for daily living: no In the past 12 mos, have been you worried that your food would run out before you had money to buy more?: never true In the past 12 mos, the food you bought just didn't last and you didn't have money to buy more?: never true Highest level of school completed/degree received: high school graduate Smoking Status: Current every day smoker What tobacco products do you use: cigarettes Smoking packs per day: 0.5 Smoking cigarettes per day: 10.0 Years smoked: 30 Smoking pack-years: 15.00 and cigars Do you use any of these nicotine containing products: None Second hand tobacco smoke exposure: Yes How often do you have a drink containing alcohol: 2-4 times a month How many standard drinks containing alcohol do you have on a typical day: 1 or 2 How often do you have six or more drinks on one occasion: Never AUDIT-C Alcohol total score: 2 Non-prescribed substance use: denies use Caffeine: No How often does anyone, including family, friends and others, physically hurt you : never How often does anyone, including family, friends and others, insult or talk down to you: never How often does anyone, including family, friends and others, threaten you with harm: never How often does anyone, including family, friends and others, scream or curse at you: never Little interest or pleasure in doing things: not at all Feeling down, depressed, or hopeless: not at all service: No Home Medications and Allergies Home Medications and Allergies Inpatient Medications: Active Medications Generic Name Dose Route Start Last Admin Trade Name Freq PRN Reason Stop Dose Admin Hydrocodone Bitart/Acetaminophen 1 tab 05/31/23 20:14 06/02/23 21:06 Hydrocodone-Acetamin 5-325 Mg 1 Tab PO 1 tab Q6H PRN Administration Enoxaparin Sodium 40 mg 05/31/23 21:00 06/02/23 21:06 Enoxaparin 40 Mg/0.4 Ml Inj SUBCUT 40 mg Q24H AI Administration Ferrous Sulfate 325 mg 06/02/23 11:30 06/02/23 11:31 Ferrous Sulfate 325 Mg Tablet PO 325 mg Q48H AI Administration Gabapentin 100 mg 06/02/23 21:00 06/03/23 08:55 Gabapentin 100 Mg Capsule PO 100 mg BID AI Administration Hydromorphone HCl 0.2 - 0.5 mg 05/31/23 20:14 06/03/23 09:08 Hydromorphone 0.5 Mg/0.5 Ml Inj IVP 0.5 mg Q1H PRN Administration Pain Piperacillin Sod/Tazobactam 100 mls @ 200 mls/hr 05/31/23 22:30 06/03/23 10:56 Sod 3.375 gm/ Sodium Chloride IVPB 200 mls/hr Q6H AI Administration Lactated Ringer's 1,000 mls @ 75 mls/hr 05/31/23 17:40 06/03/23 05:13 Lactated Ringers 1000 Ml IV 75 mls/hr .[id number] AI Administration Vancomycin HCl 1,250 mg/ 262.5 mls @ 257.5 mls/hr 06/02/23 07:00 06/03/23 06:44 Sodium Chloride IVPB 257.5 mls/hr Q24H AI Administration Protocol Omeprazole 20 mg 06/03/23 07:00 06/03/23 06:44 Omeprazole [address] PO 20 mg DAILY@0700 AI Administration Ondansetron HCl 4 mg 05/31/23 20:14 Ondansetron 2 Mg/Ml Inj IVP Q4H PRN Nausea Sodium Chloride 5 ml 05/31/23 21:00 06/03/23 09:20 Sodium Chloride 0.9 % (Flush) 10 Ml Syringe IVF Not Given BID AI Discontinued Medications Generic Name Dose Route Start Last Admin Trade Name Freq PRN Reason Stop Dose Admin Piperacillin Sod/Tazobactam 100 mls @ 200 mls/hr 05/31/23 16:38 05/31/23 17:30 Sod 3.375 gm/ Sodium Chloride IVPB 05/31/23 16:39 Infused ONCE ONE Infusion Vancomycin HCl 1,500 mg/ 515 mls @ 257.5 mls/hr 05/31/23 17:15 06/02/23 07:08 Sodium Chloride IVPB Infused Q24H AI Infusion Protocol Piperacillin Sod/Tazobactam 100 mls @ 200 mls/hr 05/31/23 17:15 06/02/23 07:12 Sod 3.375 gm/ Sodium Chloride IVPB Not Given Q6H AI Vancomycin HCl 1,500 mg/ 515 mls @ 257.5 mls/hr 05/31/23 17:15 06/02/23 07:13 Sodium Chloride IVPB Not Given Q24H AI Protocol Vancomycin HCl 1,750 mg/ 517.5 mls @ 258.75 mls/hr 05/31/23 18:30 06/02/23 07:08 Sodium Chloride IVPB Infused Q12H AI Infusion Vancomycin HCl 1,250 mg/ 262.5 mls @ 257.5 mls/hr 06/02/23 07:00 Sodium Chloride IVPB Q24H AI Protocol Ketamine HCl Confirm 05/31/23 18:29 Ketamine 50 Mg/0.5 Ml 100 Mg/Ml Ml Administered 05/31/23 18:30 Dose 50 mg .ROUTE .STK-MED ONE Midazolam HCl Confirm 05/31/23 18:29 Midazolam Hcl 1 Mg/Ml Inj Administered 05/31/23 18:30 Dose 2 mg .ROUTE .STK-MED ONE Ondansetron HCl 4 mg 05/31/23 17:08 Ondansetron 2 Mg/Ml Inj IVP Q4H PRN Nausea Piperacillin Sod/Tazobactam Sod Confirm 05/31/23 16:47 Piperacillin/Tazobactam 3.375 Gm Inj Administered 05/31/23 16:48 Dose 3.375 gm .ROUTE .STK-MED ONE Propofol Confirm 05/31/23 19:18 Propofol 10 Mg/Ml Inj Administered 05/31/23 19:19 Dose 200 mg IVP .STK-MED ONE Propofol Confirm 05/31/23 19:18 Propofol 10 Mg/Ml Inj Administered 05/31/23 19:19 Dose 200 mg IVP .STK-MED ONE Allergies Allergy/AdvReac Type Severity Reaction Status Date / Time No Known Allergies Allergy Unknown Unknown Verified 05/31/23 13:00 Objective - Infectious Disease Objective Vital Signs: Vital Signs - 24 hr 06/02/23 11:33 06/02/23 15:32 06/02/23 15:32 Temperature 98 F 98.5 F Pulse Rate [Left Pulse Oximeter] 64 72 72 Respiratory Rate 20 26 H 26 H Blood Pressure [Right Arm] 168/83 H 173/98 H Pulse Oximetry 92 93 Oxygen Delivery Method Room Air Room Air 03/18/24 19:00 06/02/23 23:00 06/02/23 23:00 Temperature 97.9 F 97.9 F Pulse Rate [Left Pulse Oximeter] 69 73 73 Respiratory Rate 18 16 16 Blood Pressure [Right Arm] 157/88 H 159/85 H Pulse Oximetry 95 94 Oxygen Delivery Method Room Air Room Air 06/03/23 03:00 06/03/23 08:54 Temperature 98.2 F 98.0 F Pulse Rate [Left Pulse Oximeter] 62 75 Respiratory Rate 18 18 Blood Pressure [Right Arm] 151/85 H 134/67 Pulse Oximetry 90 94 Oxygen Delivery Method Room Air Room Air Narrative: Patient was not seen or examined. Results - Infectious Disease Results Labs: 05/31/23 13:54 Incision Wound Culture - Preliminary Laboratory Tests 05/31/23 Range/Units 14:37 WBC 5.67 (4.50-11.00) K/uL RBC 3.59 L (4.30-5.90) m/uL Hgb 9.9 L (13.5-17.5) gm/dL Hct 32.0 L (37.0-53.0) % MCV 89 (80-100) fL MCH 28 (26-34) pg MCHC 31 L (32-36) gm/dL RDW Coeff of Nissa 18.0 H (11.5-15.5) % Plt Count 301 (140-440) K/uL Neut % (Auto) 59.2 (42.0-72.0) % Lymph % (Auto) 26.8 (20-44) % [place] % (Auto) 11.5 H (0.0-11.0) % Eos % (Auto) 2.1 (0.0-7.0) % Baso % (Auto) 0.4 (0.0-3.0) % Neut # (Auto) 3.36 (1.7-7.0) K/uL Lymph # (Auto) 1.52 (0.90-2.90) K/uL [place] # (Auto) 0.70 (0.00-0.90) K/UL Eos # (Auto) 0.12 (0.00-0.50) K/uL Baso # (Auto) 0.02 (0.00-0.30) K/uL Abs Immat Gran (auto) 0.00 (0.00-0.30) K/uL Imm/Tot Granulo (auto) 0.0 % Sodium 137 (135-149) mmol/L Potassium 3.6 (3.6-5.1) mmol/L Chloride 107 (96-114) mmol/L Carbon Dioxide 26 (20-32) mmol/L Anion Gap 4 L (7-15) mEq/L BUN 13 (7-30) mg/dL Creatinine 0.6 (0.5-1.5) mg/dL Estimated Creat Clear 50.98 Estimated GFR 99 ml/min Glucose 96 (60-115) mg/dL Lactate 0.9 (0.5-1.9) mmol/L Calcium 8.7 (8.4-10.6) mg/dL Total Bilirubin 0.2 (0.1-1.5) mg/dL AST 19 (12-35) U/L ALT 16 (4-50) U/L Alkaline Phosphatase 112 (40-150) U/L C-Reactive Protein 2.0 H (0.5-1.0) mg/dL Total Protein 6.5 (6.0-8.3) g/dL Albumin 3.0 L (3.3-5.0) g/dL Procalcitonin 0.09 (<0.50) ng/mL Impression & Recommendations Recommendations Impression & Recommendations: ID consulted for discharge antibiotics 77 male PMH PAD, ANEMIA, DIABETES, RECENTLY DIAGNOSED COLON ADENO CA S/p R open hemicolectomy for colon cancer on May 12, 2023 is now presenting with draining abdominal wound x 5 days associated with increased redness/draining pus (foul-smelling). No fever/pain/chills. Having regular bowel movement. On admission afebrile, WBC 5.6K, PLT 301, cr 0.6, LFT NL, procalcitonin negative. Was started on IV vancomycin, IV Zosyn. No BCx obtained CT AP (con) 2 fluid collections in the subcutaneous tissue in the midline of abdomen above and below the umbilicus consistent with abscess. R hemicolectomy. Stranding of subcutaneous fat in the abdomen anteriorly/cellulitis. Micro: Superficial swab in the ER small amount gram-positive diplococci. Small amount of coagulase-negative staph (no further workup) General surgery took for washout (05/30): Noted large amount of purulent fluid from the subcutaneous abscesses, abscess cavity about the umbilicus measured 6 x 3 x 3 cm and inferior abscess cavity measured 3 x 2 x 3 cm. Both of them bluntly dissected and no cultures obtained. The underlying fascial sutures were intact and no evidence of intra-abdominal contamination. Both cavities were packed #Surgical incision site subcutaneous abscess s/p I&D -no cultures obtained #Abdominal wall cellulitis-improving #R hemicolectomy #Colonic adenocarcinoma, oncology appointment on June 17 #AAA 3.8 cm unchanged from prior study. Discussion: Elderly patient with localized subcutaneous surgical site abscess s/p source control. No evidence of systemic signs of infection or deeper infection. Plan to treat at least x 2 weeks for SSTI. Unfortunately no BCx or OR cultures available. The superficial swab Cx in the ER difficult to interpret given superficial colonization. Per primary team does have greenish/purulent drainage and given recent hospitalization will cover Pseudomonas as well. Ideally would avoid quinolones in the setting of AAA but given no other oral option for antipseudomonal coverage and given short course of treatment & also poor social condition hence would defer IV antibiotics Reccs OK to continue IV vancomycin (pharmacy to dose), IV Zosyn -is currently improving Obtain MRSA screen F/ wound cxs Obtain EKG ensure QTc interval < 500 ms; given use of fluoroquinolones Given no culture results to guide therapy will treat empirically Option 1 PO Zyvox 600 mg BID (if no other contraindication/ drug-drug interaction) + Cipro 500mg BID Option 2 PO doxycycline 100 mg bid + Cipro 500mg BID Plan total 10 to 14 days based on improvement (include IV in-house days) Counting day 1 from 05/30 Plan discussed with primary team in detail. ID will sign off. If any questions please feel free to call. Follow-up EKG and ER wound cultures
[2023-06-03 13:10] VITALS: BP 147/71; PULSE 67; RESP 16; TEMP 36.6; O2SAT 95
--- NOTE | 2023-06-03 13:26 | PC.SOCIAL ---
Discharge planning: Met with pt who plans to return home at discharge. Pt states he is agreeable to home care being arranged for the wound care need, but declines the option of a intermediate facility for increased care. Pt states he has neighbors and step-son who assist him at home and that he does not need any more help than he has at home already. Pt states his water is working at home and that he now has a bathroom on the first floor. home mission worker to follow up with arrangement of home care with MD order. Pt is aware of how to contact social media analyst if additional resources are needed.
--- NOTE | 2023-06-03 14:15 | P.IMPN_ITS ---
Progress Note: A&P Assessment and plan (1) Incisional abscess: Problem details: -Drainage from surgical incision started about 1 week prior to admission. -Dr. Bowden performed surgical debridement overnight 05/30-05/31. -Continue Vancomycin and Zosyn pending cultures -Update 06/02: ID consulted and recommended cipro/doxy for abscess (this will cover Pseudomonas, but less coverage for g positives) discussed this with general surgery and they agree with this oral regimen. Should start at disc harge in keep on IV antibiotics until discharge is set. -will need Lovenox for a total of 28 days 06/08 - VTE prophylaxis for colorectal cancer Status: Acute (2) Abdominal wall cellulitis: Status: Acute (3) Weakness generalized: Problem details: Patient has chronic deconditioning with worsening weakness and disability secondary to recent illnesses, surgery. Since surgery has had excellent recovery. Continue outpatient PT upon homegoing Status: Chronic (4) Colon cancer: Problem details: Ascending colon adenocarcinoma Status: Chronic (5) Chronic anemia: Problem details: Primarily due to chronic blood loss from colon cancer. - Stable. Status: Chronic (6) Pleural effusion: Problem details: Outpatient follow-up for small left-sided pleural effusion Status: Acute (7) H/O right hemicolectomy: Problem details: -05/12/23, Dr. Sharma Tolerating regular diet. Uncomplicated recovery. Patient is high risk for VTE so will be on prophylactic enoxaparin for 3 weeks after surgery. Status: Inactive (8) Cognitive impairment: Problem details: [place] on 04/04/2023: 8 out of 22 Status: Chronic Subjective Date Seen: 06/03/23 Interval history: Daily Progress Note - Hospital Medicine Day #: 4 CC: post op incisional abscess OVERNIGHT UPDATES FROM STAFF & MED, LAB, IMAGING UPDATES Doing well. Patient makes a joke that because he does not have a toe tag on this morning that he must be doing okay. I discussed with Infectious Disease regarding his cultures from his wound and discuss the case with his general surgeon. No new needs identified today. Objective: Vitals: see above Lungs: Clear. Cardiac: S1S2. Abdomen: Wound is not examined as he had just been through a dressing change with his general surgeon. See her note for further detail. Disposition/Potential discharge - Likely to return to previous living situation. Today I spent 50minutes seeing the patient, reviewing [facility] and [facility] notes/diagnostics, discussing the care plan with our care time that includes social work, PT/OT, pharmacy, RT, [place] [facility] and documenting my impressions and plan in the medical record. Exam Const: Vital Signs, click to edit/add: Vital Signs - 24 hr 06/02/23 15:32 06/02/23 15:32 06/02/23 19:00 Temperature 98.5 F 97.9 F Pulse Rate [Left P ulse Oximeter] 72 72 69 Respiratory Rate 26 H 26 H 18 Blood Pressure [Ri ght Arm] 173/98 H 157/88 H Pulse Oximetry 93 95 Oxygen Delivery Me thod Room Air Room Air 06/02/23 23:00 06/02/23 23:00 06/03/23 03:00 Temperature 97.9 F 98.2 F Pulse Rate [Left P ulse Oximeter] 73 73 62 Respiratory Rate 16 16 18 Blood Pressure [Ri ght Arm] 159/85 H 151/85 H Pulse Oximetry 94 90 Oxygen Delivery Me thod Room Air Room Air 06/03/23 08:54 06/03/23 13:10 Temperature 98.0 F 97.9 F Pulse Rate [Left P ulse Oximeter] 75 67 Respiratory Rate 18 16 Blood Pressure [Ri ght Arm] 134/67 147/71 H Pulse Oximetry 94 95 Oxygen Delivery Me thod Room Air Room Air
[2023-06-03 15:00] VITALS: BP 135/69; PULSE 68; RESP 16; TEMP 37.1; O2SAT 96
[2023-06-03] MEDS: HYDROCODONE-ACETAMIN 5-325 MG 1 TAB PO (18:46)
[2023-06-03 19:00] VITALS: BP 137/60; PULSE 67; RESP 20; TEMP 36.9; O2SAT 92
[2023-06-03] MEDS: ENOXAPARIN 40 MG/0.4 ML INJ SUBCUT (21:08)
[2023-06-03] MEDS: SODIUM CHLORIDE 0.9 % (FLUSH) 10 ML SYRINGE 5 ML IVF (21:08)
[2023-06-03 23:00] VITALS: BP 174/94; PULSE 64; RESP 18; TEMP 36.9; O2SAT 95
[2023-06-04] MEDS: PIPERACILLIN/TAZOBACTAM 3.375 GM in 0.9 % SODIUM CHLORIDE Mini-bag 100 ML IVPB ×4 (03:48→21:44)
[2023-06-04] MEDS: OMEPRAZOLE 20 MG CAPSULE DR PO (05:20)
[2023-06-04] MEDS: HYDROCODONE-ACETAMIN 5-325 MG 1 TAB PO (05:20)
--- NOTE | 2023-06-04 05:57 | PC.NURSE ---
End of shift [id number]: Alert and oriented. Pain to abdomen well managed with current regimen. Dressing changed, 2 open areas below umbilicus. Proximal wound had moderate amount of thick huynh and light green drainage to Aquacell and to ABD dressing, distal wound had small amount of thick, huynh drainage to Aquacell and to ABD. Patient tolerated dressing change well, premedicated prior to change with IV dilaudid. BLE edema 2+ pitting, patient refuses PATTY hose, velma wraps or SCD's to LE. Ambulates with SBA with walker. Continent of bladder this shift. Bowel sounds active x 4 quadrants.
[2023-06-04 06:53] LABS: Basophils Percent Auto 0.2 % (0.0-3.0); Eosinophils Percent Auto 6.7 % (0.0-7.0); Hematocrit 29.8 % (37.0-53.0); Hemoglobin* 9.1 gm/dL (13.5-17.5); Immature Granulocytes Pct Auto 0.2 %; Mean Corpuscular HGB Conc 31 gm/dL (32-36); Mean Corpuscular Hemoglobin 27 pg (26-34); Mean Corpuscular Volume 90 fL (80-100); Monocytes Percent Auto 8.3 % (0.0-11.0); Neutrophils Percent Auto 53.6 % (42.0-72.0); Platelet Count* 257 K/uL (140-440); RDW Coefficient of Variation % 17.4 % (11.5-15.5); Red Blood Count 3.32 m/uL (4.30-5.90); White Blood Count* 4.35 K/uL (4.50-11.00)
[2023-06-04 06:59] LABS: Slide Review Reflex No
[2023-06-04 07:00] VITALS: BP 178/93; PULSE 64; RESP 18; TEMP 36.9; O2SAT 94
[2023-06-04 07:10] LABS: Chloride* 111 mmol/L (96-114)
[2023-06-04 07:11] LABS: Potassium* 3.5 mmol/L (3.6-5.1); Sodium* 138 mmol/L (135-149)
[2023-06-04 07:13] LABS: Anion Gap 2 mEq/L (7-15); Carbon Dioxide* 25 mmol/L (20-32); Creatinine* 0.6 mg/dL (0.5-1.5); Est. Creatinine Clearance* 50.98; Estimated Glomerular Filt Rate 99 ml/min
[2023-06-04 07:14] LABS: Blood Urea Nitrogen* 4 mg/dL (7-30); Calcium* 8.2 mg/dL (8.4-10.6); Glucose* 84 mg/dL (60-115)
[2023-06-04 07:34] LABS: C Reactive Protein* 0.9 mg/dL (0.5-1.0)
[2023-06-04] MEDS: GABAPENTIN 100 MG CAPSULE PO ×2 (08:19→21:41)
--- NOTE | 2023-06-04 11:11 | P.DS_ITS ---
DS: Providers Provider Time Seen by Provider: 08:20 Date Seen: 06/04/23 Date of admission: 05/31/23 20:28 Primary care physician: David Camacho MD Admitting Clinician: Janine Bowden MD Consults: 05/31/23 17:08 Consult to Physician [CONS] Urgent Comment: Consulting Provider: Janine Bowden Has provider been notified: Yes 06/02/23 12:43 Consult to Nutrition [CONS] Routine Comment: Reason for consult:: Nutritional Consult Comment: Pt with colon cancer, anemia, wt loss. Now s/p surgery Consult to Occupational Therapy [CONS] Routine Comment: Reason(s) for OT Consult:: ADLs Prior to Discharge Any Restrictions?:: No Restrictions Consult to Physical Therapy [CONS] Routine Comment: Reason(s) for PT Consult:: Evaluate and Treat Any Restrictions?:: No Restrictions 06/03/23 07:58 Consult to Controller Repairer And Tester [CONS] Routine Comment: Reason for Consult:: Discharge Planning Needs 06/03/23 09:44 Consult to Infectious Diseases [CONS] PROTOCOL Comment: Consulting Provider: [facility] Consult priority: Routine Has provider been notified: No Call back required?: Yes Attending Physician on discharge: Edel Hull MD Date of Discharge: 06/04/23 DS: Diagnosis Discharge Diagnosis (1) Incisional abscess: Status: Acute Problem details: -Drainage from surgical incision started about 1 week prior to admission. -Dr. Bowden performed surgical debridement overnight 05/30-05/31. -Continue Vancomycin and Zosyn pending cultures -Update 06/02: ID consulted and recommended cipro/doxy for abscess (this will cover Pseudomonas, but less coverage for g positives) discussed this with general surgery and they agree with this oral regimen. Should start at discharge in keep on IV antibiotics until discharge is set. -will need Lovenox for a total of 28 days 06/08 - VTE prophylaxis for colorectal cancer (2) Abdominal wall cellulitis: Status: Acute (3) Colon cancer: Status: Chronic Problem details: Ascending colon adenocarcinoma (4) Chronic anemia: Status: Chronic Problem details: Primarily due to chronic blood loss from colon cancer. - Stable. (5) H/O right hemicolectomy: Status: Inactive Problem details: -05/12/23, Dr. Sharma Tolerating regular diet. Uncomplicated recovery. Patient is high risk for VTE so will be on prophylactic enoxaparin for 3 weeks after surgery. (6) Cognitive impairment: Status: Chronic Problem details: Blind [place] on 04/04/2023: 8 out of 22 DS: Summary Time Spent with Patient Time attestation: Total time spent providing and/or coordinating discharge services: Exam Narrative: Exam Narrative: General: No acute distress. Awake, alert, oriented. No pallor. No jaundice. Cardiovascular: Regular rate and rhythm. No murmurs, gallops, or rubs. Respiratory: Clear to auscultation bilaterally. No wheezes or crackles. Abdomen: Bowel sounds present. Bulky dressing was clean, dry, and intact. Extremities: No pedal edema. Const: Vital Signs, click to edit/add: Vital Signs - 24 hr 06/03/23 13:10 06/03/23 15:00 06/03/23 15:00 Temperature 97.9 F 98.8 F Pulse Rate [Left P ulse Oximeter] 67 68 68 Respiratory Rate 16 16 16 Blood Pressure [Ri ght Arm] 147/71 H 135/69 Pulse Oximetry 95 96 Oxygen Delivery Me thod Room Air Room Air 06/03/23 19:00 06/03/23 23:00 06/03/23 23:00 Temperature 98.5 F 98.5 F Pulse Rate [Left P ulse Oximeter] 67 64 64 Respiratory Rate 20 18 18 Blood Pressure [Ri ght Arm] 137/60 174/94 H Pulse Oximetry 92 95 Oxygen Delivery Me thod Room Air Room Air 06/04/23 07:00 Temperature 98.5 F Pulse Rate [Left P ulse Oximeter] 64 Respiratory Rate 18 Blood Pressure [Ri ght Arm] 178/93 H Pulse Oximetry 94 Oxygen Delivery Me thod Room Air DS: Data Data Completed and Pending Completed studies during hospitalization: Study: CT-Abdomen/Pelvis W/IV-05/31/2023 3:44:41 PM Ordering Physician: LUCIA RICE Final Report: INDICATION: Infection of abdominal incision. TECHNIQUE: Multiple axial images were obtained from the diaphragm to the symphysis pubis after administration of 98 mL of Isovue-370 intravenously. Sagittal and coronal re-formatted images were obtained. COMPARISON: 04/02/2023. FINDINGS: There is a small right pleural effusion. There is atelectasis in both lung bases. There is no focal liver lesion. The spleen, pancreas and adrenal glands are remarkable. There are gallstones. There is a stable left kidney cyst. There is no hydronephrosis. There is interval right hemicolectomy. There is no evidence of a bowel obstruction. There are diverticula in the descending and sigmoid colon. There is no evidence of a diverticulitis. There is abdominal aortic aneurysm measuring 3.8 cm in AP dimension, unchanged from the previous study. There are atherosclerotic calcifications. In the subcutaneous tissue in the midline in the region of the incision in the mid to upper abdomen above the umbilicus there is a fluid collection with air consistent with an abscess measuring 2.6 cm in AP dimension by 3 cm in transverse dimension by 5 cm in the craniocaudal mention. In midline inferior to the umbilicus there is a 2nd fluid collection with air in it measuring 2.3 cm in AP dimension by 2.8 cm in transverse dimension by a 2 cm in the craniocaudal mention. There is stranding of subcutaneous fat in the abdomen anteriorly. There is a right inguinal hernia containing a small amount of fluid. There is a left inguinal hernia containing fat. There is a small amount of free fluid in the pelvis and in the pericolic gutters There is scoliosis and degenerative changes in the spine. IMPRESSION: 1. Two fluid collections in the subcutaneous tissue in the midline of the abdomen above and below the umbilicus consistent with abscesses. 2. Interval right hemicolectomy. 3. Small amount of free fluid in the abdomen and pelvis. 4. Stranding of the subcutaneous fat in the abdomen anteriorly. This could be secondary to a cellulitis 5. Right inguinal hernia with small amount of fluid. Left inguinal containing fat. 6. Diverticulosis. No evidence of a diverticulitis. 7. 3.8 cm in AP dimension infrarenal abdominal aneurysm. 8. Small right pleural effusion. 9. Gallstones. Please note that all CT scans at this facility use dose modulation, iterative reconstruction, and/or weight-based dosing when appropriate to reduce radiation dose to as low as reasonably achievable. Dictated by Chao Coleman MD @ 05/31/2023 4:15:41 PM Signed by: Chao Coleman MD @05/31/2023 4:15:41 PM (Electronic Signature) Dictated By: Chao Coleman M.D. Signed By: 06/02/23 09 DD/ 1615 TD/TT: 06/02/23 0920 Labs on day of discharge: Labs from last 24 hours 06/04/23 06:00 WBC 4.35 L RBC 3.32 L Hgb 9.1 L Hct 29.8 L MCV 90 MCH 27 MCHC 31 L RDW Coeff of Nissa 17.4 H Plt Count 257 Neut % (Auto) 53.6 Lymph % (Auto) 31.0 [place] % (Auto) 8.3 Eos % (Auto) 6.7 Baso % (Auto) 0.2 Neut # (Auto) 2.30 Lymph # (Auto) 1.30 [place] # (Auto) 0.40 Eos # (Auto) 0.30 Baso # (Auto) 0.00 Abs Immat Gran (auto) 0.00 Imm/Tot Granulo (auto) 0.2 Sodium 138 Potassium 3.5 L Chloride 111 Carbon Dioxide 25 Anion Gap 2 L BUN 4 L Creatinine 0.6 Estimated Creat Clear 50.98 Estimated GFR 99 Glucose 84 Calcium 8.2 L C-Reactive Protein 0.9 Discharge Plan Discharge Disposition: Home, Self-Care Date of Admission: 05/31/23 20:28 Attending Physician on Admission: Chao Welch Attending Provider on Discharge: Edel Hull Consulting Providers: Janine Bowden; Rosalba Tovar; Bettina Gary; Anastasia Rubin; Franklin Granger; Moo Powell; Rupali Mackay; Verónica Duran; Lorri Edmonds Primary Care Provider: David Camacho Condition: Improved Discharge Medications: No Action furosemide 20 mg tablet 20 mg PO QAM Qty: 90 0RF hydrocodone-acetaminophen 5-325 mg tablet 1 - 2 tab PO Q6H PRN (Reason: Pain) Qty: 20 0RF ferrous sulfate 325 mg (65 mg iron) tablet,delayed release (DR/EC) 325 mg PO Q48H omeprazole 20 mg Capsule,Delayed Release(Dr/Ec) 20 mg PO DAILY@0700 Qty: 30 11RF gabapentin 100 mg Capsule 100 mg PO BID Qty: 60 0RF enoxaparin 40 mg/0.4 mL Syringe 40 mg subcut Q24H Qty: 30 0RF Activity Level: No Restrictions Discharge Diet: Regular Follow Up Appointments: David Camacho MD [Primary Care Provider] - Forms: Smartdate Info Instructions
[2023-06-04 12:00] VITALS: BP 167/87; PULSE 70; RESP 20; TEMP 36.9; O2SAT 96
[2023-06-04] MEDS: 0.9 % SODIUM CHLORIDE 250 ml IV (12:36)
[2023-06-04] MEDS: FERROUS SULFATE 325 MG TABLET PO (12:36)
[2023-06-04] MEDS: LACTATED RINGERS 1000 ML 1,000 ML 75 ML IV (15:46)
[2023-06-04 16:00] VITALS: BP 141/65; PULSE 73; RESP 18; TEMP 37.1; O2SAT 93
[2023-06-04] MEDS: HYDROmorphone 0.5 mg/0.5 ml inj IVP (16:00)
--- NOTE | 2023-06-04 16:14 | PC.SOCIAL ---
Discharge planning: cargo worker continues to work on finding a Home Care agency for the pt that can do long term wound care twice a week while the pt sees Dr. Sharma one other day of the week for a wound check and dressing change as an outpatient appointment. cargo worker is waiting to hear back from [facility] on whether or not they can accommodate this plan. Pt has also been recommended for a home health bath aide. Social work to follow-up as needed.
--- NOTE | 2023-06-04 16:28 | P.GSPN_ITS ---
Subjective Subjective Date Seen: 06/04/23 Interval history: Brian is stable today. Working on discharge plan. Continues on IV antibiotics. Exam Narrative: Exam Narrative: General: NAD Abdomen: Soft, appropriately tender for the postop state. No cellulitis. There is still some purulent drainage in the wound base. Wound tunnels inferiorly at the superior aspect and superiorly and deep at the inferior aspect. The wound an any purulent drainage was irrigated out and cleaned using a Vashe solution. Wound dressed with Aquacel Ag. Const: Vital Signs, click to edit/add: Vital Signs - 24 hr 06/03/23 19:00 06/03/23 23:00 06/03/23 23:00 Temperature 98.5 F 98.5 F Pulse Rate [Left P ulse Oximeter] 67 64 64 Respiratory Rate 20 18 18 Blood Pressure [Ri ght Arm] 137/60 174/94 H Pulse Oximetry 92 95 Oxygen Delivery Me thod Room Air Room Air 06/04/23 07:00 Temperature 98.5 F Pulse Rate [Left P ulse Oximeter] 64 Respiratory Rate 18 Blood Pressure [Ri ght Arm] 178/93 H Pulse Oximetry 94 Oxygen Delivery Me thod Room Air Progress Note:A&P Assessment and plan (1) Incisional abscess: Status: Acute (2) Weakness generalized: Status: Chronic (3) Colon cancer: Status: Chronic (4) Chronic anemia: Status: Chronic (5) Pleural effusion: Status: Acute (6) H/O right hemicolectomy: Status: Inactive (7) Cognitive impairment: Status: Chronic Plan The patient is a 69-year-old male with abdominal wall abscess after right hemico lectomy for colon cancer. Currently having difficulties obtaining outpatient wound care. He does not have transportation to come to the clinic 3 days a week, however his insurance is currently not wanting to cover two outpatient days of wound care. Social work is working on this. -planning on [id number] dressing changes with Aquacel Ag once he is outpatient. -awaiting wound cultures for bile is a almodovar of antibiotics. Id consulted -continue Lovenox until next week for a total of 28 days postop of DVT prophylaxis.
--- NOTE | 2023-06-04 17:03 | P.IMPN_ITS ---
Progress Note: A&P Assessment and plan (1) Incisional abscess: Problem details: -Drainage from surgical incision started about 1 week prior to admission. -Dr. Bowden performed surgical debridement overnight 05/30-05/31. -Continue Vancomycin and Zosyn pending cultures -Update 06/02: ID consulted and recommended cipro/doxy for abscess (this will cover Pseudomonas, but less coverage for g positives) discussed this with general surgery and they agree with this oral regimen. Should start at disc harge in keep on IV antibiotics until discharge is set. -will need Lovenox for a total of 28 days 06/08 - VTE prophylaxis for colorectal cancer Status: Acute (2) Abdominal wall cellulitis: Status: Acute (3) Weakness generalized: Problem details: Patient has chronic deconditioning with worsening weakness and disability secondary to recent illnesses, surgery. Since surgery has had excellent recovery. Continue outpatient PT upon homegoing Status: Chronic (4) Colon cancer: Problem details: Ascending colon adenocarcinoma Status: Chronic (5) Chronic anemia: Problem details: Primarily due to chronic blood loss from colon cancer. - Stable. Status: Chronic (6) Pleural effusion: Problem details: Outpatient follow-up for small left-sided pleural effusion Status: Acute (7) H/O right hemicolectomy: Problem details: -05/12/23, Dr. Sharma Tolerating regular diet. Uncomplicated recovery. Patient is high risk for VTE so will be on prophylactic enoxaparin for 3 weeks after surgery. Status: Inactive (8) Cognitive impairment: Problem details: [place] on 04/04/2023: 8 out of 22 Status: Chronic Plan This is a 77-year-old male who underwent open right hemicolectomy on 05/12/2023 for colonic adenocarcinoma. He was admitted for an abdominal wall wound infection and abscess. He underwent debridement on 05/31/2023 and wound culture has grown out Streptococcus constellatus and a small amount of coag negative Staph. A discussion with Infectious Disease about this final culture took place on 06/03/2023 and he will continue on IV antibiotics until discharge home and which time he will transition over to an oral regimen of ciprofloxacin and doxycycline. He needs wound dressing changes every other day or 3 times a week. Social Work is helping coordinate with a home health agency, but we do not have a safe discharge plan at present. He can get 1 dressing change weekly at the surgery clinic. Subjective Time Seen by Provider: 08:20 Date Seen: 06/04/23 Interval history: Brian is doing well today and has no complaints. Exam Narrative: Exam Narrative: General: No acute distress. Awake, alert, oriented. No pallor. No jaundice. Cardiovascular: Regular rate and rhythm. No murmurs, gallops, or rubs. Respiratory: Clear to auscultation bilaterally. No wheezes or crackles. Abdomen: Bowel sounds present. Bulky dressing was clean, dry, and intact. Extremities: No pedal edema. Const: Vital Signs, click to edit/add: Vital Signs - 24 hr 06/03/23 19:00 06/03/23 23:00 06/03/23 23:00 Temperature 98.5 F 98.5 F Pulse Rate [Left P ulse Oximeter] 67 64 64 Respiratory Rate 20 18 18 Blood Pressure [Ri ght Arm] 137/60 174/94 H Pulse Oximetry 92 95 Oxygen Delivery Me thod Room Air Room Air 06/04/23 07:00 Temperature 98.5 F Pulse Rate [Left P ulse Oximeter] 64 Respiratory Rate 18 Blood Pressure [Ri ght Arm] 178/93 H Pulse Oximetry 94 Oxygen Delivery Me thod Room Air Labs Labs: Laboratory Results - last 24 hr 06/04/23 06:00 WBC 4.35 L RBC 3.32 L Hgb 9.1 L Hct 29.8 L MCV 90 MCH 27 MCHC 31 L RDW Coeff of Nissa 17.4 H Plt Count 257 Neut % (Auto) 53.6 Lymph % (Auto) 31.0 [place] % (Auto) 8.3 Eos % (Auto) 6.7 Baso % (Auto) 0.2 Neut # (Auto) 2.30 Lymph # (Auto) 1.30 [place] # (Auto) 0.40 Eos # (Auto) 0.30 Baso # (Auto) 0.00 Abs Immat Gran (auto) 0.00 Imm/Tot Granulo (auto) 0.2 Sodium 138 Potassium 3.5 L Chloride 111 Carbon Dioxide 25 Anion Gap 2 L BUN 4 L Creatinine 0.6 Estimated Creat Clear 50.98 Estimated GFR 99 Glucose 84 Calcium 8.2 L C-Reactive Protein 0.9
[2023-06-04 19:00] VITALS: BP 163/85; PULSE 72; RESP 18; TEMP 36.6; O2SAT 98
--- NOTE | 2023-06-04 19:55 | PC.NURSE ---
Pt denies pain. Up independently within room. Premedicate prior to dressing changes per pt request. Afebrile.
[2023-06-04] MEDS: ENOXAPARIN 40 MG/0.4 ML INJ SUBCUT (21:41)
[2023-06-04 23:00] VITALS: BP 148/72; PULSE 70; RESP 18; TEMP 36.6; O2SAT 93
[2023-06-05 02:20] VITALS: BP 169/89; PULSE 66; RESP 18; TEMP 36.6; O2SAT 93
[2023-06-05] MEDS: PIPERACILLIN/TAZOBACTAM 3.375 GM in 0.9 % SODIUM CHLORIDE Mini-bag 100 ML IVPB ×2 (04:17→11:02)
--- NOTE | 2023-06-05 05:07 | PC.NURSE ---
Shift note: Pt has been doing well. A/O, minimal drainage seen on the dressing site. Pt is independent in room. Pleasant and cooperate with treatment and care. No fever was recorded.
[2023-06-05] MEDS: LACTATED RINGERS 1000 ML 1,000 ML 75 ML IV (05:30)
[2023-06-05] MEDS: OMEPRAZOLE 20 MG CAPSULE DR PO (06:53)
[2023-06-05] MEDS: GABAPENTIN 100 MG CAPSULE PO (09:08)
[2023-06-05 09:10] VITALS: BP 184/99; PULSE 79; RESP 20; TEMP 37.1; O2SAT 95
[2023-06-05 11:04] VITALS: BP 133/64; PULSE 73; RESP 24; TEMP 36.4; O2SAT 91
[2023-06-05] MEDS: HYDROCODONE-ACETAMIN 5-325 MG 1 TAB PO (12:39)
--- NOTE | 2023-06-05 13:58 | PM.GSPN ---
Subjective Subjective Date Seen: 06/05/23 Interval history: Brian is doing well today. Were able to obtain home health for him for 2 nurse visits per week. Exam Narrative: Exam Narrative: General: NAD Abdomen: soft, non-tender. No cellulitis. Wound with some purulence in the base - irrigated out. superior wound clean. Const: Vital Signs, click to edit/add: Vital Signs - 24 hr 06/04/23 16:00 06/04/23 19:00 06/04/23 23:00 Temperature 98.8 F 98 F Pulse Rate [Left P ulse Oximeter] 73 72 70 Respiratory Rate 18 18 18 Blood Pressure [Le ft Arm] Blood Pressure [Ri ght Arm] 141/65 H 163/85 H Pulse Oximetry 93 98 Oxygen Delivery Me thod Room Air Room Air 06/04/23 23:00 06/05/23 02:20 06/05/23 09:10 Temperature 97.9 F 97.9 F 98.8 F Pulse Rate [Left P ulse Oximeter] 70 66 79 Respiratory Rate 18 18 20 Blood Pressure [Le ft Arm] 148/72 H 184/99 H Blood Pressure [Ri ght Arm] 169/89 H Pulse Oximetry 93 93 95 Oxygen Delivery Me thod Room Air Room Air Room Air 06/05/23 09:10 06/05/23 11:04 Temperature 97.6 F Pulse Rate [Left P ulse Oximeter] 79 73 Respiratory Rate 20 24 Blood Pressure [Le ft Arm] 133/64 Blood Pressure [Ri ght Arm] Pulse Oximetry 91 Oxygen Delivery Me thod Room Air Labs/Imaging Imaging Imaging: Culture growing strep. Progress Note:A&P Assessment and plan (1) Incisional abscess: Status: Acute (2) Colon cancer: Status: Chronic (3) Pleural effusion: Status: Acute (4) H/O right hemicolectomy: Status: Inactive (5) Cognitive impairment: Status: Chronic (6) Chronic anemia: Status: Chronic Plan Brian is a 77 year old male who is approximately 4 weeks status post right hemicolectomy for colon cancer. He was readmitted with a wound infection. This has been cultured and is growing strep. His wound is stable to improving. Will plan for discharge today with close outpatient follow-up and home care. -patient may stop Lovenox on Friday -continue PPI -continue to encourage high-protein diet -Friday dressing changes with iodoform gauze. Will follow up in surgery Clinic on Friday. Home health to come Friday.
--- NOTE | 2023-06-05 14:43 | PC.SOCIAL ---
Addendum entered by ELEAZAR Erickson 06/05/23 15:35: Discharge planning: Pt also has a BIRD RAISER set-up through [facility] [place]. Social work to follow-up as needed. Addendum entered by ELEAZAR Erickson 06/05/23 15:33: Discharge planning: D/C [place] and medication list were sent to [facility] [place] this afternoon. Social work to follow-up as needed. Addendum entered by ELEAZAR Erickson 06/05/23 14:59: Discharge planning: Pt's step-son, Sudhakar, will pick him up around 5:00pm tonight to bring him home. Social work to follow-up as needed. Original Note: Discharge planning: expeller worker was able to set-up home care/wound care with a nurse for the pt with [facility] [place] for Wednesdays and Fridays. Pt will see Dr. Sharma for an outpatient wound check on Mondays to equal three total days of wound checks/wound care. Pt's neighbor, Rosa Norton #[phone], is willing to check on the pt when he returns home since she is right next door and will also be a third green party to watch the wound care process for the pt tomorrow(Friday) when he is opened for wound care with [facility] [place] per their request. Social work to follow-up as needed.
--- NOTE | 2023-06-05 14:59 | PM.DS1 ---
DS: Providers Provider Date Seen: 06/05/23 Date of admission: 05/31/23 20:28 Primary care physician: David Camacho MD Admitting Clinician: Janine Bowden MD Consults: 05/31/23 17:08 Consult to Physician [CONS] Urgent Comment: Consulting Provider: Janine Bowden Has provider been notified: Yes 06/02/23 12:43 Consult to Nutrition [CONS] Routine Comment: Reason for consult:: Nutritional Consult Comment: Pt with colon cancer, anemia, wt loss. Now s/p surgery Consult to Occupational Therapy [CONS] Routine Comment: Reason(s) for OT Consult:: ADLs Prior to Discharge Any Restrictions?:: No Restrictions Consult to Physical Therapy [CONS] Routine Comment: Reason(s) for PT Consult:: Evaluate and Treat Any Restrictions?:: No Restrictions 06/03/23 07:58 Consult to Rn Licensed Practical [CONS] Routine Comment: Reason for Consult:: Discharge Planning Needs 06/03/23 09:44 Consult to Infectious Diseases [CONS] PROTOCOL Comment: Consulting Provider: [facility] Consult priority: Routine Has provider been notified: No Call back required?: Yes Attending Physician on discharge: ISACC Treviño, JANKIC [facility] Date of Discharge: 06/05/23 DS: Diagnosis Discharge Diagnosis (1) Incisional abscess: Status: Acute Problem details: Drainage from surgical incision started about 1 week prior to admission. Dr. Bowden performed surgical debridement overnight 05/30-05/31. Patient was initiated on vancomycin and Zosyn. Wound culture growing Streptococcus constellatus and coag-negative staph. ID consulted. Transition to oral ciprofloxacin and doxycycline to complete a 14 day course of IV/oral antibiotic. Wound cares completed per General Surgery, Dr. Sharma. Will continue with outpatient home health care wound management on Wednesdays and Fridays with [employer]. and outpatient general surgery clinic on Mondays with Dr. Sharma. (2) Colon cancer: Status: Chronic Problem details: Ascending colon adenocarcinoma. S/p right hemicolectomy 05/12/2023. Postop 28 days of enoxaparin (3) H/O right hemicolectomy: Status: Inactive Problem details: 05/12/23, Dr. Sharma Given high risk for VTE will complete 28 days of enoxaparin on 06/09/2023. 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 - Stable. DS: Summary Hospital Course Hospital Course: [age] year old male past medical history significant for colon cancer, status post right hemicolectomy, chronic anemia, pleural effusion, cognitive impairment was admitted to the medical floor for management incisional wound. Course of care and details as noted above. Patient was transition from IV antibiotics to oral antibiotics at time of discharge following finalization of wound cultures. Patient will continue with outpatient Wound care's on Mondays in the General surgery Clinic as well as Wednesdays and Fridays with home healthcare. Remainder of chronic medical comorbidities were monitored and managed with home medications. Status at Discharge Overall status at discharge: patient is back to baseline Time Spent with Patient Time attestation: Total time spent providing and/or coordinating discharge services: Exam Narrative: Exam Narrative: PHYSICAL EXAM General: Pleasant, conversant, NAD Cardiovascular: RRR Pulmonary: No dyspnea Neurological: Alert, answering questions appropriately Skin: Warm, dry. Wound examined with wound dressing change by General surgery on day of discharge Const: Vital Signs, click to edit/add: Vital Signs - 24 hr 06/04/23 16:00 06/04/23 19:00 06/04/23 23:00 Temperature 98.8 F 98 F Pulse Rate [Left P ulse Oximeter] 73 72 70 Respiratory Rate 18 18 18 Blood Pressure [Le ft Arm] Blood Pressure [Ri ght Arm] 141/65 H 163/85 H Pulse Oximetry 93 98 Oxygen Delivery Me thod Room Air Room Air 06/04/23 23:00 06/05/23 02:20 06/05/23 09:10 Temperature 97.9 F 97.9 F 98.8 F Pulse Rate [Left P ulse Oximeter] 70 66 79 Respiratory Rate 18 18 20 Blood Pressure [Le ft Arm] 148/72 H 184/99 H Blood Pressure [Ri ght Arm] 169/89 H Pulse Oximetry 93 93 95 Oxygen Delivery Me thod Room Air Room Air Room Air 06/05/23 09:10 06/05/23 11:04 Temperature 97.6 F Pulse Rate [Left P ulse Oximeter] 79 73 Respiratory Rate 20 24 Blood Pressure [Le ft Arm] 133/64 Blood Pressure [Ri ght Arm] Pulse Oximetry 91 Oxygen Delivery Me thod Room Air DS: Data Data Completed and Pending Completed studies during hospitalization: Procedures Excision of Ascending Colon, Via Natural or Artificial Opening Endoscopic, Diagnostic (04/03/23) Excision of Cecum, Via Natural or Artificial Opening Endoscopic, Diagnostic (04/03/23) Excision of Duodenum, Via Natural or Artificial Opening Endoscopic, Diagnostic (04/03/23) Excision of Sigmoid Colon, Via Natural or Artificial Opening Endoscopic, Diagnostic (04/03/23) Excision of Stomach, Via Natural or Artificial Opening Endoscopic, Diagnostic (04/03/23) Excision of Transverse Colon, Via Natural or Artificial Opening Endoscopic, Diagnostic (04/03/23) Resection of Right Large Intestine, Open Approach (05/12/23) Transfusion of Nonautologous Red Blood Cells into Peripheral Vein, Percutaneous Approach (04/03/23) Discharge Plan Discharge Disposition: Home, Self-Care Date of Admission: 05/31/23 20:28 Attending Provider on Discharge: Charmaine Cobb Consulting Providers: Janine Bowden; Rosalba Tovar; Bettina Gary; Anastasia Rubin; Franklin Granger; Moo Powell; Rupali Mackay; Verónica Duran; Lorri Edmonds Primary Care Provider: David Camacho Condition: Improved Anticipated Discharge Date/Time: 06/05/23 16:00 Discharge Medications: New ciprofloxacin HCl 500 mg Tablet 500 mg PO BID 9 Days Qty: 18 0RF doxycycline hyclate 100 mg Tablet 100 mg PO BID 9 Days Qty: 18 0RF Continued furosemide 20 mg tablet 20 mg PO QAM Qty: 90 0RF hydrocodone-acetaminophen 5-325 mg tablet 1 - 2 tab PO Q6H PRN (Reason: Pain) Qty: 20 0RF ferrous sulfate 325 mg (65 mg iron) tablet,delayed release (DR/EC) 325 mg PO Q48H omeprazole 20 mg Capsule,Delayed Release(Dr/Ec) 20 mg PO DAILY@0700 Qty: 30 11RF gabapentin 100 mg Capsule 100 mg PO BID Qty: 60 0RF enoxaparin 40 mg/0.4 mL Syringe 40 mg subcut Q24H Qty: 30 0RF Discharge Orders: Discharge Order (Routine); Ordered 06/05/23 Ordered By: Charmaine Cobb Patient Education: Ciprofloxacin (By mouth), Doxycycline (By mouth), Wound Infection (GEN) Additional Instructions: Continue oral antibiotics for another 9 days (to complete 14 day total of antibiotics - IV and oral). Continue lovenox as previously prescribed to complete 28 days (you can stop on 06/09/23 - Friday). Take your Omeprazole every day. [facility] - home healthcare and aide to start 06/06/2023, wound cares every Friday and Friday. Wound dressing changes per General Surgery clinic every Friday. WOUND CARE: Friday, Friday and Friday dressing changes Follow up in general surgery clinic with Dr. Sharma on 06/09/23 at 930 a.m. If you cannot get a ride at 930, please call [facility] at [phone] to discuss alternate time. It is important that you get seen on the stay. Home health nurse instructions for Friday and Friday: Remove packing. Cleanse wound with Vashe - may need to use Q-tip to swish around the wound (inferior wound tracks deep, superior wound tracks inferiorly). let dwell for 5 minutes Pack wound with Iodoform gauze (Patient was provided with some on hospital discharge). Cover with mepilex (preferred) or other bordered gauze. Activity Level: No Restrictions Discharge Diet: Regular Diet Detail: Add a protein supplement such as and Ensure shake 1-2 times daily Follow Up Appointments: David Camacho MD [Primary Care Provider] - 06/16/23 10:45 am ( [facility] for follow[facility]. Post hospital follow-up, wound infection. ) Caro Sharma MD [Staff Physician] - 06/09/23 Forms: [employer] Info Instructions
[2023-06-05 15:00] VITALS: PULSE 69; RESP 18
[2023-06-05 15:16] VITALS: BP 159/80; PULSE 69; RESP 69; TEMP 36.6; O2SAT 98
--- NOTE | 2023-06-05 17:21 | PC.NURSE ---
Discharge: Patient pleasant and cooperative. Patient vitally stable, lungs clear, BS WNL, IV removed, catheter intact. Patient denies pain and is independent in room. Wound dressing change performed by surgeon. Patient signed belongings sheet and discharge form, and had no further questions. Abdominal wound dressing, C/D/I. Patient left the floor by wheelchair to home at 1642.
== END 2023-06-05 16:42 | disposition home or self-care (01) | DRG 857 ==
LOC: ED 17:28 → SS 18:53 → MEDSURG 19:35 → SS 20:30 → MEDSURG 20:30
PROVIDERS: Family Medicine; Admitting Provider Surgery; Emergency Provider Family Medicine; PCP Family Medicine; Visit Provider Family Medicine
PROC: 0J980ZZ Drainage of Abdomen Subcutaneous Tissue and Fascia, Open Approach (ICD-10-PCS; principal; 2023-05-31 19:00)
DX: T81.49XA Infection following a procedure, other surgical site, initial encounter (principal); C18.2 Malignant neoplasm of ascending colon; L02.211 Cutaneous abscess of abdominal wall; L03.311 Cellulitis of abdominal wall; J90 Pleural effusion, not elsewhere classified; J98.11 Atelectasis; D50.0 Iron deficiency anemia secondary to blood loss (chronic); E11.9 Type 2 diabetes mellitus without complications; I10 Essential (primary) hypertension; F17.210 Nicotine dependence, cigarettes, uncomplicated; I71.40 Abdominal aortic aneurysm, without rupture, unspecified; G31.84 Mild cognitive impairment of uncertain or unknown etiology; R53.1 Weakness; B95.4 Other streptococcus as the cause of diseases classified elsewhere; B95.7 Other staphylococcus as the cause of diseases classified elsewhere
CPT/HCPCS: 00400; 36415; 74177; 80048; 80053; 83605; 84145; 85025; 86140; 87070; 87077; 87186; 93005; 94761; 97116; 97161; 97165; 97530; 97535; 99100; 99140; 99284; 99285; A9270; J1170; J1650; J2250; J2543; J2704; J3370; J3490; J7030; J7050; J7120; Q9967

== ENCOUNTER 2023-06-07 09:50 | Outpatient (CLI) | payer MEDICARE, SELFPAY ==
--- NOTE | 2023-06-07 11:08 | PC.NURSE ---
Wound dressing: Patient here for wound dressing on abdomen, per patient home care did not see him on friday at his house for his scheduled wound dressing change and would not be able to see him until friday. Vitals 97.7 temp, 163/83 BP, 02 sat 97%, 78HR, RR20. Dressing change done per doctors orders, patient brought his iodoform from home, mepilex placed over wound site. patient left floor @ 1109.
== END 2023-06-07 11:12 | disposition home or self-care (01) ==
LOC: MS OUT 09:53 → MEDSURG 10:49 → MS OUT 11:12
PROVIDERS: PCP Family Medicine; Visit Provider Family Medicine
DX: Z48.01 Encounter for change or removal of surgical wound dressing (principal)
CPT/HCPCS: 99211

== ENCOUNTER 2023-07-21 10:40 | Outpatient (CLI) | payer MEDICARE, SELFPAY ==
--- OUTSIDE RECORDS SUMMARY | 2023-07-21 10:43 | XMS_ITS | Clinical Summary ---
Author Name Unknown Organization [facility] Address [place], [place] [address] Care Team Providers Care Head Operator Sulfide Name Role Phone David Camacho MD Primary Care Provider [phone] Allergies No known active allergies Medications Medication Sig Dispensed Refills Start Date End Date Status amLODIPine (NORVASC) 10 mg tablet Take 10 mg by mouth once daily. 05/06/2022 Active chlorthalidone (HYGROTON) 25 mg tablet Take 25 mg by mouth once daily. 05/06/2022 Active lisinopriL (PRINIVIL; ZESTRIL) 10 mg tablet Take 10 mg by mouth once daily. 05/06/2022 Active potassium chloride (KLOR-CON) 20 mEq extended-release tablet (part/cryst) Take 20 mEq by mouth. 05/06/2022 Active Encounters Date Type Department Care Team Description 06/02/2023 Lab Requisition [facility] [phone] Jahaira Lutz MD 05/13/2023 Lab Requisition [facility] [phone] Unknown, Doctor 05/13/2023 Lab Requisition [facility] [phone] Caro Sharma MD 04/29/2023 9:00 AM CASTER OPERATOR Ancillary Procedure [facility] [address] [place] [address] from Last 3 Months Social History Tobacco [...] 1 - PCV) 2009 COVID-19 vaccine series () 11/15/2022 04/24/2021, 05/23/2020, 05/02/2020 Influenza for age 65+ 11/16/2023 Procedures Procedure Name Priority Date/Time Associated Diagnosis Comments REFERRAL ID/SUSC,NONURINE Routine 05/31/2023 1:28 PM CDT PATH NON RAMP SERVICE MAN CYTOLOGY Routine 05/12/2023 5:00 PM CASTER OPERATOR LAB TRACKING EVENT Routine 05/12/2023 3: 56 PM CASTER OPERATOR LAB TRACKING EVENT Routine 05/12/2023 1: 40 PM CASTER OPERATOR PATH TISSUE EXAM Routine 05/12/2023 1:40 PM CASTER OPERATOR NM CARDIAC MPI STRESS TEST Routine 04/29/2023 3:03 PM CASTER OPERATOR Dyspnea, unspecified from Last 3 Months Results * (ABNORMAL) REFERRAL ID/SUSC,NONURINE (05/31/2023 1:28 PM CDT) CULTURE RESULT(A) 06/04/2023 11:26 AM CDT [facility] CULTURE 2+ Streptococcus constellatus 06/04/2023 11:26 AM CDT [facility] Other Client Collect / Unknown 05/31/2023 1:28 PM CDT 06/02/2023 1:52 PM CDT Narrative Organism Antibiotic Method Susceptibility Streptococcus constellatus PENICILLIN <=0.06: S Streptococcus constellatus CEFTRIAXONE <=0.12: S Streptococcus constellatus ERYTHROMYCIN <=0.12: S Streptococcus constellatus CLINDAMYCIN <=0.25: S Streptococcus constellatus VANCOMYCIN 0.25: S Streptococcus constellatus AMPICILLIN <=0.25: S Streptococcus constellatus CLARITHROMYCIN S Jahaira Lutz MD MICROBIOLOGY [facility] [address] [place] [address], * PATH NON RAMP SERVICE MAN CYTOLOGY (05/12/2023 5:00 PM CASTER OPERATOR) Case Report Medical Cytology Report ? Case: [id number] ? Authorizing Provider: ??Caro Sharma MD ??Collected: ? 05/12/2023 1700 ? Ordering Location: ? [facility] ?Received: ?05/13/2023 1600 ? Pathologist: ? Laron Esquivel MD ? Specimen: ?Peritoneal Fluid ? 05/14/2023 11:22 AM [facility] Final Diagnosis A) PERITONEAL FLUID, CYTOLOGY WITH CELL BLOCK: 1. Negative for malignancy 2. Reactive mesothelial cells and macrophages 05/14/2023 11:[address] 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 05/14/2023 11:22 AM [facility] Gross Description A) SOURCE: Peritoneal Fluid The specimen consists of 20 cc of light red hazy fluid from which the following is prepared: ? -1 Air-dried slide for DiffQuik stain ? -1 ThinPrep slide for Papanicolaou Stain ? -1 Cell block slide A2 Cell block material was placed in formalin at 1630 on 05/13/23 and fixed in formalin at least 6 hours and no more than 72 hours. 05/14/2023 11:22 AM [facility] Microscopic Description Specimen adequacy: Adequate for interpretation. All slides were reviewed. The microscopic appearance substantiates the diagnosis. 05/14/2023 11:22 AM [facility] Additional Information Cytology is screened at [facility] - [address], [place] [address] and [facility] - [address], [place] [address] and Laboratory - [address] [place] [address] Interpreted at [facility] - [address], [place] [address] 05/14/2023 11:22 AM [facility] Other PERITONEAL FLUID SPECIMEN / Unknown 05/12/2023 5:00 PM CASTER OPERATOR 05/13/2023 4:00 PM CASTER OPERATOR Caro Sharma MD PATHOLOGY/CYTOLO GY Performing Organization Address [facility] Co de Phone Number [facility] [address] [place] [address], * LAB TRACKING EVENT (05/12/2023 3:56 PM CASTER OPERATOR) Only the most recent of2 resultswithin the time period is included. Other (Other) Client Collect / Unknown 05/12/2023 3:56 PM CASTER OPERATOR 05/13/2023 3:26 PM CASTER OPERATOR Doctor Unknown LAB BILL ONLY Performing Organization Address [facility] Co de Phone Number [facility] [address] [place] [phone], * PATH TISSUE EXAM (05/12/2023 1:40 PM CASTER OPERATOR) Case Report Pathology Report ?Case: [id number] ? Authorizing Provider: ??Unknown, Doctor ?Collected: ? 05/12/2023 1340 ? Ordering Location: ? [facility] ?Received: ?05/13/2023 1724 ? Pathologist: ? Jordan Wilson ? IV, MD ? Specimen: ?Right Colon, Partial ? 05/14/2023 4:15 PM CASTER OPERATOR [employer] [facility] LABORATORY Final Diagnosis A) COLON, ILEUM, APPENDIX; RIGHT HEMICOLECTOMY: 1. Medullary carcinoma, characterized by: ?? a. Tumor site: Cecum ?? b. Tumor size: 9.0 cm ?? c. Tumor extension: pT4b (tumor directly invades into the ileum) ?? d. Lymphovascular invasion: Absent ?? e. Perineural invasion: ? Absent ?? f. Tumor budding: ? Low score ?? g. Pathologic stage: pT4b pN0 2. Lymph nodes: Negative for metastatic carcinoma in 17 lymph nodes 3. Margins: Negative 4. Background colon, ileum and appendix are normal 5. See synoptic section below for complete details 6. Ancillary studies (performed on prior biopsy case [id number]): ?? a. 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 b. Positive for BRAF mutation 05/14/2023 4:15 PM [facility] Clinical Information Mr. Bradford is a 77 y.o. who presents with a cecal adenocarcinoma diagnosed 1 month ago ([facility] biopsy case [id number]) who now undergoes right hemicolectomy. 05/14/2023 4:15 PM [facility] [employer] [facility] LABORATORY Gross Description A) Received in formalin and labeled with the patient's name and right hemicolectomy and additional ileum and omentum is a 45 cm long, 7 cm diameter right hemicolectomy specimen consisting of 30 cm in length of terminal ileum and 15 cm in length of proximal colon. The serosa is grossly involved by thickened ragged adhesions at the junction of distal ileum/proximal cecum which is inked green. The proximal and distal staple lines are trimmed. The opened specimen reveals an ulcerated, circumferential invasive bulky tumor involving the distal ileum/cecum. Tumor characteristics: ?? Tumor location: ? Distal ileum/cecum ?? Tumor size: ? 9 x 7 x 4.3 cm ?? Tumor extension: ?Invades through the bowel wall and directly involves small bowel looped back onto itself ?? Tumor perforation: ?Absent ?? Tumor deposits: ? None identified grossly Distance of tumor from margins: ?? Proximal margin: ?6.5 cm ?? Distal margin: ?6.5 cm ?? Mesenteric margin: ?1.5 cm (inked blue) ?? Radial (posterior soft tissue) margin: 1 cm (inked red) Lymph nodes: ?? Lymph nodes found: ?19 possible lymph nodes are identified ?? Grossly involved: ? Present (one lymph node), measuring 0.5 cm in greatest dimension Additional findings: ?? Other lesions: ??0.8 x 0.6 x 0.5 cm sessile colon polyp, 2 cm from distal margin ?? Ileal mucosa: ?? Erythematous ?? Colonic mucosa: Erythematous ?? Appendix: ? Normal appearance, 6 x 0.8 cm Also, there is a separate 4.5 cm long, 2.7 cm diameter unoriented segment of small bowel with unremarkable mucosa. Also, there is a separate portion of unoriented omentum (20 x 9 x 2.8 cm) with uniform soft finely lobulated fatty cut surfaces without tumor implants or suspicious nodules. Metal Cabinet Fin[employer] sections are submitted as follows: 1. Proximal margin (grossly normal) en face 2. Distal margin (grossly normal) en face 3. Mesenteric margin (perpendicular to blue ink) 4. Radial (posterior soft tissue) margin (perpendicular to red ink) 5. Appendix 6-7. Tumor invading through bowel wall directly into adjacent small bowel 8. ??Central tumor invasion into mesentery 9. ??Tumor, proximal rim involving distal ileum 10. Tumor, distal rim involving cecum 11. Tumor at ileocecal valve with serosal adhesions (inked green) 12. Separate small bowel segment, en face margins 13. Separate omentum 14. Sessile colon polyp, bisected 15. 5 lymph nodes, one is suspicious 16. 4 lymph nodes 17. 4 lymph nodes 18. 6 lymph nodes Digital photographs have been uploaded to the case. LDW 05/13/2023 ?? 05/14/2023 4:15 PM [facility] [employer] [facility] EN[facility] LAB[facility]ATORY Microscopic Description The final diagnosis is based on microscopic examination of appropriate sections of all specimens. 05/14/2023 4:15 PM [facility] [employer] LAB[facility]AT[facility]-C ENTRAL LABORATORY SYNOPTIC REPORTING COLON AND RECTUM: Resection, Including Transanal Disk Excision of Rectal Neoplasms COLON AND RECTUM: RESECTION, INCLUDING TRANSANAL DISK EXCISION OF RECTAL NEOPLASMS - All Specimens 8th Edition - Protocol posted: 09/05/2021 SPECIMEN ?? Procedure: ?Right hemicolectomy TUMOR ?? Tumor Site: ?Cecum ?? Histologic Type: ?Medullary carcinoma ?? Histologic Grade: ?Not applicable: medullary type ?? Tumor Size: ?Greatest dimension (Centimeters): 9.0 cm cm ?? Tumor Extent: ?Directly invades or adheres to adjacent structure(s): Ileum, through the ileal serosa ?? Macroscopic Tumor Perforation: ?Not identified ?? Lymphovascular Invasion: ?Not identified ?? Perineural Invasion: ?Not identified ?? Number of Tumor Buds: ?2 per 'hotspot' field ?? Tumor Columbus Score: ?Low (0-4) ?? Treatment Effect: ?No known presurgical therapy MARGINS ?? Margin Status for Invasive Carcinoma: ?All margins negative for invasive carcinoma ? Closest Margin(s) to Invasive Carcinoma: ?Proximal: 6.5 cm ? Closest Margin(s) to Invasive Carcinoma: ?Distal: 6.5 cm ? Closest Margin(s) to Invasive Carcinoma: ?Radial (circumferential) or mesenteric: 1.0 cm ?? Margin Status for Non-Invasive Tumor: ?All margins negative for high-grade dysplasia / intramucosal carcinoma and low-grade dysplasia REGIONAL LYMPH NODES ?? Regional Lymph Node Status: ? : ?All regional lymph nodes negative for tumor ? Number of Lymph Nodes Examined: ?17 ?? Tumor Deposits: ?Not identified PATHOLOGIC STAGE CLASSIFICATION (pTNM, AJCC 8th Edition) ?? Reporting of pT, pN, and (when applicable) pM categories is based on information available to the pathologist at the time the report is issued. As per the AJCC (Chapter 1, 8th Ed.) it is the managing physician's responsibility to establish the final pathologic stage based upon all pertinent information, including but potentially not limited to this pathology report. ?? pT Category: ?pT4b ?? pN Category: ?pN0 ADDITIONAL FINDINGS ?? Additional Findings: ?Adenoma(s) 05/14/2023 4:15 PM CASTER OPERATOR [facility] Additional Information Interpreted at [facility] [employer] [facility], Central Laboratory - [address] [facility] [address], [place] [address] 05/14/2023 4:15 PM CASTER OPERATOR [facility] Other (Right Colon, Partial) 05/12/2023 1:40 PM CASTER OPERATOR 05/13/2023 5:24 PM CASTER OPERATOR Doctor Unknown PATHOLOGY/CYTOLOGY Performing Organization Address City/State/[facility] Co de Phone Number [facility] [address] [place] [address], [place] * NM CARDIAC MPI STRESS TEST (04/29/2023 3:03 PM CASTER OPERATOR) Anatomical Region Laterality Modality HEART Ultrasound 04/29/2023 10:1 2 AM CASTER OPERATOR Narrative 04/29/2023 3:12 PM CASTER OPERATOR ? Toll -free: [phone] ?[employer] ?MYOCARDIAL PERFUSION IMAGING REPORT REST/STRESS SINGLE ISOTOPE GATED SPECT IMAGING. Patient Name: ?? BRIAN BRADFORD ?Gender: ? M ? Height: ? 62 in Accession #: ?[id number] ?Weight: ? 156 lb Study Date: ? 04/29/2023 10:12:19 AM ?BSA: ?1.72 m? ? ? : ?1945 77 years ? BMI: ?28.53 kg/m? ? ? Ord. Prov.: ? DAVID CAMACHO ? Monitoring Prov.: [employer] [facility] Clinical History: ? Dyspnea. Pre-op clearance. No known coronary artery ?disease. Cardiac Risk Factors: Hypertension, hypercholesterolemia, diabetes mellitus and ?tobacco use. Other Symptomatology: PVD. Cardiac History: ?None known. Beta coreen/calcium channel coreen/nitrate taken today: Unknown. Caffeine/methylxanthine taken within 12 hrs: ?No. Chest pain/discomfort at baseline: ?No. IMPRESSION 1. Myocardial perfusion was normal. 2. Left ventricular cavity size was normal (resting EDV 63 ml). 3. Overall left ventricular systolic function was normal without wall motion abnormalities. The post stress LVEF was calculated to be 90 %. 4. See separate report for EKG intrepretation. 5. There were no prior studies available for comparison. STRESS MPI PROCEDURE The patient was studied utilizing a same day rest/stress protocol. Myocardial perfusion imaging was performed at rest, 26 minutes following the intravenous injection of 7.98 mCi of 99mTc sestamibi. 30 seconds after the 15 second IV regadenoson injection, the patient was injected via IV with 30.0 mCi of 99mTc sestamibi. Gated post-stress tomographic imaging was performed 40 minutes after stress. After image acquisition was completed, data was reconstructed in short, horizontal long and vertical long axis views and tomographic slices were generated. - Pharmacologic stress testing was performed with an IV regadenoson dose of 0.4 mg. - No low level exercise was performed. - Resting heart rate was 72 bpm, peak heart rate was 96 bpm. - Resting blood pressure was 146 mmHg/80 mmHg; peak blood pressure was 143 mmHg/84 mmHg. - Patient did not develop significant symptoms. FINDINGS Imaging - The overall quality of the study was excellent with mild soft tissue attenuation on rest and stress studies. - SPECT perfusion images were normal without evidence of ischemia or infarction. - Computer processed gated imaging revealed normal left ventricular size with a calculated LVEF of 90 %. (Lab normals: LVEF >50%, LV Size <150 ml). - There was normal post-stress myocardial thickening and wall motion. - No right ventricular abnormalities were identified. - There was no evidence of abnormal lung or extracardiac activity. - Risk/extent of ischemia per ACC Noninvasive Risk Stratification Guideline: LOW RISK. This study was interpreted and electronically signed by Fernando Boyce MD on 04/29/2023 3:12:46 PM. ??Final ?? Procedure Note Fernando Boyce MD - 04/29/2023 Toll -free: [phone] [employer] MYOCARDIAL PERFUSION IMAGING REPORT REST/STRESS SINGLE ISOTOPE GATED SPECT IMAGING. Patient Name: BRIAN BRADFORD Gender: M Height: 62 in Weight: 156 lb Study Date: 04/29/2023 10:12:19 AM BSA: 1.72 m? ? ? : 1945 77 years BMI: 28.53kg/m? ? ? Ord. Prov.: DAVID CAMACHO Monitoring Prov.: Wild Andrea Performing Site [facility] Clinical History: Dyspnea. Pre-op clearance. No known coronaryartery disease. Cardiac Risk Factors: Hypertension, hypercholesterolemia, diabetesmellitus and tobacco use. Other Symptomatology: PVD. Cardiac History: None known. Beta coreen/calcium channel coreen/nitrate taken today: Unknown. Caffeine/methylxanthine taken within 12 hrs: No. Chest pain/discomfort at baseline: No. IMPRESSION 1. Myocardial perfusion was normal. 2. Left ventricular cavity size was normal (resting EDV 63 ml). 3. Overall left ventricular systolic function was normal without wallmotion abnormalities. The post stress LVEF was calculated to be 90 %. 4. See separate report for EKG intrepretation. 5. There were no prior studies available for comparison. STRESS MPI PROCEDURE The patient was studied utilizing a same day rest/stress protocol.Myocardial perfusion imaging was performed at rest, 26 minutes followingthe intravenous injection of 7.98 mCi of 99mTc sestamibi. 30 seconds afterthe 15 second IV regadenoson injection, the patient was injected via IVwith 30.0 mCi of 99mTc sestamibi. Gated post-stress tomographic imagingwas performed 40 minutes after stress. After image acquisition wascompleted, data was reconstructed in short, horizontal long and verticallong axis views and tomographic slices were generated. - Pharmacologic stress testing was performed with an IV regadenoson doseof 0.4 mg. - No low level exercise was performed. - Resting heart rate was 72 bpm, peak heart rate was 96 bpm. - Resting blood pressure was 146 mmHg/80 mmHg; peak blood pressure vuh124 mmHg/84 mmHg. - Patient did not develop significant symptoms. FINDINGS Imaging - The overall quality of the study was excellent with mild soft tissue attenuation on rest and stress studies. - SPECT perfusion images were normal without evidence of ischemia orinfarction. - Computer processed gated imaging revealed normal left ventricular sizewith a calculated LVEF of 90 %. (Lab normals: LVEF >50%, LV Size <150 ml). - There was normal post-stress myocardial thickening and wall motion. - No right ventricular abnormalities were identified. - There was no evidence of abnormal lung or extracardiac activity. - Risk/extent of ischemia per ACC Noninvasive Risk StratificationGuideline: LOW RISK. This study was interpreted and electronically signed by Fernando Boyce MD on 04/29/2023 3:12:46 PM. Final David Camacho MD NM from Last 3 Months Care Teams Head Operator Sulfide Relationship Specialty Start Date End Date David Camacho MD [address] [place] [address] PCP - General Family Practice 07/29/22
== END 2023-07-21 10:41 | disposition home or self-care (01) ==
PROVIDERS: PCP Family Medicine; Visit Provider Family Medicine
DX: E78.5 Hyperlipidemia, unspecified (principal); Z13.228 Encounter for screening for other metabolic disorders
CPT/HCPCS: 80053; 80061

== ENCOUNTER 2023-09-15 13:10 | Outpatient (RCR) | payer MEDICARE, SELFPAY ==
--- NOTE | 2023-04-08 12:26 | URNOTE ---
Prior authorization is not required for [facility] ([id number]). Pt has medicare. Services are based on medical necessity and follow medicare guidelines
[2023-04-08 14:05] VITALS: BP 109/62; PULSE 84; RESP 18; TEMP 36; O2SAT 100
[2023-04-08] MEDS: IRON SUCROSE COMPLEX 200 MG in 0.9 % SODIUM CHLORIDE 100 ml 100 ML 440 MG IVPB (14:41)
[2023-04-08 15:00] VITALS: BP 121/82; PULSE 79; RESP 18; TEMP 36.1; O2SAT 98
[2023-04-08 15:32] VITALS: BP 97/65; PULSE 82; RESP 18; TEMP 36.3; O2SAT 99
--- NOTE | 2023-04-10 10:41 | ONC.NURNOTE ---
Pt did not show up for iron infusion appt today. Layer Out Plate Glass left message for pt to call and reschedule.
[2023-04-15 10:22] VITALS: BP 125/73; PULSE 91; RESP 16; TEMP 36.1; O2SAT 100
[2023-04-15] MEDS: 0.9 % SODIUM CHLORIDE 250 ml IV (10:43)
[2023-04-15] MEDS: SODIUM CHLORIDE 0.9 % (FLUSH) 10 ML SYRINGE IVF (10:44)
[2023-04-15] MEDS: IRON SUCROSE COMPLEX 200 MG in 0.9 % SODIUM CHLORIDE 100 ml 100 ML 440 MG IVPB (10:46)
[2023-04-15 11:12] VITALS: BP 120/77; PULSE 84; RESP 18; TEMP 36.9; O2SAT 98
[2023-04-15 11:44] VITALS: BP 126/82; PULSE 79; RESP 16; TEMP 36.3; O2SAT 97
[2023-04-18 11:10] VITALS: BP 119/73; PULSE 97; RESP 16; TEMP 36.6; O2SAT 99
[2023-04-18] MEDS: SODIUM CHLORIDE 0.9 % (FLUSH) 10 ML SYRINGE IVF (11:51)
[2023-04-18] MEDS: 0.9 % SODIUM CHLORIDE 250 ml IV (11:51)
[2023-04-18] MEDS: IRON SUCROSE COMPLEX 200 MG in 0.9 % SODIUM CHLORIDE 100 ml 100 ML 440 MG IVPB (11:51)
[2023-04-18 12:16] VITALS: BP 105/64; PULSE 97; RESP 18; O2SAT 98
[2023-09-08 10:20] LABS: Creatinine* 0.7 mg/dL (0.5-1.5); Est. Creatinine Clearance* 44.31; Estimated Glomerular Filt Rate 94 ml/min
[2023-09-11 14:25] LABS: Albumin* 4.2 g/dL (3.3-5.0); Chloride* 105 mmol/L (96-114); Potassium* 4.1 mmol/L (3.6-5.1); Sodium* 138 mmol/L (135-149)
[2023-09-11 14:27] LABS: Bilirubin Total* 0.8 mg/dL (0.1-1.5); Creatinine* 0.7 mg/dL (0.5-1.5); Est. Creatinine Clearance* 44.31; Estimated Glomerular Filt Rate 94 ml/min
[2023-09-11 14:28] LABS: Alanine Aminotransferase* 15 U/L (4-50); Alkaline Phosphatase* 79 U/L (40-150); Anion Gap 9 mEq/L (7-15); Aspartate Amino Transferase* 23 U/L (12-35); Blood Urea Nitrogen* 13 mg/dL (7-30); Calcium* 9.4 mg/dL (8.4-10.6); Carbon Dioxide* 24 mmol/L (20-32); Glucose* 110 mg/dL (60-115); Total Protein* 7.5 g/dL (6.0-8.3)
[2023-09-13 22:20] LABS: Carcinoembryonic Antigen 3.3 ng/mL
[2023-09-15 13:00] LABS: Basophils Absolute Auto 0.01 K/uL (0.00-0.30); Basophils Percent Auto 0.2 % (0.0-3.0); Eosinophils Absolute Auto 0.22 K/uL (0.00-0.50); Eosinophils Percent Auto 3.7 % (0.0-7.0); Hematocrit 42.6 % (37.0-53.0); Hemoglobin* 13.7 gm/dL (13.5-17.5); Immature Granulocytes Abs Auto 0.01 K/uL (0.00-0.30); Immature Granulocytes Pct Auto 0.2 %; Lymphocytes Absolute Auto 1.56 K/uL (0.90-2.90); Lymphocytes Percent Auto 26.6 % (20-44); Mean Corpuscular HGB Conc 32 gm/dL (32-36); Mean Corpuscular Hemoglobin 27 pg (26-34); Mean Corpuscular Volume 85 fL (80-100); Monocytes Percent Auto 10.1 % (0.0-11.0); Neutrophils Absolute Auto 3.48 K/uL (1.7-7.0); Neutrophils Percent Auto 59.2 % (42.0-72.0); Platelet Count* 261 K/uL (140-440); RDW Coefficient of Variation % 19.7 % (11.5-15.5); Red Blood Count 5.02 m/uL (4.30-5.90); Slide Review Reflex No; White Blood Count* 5.87 K/uL (4.50-11.00)
[2023-09-15 13:15] LABS: Albumin* 4.5 g/dL (3.3-5.0); Chloride* 105 mmol/L (96-114); Potassium* 4.2 mmol/L (3.6-5.1); Sodium* 138 mmol/L (135-149)
[2023-09-15 13:17] LABS: Anion Gap 8 mEq/L (7-15); Carbon Dioxide* 25 mmol/L (20-32); Creatinine* 1.1 mg/dL (0.5-1.5); Est. Creatinine Clearance* 40.28; Estimated Glomerular Filt Rate 68 ml/min
[2023-09-15 13:18] LABS: Alanine Aminotransferase* 17 U/L (4-50); Alkaline Phosphatase* 88 U/L (40-150); Aspartate Amino Transferase* 22 U/L (12-35); Bilirubin Total* 0.5 mg/dL (0.1-1.5); Blood Urea Nitrogen* 29 mg/dL (7-30); Calcium* 9.4 mg/dL (8.4-10.6); Glucose* 119 mg/dL (60-115); Total Protein* 7.9 g/dL (6.0-8.3)
--- NOTE | 2023-12-19 11:35 | ONC.NURNOTE ---
Received call from patient's neighbor/friend that patient doesn't want his scan now or to follow up with oncologist until after the first of the year. Appointment made for patient for early March and CT called and updated with plan and also asked to call patient in February for scheduling.
== END 2023-10-05 23:59 | disposition home or self-care (01) ==
LOC: CCIC 13:10
PROVIDERS: Family Medicine; PCP Family Medicine; Referring Provider Family Medicine; Visit Provider Internal Medicine Hematology & Oncology
DX: D50.9 Iron deficiency anemia, unspecified (principal); C18.9 Malignant neoplasm of colon, unspecified
CPT/HCPCS: 36415; 71260; 74177; 80053; 82378; 82565; 85025; 96365; 96374; 96376; 99202; 99205; 99214; G0463; J1756; J7050; Q9967